=== PATIENT | male | born 1980 | race Caucasian/White ===

== ENCOUNTER 2019-07-20 19:41 | Emergency (ER) | payer SELFPAY ==
[2019-07-20 20:00] VITALS: BP 115/77; PULSE 97; RESP 20; TEMP 37.3; O2SAT 100
[2019-07-20] MEDS: cefTRIAXone 250 MG VIAL IM (20:40)
--- NOTE | 2019-07-20 20:54 | ED.MALEGU ---
HPI - Male Genitourinary General Chief complaint: Urogenital-Male Stated complaint: Possible UTI Time Seen by Provider: 07/20/19 20:54 Source: patient Mode of arrival: ambulatory Limitations: no limitations History of Present Illness HPI Narrative: 39 yo male presents for evaluation of green/yellow penile discharge and dysuria that has been present for 3 days. He is also reporting mild STEINBERG. He states he has had vaginal intercourse with 6 female partners in the past 3 months and over 15 in the past year. Uses condoms sometimes but not regularly. Had gonorrhea in 2016. No medications used recently. Denies any fever, sore throat, lymphadenopathy, rash, confusion, neuro sx, abd pain, testicular pain or swelling, rash or lesions. Related Data Allergies Allergy/AdvReac Type Severity Reaction Status Date / Time No Known Allergies Allergy Verified 07/20/19 20:23 Review of Systems Review of Systems: Narrative: CONSTITUTIONAL: Denies fever, chills, weight loss, or sweats. . ENT: Denies rhinorrhea, congestion, sore throat, or otalgia. CARDIOVASCULAR: Denies chest pain, palpitations, or edema. RESPIRATORY: Denies cough or dyspnea. GASTROINTESTINAL: Denies abdominal pain, nausea, vomiting, or diarrhea. GENITOURINARY: Denies hematuria, urinary frequency, malordous urine. Reports dysuria and penile discharge SKIN: Denies rash or itching. MUSCULOSKELETAL: Denies back pain, joint pain, myalgia, swelling NEUROLOGIC: Denies headache, numbness, or weakness. PSYCHIATRIC: Denies anxiety or depression. All systems reviewed & are unremarkable except as noted in HPI and below PMFSH Comments At the time of my signature, I agree with nursing past medical, surgical, social and family history. There is no relevant family history pertinent to the presenting complaint. Exam Narrative: Exam Narrative: GENERAL: No distress, well appearing, well nourished, alert and calm HEAD: Normocephalic, atraumatic. THROAT: Oropharynx without signs erythema, exudates or lesions. Tonsils not enlarged. NECK: Supple. No lymphadenopathy. RESPIRATORY: Airway patent. Chest clear to auscultation bilaterally. Breath sounds equal bilaterally. No retractions. CARDIOVASCULAR: Regular rate and rhythm. No murmurs, rubs, gallops, or clicks. Capillary refill <2 seconds. GASTROINTESTINAL: Soft, nontender, non-distended. Bowel sounds normoactive. No masses. No organomegaly. : normal male anatomy with normal growth of pubic hair. Thick yellow penile discharge noted at urethral meatus. No testicular pain or swelling noted on exam. No lesions. Bilateral inguinal lymphadenopathy noted that is nontender and mobile. SKIN: Color normal. Warm and dry. No rashes. NEURO: Alert. Motor intact in all extremities. Muscle tone normal. PSYCHIATRIC: Responds appropriately to providers. Course Course Emergency Course: Sent urine specimen off for UA, urine culture, GC, and trich testing Vital Signs Vital signs: Vital Signs Temperature 99.1 F 07/20/19 20:00 Pulse Rate 97 07/20/19 20:00 Respiratory Rate 20 07/20/19 20:00 Blood Pressure 115/77 07/20/19 20:00 Pulse Oximetry 100 07/20/19 20:00 Temperature 99.1 F 07/20/19 20:00 Pulse Rate 97 07/20/19 20:00 Respiratory Rate 20 07/20/19 20:00 Blood Pressure 115/77 07/20/19 20:00 Pulse Oximetry 100 07/20/19 20:00 Reviewed MDM - Male Genitourinary MDM Narrative Medical decision making narrative: Patient is in no acute distress and is non toxic appearing. Patients symptoms consistent with an STI infection, likely gonorrhea. Will treat for gonorrhea, chalymida, and trichimonas. Eductation given on condition and safer sexual practices. Instructed patient to follow up with [facility] for further testing of STI. Patient is appropriate for outpatient management, treatment, and follow up with PCP. Patient is aware of diagnosis, understands and agrees to treatment plan. Patient agrees to follow-up as directed and is aware of reasons to s
== END 2019-07-20 21:15 | disposition home or self-care (01) ==
PROVIDERS: Emergency Provider Nurse Practitioner
DX: A64 Unspecified sexually transmitted disease (principal)
CPT/HCPCS: 81003; 87086; 87491; 87591; 87661; 99213; G0463; J0696

== ENCOUNTER 2025-05-25 11:54 | Emergency (ER) | payer SELFPAY ==
--- OUTSIDE RECORDS SUMMARY | 2025-05-23 18:21 | XMS_ITS | Encounter Summary ---
Author Organization [facility] Healthcare Address [address] [place] [id number] Care Team Providers Care Bull Bucker Name Role Phone No, Physician Primary Care Provider [phone] Miscellaneous, Not In File Unavailable Unava ilable Reason for Visit * Reason Comments Vomiting Encounter Details Date Type Department Care Team (Late st Contact Info) Description 05/23/2025 6:21 PM LOCK MASTER - 05/24/2025 8:14 AM [facility] Emergency [facility] Emergency Department [address] [place] [address] Coreen Ramon MD [address] [place] [address] Quintin Almaraz MD [address] [place] [address] Constipation, unspecified constipation type (Primary Dx) Discharge Disposition: Discharge to home or self care Social History Tobacco Use Types Packs/Day Years Used Date Smoking Tobacco: Every Day Cigarettes Alcohol Use Standard Drinks/Week Comments Never 0 (1 standard drink = 0.6 oz pur e alcohol) Social Connection and Isolation Panel Answer Date Recorded In a typical week, how many times do you talk on the phone with family, friends, or neighbors? Patient declined 04/25/2024 How often do you get togethe r with friends or relatives? Patient declined 04/25/2024 How often do you attend pentecostalism or jain serv ices? Patient declined 04/25/2024 Do you belong to any clubs o r organizations such as pentecostalism groups, unions, fraternal or athletic groups, or school groups? Patient declined 04/25/2024 How often do you attend meet ings of the clubs or organizations you belong to? Patient declined 04/25/2024 Are you , , di vorced, , never , or living with a partner? Never 04/25/2024 Overall Financial Resource Strain (CARDIA) Answe r Date Recorded How hard is it for you to pa y for the very basics like food, housing, medical care, and heating? Hard 04/25/2024 PHQ-2 Answer Date Recorded PHQ-2 Total Score 0 05/01/2025 PRAPARE - Transportation Answer Date Re corded In the past 12 months, has l ack of transportation kept you from medical appointments or from getting medications? Yes 03/30 In the past 12 months, has l ack of transportation kept you from meetings, work, or from getting things needed for daily living? Yes 04/25/2024 Housing Stability Vital Sign Answer Mg e Recorded In the last 12 months, was t here a time when you were not able to pay the mortgage or rent on time? Yes 04/25/2024 Number of Times Moved in the Last Year Not on fi le 04/25/2024 At any time in the past 12 m [facility], were you homeless or living in a nursing home (including now)? Yes 04/25/2024 Social Connection and Isolation Panel Answer Date Recorded In a typical week, how many times do you talk on the phone with family, friends, or neighbors? More than three times a week 05/01/2025 How often do you get togethe r with friends or relatives? More than three times a week 05/01/2025 How often do you attend chur ch or jain services? Never 05/01/2025 Do you belong to any clubs o r organizations such as pentecostalism groups, unions, fraternal or athletic groups, or school groups? No 05/01/2025 How often do you attend meet ings of the clubs or organizations you belong to? Never 05/01/2025 Are you , , di vorced, , never , or living with a partner? Never 05/01/2025 AUDIT-C Answer Date Recorded Q1: How often do you have a drink containing alcohol? Never 04/01/2025 Q2: How many drinks containi ng alcohol do you have on a typical day when you are drinking? Patient does not drink Q3: How often do you have si x or more drinks on one occasion? Never 04/01/2025 Overall Financial Resource Strain (CARDIA) Answe r Date Recorded How hard is it for you to pa y for the very basics like food, housing, medical care, and heating? Very hard 05/01/2025 Hunger Vital Sign Answer Date Recorded Within the past 12 months, y ou worried that your food would run out before you got the money to buy more. Sometimes true Within the past 12 months, t he food you bought just didn't last and you didn't have money to get more. Sometimes true 08/2024 PRAPARE - Transportation Answer Date Re corded In the past 12 months, has l ack of transportation kept you from medical appointments or from getting medications? Yes 08/2024 In the past 12 months, has l ack of transportation kept you from meetings, work, or from getting things needed for daily living? Yes 05/01/2025 Housing Stability Vital Sign Answer Mg e Recorded In the last 12 months, was t here a time when you were not able to pay the mortgage or rent on time? Yes 05/01/2025 In the past 12 months, how m any times have you moved where you were living? 0 05/01/2025 At any time in the past 12 m [facility], were you homeless or living in a nursing home (including now)? Yes 05/01/2025 [facility] Utilities Answer Date Recorded In the past 12 months has e electric, gas, oil, or water company threatened to shut off services in your home? No 05/01/2025 Personal Safety Answer Date Recorded Have you ever been in or are you currently in a harmful physical or emotional relationship or is someone making you feel afraid or unsafe? Denies 05/23/2025 Sex and Gender Information Value Date Recorded Sex Assigned at Not on file Legal Sex Male 3:03 AM LOCK MASTER Gender Identity Not on file Sexual Orientation Not on file documented as of this encounter Last Filed Vital Signs Vital Sign Reading Time Taken Comments Blood Pressure 97/69 05/23/2025 10:15 PM LOCK MASTER Pulse 75 05/23/2025 10:30 PM LOCK MASTER Temperature 36.6 C (97.9 F) 05/23/2025 5:49 PM LOCK MASTER Respiratory Rate 18 05/23/2025 8:05 PM LOCK MASTER Oxygen Saturation 97% 05/23/2025 10:30 PM LOCK MASTER Inhaled Oxygen Concentration - - Weight - - Height - - Body Mass Index - - documented in this encounter Functional Status * Question Answer Date of Assessment Author MAP (mmHg) 79 05/23/2025 10:15 PM LOCK MASTER Done Monse manuel RN * Question Answer Date of Assessment Author Is the patient being treated today because it is known or suspected that they prepared, started, or tried to end their life? No 05/23/2025 5:44 PM LOCK MASTER Heydi Hernández , HOANG * Question Answer Date of Assessment Author 1. In the past month, have y ou wished you were or that you could go to sleep and not wake up? No 05/23/2025 5:44 PM Heydi Cam RN 2. In the past month, have y ou actually had any thoughts of killing yourself? No 05/23/2025 5:44 PM Heydi Cam RN 6. Have you ever done anythi ng, started to do anything, or prepared to do anything to end your life? No 05/23/2025 5:44 PM Heydi Cam RN * Suicide Risk Level Answer Date of Assessment Author No risk level 05/23/2025 5:44 PM Gisele Cam RN * Fall Risk Assessment Tool - MEDFRAT Question Answer Date of Assessment Author Prior Fall Event (Autopopulated from EMR) None found 05/23/2025 5:48 PM Pipap Cam RN History of falling in last 3 months, including since admission 0 05/23/2025 5:48 PM Heydi Cam RN Confusion or disorientation 0 05/23/2025 5: 48 PM Heydi Cam RN Intoxicated or sedated 0 05/23/2025 5:48 PM Heydi Cam RN Impaired gait 0 05/23/2025 5:48 PM Heydi Nagel RN Mobility assist device used 0 05/23/2025 5: 48 PM Heydi Cam RN Altered elimination 0 05/23/2025 5:48 PM CS T Heydi Hernández, HOANG Fall risk score: (1-2 low risk), (3-4 moderate risk), (5 or more high risk) 0 05/23/2025 5:48 PM LOCK MASTER Heydi Hernández RN documented as of this encounter Mental Status * Question Answer Entry Date Author Neuro (WDChloe) WDL 05/23/2025 6:39 PM LOCK MASTER Yuridia Plaza RN documented in this encounter Discharge Instructions * Discharge Instructions* Coreen Ramon MD - 05/24/2025 5:59 [address] Your CT scan showed that you are constipated. Try to eat more fiber, drink more water or take MiraLax daily until regular. Return if worse, increased pain, unable to eat or drink anything, fever or chills. MASTER * Attachments The following attachments cannot be sent through Care Everywhere. 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 1458 capsule 05/09/2025 6 naloxone (NARCAN) 4 mg/actuation spray,non-aerosolIn dications:risk mitigation for opioid overdose Administer 1 spray into affected nostril(s) as needed for opioid reversal Call 911. Administer a single spray in one nostril. Repeat every 3 minutes as needed if no or minimal response. 2 each 05/15/2025 nicotine (NICODERM CQ) 14 mgIndications:Smoki ng Cessation Place 1 patch on the skin daily for 24 hours 30 patch 05/16/2025 5 nicotine polacrilex (NICORETTE) 2 mg gum Chew 1 each (2 mg total) every 2 (two) hours as needed for smoking cessation 100 each 05/15/2025 5 sofosbuvir-velpatas vir (EPCLUSA) 400-100 mg tablet per tabletIndications:C hronic hepatitis C without hepatic coma Take 1 tablet by mouth daily 28 tablet 2 05/09/2025 6 documented as of this encounter Discharge Disposition Disposition Code Departure Means Destination Comment s Discharge to home or self care documented in this encounter ED Notes * Liu Baeza NP - 05/23/2025 5:54 PM CST CHIEF COMPLAINT: Chief Complaint Patient presents with ??? Vomiting HPI 11:16 PM Nolan Zaldivar is a 45 y.o. male presenting to the ED c/o nausea and vomiting. History that is he [facility], from last 3 weeks he has been has been nausea, intermittent vomiting, abdominal pain, generalized weakness, fatigue that is progressively getting worse.He denies any diarrhea, he said that he actually has been constipated. Denies any fever. Denies anychest pain, shortness of breath. Denies any urinary discomfort. Denies other complaint. History provided by patient. PCP: No, Physician PAST MEDICAL HISTORY Past Medical History: Diagnosis Date ??? Hallucinations 05/03/2025 ??? Human immunodeficiency virus (HIV) disease (HCC) HIV Infection - HLA [id number] (-) (Added by SARAHY Conv) PAST SURGICAL HISTORY Past Surgical History: Procedure Laterality Date ??? US GUIDED THORACENTESIS N/A 05/02/2024 FAMILY HISTORY No family history on file. MEDICATIONS GIVEN IN THE ED Medications magnesium citrate oral solution 296 mL (has no administration in time range) polyethylene glycol (MIRALAX) packet 17 g (has no administration in time range) ondansetron (ZOFRAN) injection 4 mg (4 mg intravenous Given 05/23/251845) sodium chloride 0.9% bolus 1,000 mL (0 mL intravenous Stopped 05/23/252004) famotidine (PEPCID) injection 20 mg (20 mg intravenous Given 05/23/251845) ioversoL (OPTIRAY 350) syringe 75 mL (75 mL intravenous Contrast Given 05/23/251948) CURRENT HOME MEDICATIONS Current Facility-Administered Medications: ??? magnesium citrate oral solution 296 mL, 296 mL, oral, Once, Liu Baeza, JULIA ??? polyethylene glycol (MIRALAX) packet 17 g, 17 g, oral, Once, Liu Baeza, JULIA Current Outpatient Medications: ??? albuterol HFA (PROVENTIL HFA,VENTOLIN HFA,PROAIR HFA) 90 mcg/actuation inhaler, Inhale 2 puffs every 6 (six) hours as needed for wheezing, Disp: 1 each, Rfl: 0 ??? dthbhcxycpz-ozzaksxdddfxn-taqroeida (BIKTARVY) 50-200-25 mg tablet, Take 1 tablet by mouth daily, Disp: 30 tablet, Rfl: 11 ??? buprenorphine-naloxone (SUBOXONE) 8-2 mg per film, Place 1 Film under the tongue 3 times a day,Disp: 21 Film, Rfl: 0 ??? dapsone 100 mg tablet, Take 1 tablet (100 mg total) by mouth daily, Disp: 30 tablet, Rfl: 0 ??? itraconazole (SPORANOX) 100 mg capsule, Take 2 capsules (200 mg total) by mouth 3 (three) timesa day for 3 days, THEN 2 capsules (200 mg total) 2 (two) times a day., Disp: 1458 capsule, Rfl: 0 ??? naloxone (NARCAN) 4 mg/actuation spray,non-aerosol, Administer 1 spray into affected nostril(s)as needed for opioid reversal Call 911. Administer a single spray in one nostril. Repeat every 3 minutes as needed if no or minimal response., Disp: 2 each, Rfl: 0 ??? nicotine (NICODERM CQ) 14 mg, Place 1 patch on the skin daily for 24 hours, Disp: 30 patch, Rfl: 0 ??? nicotine polacrilex (NICORETTE) 2 mg gum, Chew 1 each (2 mg total) every 2 (two) hours as needed for smoking cessation, Disp: 100 each, Rfl: 0 ??? sofosbuvir-velpatasvir (EPCLUSA) 400-100 mg tablet per tablet, Take 1 tablet by mouth daily, Disp: 28 tablet, Rfl: 2 ALLERGIES No Known Allergies SOCIAL HISTORY Social History Tobacco Use ??? Smoking status: Every Day Types: Cigarettes ??? Smokeless tobacco: Not on file Substance and Sexual Activity ??? Drug use: Not on file ??? Sexual activity: Not on file Alcohol Use: Not At Risk (04/01/2025) AUDIT-C ??? Frequency of Alcohol Consumption: Never ??? Average Number of Drinks: Patient does not drink ??? Frequency of Binge Drinking: Never PHYSICAL EXAM TRIAGE VITAL SIGNS: ED Triage Vitals Temp Pulse Resp BP SpO2 05/23/25 1749 05/23/25 1747 05/23/25 1747 05/23/25 1747 05/23/25 1747 36.6 ??C (97.9 ??F) 93 20 101/72 96 % Temp src Heart Rate Source Patient Position BP Location FiO2 (%) -- -- -- -- -- Height Height Method Weight Weight Method -- -- -- -- Physical Exam Vitals and nursing note reviewed. Constitutional: General: He is not in acute distress. Appearance: Normal appearance. He is well-developed. He is not ill-appearing, toxic-appearing or diaphoretic. HENT: Head: Normocephalic and atraumatic. Jaw: There is normal jaw occlusion. Right Ear: Hearing and external ear normal. Left Ear: Hearing and external ear normal. Nose: Nose normal. Mouth/Throat: Mouth: Mucous membranes are dry. Eyes: General: Lids are normal. Vision grossly intact. Conjunctiva/sclera: Conjunctivae normal. Neck: Trachea: Trachea and phonation normal. Cardiovascular: Rate and Rhythm: Normal rate and regular rhythm. Pulses: Normal pulses. Radial pulses are 2+ on the right side and 2+ on the left side. Heart sounds: No murmur heard. Pulmonary: Effort: Pulmonary effort is normal. No respiratory distress. Breath sounds: Normal breath sounds and air entry. Abdominal: Palpations: Abdomen is soft. Tenderness: There is generalized abdominal tenderness. Musculoskeletal: General: No swelling. Cervical back: Full passive range of motion without pain, normal range of motion and neck supple. Right lower leg: No edema. Left lower leg: No edema. Skin: General: Skin is warm and dry. Capillary Refill: Capillary refill takes less than 2 seconds. Neurological: General: No focal deficit present. Mental Status: He is alert and oriented to person, place, and time. GCS: GCS eye subscore is 4. GCS verbal subscore is 5. GCS motor subscore is 6. Psychiatric: Mood and Affect: Mood normal. Behavior: Behavior is cooperative. LABS Labs Reviewed URINALYSIS AND REFLEX TO MICROSCOPIC AND CULTURE - Abnormal Result Value Color, ur Yellow Clarity, ur Clear Specific gravity, ur 1.041 (*) pH, urine 7.5 Protein, ur ql Negative Glucose, ur ql Negative Ketones, ur Negative Bilirubin, ur Negative Blood, ur Negative Urobilinogen, ur <2.0 Nitrite, ur Negative Leukocyte esterase, ur Negative UA reflex comment Value: Reflex conditions for microscopic UA and culture not met. COMPREHENSIVE METABOLIC PANEL - Abnormal Sodium 132 (*) Potassium, pl 4.4 Chloride 96 (*) CO2 27 Anion gap 9 BUN 14 Creatinine 0.77 (*) Glucose 102 Calcium 8.8 Bilirubin, total 0.4 Protein, pl 7.3 Albumin 3.7 Alk phos 186 (*) ALT 31 AST 40 CBC WITH AUTO DIFFERENTIAL - Abnormal WBC 5.96 Hgb 8.2 (*) Hct 24.4 (*) Plt 229 MPV 8.1 (*) RBC 2.76 (*) MCV 88.4 MCH 29.7 MCHC 33.6 RDW CV 18.9 (*) RDW SD 59.5 (*) NRBC abs 0.00 DIFFERENTIAL AUTO - Abnormal Neutrophil abs 3.73 Imm gran abs 0.13 (*) Lymphocyte abs 1.05 Monocyte abs 0.80 Eosinophil abs 0.17 Basophil abs 0.08 Neutrophil pct 62.6 Imm gran pct 2.2 Lymphocyte pct 17.6 Monocyte pct 13.4 Eosinophil pct 2.9 Basophil pct 1.3 INFLUENZA A/B, RSV, AND COVID-19 PCR COVID-19 RNA Negative Influenza A RNA Negative Influenza B RNA Negative RSV RNA Negative Narrative: Is the Patient experiencing symptoms consistent with COVID?->Yes DRUGS OF ABUSE SCREEN, URINE WITHOUT CONFIRMATION Amphetamine, ur Not Detected Barbiturates, ur Not Detected Benzodiazepines, ur Not Detected Cannabinoids, ur Not Detected Cocaine, ur Not Detected Fentanyl, Ur Not Detected Methadone, ur Not Detected Opiates, ur Not Detected Oxycodone, ur NOT DETECTED Phencyclidine, ur Not Detected Urine Creatinine 43 Narrative: Drug of Abuse screening is performed by immunoassay for medical purposes only. This is not to be used for Pain Management purposes. LIPASE Lipase 39 EGFR eGFR >90 LIPASE RADIOLOGY XR Chest 1 View Result Date: 05/02/2025 Narrative: EXAMINATION: 1 view chest radiograph COMPARISON: Radiograph 04/26/[address] 04/27/2025 Impression: Lungs are clear. No pneumonia or other pulmonary disease identified. Small nodular opacity projecting in the right midlung likely represents a nipple shadow. Stable cardiomediastinal silhouette. No pleural effusion or pneumothorax. Electronically signed by: Teo Cuellar M.D. US RUQ Result Date: 04/27/2025 Narrative: EXAMINATION: US RUQ HISTORY: elevated liver enzymes. TECHNIQUE: Ultrasound of the right upper quadrant of the abdomen was performed with grayscale and color doppler. COMPARISON: CT dated 04/27/2025 FINDINGS: PANCREAS: Visualized portions of the pancreas are within normal limits. Portionsof the pancreatic body and tail are obscured due to bowel gas. LIVER: The liver is enlarged measuring 19.7 cm. The liver appears normal in echotexture and echogenicity. No focal lesion identified. The main portal vein is patent with antegrade flow. GALLBLADDER: The gallbladder appears unremarkable.No cholelithiasis. No gallbladder wall thickening or pericholecystic fluid. No positive sonographicMurphy's sign reported. BILIARY: There is no intrahepatic or extrahepatic biliary ductal dilatation. Common bile duct measures 0.3 cm cm in diameter. RIGHT KIDNEY: Normal size. Normal echogenicity. No solid mass or cyst. No hydronephrosis. Measures 11.9 cm in length. OTHER: Trace ascites. Small right pleural effusion Impression: Hepatomegaly Trace ascites Trace right pleural effusion Unremarkable gallbladder Electronically signed by: Eddie Rosado M.D. CT Chest Abdomen Pelvis WO Contrast Result Date: 04/27/2025 Narrative: EXAMINATION: CT CHEST ABDOMEN PELVIS WO CONTRAST ORDERING HEALTHCARE PROVIDER: NIKKI SALGADO HISTORY: sepsis TECHNIQUE: CT of the chest, abdomen, and pelvis was performed without IV contrast. Oral contrast was not administered. Automated exposure control was used as a dose optimization technique for this examination. COMPARISON: CT chest 04/20/2025; CT chest abdomen pelvis 04/24/2024 FINDINGS: The sensitivity for detection of visceral lesions is diminished without the use of intravenous contrast. CHEST LUNGS: Mild respiratory motion artifact degrades the evaluation. There is a small right and trace left pleural effusion. There is no pneumothorax. There are innumerable tiny micronodules scattered throughout both lungs, predominantly in the right central lung zone. There isunchanged 3 mm nodule in the right upper lobe on image 42. There is an unchanged 4 mm solid nodule in the right middle lobe on image 64. A curvilinear opacity in the left upper lobe near image 40 appears grossly unchanged. This could represent an area of mucous plugging and postobstructive atelectasis. In the right middle lobe there is an additional curvilinear opacity anteriorly near the diaphragm which could represent atelectasis or pneumonia. HEART: Normal heart size without pericardial effusion. There is low-attenuation of the intravascular blood pool which can be seen in setting of anemia. VASCULATURE: No thoracic aortic aneurysm. MEDIASTINUM/AXILLA: No mediastinal mass or enlarged lymph nodes. There are multiple prominent left axillary lymph nodes which appear unchanged. CHEST WALL:No masses. HARDWARE/LINES/TUBES: None. MUSCULOSKELETAL: No suspicious osseous lesions. ABDOMEN/PELVIS LIVER: Unremarkable. No suspicious lesion. GALLBLADDER: Unremarkable. SPLEEN: Enlarged measuring 13.7 cm in craniocaudad dimension. PANCREAS: Unremarkable. No obvious mass or inflammatory change. No duct dilatation. ADRENALS: Normal. KIDNEYS/URINARY TRACT: No stones. No obvious renal lesions. No hydronephrosis or hydroureter. Urinary bladder is unremarkable. GI: No dilated or thick-walled loopsof bowel appreciated. No sign of appendicitis. Large amount stool throughout the colon. PERITONEUM/RETROPERITONEUM/LYMPH NODES: There is a small amount of free fluid in the pelvis. No pneumoperitoneum. REPRODUCTIVE: Unremarkable. VASCULATURE: No abdominal aortic aneurysm. MUSCULOSKELETAL: No suspicious osseous lesions. OTHER: No other acute findings. Impression: 1. New small bilateral pleural effusions. 2. Nonspecific atypical infectious or inflammatory process with bilateral pulmonary micronodules and curvilinear opacities in the right middle and left upper lobes. Recommend follow-up in 3 months. 3. Unchanged 3 mm and 4 mm solid pulmonary nodules in the right upper and right middle lobes. 4. Small amount of free fluid in the pelvis, abnormalin a male. 5. Splenomegaly. 6. Multiple prominent but nonenlarged left axillary lymph nodes. Electronically signed by: John Costello MD XR CHEST 1 VIEW PORTABLE Addendum Date: 04/26/2025 Addendum: In the findings section, there is a voice recognition error. The correct statement shouldstate: there is no definite evidence of a pneumothorax. Electronically signed by: Elisa Aguirre D.O. Result Date: 04/26/2025 Narrative: STUDY DESCRIPTION: XR CHEST 1 VIEW ORDERING HEALTHCARE PROVIDER: HO LUNA CLINICAL INDICATIONS: persistent fevers, cough. Persistent fevers and cough. COMPARISON: 04/19/2025 TECHNIQUE: Single frontal radiograph of the chest. FINDINGS: The heart size is stable. The pulmonary vasculature and mediastinum are grossly stable. There is definite evidence of a pneumothorax. There are patchy right basilar airspace opacities. There is no definite evidence of a pleural effusion. The osseous structures are acutely grossly stable. Impression: 1. Patchy bibasilar airspace opacities, which is concerning for developing airspace disease. Electronically signed by: Elisa Aguirre D.O. Transthoracic Echo (TTE) Complete W Doppler/CF Result Date: 04/24/2025 Narrative: [address] [address] Echocardiogram Report Patient Name: NOLAN ZALDIVAR : 1980 Study Date: 53:15:23 PM Sex: M Tech: Location: [place] [address] Ref Provider: NAYA SANDERSON Height(Cm): BSA: Weight(Kg): Quality: Good Order Provider: NAYA SANDERSON PROCEDURES: Echocardiographic Report: Transthoracic echocardiogram with complete 2D, M-Mode, and color Doppler examination. INDICATIONS: Hypotension. MEASUREMENTS: 2D/MM Value Range Doppler Value Range EF Teich 2D 63.1 % [ 52.0 - 72.0 ] JOSEPH Vmax 3.02 cm2 EFMod BP 65 % [ 52 - 72 ] AV Mean PG 7 mmHg LVIDd 2D 4.52 cm [ 4.20 - 5.80 ] AV Peak Matthew 1.69 m/s [ 1.00 - 1.70 ] LVIDs 2D 2.98 cm [ 2.50 - 4.00 ] AV VTI 28.53 cm LVPWd 2D 1.06 cm [ 0.60 - 1.00 ] LVOTDiam 2.13 cm IVSd 2D 0.99 cm [ 0.60 - 1.00 ] LVOT Peak Matthew 1.44 m/s [ 0.70 - 1.10 ] LA Dimension MM 4.06 cm [ 3.00 - 4.00 ] LVOT VTI 23.41 cm AoR Diam MM 3.23 cm [ 3.10 - 3.70 ] MV E Peak Matthew 0.96 m/s [ 0.60 - 1.30 ] ACS MM 2.12 cm [ 1.50 - 2.60 ] MV A Peak Matthew 0.64 m/s [ 1.00 - 1.20 ] MV Mean PG3 mmHg MV PHT 40 msec [ 20 - 100 ] MVA 3.40 MV Decel Time 138 msec [ 104 - 258 ] PV Peak Matthew 1.23 m/s [ 0.40 - 0.80 ] MO Peak Matthew 0.97 m/s TR Peak Matthew 1.89 m/s [ 1.00 - 2.80 ] TR Peak PG 14 mmHg RVSP 19.00 mmHg [ 10.00 - 36.00 ] E` 0.10 m/s E/E` 9.97 [ <= 10.00 ] PA Pressure 5.00 mmHg [ 10.00 -36.00 ] 2D/MM Value Range Doppler Value Range - FINDINGS: Atrial Septum: Normal atrial septum. Left Ventricle: Normal left ventricular systolic function with no focal wall motion abnormalities. Normal left ventricular size. Normal left ventricular wall thickness. Normal leftventricular diastolic function. Ejection fraction is measured at 65 %. Left Atrium: There is mild enlargement of left atrium. Right Ventricle: Normal right ventricular size. Normal right ventricular systolic function. Right Atrium: The right atrium is normal in size. Aortic Valve: Normal structure of the aortic valve. Mitral Valve: Normal structure of the mitral valve. Pulmonic Valve: Pulmonic valve not well visualized. Tricuspid Valve: Normal structure of the tricuspid valve. Right VentricularSystolic Pressure could not be estimated due to inadequate visualization of TR jet. Pericardium: Normal pericardium with no significant pericardial effusion. Aorta: Normal aortic root. Sinus of Valsalva is normal. Aortic arch is normal. Descending aorta is normal. IVC: Normal size and normal respiratory collapse consistent with normal right atrial pressure (<5 mmHg). CON CLUSIONS: Normal left ventricular systolic function with no focal wall motion abnormalities. Normalleft ventricular size. Normal left ventricular wall thickness. Normal left ventricular diastolic function. Ejection fraction is measured at 65 %. Normal right ventricular size. Normal right ventricular systolic function. Normal structure of the mitral valve. Normal structure of the aortic valve. Normal structure of the tricuspid valve. Right Ventricular Systolic Pressure could not be estimated due to inadequate visualization of TR jet. 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 From last 2-3 weeks he has been feeling nausea did not all the time, has been intermittent vomiting, constipated, abdominal pain, generalized weakness, fatigue that is progressively getting worse. By: Liu Baeza NP Time: 05/23 1758 Comment: On exam he does not appear to be in distress, vitals unremarkable, lung sounds are clear, does have diffuse tenderness on palpitation. By: Liu Baeza NP Time: 05/23 1832 Comment: Labs are grossly unremarkable. CBC has a chronic anemia, hemoglobin at baseline, CMP showsmild hyponatremia, By: Liu Baeza NP Time: 05/23 2221 Comment: CT abdomen pelvis does not show any acute finding, does show constipation. By: Liu Baeza NP Time: 05/23 264 Comment: I spoke with the Evangelina at warm handoff she suggested that is less keep the patient in theED overnight and she will come and lemon picker the patient from ED and dropped him to rehab place. I spoke with the patient, he is agreeable to this. By: Liu Baeza NP Time: 05/24 2121 Comment: Dr. Almaraz will assume care of the patient at shift change. By: Coreen Ramon MD Procedures FINAL IMPRESSION Constipation, unspecified constipation type DISPOSITION: Home PATIENT INSTRUCTED TO FOLLOW UP No follow-up provider specified. DISCHARGE MEDICATIONS Your medication list ASK your doctor about these medications Instructions Last Dose Given Next Dose Due albuterol HFA 90 mcg/actuation inhaler Commonly known as: PROVENTIL HFA,VENTOLIN HFA,PROAIR HFA 2 puffs, inhalation, Every 6 hours PRN vuraojllvnu-simuhsqofzbpc-rjpvyljof 50-200-25 mg tablet Doctor's comments: Bring to bedside prior to discharge ~05/15 Commonly known as: BIKTARVY 1 tablet, oral, Daily buprenorphine-naloxone 8-2 mg per film Commonly known as: SUBOXONE 1 Film, sublingual, 3 times daily dapsone 100 mg tablet 100 mg, oral, Daily itraconazole 100 mg capsule Doctor's comments: Bring to bedside prior to discharge ~05/15 Commonly known as: SPORANOX Start taking on: May 09, 2025 Take 2 capsules (200 mg total) by mouth 3 (three) times a day for 3 days, THEN 2 capsules (200 mg total) 2 (two) times a day. naloxone 4 mg/actuation spray,non-aerosol Commonly known as: NARCAN 1 spray, nasal, As needed, Call 911. Administer a single spray in one nostril. Repeat every 3 minutes as needed if no or minimal response. nicotine 14 mg Commonly known as: NICODERM CQ 1 patch, transdermal, Daily nicotine polacrilex 2 mg gum Commonly known as: NICORETTE 2 mg, mouth/throat, Every 2 hours PRN sofosbuvir-velpatasvir 400-100 mg tablet per tablet Doctor's comments: Bring to bedside prior to discharge ~05/15 Commonly known as: EPCLUSA 1 tablet, oral, Daily This examination was transcribed using the [employer] voice recognition system without human branch service leader. In an effort to expedite patient care, this report has not been adjusted for typographical, grammatical, and syntax by a trained medical lab tech instructor. Liu Baeza NP 05/23/25 5038 MASTER * Heydi Hernández RN - 05/23/2025 5:45 PM CST Pt to triage for vomiting for 3 weeks. Pt states he has been in rehab for drug abuse. Pt states he has been clean from meth and fentanyl since 04/19. MASTER documented in this encounter Miscellaneous Notes * ED Re-evaluation Note - Quintin Almaraz MD - 05/24/2025 7:10 AM LOCK MASTER ED Re-evaluation Patient is stable for discharge. Labs Reviewed URINALYSIS AND REFLEX TO MICROSCOPIC AND CULTURE - Abnormal Result Value Color, ur Yellow Clarity, ur Clear Specific gravity, ur 1.041 (*) pH, urine 7.5 Protein, ur ql Negative Glucose, ur ql Negative Ketones, ur Negative Bilirubin, ur Negative Blood, ur Negative Urobilinogen, ur <2.0 Nitrite, ur Negative Leukocyte esterase, ur Negative UA reflex comment Value: Reflex conditions for microscopic UA and culture not met. COMPREHENSIVE METABOLIC PANEL - Abnormal Sodium 132 (*) Potassium, pl 4.4 Chloride 96 (*) CO2 27 Anion gap 9 BUN 14 Creatinine 0.77 (*) Glucose 102 Calcium 8.8 Bilirubin, total 0.4 Protein, pl 7.3 Albumin 3.7 Alk phos 186 (*) ALT 31 AST 40 CBC WITH AUTO DIFFERENTIAL - Abnormal WBC 5.96 Hgb 8.2 (*) Hct 24.4 (*) Plt 229 MPV 8.1 (*) RBC 2.76 (*) MCV 88.4 MCH 29.7 MCHC 33.6 RDW CV 18.9 (*) RDW SD 59.5 (*) NRBC abs 0.00 DIFFERENTIAL AUTO - Abnormal Neutrophil abs 3.73 Imm gran abs 0.13 (*) Lymphocyte abs 1.05 Monocyte abs 0.80 Eosinophil abs 0.17 Basophil abs 0.08 Neutrophil pct 62.6 Imm gran pct 2.2 Lymphocyte pct 17.6 Monocyte pct 13.4 Eosinophil pct 2.9 Basophil pct 1.3 INFLUENZA A/B, RSV, AND COVID-19 PCR COVID-19 RNA Negative Influenza A RNA Negative Influenza B RNA Negative RSV RNA Negative Narrative: Is the Patient experiencing symptoms consistent with COVID?->Yes DRUGS OF ABUSE SCREEN, URINE WITHOUT CONFIRMATION Amphetamine, ur Not Detected Barbiturates, ur Not Detected Benzodiazepines, ur Not Detected Cannabinoids, ur Not Detected Cocaine, ur Not Detected Fentanyl, Ur Not Detected Methadone, ur Not Detected Opiates, ur Not Detected Oxycodone, ur NOT DETECTED Phencyclidine, ur Not Detected Urine Creatinine 43 Narrative: Drug of Abuse screening is performed by immunoassay for medical purposes only. This is not to be used for Pain Management purposes. LIPASE Lipase 39 EGFR eGFR >[address] Abdomen Pelvis W Contrast Final Result 1. No acute inflammatory change of the abdomen and pelvis. No bowel obstruction or inflammatory change of bowel. 2. There is fairly prominent stool seen throughout the entire colon with no obstruction. Electronically signed by: Rehan Love Thomas S., MD 05/24/25 0711 MASTER * ED Re-evaluation Note - Coreen Ramon MD - 05/24/2025 2:01 AM CST ED Re-evaluation Assumed care of patient from [facility]. 45 y/o M with abdominal pain. Work up showed constipation here and he received mag citrate here. Last use 3 weeks. No SI/HI Evangelina will pick him up in the am and bring him back to [place]. Hx of fentanyl, meth abuse. [facility] Vitals: 05/23/25 2215 05/23/25 2220 05/23/25 2225 05/23/25 2230 BP: 97/69 Pulse: 76 76 77 75 Resp: Temp: SpO2: 99% 97% 97% 97% PE: NAD, no resp distress Results for orders placed or performed during the hospital encounter of 05/23/25 Comprehensive metabolic panel Collection Time: 05/23/25 5:56 PM Result Value Ref Range Sodium 132 (L) 135 - 145 mmol/L Potassium, pl 4.4 3.3 - 4.9 mmol/L Chloride 96 (L) 97 - 110 mmol/L CO2 27 22 - 32 mmol/L Anion gap 9 2 - 15 mmol/L BUN 14 6 - 25 mg/dL Creatinine 0.77 (L) 0.80 - 1.30 mg/dL Glucose 102 70 - 199 mg/dL Calcium 8.8 8.5 - 10.3 mg/dL Bilirubin, total 0.4 0.1 - 1.2 mg/dL Protein, pl 7.3 6.5 - 8.5 g/dL Albumin 3.7 3.5 - 5.0 g/dL Alk phos 186 (H) 40 - 130 Units/L ALT 31 7 - 55 Units/L AST 40 10 - 50 Units/L CBC with auto differential Collection Time: 05/23/25 5:56 PM Result Value Ref Range WBC 5.96 3.80 - 9.90 K/cumm Hgb 8.2 (L) 13.0 - 17.5 g/dL Hct 24.4 (L) 38.9 - 50.3 % Plt 229 150 - 400 K/cumm MPV 8.1 (L) 9.1 - 12.3 fL RBC 2.76 (L) 4.30 - 5.80 M/cumm MCV 88.4 81.3 - 96.4 fL MCH 29.7 27.1 - 33.3 pg MCHC 33.6 32.3 - 35.7 g/dL RDW CV 18.9 (H) 11.1 - 14.9 % RDW SD 59.5 (H) 35.7 - 48.1 fL NRBC abs 0.00 0.00 - 0.01 K/cumm Differential, auto Collection Time: 05/23/25 5:56 PM Result Value Ref Range Neutrophil abs 3.73 1.50 - 6.50 K/cumm Imm gran abs 0.13 (H) 0.00 - 0.10 K/cumm Lymphocyte abs 1.05 0.80 - 3.30 K/cumm Monocyte abs 0.80 0.20 - 0.80 K/cumm Eosinophil abs 0.17 0.00 - 0.50 K/cumm Basophil abs 0.08 0.00 - 0.10 K/cumm Neutrophil pct 62.6 % Imm gran pct 2.2 % Lymphocyte pct 17.6 % Monocyte pct 13.4 % Eosinophil pct 2.9 % Basophil pct 1.3 % Lipase Collection Time: 05/23/25 5:56 PM Result Value Ref Range Lipase 39 10 - 99 Units/L eGFR Collection Time: 05/23/25 5:56 PM Result Value Ref Range eGFR >90 >=60 mL/min/1.73 m2 Urinalysis reflex to microscopic and culture Urine Collection Time: 05/23/25 8:32 PM Specimen: Urine Result Value Ref Range Color, ur Yellow Yellow Clarity, ur Clear Clear Specific gravity, ur 1.041 (H) 1.003 - 1.030 pH, urine 7.5 Protein, ur ql Negative Negative Glucose, ur ql Negative Negative Ketones, ur Negative Negative Bilirubin, ur Negative Negative Blood, ur Negative Negative Urobilinogen, ur <2.0 <2.0 mg/dL Nitrite, ur Negative Negative Leukocyte esterase, ur Negative Negative UA reflex comment Reflex conditions for microscopic UA and culture not met. Drugs of Abuse Screen, Urine without Confirmation Collection Time: 05/23/25 8:32 PM Result Value Ref Range Amphetamine, ur Not Detected CutOff 500ng/mL Barbiturates, ur Not Detected CutOff 200ng/mL Benzodiazepines, ur Not Detected CutOff 100ng/mL Cannabinoids, ur Not Detected CutOff 50 ng/mL Cocaine, ur Not Detected CutOff 150ng/mL Fentanyl, Ur Not Detected CutOff 5 ng/mL Methadone, ur Not Detected CutOff 300ng/mL Opiates, ur Not Detected CutOff 300ng/mL Oxycodone, ur NOT DETECTED CutOff 100ng/mL Phencyclidine, ur Not Detected CutOff 25 ng/mL Urine Creatinine 43 mg/dL Influenza A/B, RSV, and COVID-19 PCR Nasopharyngeal Collection Time: 05/23/25 9:20 PM Specimen: Nasopharyngeal Result Value Ref Range COVID-19 RNA Negative Negative Influenza A RNA Negative Negative Influenza B RNA Negative Negative RSV RNA Negative Negative CT Abdomen Pelvis W Contrast Final Result 1. No acute inflammatory change of the abdomen and pelvis. No bowel obstruction or inflammatory change of bowel. 2. There is fairly prominent stool seen throughout the entire colon with no obstruction. Electronically signed by: Ganesh Koch M.D. ED Course as of 05/24/25 0433 Time: 05/23 8836 Comment: He is in drug rehab from last over 3 weeks, he was doing fentanyl meth, he has not been doing that has drug from over a month. From last 2-3 weeks he has been feeling nausea did not all the time, has been intermittent vomiting, constipated, abdominal pain, generalized weakness, fatigue that is progressively getting worse. By: Liu Baeza NP Time: 05/23 117 Comment: On exam he does not appear to be in distress, vitals unremarkable, lung sounds are clear, does have diffuse tenderness on palpitation. By: Liu Baeza NP Time: 05/23 451 Comment: Labs are grossly unremarkable. CBC has a chronic anemia, hemoglobin at baseline, CMP showsmild hyponatremia, By: Liu Baeza NP Time: 05/23 570 Comment: CT abdomen pelvis does not show any acute finding, does show constipation. By: Liu Baeza NP Time: 05/23 5799 Comment: I spoke with the Evangelina at warm handoff she suggested that is less keep the patient in theED overnight and she will come and lemon picker the patient from ED and dropped him to rehab place. I spoke with the patient, he is agreeable to this. By: Liu Baeza NP Time: 05/24 432 Comment: Dr. Almaraz will assume care of the patient at shift change. By: Coreen Ramon MD 45 y/o M with nausea and emesis. Coming from [place]. Pt has had intermittent nausea and emesis and fatigue. Pt denies diarrhea. Labs are within normal limits and CT shows constipation, no obstruction. Pt has had miralax and mag citrate here. PROFESSOR OF ECONOMICS Liu has discussed with Evangelina from warm handoff and she will pick him up in the morning. Diagnosis: 1. Constipation, unspecified constipation type Disposition: discharge with warm handoff Coreen Ramon MD 05/24/25436 MASTER documented in this encounter Plan of Treatment Pending Results Name Type Priority Associated Diagnoses Date /Time Lipase Lab STAT 05/23/2025 5:5 6 PM LOCK MASTER Scheduled Orders Name Type Priority Associated Diagnoses Orde r Schedule Lipase Lab STAT Once for 1 Occ urrences starting 05/23/2025 until 05/23/2025 documented as of this encounter Procedures Procedure Name Priority Date/Time Associated Diagnosis Comments INFLUENZA A/B, RSV, AND COVID-19 PCR STAT 05/23/2025 9:20 PM LOCK MASTER URINALYSIS AND REFLEX TO MICROSCOPIC AND CULTURE STAT 05/23/2025 8:32 PM LOCK MASTER DRUGS OF ABUSE SCREEN, URINE WITHOUT CONFIRMATION STAT 05/23/2025 8:[address] ABDOMEN PELVIS W CONTRAST ED 05/23/2025 7:54 PM LOCK MASTER EGFR STAT 05/23/2025 5:56 PM LOCK MASTER DIFFERENTIAL AUTO STAT 05/23/2025 5:5 6 PM LOCK MASTER CBC WITH AUTO DIFFERENTIAL STAT 05/23/2025 5:56 PM LOCK MASTER LIPASE STAT 05/23/2025 5:56 PM LOCK MASTER COMPREHENSIVE METABOLIC PANEL STAT 05/23/2025 5:56 PM LOCK MASTER documented in this encounter Results * Influenza A/B, RSV, and COVID-19 PCR Nasopharyngeal (05/23/2025 9:20 PM LOCK MASTER) COVID-19 RNA Negative Negative Influenza A RNA Negative Negative [facility] ([place] Influenza B RNA Negative Negative [facility] ([place] RSV RNA Negative Negative [facility] Comment: Interpretive data: Testing performed by [facility]. This test is performed using the [employer] Xpert Xpress CoV-2/Flu/RSV plus assay. This is a multiplex, real- time reverse transcriptase PCR assay intended for the qualitative detection of nucleic acid from SARS-CoV-2, influenza A, influenza B, and respiratory syncytial virus. This assay has been cleared by the [place] Food and Drug administration. The performance characteristics have been verified by the [facility]. Results must be considered in the clinical context, and a negative result does not rule out infection. Interpretive Data last revised 2023 Nasopharyngeal 05/23/2025 9: 20 PM LOCK MASTER 05/23/2025 9:22 PM LOCK MASTER Narrative [facility] ([place]) - 05/23/2025 10:23 PM LOCK MASTER Is the Patient experiencing symptoms consistent with COVID?->Yes Liu Baeza NP LAB MICROBIOLOGY - GENERAL ORDER JAMI Final Result [facility] ([place]) 1 [facility] Department [place] [address] * Drugs of Abuse Screen, Urine without Confirmation (05/23/2025 8:32 PM LOCK MASTER) Amphetamine, ur Not Detected CutOff 500ng/mL Comment: Interpretive Data - Amphetamines: Samples containing greater than 500 ng/mL d-methamphetamine or other cross-reacting amphetamine compounds are reported as positive. Amphetamine immunoassays are subject to significant false positive rates due to cross-reactivity of non-amphetamine drugs. Confirmatory testing required for definitive results. Current Interpretive Data was last reviewed 2023. Barbiturates, ur Not Detected CutOff 200ng/mL [facility] ([place]) Comment: Interpretive Data - Barbiturates: Samples containing greater than 200 ng/mL secobarbital or other cross-reacting barbiturate compounds are reported as positive. False positive and false negative results are possible. Confirmatory testing required for definitive results. Current Interpretive Data was last reviewed 2023. Benzodiazepines, ur Not Detected CutOff 100ng/mL [facility] ([place]) Comment: Interpretive Data - Benzodiazepines: Samples containing greater than 100 ng/mL nordiazepam or other cross-reacting compounds are reported as positive. False positive and false negative results are possible. Confirmatory testing required for definitive results. Current Interpretive Data was last reviewed 2023. Cannabinoids, ur Not Detected CutOff 50 ng/mL [facility] ([place]) Comment: Interpretive Data - Cannabinoids: Samples containing greater than 50 ng/mL delta-9 THC -COOH or other cross- reacting compounds are reported as positive. False positive and false negative results are possible. Confirmatory testing required for definitive results. Current Interpretive Data was last reviewed 2023. Cocaine, ur Not Detected CutOff 150ng/mL [facility] ([place]) Comment: Interpretive Data - Cocaine: Samples containing greater than 150 ng/mL benzoylecgonine or other cross- reacting compounds are reported as positive. False positive and false negative results are possible. Confirmatory testing required for definitive results. Current Interpretive Data was last reviewed 2023. Fentanyl, Ur Not Detected CutOff 5 ng/mL [facility] ([place]) Comment: Interpretive Data - Fentanyl: Samples containing greater than 5 ng/mL norfentanyl, fentanyl, or other cross-reacting fentanyl compounds are reported as positive. False positive and false negative results are possible. Confirmatory testing required for definitive results. Current Interpretive Data was last reviewed 2023. Methadone, ur Not Detected CutOff 300ng/mL [facility] ([place]) Comment: Interpretive Data - Methadone: Samples containing greater than 300 ng/mL d,l-methadone or other cross-reacting compounds are reported as positive. False positive and false negative results are possible. Confirmatory testing required for definitive results. Current Interpretive Data was last reviewed 2023. Opiates, ur Not Detected CutOff 300ng/mL [facility] ([place]) Comment: Interpretive Data - Opiates: Samples containing greater than 300 ng/mL morphine or other cross-reacting compounds are reported as positive. False positive and false negative results are possible. Confirmatory testing required for definitive results. Current Interpretive Data was last reviewed 2023. Oxycodone, ur NOT DETECTED CutOff 100ng/mL [facility] ([place]) Comment: Interpretive Data - Oxycodone: Samples containing greater than 100 ng/mL oxycodone or other cross-reacting compounds are reported as positive. False positive and false negative results are possible. Confirmatory testing required for definitive results. Current Interpretive Data was last reviewed 2023. Phencyclidine, ur Not Detected CutOff 25 ng/mL [facility] ([place]) Comment: Interpretive Data - Phencyclidine: Samples containing greater than 25 ng/mL phencyclidine or other cross-reacting compounds are reported as positive. False positive and false negative results are possible. Confirmatory testing required for definitive results. Current Interpretive Data was last reviewed 2023. Urine Creatinine 43 mg/dL [facility] ([place]) Comment: Interpretive Data Urine Creatinine: < 10 mg/dL is extremely dilute = or > 10 but < 20 mg/dL is dilute = or > 20 mg/dL is normal Current Interpretive Data was last revised on 2017. Urine 05/23/2025 8:32 PM LOCK MASTER 05/23/2025 8:37 PM LOCK MASTER Narrative [facility] ([place]) - 05/23/2025 9:10 PM LOCK MASTER Drug of Abuse screening is performed by immunoassay for medical purposes only. This is not to be used for Pain Management purposes. us Liu Baeza NP LAB URINE ORDERABLES Final Resul t [facility] ([place]) 1 [facility] Department [place] [address] * (ABNORMAL) Urinalysis reflex to microscopic and culture Urine (05/23/2025 8:32 PM LOCK MASTER) Color, ur Yellow Yellow Clarity, ur Clear Clear [facility] ([place]) Specific gravity, ur 1.041(H) 1.003 - 1.030 [facility] ([place]) pH, urine 7.5 [facility] ([place]) Comment: Interpretive Data U rine pH is affected by diet, medications, systemic acid-base disturbances, and renal tubular function. pH may affect urinary stone formation. For example, urine pH below 6.0 may help reduce the tendency for calcium phosphate stones and pH greater than 6.0 may reduce the tendency for uric acid stone formation. Source: [facility] [id number] Current Interpretive Data was last revised on 2017 Protein, ur ql Negative Negative [facility] ([place]) Glucose, ur ql Negative Negative [facility] ([place]) Ketones, ur Negative Negative [facility] ([place]) Bilirubin, ur Negative Negative [facility] ([place]) Blood, ur Negative Negative [facility] ([place]) Urobilinogen, ur <2.0 <2.0 mg/dL [facility] ([place]) Nitrite, ur Negative Negative [facility] ([place]) Leukocyte esterase, ur Negative Negative [facility] ([place]) UA reflex comment Reflex conditions for microscopic UA and culture not met. [facility] ([place]) Urine 05/23/2025 8:32 PM LOCK MASTER 05/23/2025 8:37 PM LOCK MASTER Liu Baeza NP LAB MICROBIOLOGY - GENERAL ORDER JAMI Final Result [facility] ([place]) 1 [facility] Department [place] [address] * CT Abdomen Pelvis W Contrast (05/23/2025 7:54 PM LOCK MASTER) Anatomical Region Laterality Modality Body N/A Computed Tomogra phy 05/23/2025 9:09 PM LOCK MASTER Impressions 05/23/2025 9:09 PM LOCK MASTER 1. No acute inflammatory change of the abdomen and pelvis. No bowel obstruction or inflammatory change of bowel. 2. There is fairly prominent stool seen throughout the entire colon with no obstruction. Electronically signed by: Ganseh Koch M.D. Narrative 05/23/2025 9:09 PM LOCK MASTER EXAMINATION: CT ABDOMEN PELVIS W CONTRAST ORDERING HEALTHCARE PROVIDER: LIU BAEZA HISTORY: Abdominal pain, acute, nonlocalized. TECHNIQUE: CT abdomen and pelvis without contrast . Reconstructed coronal and sagittal MPR images reviewed. All images stored on PACS. Automated exposure control was used as a dose optimization technique for this examination. COMPARISON: Prior CT 04/27/2025 and 04/24/2024 FINDINGS: The sensitivity for detection of visceral lesions is diminished without the use of intravenous contrast. LOWER CHEST: Limited view through the lung base demonstrates no infiltrate or effusion. Trace pericardial effusion. Normal heart size. LIVER: Normal in size. No identified cystic or solid masses. GALLBLADDER: No stones. BILIARY: No intrahepatic or extrahepatic ductal dilatation. SPLEEN: Normal length. No focal lesions. PANCREAS: No identified cystic or solid masses. No significant calcifications. No adjacent inflammation or peripancreatic fluid collections. Pancreatic duct is not dilated. ADRENALS: No discrete nodules. KIDNEYS/URINARY TRACT: No identified significant cystic or solid masses. No stones. No hydronephrosis or hydroureter. The urinary bladder is unremarkable. GI: There is prominent stool seen throughout the entire colon with no obstruction. There is no acute inflammatory change of bowel. No inflammatory policy change clerks supervisor the appendix. The stomach and loops of small bowel are unremarkable. PERITONEUM: No free intraperitoneal air or ascites. Small lymph nodes are again seen about the bilateral groin as was previously seen. These may be reactive. No significant change from 04/24/2024. RETROPERITONEUM:No mass or adenopathy REPRODUCTIVE:No significant abnormality VASCULATURE: No abdominal aortic aneurysm. MUSCULOSKELETAL: No acute findings. Grade 1 anterolisthesis L5 on S1 with no pars defect. No change. OTHER: No other acute findings. Procedure Note Ganesh Koch MD - 05/23/2025 EXAMINATION: CT ABDOMEN PELVIS W CONTRAST ORDERING HEALTHCARE PROVIDER: LIU BAEZA HISTORY: Abdominal pain, acute, nonlocalized. TECHNIQUE: CT abdomen and pelvis without contrast . Reconstructed coronal and sagittal MPR images reviewed. All images stored on PACS. Automated exposure control was used as a dose optimization technique for this examination. COMPARISON: Prior CT 04/27/2025 and 04/24/2024 FINDINGS: The sensitivity for detection of visceral lesions is diminished without the use of intravenous contrast. LOWER CHEST: Limited view through the lung base demonstrates no infiltrate or effusion. Trace pericardial effusion. Normal heart size. LIVER: Normal in size. No identified cystic or solid masses. GALLBLADDER: No stones. BILIARY: No intrahepatic or extrahepatic ductal dilatation. SPLEEN: Normal length. No focal lesions. PANCREAS: No identified cystic or solid masses. No significant calcifications. No adjacent inflammation or peripancreatic fluid collections. Pancreatic duct is not dilated. ADRENALS: No discrete nodules. KIDNEYS/URINARY TRACT: No identified significant cystic or solid masses. No stones. No hydronephrosis or hydroureter. The urinary bladder is unremarkable. GI: There is prominent stool seen throughout the entire colon with no obstruction. There is no acute inflammatory change of bowel. No inflammatory policy change clerks supervisor the appendix. The stomach and loops of small bowel are unremarkable. PERITONEUM: No free intraperitoneal air or ascites. Small lymph nodes are again seen about the bilateral groin as was previously seen. These may be reactive. No significant change from 04/24/2024. RETROPERITONEUM:No mass or adenopathy REPRODUCTIVE:No significant abnormality VASCULATURE: No abdominal aortic aneurysm. MUSCULOSKELETAL: No acute findings. Grade 1 anterolisthesis L5 on S1 with no pars defect. No change. OTHER: No other acute findings. IMPRESSION: 1. No acute inflammatory change of the abdomen and pelvis. No bowel obstruction or inflammatory change of bowel. 2. There is fairly prominent stool seen throughout the entire colon with no obstruction. Electronically signed by: Ganesh Koch M.D. Liu Baeza NP IMG CT PROCEDURES Final Result * eGFR (05/23/2025 5:56 PM LOCK MASTER) eGFR >90 >=60 mL/min/1. 73 m2 Comment: Interpretive Data Reference Interval Normal >/= 90 mL/min/1.73m2 Mildly decreased* 60 - 89 mL/min/1.73m2 Mildly to moderately decreased 45 - 59 mL/min/1.73m2 Moderately to severely decreased 30 - 44 mL/min/1.73m2 Severely decreased 15 - 29 mL/min/1.73m2 Kidney Failure < 15 mL/min/1.73m2 *Relative to young adult level Estimated glomerular filtration rate is determined by the 2020 CKD-EPI equation recommended by the National Kid[employer] (A Unifying Approach to GFR Estimation: Recommendations of the NKF-ASK Task Force on Reassessing the Inclusion of Race in Diagnosing Kidney Disease, JASN 2020). The CKD-EPI equation should not be used for patients with unstable renal function and has not been validated in children and those over 70. Current interpretive data was last reviewed 2021. Blood 05/23/2025 5:56 PM LOCK MASTER 05/23/2025 5:59 PM LOCK MASTER [facility] LAB BLOOD ORDERABLES Final Resul t Performing Organization Address City/[facility] Co de Phone Number [facility] ([place]) 1 [facility] [place] [address] * Lipase (05/23/2025 5:56 PM LOCK MASTER) Pathologist [facility] Lipase 39 10 - 99 Units/L Blood 05/23/2025 5:56 PM LOCK MASTER 05/23/2025 5:59 PM LOCK [facility]STER [facility] LAB BLOOD ORDERABLES Final Resul t Performing Organization Address [facility] de Phone Number [facility] ([place]) 1 [facility] [address] [place] [address] * (ABNORMAL) Differential, auto (05/23/2025 5:56 PM LOCK MASTER) Neutrophil abs 3.73 1.50 - 6.50 K/cumm Imm gran abs 0.13(H) 0.00 - 0.10 K/cumm [facility] ([place]) Lymphocyte abs 1.05 0.80 - 3.30 K/cumm [facility] ([place]) Monocyte abs 0.80 0.20 - 0.80 K/cumm [facility] ([place]) Eosinophil abs 0.17 0.00 - 0.50 K/cumm [facility] ([place]) Basophil abs 0.08 0.00 - 0.10 K/cumm [facility] ([place]) Neutrophil pct 62.6 % [facility] ([place]) Comment: Interpretive Data Percent cell count reference ranges are not reported, since discordance with absolute values may lead to misinterpretation of CBC data. Current Interpretive Data was last revised on 2017. Imm gran pct 2.2 % [facility] ([place]) Comment: Interpretive Data Percent cell count reference ranges are not reported, since discordance with absolute values may lead to misinterpretation of CBC data. Current Interpretive Data was last revised on 2017. Lymphocyte pct 17.6 % [facility] ([place]) Comment: Interpretive Data Percent cell count reference ranges are not reported, since discordance with absolute values may lead to misinterpretation of CBC data. Current Interpretive Data was last revised on 2017. Monocyte pct 13.4 % [facility] ([place]) Comment: Interpretive Data Percent cell count reference ranges are not reported, since discordance with absolute values may lead to misinterpretation of CBC data. Current Interpretive Data was last revised on 2017. Eosinophil pct 2.9 % [facility] ([place]) Comment: Interpretive Data Percent cell count reference ranges are not reported, since discordance with absolute values may lead to misinterpretation of CBC data. Current Interpretive Data was last revised on 2017. Basophil pct 1.3 % [facility] ([place]) Comment: Interpretive Data Percent cell count reference ranges are not reported, since discordance with absolute values may lead to misinterpretation of CBC data. Current Interpretive Data was last revised on 2017. Blood 05/23/2025 5:56 PM LOCK MASTER 05/23/2025 5:59 PM LOCK MASTER us Liu Baeza NP LAB BLOOD ORDERABLES Final Resul t [facility] ([place]) 1 [facility] Department [place] [address] * (ABNORMAL) CBC with auto differential (05/23/2025 5:56 PM LOCK MASTER) WBC 5.96 3.80 - 9.90 K/cumm Hgb 8.2(L) 13.0 - 17.5 g/dL [facility] ([place]) Hct 24.4(L) 38.9 - 50.3 % [facility] ([place]) Plt 229 150 - 400 K/cumm [facility] ([place]) MPV 8.1(L) 9.1 - 12.3 fL [facility] ([place]) RBC 2.76(L) 4.30 - 5.80 M/cumm [facility] ([place]) MCV 88.4 81.3 - 96.4 fL [facility] ([place]) MCH 29.7 27.1 - 33.3 pg [facility] ([place]) MCHC 33.6 32.3 - 35.7 g/dL [facility] ([place]) RDW CV 18.9(H) 11.1 - 14.9 % [facility] ([place]) RDW SD 59.5(H) 35.7 - 48.1 fL [facility] ([place]) NRBC abs 0.00 0.00 - 0.01 K/cumm [facility] ([place]) Blood 05/23/2025 5:56 PM LOCK MASTER 05/23/2025 5:59 PM LOCK MASTER us Liu Baeza PROFESSOR OF ECONOMICS LAB BLOOD ORDERABLES Final Resul t [facility] ([place]) 1 [facility] Department of Laboratories [place], [place] [id number] * (ABNORMAL) Comprehensive metabolic panel (05/23/2025 5:56 PM LOCK MASTER) Sodium 132(L) 135 - 145 mmol/L Potassium, pl 4.4 3.3 - 4.9 mmol/L [facility] Chloride 96(L) 97 - 110 mmol/L [facility] ([place]) CO2 27 22 - 32 mmol/L [facility] ([place]) Anion gap 9 2 - 15 mmol/L [facility] ([place]) BUN 14 6 - 25 mg/dL [facility] ([place]) Creatinine 0.77(L) 0.80 - 1.30 mg/dL [facility] ([place]) Glucose 102 70 - 199 mg/dL [facility] ([place]) Comment: Interpretive Data Fasting glucose >/= 126 mg/dl is diagnostic for diabetes. Fasting is defined as no caloric intake for at least 8 hours. Fasting glucose between 100 mg/dl to 125 mg/dl is diagnostic of prediabetes. In a patient with classic symptoms of hyperglycemia or hyperglycemic crisis, a random glucose >/= 200 mg/dl is diagnostic for diabetes. In the absence of unequivocal hyperglycemia, results should be confirmed by repeat testing. The classification and Diagnosis of Diabetes Diabetes Care 2021; 46: S19-S40. Current interpretive data was last revised 2022. Calcium 8.8 8.5 - 10.3 mg/dL [facility] ([place]) Bilirubin, total 0.4 0.1 - 1.2 mg/dL [facility] ([place]) Protein, pl 7.3 6.5 - 8.5 g/dL [facility] ([place]) Albumin 3.7 3.5 - 5.0 g/dL [facility] ([place]) Alk phos 186(H) 40 - 130 Units/L [facility] ([place]) ALT 31 7 - 55 Units/L [facility] ([place]) AST 40 10 - 50 Units/L [facility] ([place]) Blood 05/23/2025 5:56 PM LOCK MASTER 05/23/2025 5:59 PM LOCK MASTER us Liu Baeza NP LAB BLOOD ORDERABLES Final Resul t [facility] ([place]) 1 [facility] Department [place] [address] documented in this encounter Visit Diagnoses Diagnosis Constipation, unspecified constipation type- Primary documented in this encounter Administered Medications Inactive Administered Medications - up to 3 most recent administrations Medication Order MAR Action Action Date Dose Rate Site famotidine (PEPCID) injection 20 mg 20 mg, intravenous, Administer over 2 Minutes, Once, On Thu05/23/25 at 1755, For 1 dose Given 05/23/2025 6:46 PM LOCK MASTER 20 mg ioversoL (OPTIRAY 350) syringe 75 mL 75 mL, intravenous, Once in imaging, contrast, Starting on Thu05/23/25 at 1948, For 1 dose Contrast Given 05/23/2025 7:49 PM LOCK MASTER 75 mL magnesium citrate oral solution 296 mL 296 mL, oral, Once, On Thu05/23/25 at 7884, For 1 dose Given 05/23/2025 11:29 PM LOCK MASTER 296 mL ondansetron (ZOFRAN) injection 4 mg 4 mg, intravenous, Administer over 2 Minutes, Once, On 05/23/25 at 1755, For 1 dose Given 05/23/2025 6:46 PM LOCK MASTER 4 mg polyethylene glycol (MIRALAX) packet 17 g 17 g, oral, Once, On 05/23/25 at 2254, For 1 dose, Indications: constipationIndications :constipation Given 05/23/2025 11:30 PM LOCK MASTER 17 g sodium chloride 0.9% bolus 1,000 mL 1,000 mL, intravenous, at 999 mL/hr, Administer over 1 Hours, Once, On 05/23/25 at 1755, For 1 dose Restarted (From Pump) 05/23/2025 7:17 PM LOCK MASTER 999 mL/hr New Bag 05/23/2025 6:46 PM LOCK MASTER 1,000 mL 999 mL/hr documented in this encounter Active and Recently Administered Medications Times are shown in LOCK MASTER. Scheduled Medication Order 05/22/2025 05/23/2025 05/24/2025 famotidine (PEPCID) injection 20 mg (COMPLETED) 20 mg, intravenous, Administer over 2 Minutes, Once, On 05/23/25 at 1755, For 1 dose 1846 (Given - Provider: Enmanuel Lakhani RN) magnesium citrate oral solution 296 mL (COMPLETED) 296 mL, oral, Once, On e 05/23/25 at 2254, For 1 dose 2329 (Given - Provider: Dinorah by Arlette Strong RN) ondansetron (ZOFRAN) injection 4 mg (COMPLETED) 4 mg, intravenous, Administer over 2 Minutes, Once, On 05/23/25 at 1755, For 1 dose 1846 (Given - Provider: Enmanuel Lakhani RN) polyethylene glycol (MIRALAX) packet 17 g (COMPLETED) 17 g, oral, Once, On 05/23/25 at 2254, For 1 dose, Indications: constipation 2330 (Given - Provider: Dinorah by Arlette Strong RN) sodium chloride 0.9% bolus 1,000 mL (COMPLETED) 1,000 mL, intravenous, at 999 mL/hr, Administer over 1 Hours, Once, On 05/23/25 at 1755, For 1 dose 1846 (New Bag - Provider: Mallory Lakhani, HOANG)1906 (Paused - Provider: Mallory Lakhani RN)1917 (Restarted (From Pump) - Provider: Mallory Lakhani RN)1999 (Stopped - Provider: Mallory Lakhani RN)2004 (Stopped - Provider: Mallory Lakhani RN) PRN Medication Order 05/22/2025 05/23/2025 05/24/2025 ioversoL (OPTIRAY 350) syringe 75 mL (COMPLETED) 75 mL, intravenous, Once in imaging, contrast, Starting on Thu05/23/25 at 1948, For 1 dose 1949 (Contrast Given - Provider: Alisa Saleh, RT) documented in this encounter Additional Health Concerns Infection Onset Date Last Indicated Resolved Time COVID: Suspected 05/23/2025 05/23/2025 05/23/2025 10:24 PM LOCK MASTER documented as of this encounter Care Teams Bull Bucker Relationship Specialty Start Date End Date No, Physician PCP - General 01/24/17 Miscellaneous, Not In File 05/09/24 documented as of this encounter
--- OUTSIDE RECORDS SUMMARY | 2025-05-25 11:57 | XMS_ITS | Encounter Summary ---
Author Organization [facility] Healthcare Address [address] [place] [address] Care Team Providers Care Product Development Assistant Name Role Phone No, Physician Primary Care Provider [phone] Miscellaneous, Not In File Unavailable Unava ilable Encounter Details Date Type Department Care Team (Late st Contact Info) Description 05/24/2025 Documentation [facility] Warm Hand Off Program [address] [place], [place] [phone] Evangelina Booker Social History Tobacco Use Types Packs/Day Years [...] declined 04/25/2024 How often do you attend anabaptism or amish serv ices? Patient declined 04/25/2024 Do you belong to any clubs o r organizations such as anabaptism groups, unions, fraternal or athletic groups, or [...] any time in the past 12 m [facility], were you homeless or living in a prison (including now)? Yes 04/25/2024 Social Connection and Isolation Panel Answer Date Recorded In a typical week, how many times do you talk on the phone with family, friends, or neighbors? More than three times a week 05/01/2025 How often do you get togethe r with friends or relatives? More than three times a week 05/01/2025 How often do you attend chur ch or amish services? Never 05/01/2025 Do you belong to any clubs o r organizations such as anabaptism groups, unions, fraternal or athletic groups, or [...] any time in the past 12 m onths, were you homeless or living in a prison (including now)? Yes 05/01/2025 [facility] Utilities Answer Date Recorded In the past 12 months has th e electric, gas, oil, or water company [...] on file Legal Sex Male 3:03 AM CHARGE HAND Gender Identity Not on file Sexual Orientation Not on file documented as of this encounter Progress Notes * Evangelina Booker - 05/24/2025 12:43 PM CST [facility] ([phone]) was contacted and a cab was scheduled for the patient: Scheduled Environmental Marketer Date: 05/24/2025 Scheduled Environmental Marketer Time: 1220 Scheduled Environmental Marketer Address: [facility] Scheduled Drop Off Time: BY 1300 Scheduled Drop Off Address: [address] Round Trip Required? NO GE HAND documented in this encounter Plan of Treatment Not on file documented as of this encounter Visit Diagnoses Not on filedocumented in this encounter Care Teams Product Development Assistant Relationship Specialty Start Date End Date No, Physician PCP - General 01/24/17 Miscellaneous, Not In File 05/09/24 documented as of this encounter
--- OUTSIDE RECORDS SUMMARY | 2025-05-25 11:57 | XMS_ITS | Patient Health Record ---
Author Organization [facility] Address [address] [place] [address] Care Team Providers Care Notary Public Name Role Phone Jared Castellano Primary Care Provider [phone] Vika Naqvi Unavailable [phone] Neto Aelgreolas Unavailable [phone] Miracle Delgado Unavailable [phone] Allergies No Known Allergies Results Component Value Reference Range Notes Breathalyzer Reviewed date:05/16/2025 01:16:58 PM Interpretation: Performing Lab: Notes/Report: ABDIEL 0.000 QuantiFERON-TB Gold Plus ([id number]) (Not yet reviewed by provider) Interpretation: Performing [facility], [address] [facility], [place], Phone - [phone], Director - PhDUnm [facility] Center[facility] Notes/Report: QuantiFERON Incubation Incubation performed. QuantiFERON-TB Gold Plus Negative Negative No response to M tuberculosis antigens detected. Infection with M tuberculosis is unlikely, but high risk individuals should be considered for additional testing (ATS/IDSA/CDC Clinical Practice Guidelines, 2017). The reference range is an Antigen minus Nil result of <0.35 IU/mL. Chemiluminescence immunoassay methodology QuantiFERON Criteria QuantiFERON-TB Gold Plus is a qualitative indirect test for M tuberculosis infection (including disease) and is intended for use in conjunction with risk assessment, radiography, and other medical and diagnostic evaluations. The QuantiFERON-TB Gold Plus result is determined by subtracting the Nil value from either TB antigen (Ag) value. The Mitogen tube serves as a control for the test. QuantiFERON TB1 Ag Value 0.02 QuantiFERON TB2 Ag Value 0.02 QuantiFERON Nil Value 0.01 QuantiFERON Mitogen Value 0.53 CMP 14 Comprehensive Metabol ic Panel* (Not yet reviewed by provider) Interpretation: Performing Lab:[facility] [place], [address] [facility], Phone - [phone], Director - [facility] Notes/Report: Glucose 104 70-99 mg/dL BUN 25 6-24 mg/dL Creatinine 1.09 0.76-1.27 mg/dL eGFR 85 >59 mL/min/1.73 BUN/Creatinine Ratio 23 9-20 Sodium 135 134-144 mmol/L Potassium 4.7 3.5-5.2 mmol/L Chloride 96 96-106 mmol/L Carbon Dioxide, Total 25 20-29 mmol/L Calcium 9.4 8.7-10.2 mg/dL Protein, Total 7.1 6.0-8.5 g/dL Albumin 3.4 4.1-5.1 g/dL Globulin, Total 3.7 1.5-4.5 g/dL Bilirubin, Total 0.4 0.0-1.2 mg/dL Alkaline Phosphatase 322 47-123 IU/L AST (SGOT) 64 0-40 IU/L ALT (SGPT) 41 0-44 IU/L CBC With Differential/Platel et* (Not yet reviewed by provider) Interpretation: Performing Lab:[facility] [place], [address] [facility], [place], Phone - [phone], Director - [facility] Notes/Report: WBC 8.3 3.4-10.8 x10E3/uL RBC 2.98 4.14-5.80 x10E6/uL Hemoglobin 8.3 13.0-17.7 g/dL Hematocrit 27.0 37.5-51.0 % MCV 91 79-97 fL MCH 27.9 26.6-33.0 pg MCHC 30.7 31.5-35.7 g/dL RDW 16.4 11.6-15.4 % Platelets 226 150-450 x10E3/uL Neutrophils 72 Not Estab. % Lymphs 10 Not Estab. % Monocytes 13 Not Estab. % Eos 2 Not Estab. % Basos 1 Not Estab. % Neutrophils (Absolute) 5.9 1.4-7.0 x10E3/uL Lymphs (Absolute) 0.9 0.7-3.1 x10E3/uL Monocytes(Absolute) 1.1 0.1-0.9 x10E3/uL Eos (Absolute) 0.1 0.0-0.4 x10E3/uL Baso (Absolute) 0.1 0.0-0.2 x10E3/uL Immature Granulocytes 2 Not Estab. % Immature Grans (Abs) 0.2 0.0-0.1 x10E3/uL (An elevated percentage of Immature Granulocytes has not been found to be clinically significant as a sole clinical predictor of disease. Does NOT include bands or blast cells. associated physiological leukocytosis may also show increased immature granulocytes without clinical significance.) 14 Panel Urine Drug Screen Reviewed date:05/16/2025 01:16:58 PM Interpretation: Performing Lab: Notes/Report: THC neg ALIE neg MOP (OPI) neg AMP neg MET neg BAR neg BZO neg MDMA neg MTD neg OXY neg PCP neg BUP pos TCA neg FTY neg Reason For Referral No Information Medications Medication SIG (Take, Route, Frequency, Duration) Notes Start Date End Date Status Albuterol Sulfate HFA 108 (90 Base) MCG/ACT 2 puff as needed Inhalation every 4 hrs Active Dapsone 100 MG 1 tablet Orally Once a day Active hydrOXYzine Pamoate 25 MG 1-2 capsules O rally every 4 hours as needed for anxiety, agitation, or inability to sleep. Do not give within 4 hours of diphenhydramine. 05/16/2025 Active Melatonin 5 MG 1 tablet at bedtime as needed Orally Once a day 05/16/2025 Active Suboxone 8-2 MG 1 film under the ton nomi and allow to dissolve Sublingual 3 times a day 05/18/2025 Active Biktarvy 50-200-25 MG 1 tablet Orally On ce a day Active Nicotine 21 MG/24HR 1 patch to skin Transdermal Once a day; Duration: 30 days 05/18/2025 Active Ondansetron HCl 4 MG 1 tablet Orally every 8 hours; Duration: 14 days As needed 05/23/2025 Active Nicotine Polacrilex 4 MG 1 piece chew fo r 30 minutes as needed Mouth/Throat every 8 hrs; Duration: 30 days 05/18/2025 Active Multi Vitamin - 1 tablet Orally Once a day; Duration: 30 days 05/16/2025 Active Itraconazole 100 MG 2 caps by mouth TID for 3 days then 2 caps by mouth BID Orally Once a day Active Sofosbuvir-Velpatasvir 400-100 MG 1 tablet Orally Once a day Active Social History Tobacco Use: Social History Observation Description Date Details (start date - stop date) Unknown Sex Assigned At : Social History Observation Description Sex Assigned At Male PRAPARE Question Answer Notes Date Completed/Updated: 05/16/2025 What is your current housing situation? I do not have housing (staying with others, in a hotel, in a group home, living outside on the street, on a beach, or in a park) Are you worried about losing your housing? Yes What is the highest level of school that you have finished? High school diploma or GED What is your current work situation? Unemployed and seeking work In the past year, have you o r any family members you live with been unable to get any of the following when it was really needed? Check all that apply Food,Clothing,Utilities,Phone Has lack of transportation k ept you from medical appointments, meetings, work or from getting things needed for daily living? Yes, it has kept me from medical appointments or from getting my medications,Yes, it has kept me from non-medical meetings, appointments, work, or getting things needed for daily living How often do you see or talk to people that you care about and feel close to? (For example: talking to friends on the phone, visiting friends or family, going to protestant or club meetings) More than 5 times a week How stressed are you? Stress is when someone feels tense, nervous, anxious, or can\t sleep at night because their mind is troubled Very much In the past year have you sp ent more than 2 nights in a row in a retirement, fpc, fpc center, or juvenile correctional facility? No Are you a refugee? I choose not to answer this q uestion What country are you from? I choose not to answe r this question Do you feel physically and e motionally safe where you currently live? No In the past year, have you b een afraid of your partner or ex-partner? Yes PRAPARE Score: 15 Enabling Services Provided? Yes Please specify Case Management Assessment First Visit Tobacco Control (Standard) Question Answer Notes Tobacco use: Uses tobacco in other forms Additional Findings: Tobacco user e-cigarette Section Notes: Occupation: Currently unemployed, 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 Nicotine use: Using nicotine patch and gum, increasing dose Living situation: No children or dependents, seeking stable housing Occupation: Currently unemployed, 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 Nicotine use: Using nicotine patch and gum, increasing dose Living situation: No children or dependents, seeking stable housing Occupation: Currently unemployed, 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 Nicotine use: Using nicotine patch and gum, increasing dose Living situation: No children or dependents, seeking stable housing Problems Problem Type SNOMED Code ICD Code Onset Dates Problem Status W/U Status Risk Notes Problem Anxiety disorder (704187443) Anxiety disorder, unspecified (F41.9) Active confirmed Problem Substance abuse (0086337714) Substance abuse (F19.10) Active confirmed Problem Hepatitis C (71938883) Hepatitis C (B19.20) Active confirmed Problem Asymptomatic human immunodeficiency virus infection (73440445) HIV (human immunodeficiency virus infection) (Z21) Active confirmed Problem Nicotine dependence (61850466) Nicotine dependence (F17.200) Active confirmed Problem History of methamphetamine use (34956795011584442) 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) Active confirmed Problem Mental health problem (152966682) Mental health problem (F48.9) Active confirmed Problem Physical examination, complete (72575831) Adult general medical examination (Z00.00) Active confirmed Problem Opioid use disorder (4096522782) Opioid use disorder (F11.99) Active confirmed Problem Dyssomnia (42205186) Trouble in sleeping (G47.9) Active confirmed Vital Signs Heart Rate 97 /min 05/18/2025 Temperature 98.3 degrees Fahrenheit 05/16/2025 Respiratory Rate 18 /min 05/22/2025 Oximetry 97 % 05/18/2025 Blood pressure diastolic 68 mm Hg 05/18/2025 Height 66 in 05/22/2025 Blood pressure systolic 110 mm Hg 05/18/2025 Weight 141.2, 141.0 lbs 05/18/2025 BMI 22.79 kg/m2 05/18/2025 Encounters Encounter Location Date Provider Diagnosis [facility] [address] [place] [address] 05/16/2025 Gregory Alegre Adult general medica l examination Z00.00 ; HIV (human immunodeficiency virus infection) Z21 ; Methamphetamine use F15.10 and Opioid use disorder F11.99 [address] [place] [address] 05/16/2025 Miracle Delgado Substance abuse F19. 10 and Mental health problem F48.9 [address] [place] [address] 05/18/2025 Jared Castellano Opioid use disorder F11.99 and Nicotine dependence F17.200 [facility] [address] [place] [address] 05/22/2025 Vika Donya Anxiety disorder, unspecified F41.9 and Trouble in sleeping G47.9 [address] [place] [address] 05/23/2025 Gregory Alegre Adult general medica l examination Z00.00 ; HIV (human immunodeficiency virus infection) Z21 ; Hepatitis C B19.20 ; Nausea & vomiting R11.2 ; Right upper quadrant abdominal pain R10.11 ; Hepatomegaly R16.0 ; Diabetes mellitus screening Z13.1 ; Colon cancer screening Z12.11 ; Encounter for screening for lipid disorder Z13.220 and Screening for thyroid disorder Z13.29 [address] [place] [address] 05/24/2025 Jared Castellano Assessments Encounter Date Diagnosis (ICD Code) Assessment Notes Treatment Notes Treatment Clinical Notes Section Notes 05/16/2025 Substance abuse (ICD-10 - F19.10) 05/16/2025 Mental health problem (ICD-10 - F48.9) 05/18/2025 Nicotine dependence (ICD-10 - F17.200) Patient currently using 14 mg nicotine patch and 4 mg gum. Expressed desire to increase patch dose to 21 mg. - Increase nicotine patch dose from 14 mg to 21 mg. - Increase nicotine gum to 4 mg. 05/18/2025 Opioid use disorder (ICD-10 - F11.99) History of daily fentanyl use, currently managed with Suboxone. Patient motivated for sobriety and stable housing. No reported relapse since last use prior to visit. - Continue Suboxone films. 05/22/2025 Anxiety disorder, unspecified (ICD-10 - F41.9) 05/22/2025 Trouble in sleeping (ICD-10 - G47.9) 05/16/2025 HIV (human immunodeficiency virus infection) (ICD-10 - Z21) 05/16/2025 Adult general medical examination (ICD-10 - Z00.00) Admit to the [facility] and initiate standing/protocol orders: The following PRN medications may be self-administered by patients under the supervision of approved staff or administered by nursing staff: Ibuprofen 200mg, 2-4 tablets by mouth (with food) every 6 hours as needed for pain (unless on lithium). (NOTE: Ibuprofen and acetaminophen may be given together, but alternating is recommended for continuous pain relief. Guaifenesin 400 mg, 1 tablet by mouth every four hours as needed for cough and chest congestion (take with large glass of water). Loratadine 10 mg, 1 tablet by mouth daily as needed for allergies, watery itchy eyes, or sinus drainage. Throat Lozenges, up to 4 tablets by mouth every three to four hours as needed for sore throat. Antacid tablets, 1-2 tablets by mouth every one to two hours as needed for indigestion or heart burn. If the client prefers liquid, could use: Liquid Antacid : 1 ounce by mouth up to four times daily as needed for indigestion or heartburn Omeprazole 20mg, 1 capsule by mouth once daily for 14 days for frequent heartburn (frequent heartburn is more than 2 episodes per week). Do not exceed 14 days. Do not give to client already taking a proton-pump inhibitor: esomeprazole (Nexium), lansoprazole (Prevacid), pantoprazole (Protonix), rabeprazole (Aciphex), dexlansoprazole (Dexilant) Zofran ODT disintegrating (under the tongue) 4 mg, 1-2 tablets every 8 hours as needed for nausea/vomiting. Milk of Magnesia (MOM): 1 ounce (30 milliliters) by mouth every day as needed for constipation. OR Miralax: Stir and fully dissolve 17 grams (1 packet or 1 capful to measured line) in any 4 to 8 ounces of beverage then drink once daily for constipation. Do not use for more than 7 days. OR Docusate 100 mg, 1 capsule twice daily as needed for constipation Hydrocortisone 1% Cream, apply topically (to the skin) to the affected area up to three times daily as needed for itching or inflammation (avoid eyes and genitals). 2% Antifungal Cream, apply topically (to the skin) as directed as needed to affected areas for athlete's foot or jock itch. Triple Antibiotic Ointment, apply topically (to the skin) up to three times daily as needed for minor cuts and scrapes. Carmex or Chapstick, apply topically (to the skin) as needed for chapped lips and skin. Orajel, apply to affected areas as needed for mouth or tooth pain. Lubricating Eye Drops, instill 1-2 drops to the affected eye(s) as needed for dry/irritated eye(s). Hemorrhoid medications, apply to affected area according to directions as needed for hemorrhoid discomfort and itch. Nix (Permethrin 1%) cream 2 ounces, apply topically (to the skin) as directed as needed for head lice. Sunscreen 30 SPF, Apply to exposed skin prior to exposure to sun. The following PRN medications must be approved by nursing staff before self-administration by patients: Diphenhydramine 25 mg, 2 tablets by mouth every 4 hours as needed for allergic reaction or itchy rash. Caution: Do not use hydroxyzine within 4 hours of diphenhydramine and vice versa. Loperamide 2 mg capsules, may give two capsules by mouth for the initial dose, followed by one capsule up to 3 times a day as needed for diarrhea. Acetaminophen 500 mg, 1 - 2 tablets by mouth every six hours as needed for pain. (NOTE: Ibuprofen and acetaminophen may be given together, but alternating is recommended for continuous pain relief). Oxygen-May administer oxygen 2L/min via nasal cannula if O2 saturation is less than 92%, AND client complains of shortness of breath. Target O2 saturation is 94-98%. Caution: Remember too much oxygen can be detrimental to a client with COPD. Oxygen is a drug and should be delivered by trained staff only. Nurses may remove superficial splinters and sutures from skin lacerations. May apply gauze or bandages to any weeping wounds. Contact nursing if there is pus, a foul odor, increased pain/redness/swelli ng, or if soaking through bandages. 05/23/2025 Adult general medical examination (ICD-10 - Z00.00) - The patient is due for labs, will call with results. - The patient is UTD on vaccines, recommended annual flu vaccines and COVID boosters as appropriate - Discussed physical activity, healthy diet. Encouraged patient to aim for a goal of 150 minutes of moderate-intensity exercise and 2 days of strength training. Educated them on the importance of starting small and building on their successes. - Discussed healthier eating habits including frequent meals which are carb/protein balanced. Discussed avoidance of simple carbohydrates, encouraged portion-controlled complex carbohydrates. - Recommended increasing water intake and avoiding sugary beverages, excess caffeine and alcohol intake - Follow up in 2 weeks or sooner with any questions, concerns. - Patient denies any concerns with her plan of care. People verbalizes understanding and agrees to plan of care. 05/16/2025 Methamphetamine use (ICD-10 - F15.10) 05/23/2025 HIV (human immunodeficiency virus infection) (ICD-10 - Z21) Continue taking medications as prescribed. Follow up with provider given to you through [facility]. 05/23/2025 Hepatitis C (ICD-10 - B19.20) 05/23/2025 Nausea & vomiting (ICD-10 - R11.2) Educated patient on bland diet for the next week and to transition back to normal foods to help with nausea and vomiting. 05/16/2025 Opioid use disorder (ICD-10 - F11.99) 05/23/2025 Right upper quadrant abdominal pain (ICD-10 - R10.11) 05/23/2025 Hepatomegaly (ICD-10 - R16.0) 05/23/2025 Diabetes mellitus screening (ICD-10 - Z13.1) 05/23/2025 Colon cancer screening (ICD-10 - Z12.11) 05/23/2025 Encounter for screening for lipid disorder (ICD-10 - Z13.220) 05/23/2025 Screening for thyroid disorder (ICD-10 - Z13.29) 05/16/2025 Other Continue treatment as recommended by [facility] staff. Encouraged patient to obtain routine medical care with patient's own primary care provider or [facility] if no current primary care provider. 05/16/2025 Other Clinician met w ith client to assess needs for residential services. Clinician gathered information regarding historical presentation of mental health and substance use symptoms including withdrawal, HIV Risk assessment, psychiatric hospitalization history and presenting concern. Clinician conducted PHQ9 and CSSRS assessments as well as social drivers of health screening for the purposes of identifying additional service needs. 05/18/2025 Other Discussed medication side effects, adverse effects, risks, benefits, as well as interactions. Encouraged non-use of opioids. Has naloxone. Recommended participation in recovery groups/counseling services. Agrees to contact office with questions or concerns. Patient may self-administ er their own medications or may self-administ er their own oral medications per [facility] Protocol. 05/22/2025 Other May self-administer medications or be administered own oral medications per [facility] protocols. Provided informed consent with understanding of side effects, adverse effects, risks and benefits as well as alternative treatments as previously discussed and with the above recommended medications & other aspects of the treatment program. Agrees to return sooner if symptoms worsen or suicidal or homicidal ideations occur. Medication Hx: -Effexor -Remeron -Elavil Medication Plan: -Continue Hydroxyzine (standing order) -Continue Melatonin (standing order) Treatment Plan: -Discussed treatment options for anxiety with patient (antidepressants and Buspar), patient does not want to start anything new at this time. Is going to work on developing coping skills first and utilize Melatonin and Hydroxyzine PRN. -Follow up: 1 week [] Hard Rx handed to patient [] Rx phoned into pharmacy [] Rx faxed/e-prescribed into pharmacy [] PDMP Reviewed [] [facility] Reviewed Encouraged by Vika Naqvi [facility] to: [] consider utilizing therapist/counselor /school social worker/psychologist , referral given [x] continue with therapist/counselor /school social worker/psychologist Psychoeducation: -Treatment options discussed in detail with patient/guardian verbalizing understanding of treatment rationales. -Side effects and benefits of all medications prescribed discussed at length between psychiatric prescribing provider and patient/guardian along with the risks associated of [id number] interactions, including but not limited to prescription medications, OTC medications, vitamins, minerals and herbal supplements. -Patient/Guardian and provider dialogue showcased verbalized understanding from patient on rationales of medication risk vs benefits. -Information with neurobiology of presenting neurotransmitter disorder, mood stability, sleep hygiene and 7-8 hours of uninterrupted sleep per night with wakeful and refreshed awakening and day long alertness discussed. -Reduction of stress and anxiety to aid in focus and concentration discussed, again, with patient/guardian physically nodding, voicing understanding, and engaged in treatment plan with Vika Naqvi [facility]. -Perceiving complete understanding of rationale by patient/guardian and willingness to adhere to formulated plan of care by prescriber with patient/guardian buy-in, willingness to participate actively in plan of care and willing to take charge of own care. -Although geared for female patients, all patients/guardians are informed by prescribing provider of risks of medications that could potentially be taken by female/women within their [place] of influence and that women who use medicine during have a higher chance of having a baby with defects. -Patient/Guardian denies being and/or knowing of women who are at present and denies wanting to become in the foreseeable future, 0-6 months from now. -Patient/Guardian again informed of the risk of pharmaceutical medications consumed during and how there are potential negative effects on the developing fetus. -Patient/Guardian verbalizes understanding of rationale and physically nods head in agreement that if a should occur, to consult with provider, SCREEN MAKER and/or Nurse Sales Representative [employer] to determine if prescribed medications should or should not be continued. -Instructions regarding both the medical/pharmacolog ical and non-pharmacologic aspects of the treatments employed were given, and the patient/guardian seemed to understand this. Risks and benefits of treatment, and of non-treatment, were also discussed. The patient/guardian understands the more frequent side effects associated with the medications. -The use of psychotherapy was addressed today and will continue on an as needed basis for the foreseeable future. The choice is, of course, ultimately left to the patient/guardian. -Patient/Guardian was encouraged to make a follow-up appointment for the next visit. -Additional treatment was discussed and has been addressed on an ongoing basis within the context of this patient's illness, resources, progress, and other appropriate factors. Being compliant with a regular exercise routine, consistent medication use, ongoing psychotherapy, eating and sleeping well, as well as the importance of handling stress, was discussed. Plan Of Treatment Future Test Test Name Order Date CBC With Differential/Platelet* 05/16/20 CMP 14 Comprehensive Metabolic Panel* QuantiFERON-TB Gold Plus ([id number]) 2024 Lipid Panel With LDL/HDL Ratio Ultrasound of Liver 05/23/2025 COLOGUARD 05/23/2025 TSH+Free T4 05/23/2025 Hemoglobin A1c 05/23/2025 Next Appt Details Provider Name:Vika Corteztin ye, 05/30/2025 10:00:00 AM, [address] [place], [address], Provider Name:Gregory partida, 06/06/2025 02:00:00 PM, [address] [place], [address], Medical (General) History Medical History History ICD Code paranoia HIV positive anxiety depression Hepatitis c Anxiety disorder, diagnosed 2008 History of pneumonia History of sepsis History of rhinovirus infection History of yeast infection (lungs and th roat) History of spider bite with complication s Surgical History Surgery Date(Month/Year) Biopsy, lungs and throat, for yeast infe ction - date not specified Hospitalization History Reason Date(Month/Year) [facility], date not specified Pneumonia and sepsis, [facility], last year 04/2024 [facility] 2024 [facility]
--- OUTSIDE RECORDS SUMMARY | 2025-05-25 11:57 | XMS_ITS | Encounter Summary ---
Author Organization [facility] Healthcare Address [address] [place] [address] Care Team Providers Care Fence Setter Name Role Phone No, Physician Primary Care Provider [phone] Miscellaneous, Not In File Unavailable Unava ilable Encounter Details Date Type Department Care Team (Late st Contact Info) Description 05/24/2025 Documentation [facility] Warm Hand Off Program [address] [place], [place] [phone] Evangelina Booker Social History Tobacco Use Types [...] declined 04/25/2024 How often do you attend druze or jain serv ices? Patient declined 04/25/2024 Do you belong to any clubs o r organizations such as druze groups, unions, fraternal or athletic groups, or [...] any time in the past 12 m [facility], were you homeless or living in a senior care (including now)? Yes 04/25/2024 Social Connection and [...] any clubs o r organizations such as druze groups, unions, fraternal or athletic groups, or [...] were you homeless or living in a senior care (including now)? Yes 05/01/2025 [facility] Utilities Answer Date Recorded In the past 12 months has th e [employer], gas, oil, or water Ranker threatened to shut off services in your home? No 05/01/2025 Personal Safety Answer Date Recorded Have you ever been in or are you currently in a harmful physical or emotional relationship or is someone making you feel afraid or unsafe? 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 08 - Spoke to [facility] admissions staff Jasvir, outlined events of yesterday afternoon/evening. Provided verbal report related to Pt's negative COVID, Flu, and RSV. Emailed updated labs. Jasvir stated that Pt's bed is being held for 72 hours and since he is medically cleared, he can admit back [facility] later today. Will await Pt to have bowel movement prior to going to [facility], has been given mag citrate. RECORDER documented in this encounter Plan of Treatment Not on file documented as of this encounter Visit Diagnoses Not on filedocumented in this encounter Care Teams Fence Setter Relationship Specialty Start Date End Date No, Physician PCP - General 01/24/17 Miscellaneous, Not In File 05/09/24 documented as of this encounter
--- OUTSIDE RECORDS SUMMARY | 2025-05-25 11:57 | XMS_ITS | Clinical Summary ---
Author Organization [facility] Facility Address [address] [place] [address] Care Team Providers Care Eating Disorder Psychologist Name Role Phone Unavailable Primary Care Provider Unavailabl e Encounters Date Type Department Care Team Description 04/26/2025 Documentation Only [address] [place] [address] Evelyn Sheehan from Last 3 Months Social History Tobacco Use Types Packs/Day Years Used Date Smoking Tobacco: Never Assessed Sex and Gender Information Value Date Recorded Sex Assigned at Not on file Legal Sex Male 9:44 AM EDT Gender Identity Not on file Sexual Orientation Not on file Plan of Treatment Health Maintenance Due Date Last Done Comments Hepatitis B Vaccine (1 of 3 - 19+ 3-dose series) 03/25 Pneumococcal Vaccine: Peds ( 0 to 5 Years) and At-Risk Patients (6 to 49 Years) (1 of 2 - PCV) 1999 Influenza Vaccine (#1) 2025 09/17/2016 Insurance Medicaid [place]
[2025-05-25 11:58] VITALS: BP 118/79; PULSE 80; RESP 18; TEMP 36.3; O2SAT 100
--- OUTSIDE RECORDS SUMMARY | 2025-05-25 11:58 | XMS_ITS | Encounter Summary ---
Author Organization [facility] Address [address] [place] [address] Phone Care Team Providers Care District Resource Officer Name Role Phone No, Physician Primary Care Provider [phone] Miscellaneous, Not In File Unavailable Unava ilable Encounter Details Date Type Department Care Team (Late st Contact Info) Description 05/24/2025 Documentation [facility] Medicine Infectious Diseases [address] [place] [id number] Christina Darby, CHIEF OF PARTY Social History Tobacco Use Types Packs/Day Years [...] declined 04/25/2024 How often do you attend sabianist or buddhism serv ices? Patient declined 04/25/2024 Do you belong to any clubs o r organizations such as sabianist groups, unions, fraternal or athletic groups, or [...] any time in the past 12 m [facility], were you homeless or living in a [place] care facility (including now)? Yes 04/25/2024 Social Connection and Isolation Panel Answer Date Recorded In a typical week, how many times do you talk on the phone with family, friends, or neighbors? More than three times a week 05/01/2025 How often do you get togethe r with friends or relatives? More than three times a week 05/01/2025 How often do you attend chur ch or buddhism services? Never 05/01/2025 Do you belong to any clubs o r organizations such as sabianist groups, unions, fraternal or athletic groups, or [...] any time in the past 12 m [facility], were you homeless or living in a [place] facility (including now)? 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 Spoke with appliance service supervisor at [place] who stated they will help Nolan get transportation to his ID appointment 05/30/25 at 2:20 pm. COLLETTE Raphael RN Infectious Diseases Nurse Navigator [phone] TWISTING MACHINE OPERATOR documented in this encounter Plan of Treatment Not on file documented as of this encounter Visit Diagnoses Not on filedocumented in this encounter Care Teams District Resource Officer Relationship Specialty Start Date End Date No, Physician PCP - General 01/24/17 Miscellaneous, Not In File 05/09/24 documented as of this encounter
--- OUTSIDE RECORDS SUMMARY | 2025-05-25 11:58 | XMS_ITS | Clinical Summary ---
Author Organization [facility] Address [address] [place] [address] Care Team Providers Care Picture Enlarger Name Role Phone No, Physician Primary Care Provider [phone] Miscellaneous, Not In File Unavailable Unava ilable Allergies No known active allergies Medications bictegravir-emtri citabine-tenofovi r (BIKTARVY) 50-200-25 mg tabletIndications :HIV infection Take 1 tablet by mouth daily 30 tablet 11 2025 Active itraconazole (SPORANOX) 100 mg capsuleIndication s:Disseminated histoplasmosis Take 2 capsules (200 mg total) by mouth 3 (three) times a day for 3 days, THEN 2 capsules (200 mg total) 2 (two) times a day. 1458 capsule 2025 Active sofosbuvir-velpat asvir (EPCLUSA) 400-100 mg tablet per tabletIndications :Chronic hepatitis C without hepatic coma Take 1 tablet by mouth daily 28 tablet 2 2025 Active naloxone (NARCAN) 4 mg/actuation spray,non-aerosol Indications:risk mitigation for opioid overdose Administer 1 spray into affected nostril(s) as needed for opioid reversal Call 911. Administer a single spray in one nostril. Repeat every 3 minutes as needed if no or minimal response. 2 each Active nicotine (NICODERM CQ) 14 mgIndications:Smo megan Cessation Place 1 patch on the skin daily for 24 hours 30 patch 2024 Active nicotine polacrilex (NICORETTE) 2 mg gum Chew 1 each (2 mg total) every 2 (two) hours as needed for smoking cessation 100 each 025 2024 Active albuterol HFA (PROVENTIL HFA,VENTOLIN HFA,PROAIR HFA) 90 mcg/actuation inhalerIndication s:Bronchospasm Prevention Inhale 2 puffs every 6 (six) hours as needed for wheezing 1 each 2025 Active dapsone 100 mg tabletIndications :Pneumocystis/Tox oplasmosis Prophylaxis Take 1 tablet (100 mg total) by mouth daily 30 tablet 2024 Active buprenorphine-nal oxone (SUBOXONE) 8-[address] 1 Film under the tongue 3 times a day 21 Film Active sulfamethoxazole- trimethoprim (BACTRIM) 800-160 mg per tabletIndications :Pneumocystis/Tox oplasmosis Prophylaxis Take 1 tablet (160 mg of trimethoprim total) by mouth daily 30 tablet 2024 Discontinued(S top Taking at Discharge) azithromycin (ZITHROMAX) 250 mg tabletIndications :Prophylaxis, Medical,MAC prophylaxis Take 1 tablet (250 mg total) by mouth daily 30 tablet 2024 Discontinued(S top Taking at Discharge) bictegravir-emtri citabine-tenofovi r (BIKTARVY) 50-200-25 mg tabletIndications :HIV infection Take 1 tablet by mouth daily 30 tablet 11 025 2024 Discontinued sofosbuvir-velpat asvir (EPCLUSA) 400-100 mg tablet per tabletIndications :Chronic hepatitis C without hepatic coma Take 1 tablet by mouth daily 28 tablet 2 2024 Discontinued itraconazole (SPORANOX) 100 mg capsuleIndication s:Disseminated histoplasmosis Take 2 capsules (200 mg total) by mouth 2 (two) times a day 120 capsule 11 025 2024 Discontinued bictegravir-emtri citabine-tenofovi r (BIKTARVY) 50-200-25 mg tabletIndications :HIV infection Take 1 tablet by mouth daily 30 tablet 11 025 2024 Discontinued itraconazole (SPORANOX) 100 mg capsuleIndication s:Disseminated histoplasmosis Take 2 capsules (200 mg total) by mouth 3 (three) times a day for 3 days, THEN 2 capsules (200 mg total) 2 (two) times a day. 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 Most recent CD4 count 6 (04/26). Patient was recently hospitalized x2 at OSH for opioid detox, found to have CAP. He was treated with broad-spectrum abx and narrowed to levaquin. Despite this antibiotic treatment, patient has had persistent fevers (as high as 104). Unclear etiology as an extensive workup to date for infectious causes has been negative. Patient transferred to [facility] 04/29 for HLOC and ID involvement. Summary of OSH workup: RPP (+) for rhino/enterovirus. CT chest (04/27) with small b/l pleural effusions, scattered micro nodules, and curvilinear area within left upper lobe and potential reverse halo sign c/f possible fungal infection. Crypto and toxo negative. AFB negative. Bacterial sputum cx contaminated. BCx 04/25 no growth final. Legionella negative. Overall, for fever in the setting of AIDS, particularly given this patient's degree of immune suppression with a CD4 count of 6, and homelessness, we have to consider a broad differential including infectious (opportunistic and fungal species especially) vs non-infectious causes (HLH, malignancy). 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 Plan: - ID consulted and following - Amphotericin x2 weeks (05/01-05/15), last dose complete. KCL 20 meq daily while on ampho + replete PRN. Dc KCL at discharge. - continue itraconazole 200mg TIC x 2d at discharge, 1 day complete. Followed by 200mg BID for 12 mo. Medications delivered to bedside. - Continue Biktarvy started 05/05 - Continue Dapsone started 05/12 - dc with albuterol PRN. Breathing improved with nebulizer while inpatient. - f/u outpatient with ID 05/30 Assessment & Plan (05/15/2025 12:51 PM VOCATIONAL AIDE): Patient w/ longstanding history untreated HIV (dx 15 years ago), not on ART due to well-documented disease denial. Most recent CD4 count 6 (04/26). Patient was recently hospitalized x2 at OSH for opioid detox, found to have CAP. He was treated with broad-spectrum abx and narrowed to levaquin. Despite this antibiotic treatment, patient has had persistent fevers (as high as 104). Unclear etiology as an extensive workup to date for infectious causes has been negative. Patient transferred to [facility] 04/29 for HLOC and ID involvement. Summary of OSH workup: RPP (+) for rhino/enterovirus. CT chest (04/27) with small b/l pleural effusions, scattered micro nodules, and curvilinear area within left upper lobe and potential reverse halo sign c/f possible fungal infection. Crypto and toxo negative. AFB negative. Bacterial sputum cx contaminated. BCx 04/25 no growth final. Legionella negative. Overall, for fever in the setting of AIDS, particularly given this patient's degree of immune suppression with a CD4 count of 6, and homelessness, we have to consider a broad differential including infectious (opportunistic and fungal species especially) vs non-infectious causes (HLH, malignancy). 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 Plan: - ID consulted and following - Amphotericin x2 weeks (05/01-05/15), last dose tonight. KCL 20 meq daily while on ampho + replete PRN. Dc KCL at discharge. - START itraconazole 200mg TIC x3d today, continue day 2-3 of load at discharge. Followed by 200mg BID for 12 mo. Medications delivered to bedside. - Continue Biktarvy started 05/05 - Continue Dapsone started 05/12 - dc with albuterol PRN. Breathing improved with nebulizer yesterday. Assessment & Plan (05/14/2025 10:44 AM VOCATIONAL AIDE): Patient w/ longstanding history untreated HIV (dx 15 years ago), not on ART due to well-documented disease denial. Most recent CD4 count 6 (04/26). Patient was recently hospitalized x2 at OSH for opioid detox, found to have CAP. He was treated with broad-spectrum abx and narrowed to levaquin. Despite this antibiotic treatment, patient has had persistent fevers (as high as 104). Unclear etiology as an extensive workup to date for infectious causes has been negative. Patient transferred to [facility] 04/29 for HLOC and ID involvement. Summary of OSH workup: RPP (+) for rhino/enterovirus. CT chest (04/27) with small b/l pleural effusions, scattered micro nodules, and curvilinear area within left upper lobe and potential reverse halo sign c/f possible fungal infection. Crypto and toxo negative. AFB negative. Bacterial sputum cx contaminated. BCx 04/25 no growth final. Legionella negative. Overall, for fever in the setting of AIDS, particularly given this patient's degree of immune suppression with a CD4 count of 6, and homelessness, we have to consider a broad differential including infectious (opportunistic and fungal species especially) vs non-infectious causes (HLH, malignancy). 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 Plan: - ID consulted and following - Amphotericin x2 weeks (05/01-05/15). KCL 20 meq daily while on ampho + replete PRN. - After amphotericin, itraconazole 200mg TIC x3d, 200mg BID for 12 mo. Pharmacy [facility] $0, planning to deliver medications to bedside when available. - Biktarvy started 05/05 per ID given no Tb. - Continue Dapsone - Trial of albuterol nebulizer for ongoing productive cough. Consider dc with albuterol inhaler PRN. Assessment & Plan (05/13/2025 6:58 AM VOCATIONAL AIDE): Patient w/ longstanding history untreated HIV (dx 15 years ago), not on ART due to well-documented disease denial. Most recent CD4 count 6 (04/26). Patient was recently hospitalized x2 at OSH for opioid detox, found to have CAP. He was treated with broad-spectrum abx and narrowed to levaquin. Despite this antibiotic treatment, patient has had persistent fevers (as high as 104). Unclear etiology as an extensive workup to date for infectious causes has been negative. Patient transferred to [facility] 04/29 for HLOC and ID involvement. Summary of OSH workup: RPP (+) for rhino/enterovirus. CT chest (04/27) with small b/l pleural effusions, scattered micro nodules, and curvilinear area within left upper lobe and potential reverse halo sign c/f possible fungal infection. Crypto and toxo negative. AFB negative. Bacterial sputum cx contaminated. BCx 04/25 no growth final. Legionella negative. Overall, for fever in the setting of AIDS, particularly given this patient's degree of immune suppression with a CD4 count of 6, and homelessness, we have to consider a broad differential including infectious (opportunistic and fungal species especially) vs non-infectious causes (HLH, malignancy). 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 Plan: - ID consulted and following - Amphotericin x2 weeks (05/01-05/15). KCL 20 meq daily while on ampho + replete PRN. - After amphotericin, itraconazole 200mg TIC x3d, 200mg BID for 12 mo. Mobile pharmacy [facility] $0, planning to deliver medications to bedside when available. - Biktarvy started 05/05 per ID given no Tb. - Cont Dapsone Assessment & Plan (05/12/2025 4:54 PM VOCATIONAL AIDE): Patient w/ longstanding history untreated HIV (dx 15 years ago), not on ART due to well-documented disease denial. Most recent CD4 count 6 (04/26). Patient was recently hospitalized x2 at OSH for opioid detox, found to have CAP. He was treated with broad-spectrum abx and narrowed to levaquin. Despite this antibiotic treatment, patient has had persistent fevers (as high as 104). Unclear etiology as an extensive workup to date for infectious causes has been negative. Patient transferred to [facility] 04/29 for HLOC and ID involvement. Summary of OSH workup: RPP (+) for rhino/enterovirus. CT chest (04/27) with small b/l pleural effusions, scattered micro nodules, and curvilinear area within left upper lobe and potential reverse halo sign c/f possible fungal infection. Crypto and toxo negative. AFB negative. Bacterial sputum cx contaminated. BCx 04/25 no growth final. Legionella negative. Overall, for fever in the setting of AIDS, particularly given this patient's degree of immune suppression with a CD4 count of 6, and homelessness, we have to consider a broad differential including infectious (opportunistic and fungal species especially) vs non-infectious causes (HLH, malignancy). 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 Plan: - ID consulted and following - Amphotericin x2 weeks (05/01-05/15). KCL 20 meq daily while on ampho + replete PRN. - After amphotericin, itraconazole 200mg TIC x3d, 200mg BID for 12 mo. Mobile pharmacy [facility] $0, planning to deliver medications to bedside when available. - Biktarvy started 05/05 per ID given no Tb. - Will start dapsone 100 mg daily for PJP PPX Assessment & Plan (05/11/2025 7:28 AM VOCATIONAL AIDE): Patient w/ longstanding history untreated HIV (dx 15 years ago), not on ART due to well-documented disease denial. Most recent CD4 count 6 (04/26). Patient was recently hospitalized x2 at OSH for opioid detox, found to have CAP. He was treated with broad-spectrum abx and narrowed to levaquin. Despite this antibiotic treatment, patient has had persistent fevers (as high as 104). Unclear etiology as an extensive workup to date for infectious causes has been negative. Patient transferred to [facility] 04/29 for HLOC and ID involvement. Summary of OSH workup: RPP (+) for rhino/enterovirus. CT chest (04/27) with small b/l pleural effusions, scattered micro nodules, and curvilinear area within left upper lobe and potential reverse halo sign c/f possible fungal infection. Crypto and toxo negative. AFB negative. Bacterial sputum cx contaminated. BCx 04/25 no growth final. Legionella negative. Overall, for fever in the setting of AIDS, particularly given this patient's degree of immune suppression with a CD4 count of 6, and homelessness, we have to consider a broad differential including infectious (opportunistic and fungal species especially) vs non-infectious causes (HLH, malignancy). 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 Plan: - ID consulted and following - Amphotericin x2 weeks (05/01-05/15). KCL 20 meq daily while on ampho + replete PRN. - After amphotericin, itraconazole 200mg TIC x3d, 200mg BID for 12 mo. Mobile pharmacy [facility] $0, planning to deliver medications to bedside when available. - Biktarvy started 05/05 per ID given no Tb. - Holding bactrim ppx iso thrombocytopenia, defer to ID Assessment & Plan (05/10/2025 7:21 PM VOCATIONAL AIDE): Patient w/ longstanding history untreated HIV (dx 15 years ago), not on ART due to well-documented disease denial. Most recent CD4 count 6 (04/26). Patient was recently hospitalized x2 at OSH for opioid detox, found to have CAP. He was treated with broad-spectrum abx and narrowed to levaquin. Despite this antibiotic treatment, patient has had persistent fevers (as high as 104). Unclear etiology as an extensive workup to date for infectious causes has been negative. Patient transferred to [facility] 04/29 for HLOC and ID involvement. Summary of OSH workup: RPP (+) for rhino/enterovirus. CT chest (04/27) with small b/l pleural effusions, scattered micro nodules, and curvilinear area within left upper lobe and potential reverse halo sign c/f possible fungal infection. Crypto and toxo negative. AFB negative. Bacterial sputum cx contaminated. BCx 04/25 no growth final. Legionella negative. Overall, for fever in the setting of AIDS, particularly given this patient's degree of immune suppression with a CD4 count of 6, and homelessness, we have to consider a broad differential including infectious (opportunistic and fungal species especially) vs non-infectious causes (HLH, malignancy). 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 Plan: - ID consulted and following - Amphotericin x2 weeks (05/01-05/15). KCL 20 meq daily while on ampho + replete PRN. - After amphotericin, itraconazole 200mg TIC x3d, 200mg BID for 12 mo. Mobile pharmacy [facility] $0, planning to deliver medications to bedside when available. - Biktarvy started 05/05 per ID given no Tb. - Holding bactrim ppx iso thrombocytopenia, defer to ID Assessment & Plan (05/09/2025 3:21 PM VOCATIONAL AIDE): Patient w/ longstanding history untreated HIV (dx 15 years ago), not on ART due to well-documented disease denial. Most recent CD4 count 6 (04/26). Patient was recently hospitalized x2 at OSH for opioid detox, found to have CAP. He was treated with broad-spectrum abx and narrowed to levaquin. Despite this antibiotic treatment, patient has had persistent fevers (as high as 104). Unclear etiology as an extensive workup to date for infectious causes has been negative. Patient transferred to [facility] 04/29 for HLOC and ID involvement. Summary of OSH workup: RPP (+) for rhino/enterovirus. CT chest (04/27) with small b/l pleural effusions, scattered micro nodules, and curvilinear area within left upper lobe and potential reverse halo sign c/f possible fungal infection. Crypto and toxo negative. AFB negative. Bacterial sputum cx contaminated. BCx 04/25 no growth final. Legionella negative. Overall, for fever in the setting of AIDS, particularly given this patient's degree of immune suppression with a CD4 count of 6, and homelessness, we have to consider a broad differential including infectious (opportunistic and fungal species especially) vs non-infectious causes (HLH, malignancy). 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 Plan: - ID consulted and following - Amphotericin x2 weeks (05/01-05/15). KCL 20 meq daily while on ampho + replete PRN. - After amphotericin, itraconazole 200mg TIC x3d, 200mg BID for 12 mo - Biktarvy started 05/05 per ID given no Tb. - Holding bactrim ppx iso thrombocytopenia, defer to ID Assessment & Plan (05/08/2025 6:59 PM VOCATIONAL AIDE): Patient w/ longstanding history untreated HIV (dx 15 years ago), not on ART due to well-documented disease denial. Most recent CD4 count 6. Patient was recently hospitalized x2 at OSH for opioid detox, found to have CAP. He was treated with broad-spectrum abx and narrowed to levaquin. Despite this antibiotic treatment, patient has had persistent fevers (as high as 104). Unclear etiology as an extensive workup to date for infectious causes has been negative. Patient transferred to [facility] 04/29 for HLOC and ID involvement. Summary of OSH workup: RPP (+) for rhino/enterovirus. CT chest (04/27) with small b/l pleural effusions, scattered micro nodules, and curvilinear area within left upper lobe and potential reverse halo sign c/f possible fungal infection. Crypto and toxo negative. AFB negative. Bacterial sputum cx contaminated. BCx 04/25 no growth final. Legionella negative. Overall, for fever in the setting of AIDS, particularly given this patient's degree of immune suppression with a CD4 count of 6, and homelessness, we have to consider a broad differential including infectious (opportunistic and fungal species especially) vs non-infectious causes (HLH, malignancy). 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 Plan: - ID consulted and following - Amphotericin x2 weeks (05/01-05/15). Start KCL 20 meq daily while on ampho + replete PRN. - After amphotericin, itraconazole 200mg TIC x3d, 200mg BID for 12 mo - Biktarvy started 05/05 per ID given no Tb. - Holding bactrim ppx iso thrombocytopenia, defer to ID Assessment & Plan (05/07/2025 7:13 AM VOCATIONAL AIDE): Patient w/ longstanding history untreated HIV (dx 15 years ago), not on ART due to well-documented disease denial. Most recent CD4 count 6. Patient was recently hospitalized x2 at OSH for opioid detox, found to have CAP. He was treated with broad-spectrum abx and narrowed to levaquin. Despite this antibiotic treatment, patient has had persistent fevers (as high as 104). Unclear etiology as an extensive workup to date for infectious causes has been negative. Patient transferred to [facility] 04/29 for HLOC and ID involvement. Summary of OSH workup: RPP (+) for rhino/enterovirus. CT chest (04/27) with small b/l pleural effusions, scattered micro nodules, and curvilinear area within left upper lobe and potential reverse halo sign c/f possible fungal infection. Crypto and toxo negative. AFB negative. Bacterial sputum cx contaminated. BCx 04/25 no growth final. Legionella negative. Overall, for fever in the setting of AIDS, particularly given this patient's degree of immune suppression with a CD4 count of 6, and homelessness, we have to consider a broad differential including infectious (opportunistic and fungal species especially) vs non-infectious causes (HLH, malignancy). 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 Plan: - ID consulted and following - Amphotericin x2 weeks - After amphotericin, itraconazole 200mg TIC x3d, 200mg BID for 12 mo - Biktarvy started 05/05 per ID given no Tb - Holding bactrim ppx iso thrombocytopenia, defer to ID Assessment & Plan (05/06/2025 11:16 AM VOCATIONAL AIDE): Patient w/ longstanding history untreated HIV (dx 15 years ago), not on ART due to well-documented disease denial. Most recent CD4 count 6. Patient was recently hospitalized x2 at OSH for opioid detox, found to have CAP. He was treated with broad-spectrum abx and narrowed to levaquin. Despite this antibiotic treatment, patient has had persistent fevers (as high as 104). Unclear etiology as an extensive workup to date for infectious causes has been negative. Patient transferred to [facility] 04/29 for HLOC and ID involvement. Summary of OSH workup: RPP (+) for rhino/enterovirus. CT chest (04/27) with small b/l pleural effusions, scattered micro nodules, and curvilinear area within left upper lobe and potential reverse halo sign c/f possible fungal infection. Crypto and toxo negative. AFB negative. Bacterial sputum cx contaminated. BCx 04/25 no growth final. Legionella negative. Overall, for fever in the setting of AIDS, particularly given this patient's degree of immune suppression with a CD4 count of 6, and homelessness, we have to consider a broad differential including infectious (opportunistic and fungal species especially) vs non-infectious causes (HLH, malignancy). 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 Plan: - ID consulted and following - Amphotericin x2 weeks - After amphotericin, itraconazole 200mg TIC x3d, 200mg BID for 12 mo - Biktarvy started 05/05 per ID given no Tb - Holding bactrim ppx iso thrombocytopenia, defer to ID Assessment & Plan (05/05/2025 4:04 PM VOCATIONAL AIDE): 45 yo man with untreated HIV with CD4 count of 6 and VL 230k (wild type), untreated HCV and OUD p/w persistent fever, pleural effusions, pulm nodules, splenomegaly, L axillary LAD, oral mucosal lesions, thrombocytopenia/anemia and elevated LFTs f/t/h disseminated histoplasmosis. No s/sx of meningitis. Urine histo Ag >20 on 04/28/25. Started on ambisome 3mg/kg on 05/01. AFB sputum 04/07 NGTD, no AFB seen AFB sputum 04/23 NGTD, no AFB seen BCx NGTD CMV negative TTE without evidence of endocarditis CrAg negative Toxoplasma negative Aspergillus galactomannan >= 3.750 HIV RNA >10,000,000 HCV RNA - detectable RPR negative TB PCR sputum - negative AFB sputum 04/29 - NGTD, no AFB seen AFB Bcx 05/01 - NGTD TB spot - negative Bartonella abs - <1:128 Ehrlichia/Anaplasma PCR - negative Tularemia abs - negative Histo urine ag - >20 Histo serum abs - positive w m band, 1:64 Blasto abs - negative Cocci abs - negative G6PD - normal PJP DFA 05/01 - negative BAL AFB 05/01 - NGTD, no AFB seen BAL AFB 05/01 - NGTD, no AFB seen BAL 05/01 - NGTD RPP 05/01 - rhinovirus/enterovirus positive Recommendations: - Continue Ambisome 3mg/kg IV Q24H induction for 2 weeks (05/01-05/15) - Will then need to load on itraconazole with itra 200mg TID x3 days followed by a year of itraconazole 200mg BID - script sent to [facility] for prior authorization - Start ART with Biktarvy 1 tab daily - Please monitor BMP, Mg and Phos at least daily and replace K >4 and mag >2 - Patient will need to remain inpatient until at least 1 day into itraconazole loading to ensure tolerance - Can remove airborne precautions as we have an alternative diagnosis - Will engage [facility] team to help keep him engaged while hospitalized and post-discharge -Amphotericin is associated with nephrotoxicity and should be administered with 500 cc NS pre and post infusion. Other common side effects include renal tubular acidosis, electrolyte abnormalities, particularly hypokalemia, hypomagnesemia, and hypocalcemia (these should be monitored on a daily basis and repleted as necessary while inpatient), fever and chills (can be controlled with mepiridine), anemia, and phlebitis. Less common side effects include hypotension, nausea, vomiting, headache, and a metallic taste. While on amphotericin, CBC and CMP should be monitored weekly and BMP/Mg biweekly at a minimum. Delusions 05/03/2025 Assessment & Plan (05/16/2025 7:00 AM VOCATIONAL AIDE): Patient noted to have delusions and hallucinations. Historically has not been treated for HIV and HepC because he does not believe the diagnosis. Concern for underlying untreated psychiatric diagnosis. Patient believes hallucinations were only in the setting of drug use or withdrawal. Throughout admission, he has demonstrated increasing insight to his medical diagnoses and substance use. - Based on clinical improvement in mental status, will defer psych consult at this time. Assessment & Plan (05/15/2025 12:51 PM VOCATIONAL AIDE): Patient noted to have delusions and hallucinations. Historically has not been treated for HIV and HepC because he does not believe the diagnosis. Concern for underlying untreated psychiatric diagnosis. Patient believes hallucinations were only in the setting of drug use or withdrawal. Throughout admission, he has demonstrated increasing insight to his medical diagnoses and substance use. - Based on clinical improvement in mental status, will defer psych consult at this time. Assessment & Plan (05/14/2025 6:40 AM VOCATIONAL AIDE): Patient noted to have delusions and hallucinations. Historically has not been treated for HIV and HepC because he does not believe the diagnosis. Concern for underlying untreated psychiatric diagnosis. If so, this is clearly negatively impacting his health. - Based on clinical improvement in mental status, will defer psych consult at this time. Patient demonstrates capacity for decisions regarding discharge disposition. Assessment & Plan (05/13/2025 6:58 AM VOCATIONAL AIDE): Patient noted to have delusions and hallucinations. Historically has not been treated for HIV and HepC because he does not believe the diagnosis. Concern for underlying untreated psychiatric diagnosis. If so, this is clearly negatively impacting his health. - Based on clinical improvement in mental status, will defer psych consult at this time. Patient demonstrates capacity for decisions regarding discharge disposition. Assessment & Plan (05/12/2025 4:54 PM VOCATIONAL AIDE): Patient noted to have delusions and hallucinations. Historically has not been treated for HIV and HepC because he does not believe the diagnosis. Concern for underlying untreated psychiatric diagnosis. If so, this is clearly negatively impacting his health. - Based on clinical improvement in mental status, will defer psych consult at this time. Patient demonstrates capacity for decisions regarding discharge disposition. Assessment & Plan (05/11/2025 7:28 AM VOCATIONAL AIDE): Patient noted to have delusions and hallucinations. Historically has not been treated for HIV and HepC because he does not believe the diagnosis. Concern for underlying untreated psychiatric diagnosis. If so, this is clearly negatively impacting his health. - Consider psych consult this admission Assessment & Plan (05/10/2025 7:11 AM VOCATIONAL AIDE): Patient noted to have delusions and hallucinations. Historically has not been treated for HIV and HepC because he does not believe the diagnosis. Concern for underlying untreated psychiatric diagnosis. If so, this is clearly negatively impacting his health. - Consider psych consult this admission Assessment & Plan (05/09/2025 6:37 AM VOCATIONAL AIDE): Patient noted to have delusions and hallucinations. Historically has not been treated for HIV and HepC because he does not believe the diagnosis. Concern for underlying untreated psychiatric diagnosis. If so, this is clearly negatively impacting his health. - Consider psych consult this admission Assessment & Plan (05/08/2025 6:59 PM VOCATIONAL AIDE): Patient noted to have delusions and hallucinations. Historically has not been treated for HIV and HepC because he does not believe the diagnosis. Concern for underlying untreated psychiatric diagnosis. If so, this is clearly negatively impacting his health. - Consider psych consult this admission Assessment & Plan (05/07/2025 7:13 AM VOCATIONAL AIDE): Patient noted to have delusions and hallucinations. Historically has not been treated for HIV and HepC because he does not believe the diagnosis. Concern for underlying untreated psychiatric diagnosis. If so, this is clearly negatively impacting his health. - Psych consult in upcoming days, certainly prior to discharge Assessment & Plan (05/06/2025 6:14 AM VOCATIONAL AIDE): Patient noted to have delusions and hallucinations. Historically has not been treated for HIV and HepC because he does not believe the diagnosis. Concern for underlying untreated psychiatric diagnosis. If so, this is clearly negatively impacting his health. - Psych consult in upcoming days, certainly prior to discharge Assessment & Plan (05/05/2025 6:25 AM VOCATIONAL AIDE): Patient noted to have delusions and hallucinations. Historically has not been treated for HIV and HepC because he does not believe the diagnosis. Concern for underlying untreated psychiatric diagnosis. If so, this is clearly negatively impacting his health. - Psych consult in upcoming days, certainly prior to discharge Assessment & Plan (05/04/2025 2:26 PM VOCATIONAL AIDE): Patient noted to have delusions and hallucinations. Historically has not been treated for HIV and HepC because he does not believe the diagnosis. Concern for underlying untreated psychiatric diagnosis. If so, this is clearly negatively impacting his health. - Psych consult in upcoming days, certainly prior to discharge Assessment & Plan (05/03/2025 11:02 AM VOCATIONAL AIDE): Patient noted to have delusions and hallucinations. Historically has not been treated for HIV and HepC because he does not believe the diagnosis. Concern for underlying untreated psychiatric diagnosis. If so, this is clearly negatively impacting his health. - Psych consult in upcoming days, certainly prior to discharge Odynophagia 04/30/2025 Assessment & Plan (05/16/2025 7:00 AM VOCATIONAL AIDE): Patient reporting painful swallowing. Patient is poor historian so we are unable to fully characterize this pain. No thrush on oral exam, however we will start empiric esophageal candidiasis treatment given profound immunosuppression. HSV negative. In light of histoplasma, suspect possible histoplasma oral lesions. Plan: - s/p amphotericin as above Assessment & Plan (05/15/2025 6:54 AM VOCATIONAL AIDE): Patient reporting painful swallowing. Patient is poor historian so we are unable to fully characterize this pain. No thrush on oral exam, however we will start empiric esophageal candidiasis treatment given profound immunosuppression. HSV negative. In light of histoplasma, suspect possible histoplasma oral lesions. Plan: - Amphotericin per above Assessment & Plan (05/14/2025 6:40 AM VOCATIONAL AIDE): Patient reporting painful swallowing. Patient is poor historian so we are unable to fully characterize this pain. No thrush on oral exam, however we will start empiric esophageal candidiasis treatment given profound immunosuppression. HSV negative. In light of histoplasma, suspect possible histoplasma oral lesions. Plan: - Amphotericin per above Assessment & Plan (05/13/2025 6:58 AM VOCATIONAL AIDE): Patient reporting painful swallowing. Patient is poor historian so we are unable to fully characterize this pain. No thrush on oral exam, however we will start empiric esophageal candidiasis treatment given profound immunosuppression. HSV negative. In light of histoplasma, suspect possible histoplasma oral lesions. Plan: - Amphotericin per above Assessment & Plan (05/12/2025 7:46 AM VOCATIONAL AIDE): Patient reporting painful swallowing. Patient is poor historian so we are unable to fully characterize this pain. No thrush on oral exam, however we will start empiric esophageal candidiasis treatment given profound immunosuppression. HSV negative. In light of histoplasma, suspect possible histoplasma oral lesions. Plan: - Amphotericin per above Assessment & Plan (05/11/2025 7:28 AM VOCATIONAL AIDE): Patient reporting painful swallowing. Patient is poor historian so we are unable to fully characterize this pain. No thrush on oral exam, however we will start empiric esophageal candidiasis treatment given profound immunosuppression. HSV negative. In light of histoplasma, suspect possible histoplasma oral lesions. Plan: - Amphotericin per above Assessment & Plan (05/10/2025 7:11 AM VOCATIONAL AIDE): Patient reporting painful swallowing. Patient is poor historian so we are unable to fully characterize this pain. No thrush on oral exam, however we will start empiric esophageal candidiasis treatment given profound immunosuppression. HSV negative. In light of histoplasma, suspect possible histoplasma oral lesions. Plan: - Amphotericin per above Assessment & Plan (05/09/2025 6:37 AM VOCATIONAL AIDE): Patient reporting painful swallowing. Patient is poor historian so we are unable to fully characterize this pain. No thrush on oral exam, however we will start empiric esophageal candidiasis treatment given profound immunosuppression. HSV negative. In light of histoplasma, suspect possible histoplasma oral lesions. Plan: - Amphotericin per above Assessment & Plan (05/08/2025 9:13 AM VOCATIONAL AIDE): Patient reporting painful swallowing. Patient is poor historian so we are unable to fully characterize this pain. No thrush on oral exam, however we will start empiric esophageal candidiasis treatment given profound immunosuppression. HSV negative. In light of histoplasma, suspect possible histoplasma oral lesions. Plan: - Amphotericin per above Assessment & Plan (05/07/2025 7:13 AM VOCATIONAL AIDE): Patient reporting painful swallowing. Patient is poor historian so we are unable to fully characterize this pain. No thrush on oral exam, however we will start empiric esophageal candidiasis treatment given profound immunosuppression. HSV negative. In light of histoplasma, suspect possible histoplasma oral lesions. Plan: - Amphotericin per above Assessment & Plan (05/06/2025 11:16 AM VOCATIONAL AIDE): Patient reporting painful swallowing. Patient is poor historian so we are unable to fully characterize this pain. No thrush on oral exam, however we will start empiric esophageal candidiasis treatment given profound immunosuppression. HSV negative. In light of histoplasma, suspect possible histoplasma oral lesions. 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 Could also have faby esophagitis - regardless treated with ampho. Assessment & Plan (05/05/2025 6:25 AM VOCATIONAL AIDE): Patient reporting painful swallowing. Patient is poor historian so we are unable to fully characterize this pain. No thrush on oral exam, however we will start empiric esophageal candidiasis treatment given profound immunosuppression. HSV negative. Plan: - Amphotericin per above - If no improvement in symptoms, can consider EGD Assessment & Plan (05/04/2025 2:26 PM VOCATIONAL AIDE): Patient reporting painful swallowing. Patient is poor historian so we are unable to fully characterize this pain. No thrush on oral exam, however we will start empiric esophageal candidiasis treatment given profound immunosuppression. HSV negative. Plan: - Amphotericin per above - If no improvement in symptoms, can consider EGD Assessment & Plan (05/04/2025 1:44 PM VOCATIONAL AIDE): Fluconazole stopped as patient has started on amphotericin. Voice more audible today. Patient reporting improvement in symptoms. Assessment & Plan (05/03/2025 11:09 AM VOCATIONAL AIDE): Fluconazole stopped as patient has started on amphotericin. Voice more audible today. Patient reporting improvement in throat pain. Assessment & Plan (05/03/2025 11:02 AM VOCATIONAL AIDE): Patient reporting painful swallowing. Patient is poor historian so we are unable to fully characterize this pain. No thrush on oral exam, however we will start empiric esophageal candidiasis treatment given profound immunosuppression. HSV negative. Plan: - Amphotericin per above - If no improvement in symptoms, can consider EGD Assessment & Plan (05/02/2025 11:38 AM VOCATIONAL AIDE): Fluconazole stopped as patient has started on amphotericin. Voice more audible today. Patient unclear if have any improvement to throat pain. Assessment & Plan (05/02/2025 10:52 AM VOCATIONAL AIDE): Patient reporting painful swallowing. Patient is poor historian so we are unable to fully characterize this pain. No thrush on oral exam, however we will start empiric esophageal candidiasis treatment given profound immunosuppression. Plan: - Amphotericin per above - If no improvement in symptoms, can consider EGD Assessment & Plan (05/01/2025 2:46 PM VOCATIONAL AIDE): Started on fluconazole yesterday. Reports no changes to symptoms today. Continue fluconazole Assessment & Plan (05/01/2025 10:51 AM VOCATIONAL AIDE): Patient reporting painful swallowing. Patient is poor historian so we are unable to fully characterize this pain. No thrush on oral exam, however we will start empiric esophageal candidiasis treatment given profound immunosuppression. Plan: - Start fluconazole: 800mg IV 2 followed by 400mg daily fpr 14 days - If no improvement in symptoms, can consider EGD Assessment & Plan (04/30/2025 10:40 AM VOCATIONAL AIDE): Patient reporting painful swallowing. Patient is poor historian so we are unable to fully characterize this pain. No thrush on oral exam, however we will start empiric esophageal candidiasis treatment given profound immunosuppression. Plan: - Start fluconazole: 800mg IV 2 followed by 400mg daily - If no improvement in symptoms, can consider EGD HIV disease 04/29/2025 Assessment & Plan (05/16/2025 7:00 AM VOCATIONAL AIDE): Patient w/ longstanding history untreated HIV (dx 15 years ago), not on ART due to well-documented disease denial. Most recent CD4 count 6 (04/26). Patient was recently hospitalized x2 at OSH for opioid detox, found to have CAP. He was treated with broad-spectrum abx and narrowed to levaquin. Despite this antibiotic treatment, patient has had persistent fevers (as high as 104). Unclear etiology as an extensive workup to date for infectious causes has been negative. Patient transferred to [facility] 04/29 for HLOC and ID involvement. Summary of OSH workup: RPP (+) for rhino/enterovirus. CT chest (04/27) with small b/l pleural effusions, scattered micro nodules, and curvilinear area within left upper lobe and potential reverse halo sign c/f possible fungal infection. Crypto and toxo negative. AFB negative. Bacterial sputum cx contaminated. BCx 04/25 no growth final. Legionella negative. Overall, for fever in the setting of AIDS, particularly given this patient's degree of immune suppression with a CD4 count of 6, and homelessness, we have to consider a broad differential including infectious (opportunistic and fungal species especially) vs non-infectious causes (HLH, malignancy). 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 Plan: - ID consulted and following - Amphotericin x2 weeks (05/01-05/15), last dose complete. KCL 20 meq daily while on ampho + replete PRN. Dc KCL at discharge. - continue itraconazole 200mg TIC x 2d at discharge, 1 day complete. Followed by 200mg BID for 12 mo. Medications delivered to bedside. - Continue Biktarvy started 05/05 - Continue Dapsone started 05/12 - dc with albuterol PRN. Breathing improved with nebulizer while inpatient. - f/u outpatient with ID 05/30 Assessment & Plan (05/15/2025 12:51 PM VOCATIONAL AIDE): Patient w/ longstanding history untreated HIV (dx 15 years ago), not on ART due to well-documented disease denial. Most recent CD4 count 6 (04/26). Patient was recently hospitalized x2 at OSH for opioid detox, found to have CAP. He was treated with broad-spectrum abx and narrowed to levaquin. Despite this antibiotic treatment, patient has had persistent fevers (as high as 104). Unclear etiology as an extensive workup to date for infectious causes has been negative. Patient transferred to [facility] 04/29 for HLOC and ID involvement. Summary of OSH workup: RPP (+) for rhino/enterovirus. CT chest (04/27) with small b/l pleural effusions, scattered micro nodules, and curvilinear area within left upper lobe and potential reverse halo sign c/f possible fungal infection. Crypto and toxo negative. AFB negative. Bacterial sputum cx contaminated. BCx 04/25 no growth final. Legionella negative. Overall, for fever in the setting of AIDS, particularly given this patient's degree of immune suppression with a CD4 count of 6, and homelessness, we have to consider a broad differential including infectious (opportunistic and fungal species especially) vs non-infectious causes (HLH, malignancy). 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 Plan: - ID consulted and following - Amphotericin x2 weeks (05/01-05/15), last dose tonight. KCL 20 meq daily while on ampho + replete PRN. Dc KCL at discharge. - START itraconazole 200mg TIC x3d today, continue day 2-3 of load at discharge. Followed by 200mg BID for 12 mo. Medications delivered to bedside. - Continue Biktarvy started 05/05 - Continue Dapsone started 05/12 - dc with albuterol PRN. Breathing improved with nebulizer yesterday. Assessment & Plan (05/14/2025 10:44 AM VOCATIONAL AIDE): Patient w/ longstanding history untreated HIV (dx 15 years ago), not on ART due to well-documented disease denial. Most recent CD4 count 6 (04/26). Patient was recently hospitalized x2 at OSH for opioid detox, found to have CAP. He was treated with broad-spectrum abx and narrowed to levaquin. Despite this antibiotic treatment, patient has had persistent fevers (as high as 104). Unclear etiology as an extensive workup to date for infectious causes has been negative. Patient transferred to [facility] 04/29 for HLOC and ID involvement. Summary of OSH workup: RPP (+) for rhino/enterovirus. CT chest (04/27) with small b/l pleural effusions, scattered micro nodules, and curvilinear area within left upper lobe and potential reverse halo sign c/f possible fungal infection. Crypto and toxo negative. AFB negative. Bacterial sputum cx contaminated. BCx 04/25 no growth final. Legionella negative. Overall, for fever in the setting of AIDS, particularly given this patient's degree of immune suppression with a CD4 count of 6, and homelessness, we have to consider a broad differential including infectious (opportunistic and fungal species especially) vs non-infectious causes (HLH, malignancy). 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 Plan: - ID consulted and following - Amphotericin x2 weeks (05/01-05/15). KCL 20 meq daily while on ampho + replete PRN. - After amphotericin, itraconazole 200mg TIC x3d, 200mg BID for 12 mo. Pharm[facility] $0, planning to deliver medications to bedside when available. - Biktarvy started 05/05 per ID given no Tb. - Continue Dapsone - Trial of albuterol nebulizer for ongoing productive cough. Consider dc with albuterol inhaler PRN. Assessment & Plan (05/13/2025 6:58 AM VOCATIONAL AIDE): Patient w/ longstanding history untreated HIV (dx 15 years ago), not on ART due to well-documented disease denial. Most recent CD4 count 6 (04/26). Patient was recently hospitalized x2 at OSH for opioid detox, found to have CAP. He was treated with broad-spectrum abx and narrowed to levaquin. Despite this antibiotic treatment, patient has had persistent fevers (as high as 104). Unclear etiology as an extensive workup to date for infectious causes has been negative. Patient transferred to [facility] 04/29 for HLOC and ID involvement. Summary of OSH workup: RPP (+) for rhino/enterovirus. CT chest (04/27) with small b/l pleural effusions, scattered micro nodules, and curvilinear area within left upper lobe and potential reverse halo sign c/f possible fungal infection. Crypto and toxo negative. AFB negative. Bacterial sputum cx contaminated. BCx 04/25 no growth final. Legionella negative. Overall, for fever in the setting of AIDS, particularly given this patient's degree of immune suppression with a CD4 count of 6, and homelessness, we have to consider a broad differential including infectious (opportunistic and fungal species especially) vs non-infectious causes (HLH, malignancy). 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 Plan: - ID consulted and following - Amphotericin x2 weeks (05/01-05/15). KCL 20 meq daily while on ampho + replete PRN. - After amphotericin, itraconazole 200mg TIC x3d, 200mg BID for 12 mo. [facility] $0, planning to deliver medications to bedside when available. - Biktarvy started 05/05 per ID given no Tb. - Cont Dapsone Assessment & Plan (05/12/2025 4:54 PM VOCATIONAL AIDE): Patient w/ longstanding history untreated HIV (dx 15 years ago), not on ART due to well-documented disease denial. Most recent CD4 count 6 (04/26). Patient was recently hospitalized x2 at OSH for opioid detox, found to have CAP. He was treated with broad-spectrum abx and narrowed to levaquin. Despite this antibiotic treatment, patient has had persistent fevers (as high as 104). Unclear etiology as an extensive workup to date for infectious causes has been negative. Patient transferred to [facility] 04/29 for HLOC and ID involvement. Summary of OSH workup: RPP (+) for rhino/enterovirus. CT chest (04/27) with small b/l pleural effusions, scattered micro nodules, and curvilinear area within left upper lobe and potential reverse halo sign c/f possible fungal infection. Crypto and toxo negative. AFB negative. Bacterial sputum cx contaminated. BCx 04/25 no growth final. Legionella negative. Overall, for fever in the setting of AIDS, particularly given this patient's degree of immune suppression with a CD4 count of 6, and homelessness, we have to consider a broad differential including infectious (opportunistic and fungal species especially) vs non-infectious causes (HLH, malignancy). 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 Plan: - ID consulted and following - Amphotericin x2 weeks (05/01-05/15). KCL 20 meq daily while on ampho + replete PRN. - After amphotericin, itraconazole 200mg TIC x3d, 200mg BID for 12 mo. [facility] $0, planning to deliver medications to bedside when available. - Biktarvy started 05/05 per ID given no Tb. - Will start dapsone 100 mg daily for PJP PPX Assessment & Plan (05/11/2025 7:28 AM VOCATIONAL AIDE): Patient w/ longstanding history untreated HIV (dx 15 years ago), not on ART due to well-documented disease denial. Most recent CD4 count 6 (04/26). Patient was recently hospitalized x2 at OSH for opioid detox, found to have CAP. He was treated with broad-spectrum abx and narrowed to levaquin. Despite this antibiotic treatment, patient has had persistent fevers (as high as 104). Unclear etiology as an extensive workup to date for infectious causes has been negative. Patient transferred to [facility] 04/29 for HLOC and ID involvement. Summary of OSH workup: RPP (+) for rhino/enterovirus. CT chest (04/27) with small b/l pleural effusions, scattered micro nodules, and curvilinear area within left upper lobe and potential reverse halo sign c/f possible fungal infection. Crypto and toxo negative. AFB negative. Bacterial sputum cx contaminated. BCx 04/25 no growth final. Legionella negative. Overall, for fever in the setting of AIDS, particularly given this patient's degree of immune suppression with a CD4 count of 6, and homelessness, we have to consider a broad differential including infectious (opportunistic and fungal species especially) vs non-infectious causes (HLH, malignancy). 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 Plan: - ID consulted and following - Amphotericin x2 weeks (05/01-05/15). KCL 20 meq daily while on ampho + replete PRN. - After amphotericin, itraconazole 200mg TIC x3d, 200mg BID for 12 mo. Mobile [facility] $0, planning to deliver medications to bedside when available. - Biktarvy started 05/05 per ID given no Tb. - Holding bactrim ppx iso thrombocytopenia, defer to ID Assessment & Plan (05/10/2025 7:21 PM VOCATIONAL AIDE): Patient w/ longstanding history untreated HIV (dx 15 years ago), not on ART due to well-documented disease denial. Most recent CD4 count 6 (04/26). Patient was recently hospitalized x2 at OSH for opioid detox, found to have CAP. He was treated with broad-spectrum abx and narrowed to levaquin. Despite this antibiotic treatment, patient has had persistent fevers (as high as 104). Unclear etiology as an extensive workup to date for infectious causes has been negative. Patient transferred to [facility] 04/29 for HLOC and ID involvement. Summary of OSH workup: RPP (+) for rhino/enterovirus. CT chest (04/27) with small b/l pleural effusions, scattered micro nodules, and curvilinear area within left upper lobe and potential reverse halo sign c/f possible fungal infection. Crypto and toxo negative. AFB negative. Bacterial sputum cx contaminated. BCx 04/25 no growth final. Legionella negative. Overall, for fever in the setting of AIDS, particularly given this patient's degree of immune suppression with a CD4 count of 6, and homelessness, we have to consider a broad differential including infectious (opportunistic and fungal species especially) vs non-infectious causes (HLH, malignancy). 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 Plan: - ID consulted and following - Amphotericin x2 weeks (05/01-05/15). KCL 20 meq daily while on ampho + replete PRN. - After amphotericin, itraconazole 200mg TIC x3d, 200mg BID for 12 mo. [facility] $0, planning to deliver medications to bedside when available. - Biktarvy started 05/05 per ID given no Tb. - Holding bactrim ppx iso thrombocytopenia, defer to ID Assessment & Plan (05/09/2025 3:21 PM VOCATIONAL AIDE): Patient w/ longstanding history untreated HIV (dx 15 years ago), not on ART due to well-documented disease denial. Most recent CD4 count 6 (04/26). Patient was recently hospitalized x2 at OSH for opioid detox, found to have CAP. He was treated with broad-spectrum abx and narrowed to levaquin. Despite this antibiotic treatment, patient has had persistent fevers (as high as 104). Unclear etiology as an extensive workup to date for infectious causes has been negative. Patient transferred to [facility] 04/29 for HLOC and ID involvement. Summary of OSH workup: RPP (+) for rhino/enterovirus. CT chest (04/27) with small b/l pleural effusions, scattered micro nodules, and curvilinear area within left upper lobe and potential reverse halo sign c/f possible fungal infection. Crypto and toxo negative. AFB negative. Bacterial sputum cx contaminated. BCx 04/25 no growth final. Legionella negative. Overall, for fever in the setting of AIDS, particularly given this patient's degree of immune suppression with a CD4 count of 6, and homelessness, we have to consider a broad differential including infectious (opportunistic and fungal species especially) vs non-infectious causes (HLH, malignancy). 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 Plan: - ID consulted and following - Amphotericin x2 weeks (05/01-05/15). KCL 20 meq daily while on ampho + replete PRN. - After amphotericin, itraconazole 200mg TIC x3d, 200mg BID for 12 mo - Biktarvy started 05/05 per ID given no Tb. - Holding bactrim ppx iso thrombocytopenia, defer to ID Assessment & Plan (05/08/2025 6:59 PM VOCATIONAL AIDE): Patient w/ longstanding history untreated HIV (dx 15 years ago), not on ART due to well-documented disease denial. Most recent CD4 count 6. Patient was recently hospitalized x2 at OSH for opioid detox, found to have CAP. He was treated with broad-spectrum abx and narrowed to levaquin. Despite this antibiotic treatment, patient has had persistent fevers (as high as 104). Unclear etiology as an extensive workup to date for infectious causes has been negative. Patient transferred to [facility] 04/29 for HLOC and ID involvement. Summary of OSH workup: RPP (+) for rhino/enterovirus. CT chest (04/27) with small b/l pleural effusions, scattered micro nodules, and curvilinear area within left upper lobe and potential reverse halo sign c/f possible fungal infection. Crypto and toxo negative. AFB negative. Bacterial sputum cx contaminated. BCx 04/25 no growth final. Legionella negative. Overall, for fever in the setting of AIDS, particularly given this patient's degree of immune suppression with a CD4 count of 6, and homelessness, we have to consider a broad differential including infectious (opportunistic and fungal species especially) vs non-infectious causes (HLH, malignancy). 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 Plan: - ID consulted and following - Amphotericin x2 weeks (05/01-05/15). Start KCL 20 meq daily while on ampho + replete PRN. - After amphotericin, itraconazole 200mg TIC x3d, 200mg BID for 12 mo - Biktarvy started 05/05 per ID given no Tb. - Holding bactrim ppx iso thrombocytopenia, defer to ID Assessment & Plan (05/07/2025 7:13 AM VOCATIONAL AIDE): Patient w/ longstanding history untreated HIV (dx 15 years ago), not on ART due to well-documented disease denial. Most recent CD4 count 6. Patient was recently hospitalized x2 at OSH for opioid detox, found to have CAP. He was treated with broad-spectrum abx and narrowed to levaquin. Despite this antibiotic treatment, patient has had persistent fevers (as high as 104). Unclear etiology as an extensive workup to date for infectious causes has been negative. Patient transferred to [facility] 04/29 for HLOC and ID involvement. Summary of OSH workup: RPP (+) for rhino/enterovirus. CT chest (04/27) with small b/l pleural effusions, scattered micro nodules, and curvilinear area within left upper lobe and potential reverse halo sign c/f possible fungal infection. Crypto and toxo negative. AFB negative. Bacterial sputum cx contaminated. BCx 04/25 no growth final. Legionella negative. Overall, for fever in the setting of AIDS, particularly given this patient's degree of immune suppression with a CD4 count of 6, and homelessness, we have to consider a broad differential including infectious (opportunistic and fungal species especially) vs non-infectious causes (HLH, malignancy). 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 Plan: - ID consulted and following - Amphotericin x2 weeks - After amphotericin, itraconazole 200mg TIC x3d, 200mg BID for 12 mo - Biktarvy started 05/05 per ID given no Tb - Holding bactrim ppx iso thrombocytopenia, defer to ID Assessment & Plan (05/06/2025 11:16 AM VOCATIONAL AIDE): Patient w/ longstanding history untreated HIV (dx 15 years ago), not on ART due to well-documented disease denial. Most recent CD4 count 6. Patient was recently hospitalized x2 at OSH for opioid detox, found to have CAP. He was treated with broad-spectrum abx and narrowed to levaquin. Despite this antibiotic treatment, patient has had persistent fevers (as high as 104). Unclear etiology as an extensive workup to date for infectious causes has been negative. Patient transferred to [facility] 04/29 for HLOC and ID involvement. Summary of OSH workup: RPP (+) for rhino/enterovirus. CT chest (04/27) with small b/l pleural effusions, scattered micro nodules, and curvilinear area within left upper lobe and potential reverse halo sign c/f possible fungal infection. Crypto and toxo negative. AFB negative. Bacterial sputum cx contaminated. BCx 04/25 no growth final. Legionella negative. Overall, for fever in the setting of AIDS, particularly given this patient's degree of immune suppression with a CD4 count of 6, and homelessness, we have to consider a broad differential including infectious (opportunistic and fungal species especially) vs non-infectious causes (HLH, malignancy). 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 Plan: - ID consulted and following - Amphotericin x2 weeks - After amphotericin, itraconazole 200mg TIC x3d, 200mg BID for 12 mo - Biktarvy started 05/05 per ID given no Tb - Holding bactrim ppx iso thrombocytopenia, defer to ID Assessment & Plan (05/05/2025 4:04 PM VOCATIONAL AIDE): 45 yo man with untreated HIV with CD4 count of 6 and VL 230k (wild type), untreated HCV and OUD p/w persistent fever, pleural effusions, pulm nodules, splenomegaly, L axillary LAD, oral mucosal lesions, thrombocytopenia/anemia and elevated LFTs f/t/h disseminated histoplasmosis. No s/sx of meningitis. Urine histo Ag >20 on 04/28/25. Started on ambisome 3mg/kg on 05/01. AFB sputum 04/07 NGTD, no AFB seen AFB sputum 04/23 NGTD, no AFB seen BCx NGTD CMV negative TTE without evidence of endocarditis CrAg negative Toxoplasma negative Aspergillus galactomannan >= 3.750 HIV RNA >10,000,000 HCV RNA - detectable RPR negative TB PCR sputum - negative AFB sputum 04/29 - NGTD, no AFB seen AFB Bcx 05/01 - NGTD TB spot - negative Bartonella abs - <1:128 Ehrlichia/Anaplasma PCR - negative Tularemia abs - negative Histo urine ag - >20 Histo serum abs - positive w m band, 1:64 Blasto abs - negative Cocci abs - negative G6PD - normal PJP DFA 05/01 - negative BAL AFB 05/01 - NGTD, no AFB seen BAL AFB 05/01 - NGTD, no AFB seen BAL 05/01 - NGTD RPP 05/01 - rhinovirus/enterovirus positive Recommendations: - Continue Ambisome 3mg/kg IV Q24H induction for 2 weeks (05/01-05/15) - Will then need to load on itraconazole with itra 200mg TID x3 days followed by a year of itraconazole 200mg BID - script sent to ID clinic for prior authorization - Start ART with Biktarvy 1 tab daily - Please monitor BMP, Mg and Phos at least daily and replace K >4 and mag >2 - Patient will need to remain inpatient until at least 1 day into itraconazole loading to ensure tolerance - Can remove airborne precautions as we have an alternative diagnosis - Will engage [facility] team to help keep him engaged while hospitalized and post-discharge -Amphotericin is associated with nephrotoxicity and should be administered with 500 cc NS pre and post infusion. Other common side effects include renal tubular acidosis, electrolyte abnormalities, particularly hypokalemia, hypomagnesemia, and hypocalcemia (these should be monitored on a daily basis and repleted as necessary while inpatient), fever and chills (can be controlled with mepiridine), anemia, and phlebitis. Less common side effects include hypotension, nausea, vomiting, headache, and a metallic taste. While on amphotericin, CBC and CMP should be monitored weekly and BMP/Mg biweekly at a minimum. Assessment & Plan (05/05/2025 6:25 AM VOCATIONAL AIDE): Patient w/ longstanding history untreated HIV (dx 15 years ago), not on ART due to well-documented disease denial. Most recent CD4 count 6. Patient was recently hospitalized x2 at OSH for opioid detox, found to have CAP. He was treated with broad-spectrum abx and narrowed to levaquin. Despite this antibiotic treatment, patient has had persistent fevers (as high as 104). Unclear etiology as an extensive workup to date for infectious causes has been negative. Patient transferred to [facility] 04/29 for HLOC and ID involvement. Summary of OSH workup: RPP (+) for rhino/enterovirus. CT chest (04/27) with small b/l pleural effusions, scattered micro nodules, and curvilinear area within left upper lobe and potential reverse halo sign c/f possible fungal infection. Crypto and toxo negative. AFB negative. Bacterial sputum cx contaminated. BCx 04/25 no growth final. Legionella negative. Overall, for fever in the setting of AIDS, particularly given this patient's degree of immune suppression with a CD4 count of 6, and homelessness, we have to consider a broad differential including infectious (opportunistic and fungal species especially) vs non-infectious causes (HLH, malignancy). Relevant results from infectious workup: Serum aspergillus ab (+) Fungitell (+) BAL - rhino/enterovirus (+), PNA PCR 10^4 MRSA HIV RNA >10,000,000 copies HCV RNA 66,000,000 copies BAL no acid fast bacteria, PJP DFA neg Overall, current concern is for disseminated histo. Plan: - ID consulted and following - Amphotericin per ID for c/f disseminated histo - CD25 pending for c/f HLH -- patient has HScore 233, 99% probability for HLH, however this is confounded by chronic liver disease and known complications of AIDS - Holding bactrim ppx iso thrombocytopenia, defer to ID Assessment & Plan (05/04/2025 2:26 PM VOCATIONAL AIDE): Patient w/ longstanding history untreated HIV (dx 15 years ago), not on ART due to well-documented disease denial. Most recent CD4 count 6. Patient was recently hospitalized x2 at OSH for opioid detox, found to have CAP. He was treated with broad-spectrum abx and narrowed to levaquin. Despite this antibiotic treatment, patient has had persistent fevers (as high as 104). Unclear etiology as an extensive workup to date for infectious causes has been negative. Patient transferred to [facility] 04/29 for HLOC and ID involvement. Summary of OSH workup: RPP (+) for rhino/enterovirus. CT chest (04/27) with small b/l pleural effusions, scattered micro nodules, and curvilinear area within left upper lobe and potential reverse halo sign c/f possible fungal infection. Crypto and toxo negative. AFB negative. Bacterial sputum cx contaminated. BCx 04/25 no growth final. Legionella negative. Overall, for fever in the setting of AIDS, particularly given this patient's degree of immune suppression with a CD4 count of 6, and homelessness, we have to consider a broad differential including infectious (opportunistic and fungal species especially) vs non-infectious causes (HLH, malignancy). Relevant results from infectious workup: Serum aspergillus ab (+) Fungitell (+) BAL - rhino/enterovirus (+), PNA PCR 10^4 MRSA HIV RNA >10,000,000 copies HCV RNA 66,000,000 copies BAL no acid fast bacteria, PJP DFA neg Overall, current concern is for disseminated histo. Plan: - ID consulted and following - Amphotericin per ID for c/f disseminated histo - CD25 pending for c/f HLH -- patient has HScore 233, 99% probability for HLH, however this is confounded by chronic liver disease and known complications of AIDS - Holding bactrim ppx iso thrombocytopenia, defer to ID Assessment & Plan (05/04/2025 1:44 PM VOCATIONAL AIDE): 45 yo man with untreated HIV with CD4 count of 6 and VL 230k (wild type) pw persistent fever and cf PNA with pleural effusions and nodules, splenomegaly, L axillary LAD. The differential in an immunocompromised individual with HIV is very broad. He has had some evaluation for underlying etiology. Does not appear to have sepsis or other more typical bacterial infection. Fever has been non-responsive to multiple abx (FEP, MEM, LEV, AMAURY). CT WO did not find other clear nidus of infection. No current concern for CMV/CMV retinitis with negative abs, no vision changes. No skin findings suggestive of Kaposi. AFB sputum 10/10 NGTD, no AFB seen AFB sputum 04/23 NGTD, no AFB seen BCx NGTD CMV negative TTE without evidence of endocarditis CrAg negative Toxoplasma negative Aspergillus galactomannan >= 3.750 HIV RNA >10,000,000 RPR negative TB PCR sputum - negative AFB sputum 04/29 - NGTD, no AFB seen AFB Bcx 05/01 - NGTD TB spot - in process Bartonella abs - <1:128 Ehrlichia/Anaplasma PCR - negative Tularemia abs - negative Histo urine ag - in process histo serum abs - n process Blasto abs - negative Cocci abs - negative G6PD - normal PJP DFA 11 - negative BAL AFB 11/ - NGTD, no AFB seen BAL AFB 11/ - NGTD, no AFB seen BAL 11/ - NGTD RPP 11 - rhinovirus/enterovirus positive He is currently undergoing TB rule out. Guidelines suggest that if TB present, with CD4 <50, would benefit from starting ART within 2 weeks after initiation of TB treatment. ART is currently being held. Galactomannan positive, blasto and cocci negative, histo pending. Bartonella negative Patient started on ambisome 05/01 07/31 to c/f disseminated histo. BAL/bronch performed with studies in progress. BAL noting yeast on the mycology culture. 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 Histo results have not returned and micro expecting them back at anytime. Discussed with patent the importance of lab monitoring while on the amphotericin. On assessment, rash has improved compared to yesterday. Reports BLE edema, but no new symptoms or concerns outside of the swelling. Discussed ART with patient, including why treatment is needed, the importance of adherence and how HIV is related to immune health. Patient indicated understanding and is wanting to start treatment. Will wait for fungal workup prior to starting treatment. Recommendations: - Continue to hold ART while undergoing TB and histo rule out. If TB ruled out as below, can initiate ART with Biktarvy (but would monitor closely for IRIS in the event of paucibacillary smear neg, culture pos disease) Will discuss importance of adherence Hold TMP-SMX and atovaquone for the time being -Continue Ambisome 190mg IV Q24H -Amphotericin is associated with nephrotoxicity and should be administered with 500 cc NS pre and post infusion. Other common side effects include renal tubular acidosis, electrolyte abnormalities, particularly hypokalemia, hypomagnesemia, and hypocalcemia (these should be monitored on a daily basis and repleted as necessary while inpatient), fever and chills (can be controlled with mepiridine), anemia, and phlebitis. Less common side effects include hypotension, nausea, vomiting, headache, and a metallic taste. While on amphotericin, CBC and CMP should be monitored weekly and BMP/Mg biweekly at a minimum. -Please replace K >4 and mag >2 Assessment & Plan (05/03/2025 11:09 AM VOCATIONAL AIDE): 45 yo man with untreated HIV with CD4 count of 6 and VL 230k (wild type) pw persistent fever and cf PNA with pleural effusions and nodules, splenomegaly, L axillary LAD. The differential in an immunocompromised individual with HIV is very broad. He has had some evaluation for underlying etiology. Does not appear to have sepsis or other more typical bacterial infection. Fever has been non-responsive to multiple abx (FEP, MEM, LEV, AMAURY). CT WO did not find other clear nidus of infection. No current concern for CMV/CMV retinitis with negative abs, no vision changes. No skin findings suggestive of Kaposi. AFB sputum / NGTD, no AFB seen AFB sputum 04/23 NGTD, no AFB seen BCx NGTD CMV negative TTE without evidence of endocarditis CrAg negative Toxoplasma negative Aspergillus galactomannan >= 3.750 HIV RNA >10,000,000 RPR negative TB PCR sputum - negative AFB sputum 04/29 - NGTD, no AFB seen AFB Bcx 11/3 - NGTD TB spot - in process Bartonella abs - in process Ehrlichia/Anaplasma PCR - negative Tularemia abs - negative Histo urine ag - in process histo serum abs - n process Blasto abs - negative Cocci abs - negative G6PD - normal PJP DFA 05/01 - negative BAL AFB 05/01 - NGTD, no AFB seen BAL AFB 05/01 - NGTD, no AFB seen BAL 05/01 - NGTD RPP 05/01 - rhinovirus/enterovirus positive He is currently undergoing TB rule out. Guidelines suggest that if TB present, with CD4 <50, would benefit from starting ART within 2 weeks after initiation of TB treatment. ART is currently being held. Galactomannan positive, blasto and cocci negative, histo pending. Patient started on ambisome 05/01 07/31 to c/f disseminated histo. BAL/bronch performed with studies in progress. BAL bacterial cultures NGTD and Ehrlichia/Anaplasma negative. Can stop doxycycline. HSV negative. Histo and bartonella in process. Reviewed ID involvement in care. What is being worked up and treated. Discussed the need to continue treatment and the importance of blood work. Patient agreeable. On assessment, noted to have BLE foot/randolph/calf rash. Unclear how new this is. Skin assessment performed without concerning lesions identified. Recommendations: - Continue to hold ART while undergoing TB rule out. If TB ruled out as below, can initiate ART with Biktarvy (but would monitor closely for IRIS in the event of paucibacillary smear neg, culture pos disease) Will discuss importance of adherence Hold TMP-SMX and atovaquone for the time being - D/c Doxycycline -Continue Ambisome 190mg IV Q24H -Amphotericin is associated with nephrotoxicity and should be administered with 500 cc NS pre and post infusion. Other common side effects include renal tubular acidosis, electrolyte abnormalities, particularly hypokalemia, hypomagnesemia, and hypocalcemia (these should be monitored on a daily basis and repleted as necessary while inpatient), fever and chills (can be controlled with mepiridine), anemia, and phlebitis. Less common side effects include hypotension, nausea, vomiting, headache, and a metallic taste. While on amphotericin, CBC and CMP should be monitored weekly and BMP/Mg biweekly at a minimum. -Please replace K >4 and mag >2 Assessment & Plan (05/03/2025 11:02 AM VOCATIONAL AIDE): Patient w/ longstanding history untreated HIV (dx 15 years ago), not on ART due to well-documented disease denial. Most recent CD4 count 6. Patient was recently hospitalized x2 at OSH for opioid detox, found to have CAP. He was treated with broad-spectrum abx and narrowed to levaquin. Despite this antibiotic treatment, patient has had persistent fevers (as high as 104). Unclear etiology as an extensive workup to date for infectious causes has been negative. Patient transferred to [facility] 04/29 for HLOC and ID involvement. Summary of OSH workup: RPP (+) for rhino/enterovirus. CT chest (04/27) with small b/l pleural effusions, scattered micro nodules, and curvilinear area within left upper lobe and potential reverse halo sign c/f possible fungal infection. Crypto and toxo negative. AFB negative. Bacterial sputum cx contaminated. BCx 04/25 no growth final. Legionella negative. Overall, for fever in the setting of AIDS, particularly given this patient's degree of immune suppression with a CD4 count of 6, and homelessness, we have to consider a broad differential including infectious (opportunistic and fungal species especially) vs non-infectious causes (HLH, malignancy). Relevant results from infectious workup: Serum aspergillus ab (+) Fungitell (+) BAL - rhino/enterovirus (+), PNA PCR 10^4 MRSA HIV RNA >10,000,000 copies HCV RNA 66,000,000 copies BAL no acid fast bacteria, PJP DFA neg Overall, current concern is for disseminated histo. Plan: - ID consulted and following - Amphotericin per ID for c/f disseminated histo - CD25 pending for c/f HLH -- patient has HScore 233, 99% probability for HLH, however this is confounded by chronic liver disease and known complications of AIDS - Holding bactrim ppx iso thrombocytopenia, defer to ID Assessment & Plan (05/02/2025 12:32 PM VOCATIONAL AIDE): Patient with diffuse micronodules throughout bilateral lungs as well as a PATRICIA nodule with evidence of central cavitation. Overall, in the setting of severe AIDS (CD4 6) and the patient experiencing homelessness and prior incarceration, there is a concern for active tuberculosis. Other atypical infections are also on the differential, as are atypical presentations of typical infectious processes. Patient not currently producing sputum, and infectious workup so far negative. He is now s/p bronchoscopy with BAL. Recommendations: - Follow up pending bronchoscopy studies - Antibiotics per ID Pulmonary will sign off. Please call back with additional questions or concerns. Parrish Harper MD Pulmonary and Critical Care Assessment & Plan (05/02/2025 11:38 AM VOCATIONAL AIDE): 45 yo man with untreated HIV with CD4 count of 6 and VL 230k (wild type) pw persistent fever and cf PNA with pleural effusions and nodules, splenomegaly, L axillary LAD. The differential in an immunocompromised individual with HIV is very broad. He has had some evaluation for underlying etiology. Does not appear to have sepsis or other more typical bacterial infection. Fever has been non-responsive to multiple abx (FEP, MEM, LEV, AMAURY). CT WO did not find other clear nidus of infection. No current concern for CMV/CMV retinitis with negative abs, no vision changes. No skin findings suggestive of Kaposi. AFB sputum / NGTD, no AFB seen AFB sputum 04/23 NGTD, no AFB seen BCx NGTD CMV negative TTE without evidence of endocarditis CrAg negative Toxoplasma negative Aspergillus galactomannan >= 3.750 HIV RNA >10,000,000 RPR negative TB PCR sputum - negative AFB sputum 04/29 - NGTD, no AFB seen AFB Bcx 05/01 - NGTD TB spot - in process Bartonella abs - in process Ehrlichia/Anaplasma PCR - in process Tularemia abs - in process Histo urine ag - in process histo serum abs - n process Blasto abs - negative Cocci abs - negative G6PD - normal PJP DFA - pending BAL 05/01 - culture results pending RPP 05/01 - rhinovirus/enterovirus positive He is currently undergoing TB rule out. Guidelines suggest that if TB present, with CD4 <50, would benefit from starting ART within 2 weeks after initiation of TB treatment. ART is currently being held. Galactomannan positive, blasto and cocci negative, histo pending. Patient started on ambisome yesterday 2/2 to c/f disseminated histo. BAL/bronch performed with studies in progress. On assessment, patient speaking more clearly, made intermittent eye contact and more engaged. Explained that he is being worked up for infection and is being treated for a fungal infection while awaiting results. Asked if throat is feeling better, he shrugged and didn't know. Was able to inspect mouth and found to have lesions not consistent with yeast. Please send HSV swab. He denies STEINBERG, neck stiffness, neck pain, or neurological symptoms. Reports some floaters that he has had for years, but denies any blurry vision or changes to vision. Recommendations: - Continue to hold ART while undergoing TB rule out. If TB ruled out as below, can initiate ART with Biktarvy (but would monitor closely for IRIS in the event of paucibacillary smear neg, culture pos disease) Will discuss importance of adherence Hold TMP-SMX and atovaquone for the time being - Continue doxycycline 100 mg BID while ruling out ehrlichia/anaplasma and pending BAL results - As he has been stable would hold off on other antibiotics unless he decompensates - Send AFB induced sputum x3. Can be done as frequent as Q8H with one braider tender collection required. Please add on TB PCRs to each sputum even if smear negative. If unable to produce x3 sputum, would need BAL - Add on sputum DFA for PJP to sputum samples -Please send HSV mouth lesion swab -Continue Ambisome 190mg IV Q24H -Amphotericin is associated with nephrotoxicity and should be administered with 500 cc NS pre and post infusion. Other common side effects include renal tubular acidosis, electrolyte abnormalities, particularly hypokalemia, hypomagnesemia, and hypocalcemia (these should be monitored on a daily basis and repleted as necessary while inpatient), fever and chills (can be controlled with mepiridine), anemia, and phlebitis. Less common side effects include hypotension, nausea, vomiting, headache, and a metallic taste. While on amphotericin, CBC and CMP should be monitored weekly and BMP/Mg biweekly at a minimum. Assessment & Plan (05/02/2025 10:52 AM VOCATIONAL AIDE): Patient w/ longstanding history untreated HIV (dx 15 years ago), not on ART due to well-documented disease denial. Most recent CD4 count 6. Patient was recently hospitalized x2 at OSH for opioid detox, found to have CAP. He was treated with broad-spectrum abx and narrowed to levaquin. Despite this antibiotic treatment, patient has had persistent fevers (as high as 104). Unclear etiology as an extensive workup to date for infectious causes has been negative. Patient transferred to [facility] 04/29 for HLOC and ID involvement. Summary of OSH workup: RPP (+) for rhino/enterovirus. CT chest (04/27) with small b/l pleural effusions, scattered micro nodules, and curvilinear area within left upper lobe and potential reverse halo sign c/f possible fungal infection. Crypto and toxo negative. AFB negative. Bacterial sputum cx contaminated. BCx 04/25 no growth final. Legionella negative. Overall, for fever in the setting of AIDS, particularly given this patient's degree of immune suppression with a CD4 count of 6, and homelessness, we have to consider a broad differential including infectious (opportunistic and fungal species especially) vs non-infectious causes (HLH, malignancy). Relevant results from infectious workup: Serum aspergillus ab (+) Fungitell (+) BAL - rhino/enterovirus (+), PNA PCR 10^4 MRSA HIV RNA >10,000,000 copies HCV RNA 66,000,000 copies Overall, current concern is for disseminated histo. Plan: - ID consulted and following - Amphotericin per ID for c/f disseminated histo - CD25 pending for c/f HLH -- patient has HScore 233, 99% probability for HLH, however this is confounded by chronic liver disease and known complications of AIDS - Holding bactrim ppx iso thrombocytopenia, defer to ID Assessment & Plan (05/01/2025 2:46 PM VOCATIONAL AIDE): 45 yo man with untreated HIV with CD4 count of 6 and VL 230k (wild type) pw persistent fever and cf PNA with pleural effusions and nodules, splenomegaly, L axillary LAD. The differential in an immunocompromised individual with HIV is very broad. He has had some evaluation for underlying etiology. Does not appear to have sepsis or other more typical bacterial infection. Fever has been non-responsive to multiple abx (FEP, MEM, LEV, AMAURY). CT WO did not find other clear nidus of infection. No current concern for CMV/CMV retinitis with negative abs, no vision changes. No skin findings suggestive of Kaposi. AFB sputum 04/07 NGTD, no AFB seen AFB sputum 04/23 NGTD, no AFB seen BCx NGTD CMV negative TTE without evidence of endocarditis CrAg negative Toxoplasma negative Aspergillus galactomannan >= 3.750 HIV RNA >10,000,000 RPR negative TB PCR sputum - negative AFB sputum 04/29 - NGTD, no AFB seen AFB Bcx - in process TB spot - in process Bartonella abs - in process Ehrlichia/Anaplasma PCR - in process Tularemia abs - in process Histo urine ag - in process histo serum abs - n process Blasto abs - in process Cocci abs - in process G6PD - normal PJP DFA - pending He is currently undergoing TB rule out. Guidelines suggest that if TB present, with CD4 <50, would benefit from starting ART within 2 weeks after initiation of TB treatment. ART is currently being held. Patient very withdrawn but willing to communicate. Reports feeling very overwhelmed with everything. States he has a sore throat and is having withdrawal. Reviewed ID involvement in care, focusing most on lung findings and infectious workup. HCV nurse navigator following and spoke today about treatment. Per team, plan for BAL/bronch today. Will follow up on pending results. Galactomannan positive, fungal workup pending. There can be cross reactivity with this result. Recommend having BAL and other fungal results prior to making treatment recommendations. Recommendations: - Continue to hold ART while undergoing TB rule out. If TB ruled out as below, can initiate ART with Biktarvy (but would monitor closely for IRIS in the event of paucibacillary smear neg, culture pos disease) Will discuss importance of adherence Hold TMP-SMX and atovaquone for the time being - Continue doxycycline 100 mg BID while ruling out ehrlichia/anaplasma - As he has been stable would hold off on other antibiotics unless he decompensates - Send AFB induced sputum x3. Can be done as frequent as Q8H with one braider tender collection required. Please add on TB PCRs to each sputum even if smear negative. If unable to produce x3 sputum, would need BAL - Add on sputum DFA for PJP to sputum samples Assessment & Plan (05/01/2025 10:51 AM VOCATIONAL AIDE): Patient w/ longstanding history untreated HIV (dx 15 years ago), not on ART due to well-documented disease denial. Most recent CD4 count 6. Patient was recently hospitalized x2 at OSH for opioid detox, found to have CAP. He was treated with broad-spectrum abx and narrowed to levaquin. Despite this antibiotic treatment, patient has had persistent fevers (as high as 104). Unclear etiology as an extensive workup to date for infectious causes has been negative. Patient transferred to [facility] 04/29 for HLOC and ID involvement. Summary of OSH workup: RPP (+) for rhino/enterovirus. CT chest (04/27) with small b/l pleural effusions, scattered micro nodules, and curvilinear area within left upper lobe and potential reverse halo sign c/f possible fungal infection. Crypto and toxo negative. AFB negative. Bacterial sputum cx contaminated. BCx 04/25 no growth final. Legionella negative. Overall, for fever in the setting of AIDS, particularly given this patient's degree of immune suppression with a CD4 count of 6, and homelessness, we have to consider a broad differential including infectious (opportunistic and fungal species especially) vs non-infectious causes (HLH, malignancy). Plan: - ID consulted and following - Follow up pending infectious workup ordered per ID recommendations - Pulmonology consulted and planning for bronch/BAL 05/01 sending broad infectious workup on samples - CD25 pending for c/f HLH -- patient has HScore 233, 99% probability for HLH, however this is confounded by chronic liver disease and known complications of AIDS - Holding bactrim ppx iso thrombocytopenia, defer to ID Assessment & Plan (04/30/2025 9:11 AM VOCATIONAL AIDE): Patient w/ longstanding history untreated HIV (dx 15 years ago), not on ART due to well-documented disease denial. Most recent CD4 count 6. Patient was recently hospitalized x2 at OSH for opioid detox, found to have CAP. He was treated with broad-spectrum abx and narrowed to levaquin. Despite this antibiotic treatment, patient has had persistent fevers (as high as 104). Unclear etiology as an extensive workup to date for infectious causes has been negative. Patient transferred to [facility] 04/29 for HLOC and ID involvement. Summary of OSH workup: RPP (+) for rhino/enterovirus. CT chest (04/27) with small b/l pleural effusions, scattered micro nodules, and curvilinear area within left upper lobe and potential reverse halo sign c/f possible fungal infection. Crypto and toxo negative. AFB negative. Bacterial sputum cx contaminated. BCx 04/25 no growth final. Legionella negative. Overall, for fever in the setting of AIDS, particularly given this patient's degree of immune suppression with a CD4 count of 6, and homelessness, we have to consider a broad differential including infectious (opportunistic and fungal species especially) vs non-infectious causes (HLH, malignancy). Plan: - ID consulted and following - Follow up infectious workup ordered per ID recommendations - Pulmonology consulted and planning for bronch/BAL 05/01 sending broad infectious workup on samples - NPO @ [place] - CD25 pending for c/f HLH -- patient has HScore 233, 99% probability for HLH, however this is confounded by chronic liver disease and known complications of AIDS - Holding bactrim ppx iso thrombocytopenia, defer to ID Assessment & Plan (04/29/2025 2:35 PM CDT): Patient with diffuse micronodules throughout bilateral lungs as well as a PATRICIA nodule with evidence of central cavitation. Overall, in the setting of severe AIDS (CD4 6) and the patient experiencing homelessness and prior incarceration, there is a concern for active tuberculosis. Other atypical infections are also on the differential, as are atypical presentations of typical infectious processes. Patient not currently producing sputum, and infectious workup so far negative. Will plan for bronchoscopy with BAL on Thursday at 1330. Recommendations: - Agree with non-invasive fungal work up and quant gold - Consider induced sputum in the mean time - Plan for bronchoscopy with BAL on Thursday. Orders are placed. NPO at 0000 on Thursday. - Agree with broad spectrum antibiotics and ID consultation Assessment & Plan (04/30/2025 6:39 AM VOCATIONAL AIDE): 45 yo man with untreated HIV with CD4 count of 6 and VL 230k (wild type) pw persistent fever and cf PNA with pleural effusions and nodules, splenomegaly, L axillary LAD. The differential in an immunocompromised individual with HIV is very broad. He has had some evaluation for underlying etiology. Does not appear to have sepsis or other more typical bacterial infection. Fever has been non-responsive to multiple abx (FEP, MEM, LEV, AMAURY). CT WO did not find other clear nidus of infection. BCx NGTD. TTE without evidence of endocarditis. CrAg negative. Additional workup could be sent as listed below. In particular, given cytopenias and lung findings could consider MAC, although he has had some azithromycin without improvement. Lung findings are less typical for PJP, although could consider nodular form of the disease. Had sufficient treatment for Legionella already, although does have hyponatremia and rising LFTs. Could consider tick-borne illness given on how status with refractory fever (some literature that TMP-SMX exposure can worsen these Ehrlichia infection). He has not received doxycycline. Bartonella is another consideration. No current concern for CMV/CMV retinitis with negative abs, no vision changes. Additional targets to consider pending initial evaluation are bone marrow biopsy given cytopenias and L axillary LN biopsy, but would hold off at this time while awaiting results. No skin findings suggestive of Kaposi. He was somnolent on exam today, but otherwise has not had concern for meningitis/encephalitis, so no current indication for LP or MRI. He did not endorse dysphagia to me and was very somnolent this afternoon, but did endorse to primary team. He is currently undergoing TB rule out. Guidelines suggest that if TB present, with CD4 <50, would benefit from starting ART within 2 weeks after initiation of TB treatment. ART is currently being held. Of note, he only received 1 dose of atovaquone, so unlikely to have caused LFT elevations. QTc 373. Plan: - Continue to hold ART while undergoing TB rule out. If TB ruled out as below, can initiate ART with Biktarvy (but would monitor closely for IRIS in the event of paucibacillary smear neg, culture pos disease) Will discuss importance of adherence - Stop azithromycin and levofloxacin as has had prolonged course for atypical PNA pathogens without response and if has active MAC do not want on monotherapy - Start doxycycline 100 mg BID while ruling out ehrlichia/anaplasma - As he has been stable would hold off on other antibiotics unless he decompensates - Send AFB induced sputum x3. Can be done as frequent as Q8H with one braider tender collection required. Please add on TB PCRs to each sputum even if smear negative. If unable to produce x3 sputum, would need BAL - Add on sputum DFA for PJP to sputum samples - Please send: AFB BCx TB spot Bartonella abs Ehrlichia/Anaplasma PCR Tularemia abs Histo urine ag, histo serum abs Blasto abs Cocci abs G6PD - Consider GI consult for evaluation of dysphagia/odynophagia. Did not appreciate thrush on exam, but difficult to examine today. Could consider empiric therapy for Faby if sx bothersome prior to evaluation (fluconazole 400 mg daily vs nadir 150 mg daily) - Will have HIV coordinator see while inpatient - Hold TMP-SMX and atovaquone for the time being. Assessment & Plan (04/29/2025 6:56 AM CDT): Pt w/ longstanding h/o HIV (dx 15 years ago), reportedly not on ART d/t disease denial. Recently hospitalized x2 at OSH for opioid detox, found to have CAP. Treated with broad-spectrum abx and narrowed to levaquin. Despite this, pt has had persistent fevers (as high as 104). Unclear etiology. Was transferred to [facility] for HLOC. OSH workup thus far: RPP +rhino/enterovirus. CT chest (04/27) with small b/l pleural effusions, scattered micro nodules, and curvilinear area within left upper lobe and potential reverse halo sign c/f possible fungal infection.Crypto, toxo negative. AFB negative and bacterial sputum cx contaminated. BCx NGTD. Legionella negative. Overall, for fever iso AIDS have to consider infectious vs non-infectious causes (escobar given persistent fever iso abx), such as HLH. - ID consult - consider sending IL-2, NK cell, heme c/s in AM for possible HLH - repeat AFB, sputum culture to r/o TB, tspot pending - histo, blasto, aspergillus, EBV, CMV pending - cont IV levoquin - cont azithromycin 250mg for MAC ppx - holding bactrim ppx iso thrombocytopenia, defer to ID - further evaluation of odynophagia Chronic Hepatitis C 04/29/2025 Assessment & Plan (05/16/2025 7:00 AM VOCATIONAL AIDE): Noted to have elevated LFTs at OSH: AST to 404, ALT 70. RUQ TTP and hepatomegaly on exam. Reactive HepB core Ab (dating back to 2016). RUQUS 10/30 with hepatomegaly, trace ascites, and trace R pleural effusion; unremarkable gallbladder. Transaminitis likely multifactorial iso Hep C, AUD, and noted to have worsened after receiving atovaquone at OSH (though per ID this was not on board for long enough to see this effect). Pt seen by GI at OSH -- did not recommend hep C treatment at this point in time given other co-morbidities, no further recommendations. LFTs have continued to elevate. Suspect most likely related to infection and liver disease. HCV RNA >66,000,000 Plan: - ID following-- initiate anti-HCV DAA with sofosbuvir/velpatasvir as outpatient. Medications delivered to bedside. - f/u outpatient with ID 12/ Assessment & Plan (05/15/2025 12:51 PM VOCATIONAL AIDE): Noted to have elevated LFTs at OSH: AST to 404, ALT 70. RUQ TTP and hepatomegaly on exam. Reactive HepB core Ab (dating back to 2016). RUQUS 10/30 with hepatomegaly, trace ascites, and trace R pleural effusion; unremarkable gallbladder. Transaminitis likely multifactorial iso Hep C, AUD, and noted to have worsened after receiving atovaquone at OSH (though per ID this was not on board for long enough to see this effect). Pt seen by GI at OSH -- did not recommend hep C treatment at this point in time given other co-morbidities, no further recommendations. LFTs have continued to elevate. Suspect most likely related to infection and liver disease. HCV RNA >66,000,000 Plan: - ID following-- initiate anti-HCV DAA with sofosbuvir/velpatasvir as outpatient. Medications delivered to bedside. Assessment & Plan (05/14/2025 10:44 AM VOCATIONAL AIDE): Noted to have elevated LFTs at OSH: AST to 404, ALT 70. RUQ TTP and hepatomegaly on exam. Reactive HepB core Ab (dating back to 2016). RUQUS 10/30 with hepatomegaly, trace ascites, and trace R pleural effusion; unremarkable gallbladder. Transaminitis likely multifactorial iso Hep C, AUD, and noted to have worsened after receiving atovaquone at OSH (though per ID this was not on board for long enough to see this effect). Pt seen by GI at OSH -- did not recommend hep C treatment at this point in time given other co-morbidities, no further recommendations. LFTs have continued to elevate. Suspect most likely related to infection and liver disease. HCV RNA >66,000,000 Plan: - ID following-- initiate anti-HCV DAA with sofosbuvir/velpatasvir as outpatient Assessment & Plan (05/13/2025 6:58 AM VOCATIONAL AIDE): Noted to have elevated LFTs at OSH: AST to 404, ALT 70. RUQ TTP and hepatomegaly on exam. Reactive HepB core Ab (dating back to 2016). RUQUS 10/30 with hepatomegaly, trace ascites, and trace R pleural effusion; unremarkable gallbladder. Transaminitis likely multifactorial iso Hep C, AUD, and noted to have worsened after receiving atovaquone at OSH (though per ID this was not on board for long enough to see this effect). Pt seen by GI at OSH -- did not recommend hep C treatment at this point in time given other co-morbidities, no further recommendations. LFTs have continued to elevate. Suspect most likely related to infection and liver disease. HCV RNA >66,000,000 Plan: - Infectious workup per above - ID following-- initiate anti-HCV DAA with sofosbuvir/velpatasvir as outpatient Assessment & Plan (05/12/2025 7:46 AM VOCATIONAL AIDE): Noted to have elevated LFTs at OSH: AST to 404, ALT 70. RUQ TTP and hepatomegaly on exam. Reactive HepB core Ab (dating back to 2016). RUQUS 10/30 with hepatomegaly, trace ascites, and trace R pleural effusion; unremarkable gallbladder. Transaminitis likely multifactorial iso Hep C, AUD, and noted to have worsened after receiving atovaquone at OSH (though per ID this was not on board for long enough to see this effect). Pt seen by GI at OSH -- did not recommend hep C treatment at this point in time given other co-morbidities, no further recommendations. LFTs have continued to elevate. Suspect most likely related to infection and liver disease. HCV RNA >66,000,000 Plan: - Infectious workup per above - ID following-- initiate anti-HCV DAA with sofosbuvir/velpatasvir as outpatient Assessment & Plan (05/11/2025 7:28 AM VOCATIONAL AIDE): Noted to have elevated LFTs at OSH: AST to 404, ALT 70. RUQ TTP and hepatomegaly on exam. Reactive HepB core Ab (dating back to 2016). RUQUS 10/30 with hepatomegaly, trace ascites, and trace R pleural effusion; unremarkable gallbladder. Transaminitis likely multifactorial iso Hep C, AUD, and noted to have worsened after receiving atovaquone at OSH (though per ID this was not on board for long enough to see this effect). Pt seen by GI at OSH -- did not recommend hep C treatment at this point in time given other co-morbidities, no further recommendations. LFTs have continued to elevate. Suspect most likely related to infection and liver disease. HCV RNA >66,000,000 Plan: - Infectious workup per above - ID following-- initiate anti-HCV DAA with sofosbuvir/velpatasvir as outpatient Assessment & Plan (05/10/2025 7:11 AM VOCATIONAL AIDE): Noted to have elevated LFTs at OSH: AST to 404, ALT 70. RUQ TTP and hepatomegaly on exam. Reactive HepB core Ab (dating back to 2016). RUQUS 10/30 with hepatomegaly, trace ascites, and trace R pleural effusion; unremarkable gallbladder. Transaminitis likely multifactorial iso Hep C, AUD, and noted to have worsened after receiving atovaquone at OSH (though per ID this was not on board for long enough to see this effect). Pt seen by GI at OSH -- did not recommend hep C treatment at this point in time given other co-morbidities, no further recommendations. LFTs have continued to elevate. Suspect most likely related to infection and liver disease. HCV RNA >66,000,000 Plan: - Infectious workup per above - ID following-- initiate anti-HCV DAA with sofosbuvir/velpatasvir as outpatient Assessment & Plan (05/09/2025 3:22 PM VOCATIONAL AIDE): Noted to have elevated LFTs at OSH: AST to 404, ALT 70. RUQ TTP and hepatomegaly on exam. Reactive HepB core Ab (dating back to 2016). RUQUS 10/30 with hepatomegaly, trace ascites, and trace R pleural effusion; unremarkable gallbladder. Transaminitis likely multifactorial iso Hep C, AUD, and noted to have worsened after receiving atovaquone at OSH (though per ID this was not on board for long enough to see this effect). Pt seen by GI at OSH -- did not recommend hep C treatment at this point in time given other co-morbidities, no further recommendations. LFTs have continued to elevate. Suspect most likely related to infection and liver disease. HCV RNA >66,000,000 Plan: - Infectious workup per above - ID following-- initiate anti-HCV DAA with sofosbuvir/velpatasvir as outpatient Assessment & Plan (05/08/2025 9:13 AM VOCATIONAL AIDE): Noted to have elevated LFTs at OSH: AST to 404, ALT 70. RUQ TTP and hepatomegaly on exam. Reactive HepB core Ab (dating back to 2016). RUQUS 10/30 with hepatomegaly, trace ascites, and trace R pleural effusion; unremarkable gallbladder. Transaminitis likely multifactorial iso Hep C, AUD, and noted to have worsened after receiving atovaquone at OSH (though per ID this was not on board for long enough to see this effect). Pt seen by GI at OSH -- did not recommend hep C treatment at this point in time given other co-morbidities, no further recommendations. LFTs have continued to elevate. Suspect most likely related to infection and liver disease. HCV RNA >66,000,000 Plan: - Infectious workup per above - ID following Assessment & Plan (05/07/2025 7:13 AM VOCATIONAL AIDE): Noted to have elevated LFTs at OSH: AST to 404, ALT 70. RUQ TTP and hepatomegaly on exam. Reactive HepB core Ab (dating back to 2017). RUQUS 10/30 with hepatomegaly, trace ascites, and trace R pleural effusion; unremarkable gallbladder. Transaminitis likely multifactorial iso Hep C, AUD, and noted to have worsened after receiving atovaquone at OSH (though per ID this was not on board for long enough to see this effect). Pt seen by GI at OSH -- did not recommend hep C treatment at this point in time given other co-morbidities, no further recommendations. LFTs have continued to elevate. Suspect most likely related to infection and liver disease. HCV RNA >66,000,000 Plan: - Infectious workup per above - ID following Assessment & Plan (05/06/2025 6:14 AM VOCATIONAL AIDE): Noted to have elevated LFTs at OSH: AST to 404, ALT 70. RUQ TTP and hepatomegaly on exam. Reactive HepB core Ab (dating back to 2016). RUQUS 10 with hepatomegaly, trace ascites, and trace R pleural effusion; unremarkable gallbladder. Transaminitis likely multifactorial iso Hep C, AUD, and noted to have worsened after receiving atovaquone at OSH (though per ID this was not on board for long enough to see this effect). Pt seen by GI at OSH -- did not recommend hep C treatment at this point in time given other co-morbidities, no further recommendations. LFTs have continued to elevate. Suspect most likely related to infection and liver disease. HCV RNA >66,000,000 Plan: - Infectious workup per above - ID following Assessment & Plan (05/05/2025 4:04 PM VOCATIONAL AIDE): He desires treatment. HBV sAg neg. Elevated LFTs 2/2 disseminated histo. He had liver US wo evidence of cirrhosis or malignancy and no s/sx decompensated cirrhosis. Fibrosis-4 (FIB-4) Calculator: 36.85 at 05/05/2025 3:58 PM Calculated from: SGOT/AST: 226 Units/L at 05/05/2025 10:55 AM SGPT/ALT: 91 Units/L at 05/05/2025 10:55 AM Platelets: 29 K/cumm at 05/05/2025 10:55 AM Age: 45 years Recommendations: - HCV Nurse Navigator following - Sent script for generic SOF/MATTHEW 1 tab daily x12 weeks to [facility] (see if will cover for ease of dosing with numerous new meds) Assessment & Plan (05/05/2025 6:25 AM VOCATIONAL AIDE): Noted to have elevated LFTs at OSH: AST to 404, ALT 70. RUQ TTP and hepatomegaly on exam. Reactive HepB core Ab (dating back to 2016). RUQUS 10/30 with hepatomegaly, trace ascites, and trace R pleural effusion; unremarkable gallbladder. Transaminitis likely multifactorial iso Hep C, AUD, and noted to have worsened after receiving atovaquone at OSH (though per ID this was not on board for long enough to see this effect). Pt seen by GI at OSH -- did not recommend hep C treatment at this point in time given other co-morbidities, no further recommendations. LFTs have continued to elevate. Suspect most likely related to infection and liver disease. HCV RNA >66,000,000 Plan: - Infectious workup per above - ID following Assessment & Plan (05/04/2025 2:26 PM VOCATIONAL AIDE): Noted to have elevated LFTs at OSH: AST to 404, ALT 70. RUQ TTP and hepatomegaly on exam. Reactive HepB core Ab (dating back to 2016). RUQUS 10/30 with hepatomegaly, trace ascites, and trace R pleural effusion; unremarkable gallbladder. Transaminitis likely multifactorial iso Hep C, AUD, and noted to have worsened after receiving atovaquone at OSH (though per ID this was not on board for long enough to see this effect). Pt seen by GI at OSH -- did not recommend hep C treatment at this point in time given other co-morbidities, no further recommendations. LFTs have continued to elevate. Suspect most likely related to infection and liver disease. HCV RNA >66,000,000 Plan: - Infectious workup per above - ID following Assessment & Plan (05/04/2025 1:44 PM VOCATIONAL AIDE): He desires treatment. HBV sAg neg. Elevated LFTs worsening this admission due to possible OI contribution or DDI as being evaluated above. He had liver US wo evidence of cirrhosis or malignancy. Fibrosis-4 (FIB-4) Calculator: 56.77 at 05/04/2025 1:24 PM Calculated from: SGOT/AST: 886 Units/L at 05/01/2025 10:59 AM SGPT/ALT: 121 Units/L at 05/01/2025 10:59 AM Platelets: 64 K/cumm at 05/04/2025 11:40 AM Age: 45 years Recommendations: - HCV Nurse Navigator following - Pending LFT trend, clinical evaluation of OIs, and need for TB therapy with mindfulness of DDIs, will determine appropriate HCV therapy. Assessment & Plan (05/03/2025 11:09 AM VOCATIONAL AIDE): He desires treatment. HBV sAg neg. Elevated LFTs worsening this admission due to possible OI contribution or DDI as being evaluated above. He had liver US wo evidence of cirrhosis or malignancy. Fibrosis-4 (FIB-4) Calculator: 54.23 at 05/03/2025 10:46 AM Calculated from: SGOT/AST: 886 Units/L at 05/01/2025 10:59 AM SGPT/ALT: 121 Units/L at 05/01/2025 10:59 AM Platelets: 67 K/cumm at 04/30/2025 8:30 PM Age: 45 years Recommendations: - HCV Nurse Navigator following - Pending LFT trend, clinical evaluation of OIs, and need for TB therapy with mindfulness of DDIs, will determine appropriate HCV therapy. Assessment & Plan (05/03/2025 6:35 AM VOCATIONAL AIDE): Noted to have elevated LFTs at OSH: AST to 404, ALT 70. RUQ TTP and hepatomegaly on exam. Reactive HepB core Ab (dating back to 2017). RUQUS 10 with hepatomegaly, trace ascites, and trace R pleural effusion; unremarkable gallbladder. Transaminitis likely multifactorial iso Hep C, AUD, and noted to have worsened after receiving atovaquone at OSH (though per ID this was not on board for long enough to see this effect). Pt seen by GI at OSH -- did not recommend hep C treatment at this point in time given other co-morbidities, no further recommendations. LFTs have continued to elevate. Suspect most likely related to infection and liver disease. HCV RNA >66,000,000 Plan: - Infectious workup per above - ID following Assessment & Plan (05/02/2025 11:38 AM VOCATIONAL AIDE): He desires treatment. HBV sAg neg. Elevated LFTs worsening this admission due to possible OI contribution or DDI as being evaluated above. He had liver US wo evidence of cirrhosis or malignancy. Fibrosis-4 (FIB-4) Calculator: 54.22 at 05/02/2025 10:57 AM Calculated from: SGOT/AST: 886 Units/L at 05/01/2025 10:59 AM SGPT/ALT: 121 Units/L at 05/01/2025 10:59 AM Platelets: 67 K/cumm at 04/30/2025 8:30 PM Age: 45 years Recommendations: - HCV Nurse Navigator following - Pending LFT trend, clinical evaluation of OIs, and need for TB therapy with mindfulness of DDIs, will determine appropriate HCV therapy. Assessment & Plan (05/02/2025 10:52 AM VOCATIONAL AIDE): Noted to have elevated LFTs at OSH: AST to 404, ALT 70. RUQ TTP and hepatomegaly on exam. Reactive HepB core Ab (dating back to 2017). RUQUS 10 with hepatomegaly, trace ascites, and trace R pleural effusion; unremarkable gallbladder. Transaminitis likely multifactorial iso Hep C, AUD, and noted to have worsened after receiving atovaquone at OSH (though per ID this was not on board for long enough to see this effect). Pt seen by GI at OSH -- did not recommend hep C treatment at this point in time given other co-morbidities, no further recommendations. LFTs have continued to elevate. Suspect most likely related to infection and liver disease. HCV RNA >66,000,000 Plan: - Infectious workup per above - ID following Assessment & Plan (05/01/2025 2:46 PM VOCATIONAL AIDE): He desires treatment. HBV sAg neg. Elevated LFTs worsening this admission due to possible OI contribution or DDI as being evaluated above. He had liver US wo evidence of cirrhosis or malignancy. Fibrosis-4 (FIB-4) Calculator: 54.22 at 05/01/2025 2:14 PM Calculated from: SGOT/AST: 886 Units/L at 05/01/2025 10:59 AM SGPT/ALT: 121 Units/L at 05/01/2025 10:59 AM Platelets: 67 K/cumm at 04/30/2025 8:30 PM Age: 45 years Recommendations: - HCV Nurse Navigator following - Pending LFT trend, clinical evaluation of OIs, and need for TB therapy with mindfulness of DDIs, will determine appropriate HCV therapy. Assessment & Plan (05/01/2025 7:17 AM VOCATIONAL AIDE): Noted to have elevated LFTs at OSH: AST to 404, ALT 70. RUQ TTP and hepatomegaly on exam. Reactive HepB core Ab (dating back to 2016). RUQUS 10/30 with hepatomegaly, trace ascites, and trace R pleural effusion; unremarkable gallbladder. Transaminitis likely multifactorial iso Hep C, AUD, and noted to have worsened after receiving atovaquone at OSH (though per ID this was not on board for long enough to see this effect). Pt seen by GI at OSH -- did not recommend hep C treatment at this point in time given other co-morbidities, no further recommendations. LFTs have continued to elevate. Suspect most likely related to infection and liver disease. Plan: - HepC RNA pending - Infectious workup per above Assessment & Plan (04/30/2025 9:11 AM VOCATIONAL AIDE): Noted to have elevated LFTs at OSH: AST to 404, ALT 70. RUQ TTP and hepatomegaly on exam. Reactive HepB core Ab (dating back to 2016). RUQUS 10/30 with hepatomegaly, trace ascites, and trace R pleural effusion; unremarkable gallbladder. Transaminitis likely multifactorial iso Hep C, AUD, and noted to have worsened after receiving atovaquone at OSH (though per ID this was not on board for long enough to see this effect). Pt seen by GI at OSH -- did not recommend hep C treatment at this point in time given other co-morbidities, no further recommendations. LFTs have continued to elevate. Suspect most likely related to infection and liver disease. Plan: - HepC RNA pending - Infectious workup per above Assessment & Plan (04/29/2025 8:41 PM CDT): He desires treatment. HIV neg, HBV sAg neg. Elevated LFTs worsening this admission due to possible OI contribution or DDI as being evaluated above. He had liver US wo evidence of cirrhosis or malignancy. Fibrosis-4 (FIB-4) Calculator: 79.83 at 04/29/2025 8:16 PM Calculated from: SGOT/AST: 484 Units/L at 04/29/2025 4:56 AM SGPT/ALT: 73 Units/L at 04/29/2025 4:56 AM Platelets: 32 K/cumm at 04/29/2025 4:56 AM Age: 45 years Plan: - Will put on [facility] list and message HCV treatment team. - Pending LFT trend, clinical evaluation of OIs, and need for TB therapy with mindfulness of DDIs, will determine appropriate HCV therapy. Assessment & Plan (04/29/2025 6:56 AM CDT): Noted to have elevated LFTs at OSH: AST to 404, ALT 70. RUQ TTP and hepatomegaly on exam. Reactive HepB core Ab (dating back to 2017). RUQUS 04/27 with hepatomegaly, trace ascites, and trace R pleural effusion; unremarkable gallbladder. Transaminitis likely multifactorial iso Hep C, AUD, and noted to have worsened after receiving atovaquone at OSH. Pt seen by GI at OSH -- did not recommend hep C treatment at this point in time given other comorbidities - Hep C RNA pending - CMV, EBV pending - lipid panel/triglycerides pending - avoid atovaquone Opioid use disorder 04/29/2025 Assessment & Plan (05/16/2025 7:00 AM VOCATIONAL AIDE): Patient reports using opioids/fentanyl and methamphetamine. States >1 year since IVDU. OSH UDS positive for amphetampine, fentanyl, benzodiazepine. Denied h/o alcohol though OSH records report h/o AUD. Plan: - continue suboxone from TID - SW/chemical dependency c/s - Discharge to [facility]hab at [facility] in [place], [place] today Assessment & Plan (05/15/2025 12:51 PM VOCATIONAL AIDE): Patient reports using opioids/fentanyl and methamphetamine. States >1 year since IVDU. OSH UDS positive for amphetampine, fentanyl, benzodiazepine. Denied h/o alcohol though OSH records report h/o AUD. Currently c/o generalized body aches. Plan: - continue suboxone from TID - SW/chemical dependency c/s - Discharge planning - [place], [place]. Patient will discharge 11/18 AM. Assessment & Plan (05/14/2025 10:44 AM VOCATIONAL AIDE): Patient reports using opioids/fentanyl and methamphetamine. States >1 year since IVDU. OSH UDS positive for amphetampine, fentanyl, benzodiazepine. Denied h/o alcohol though OSH records report h/o AUD. Currently c/o generalized body aches. Plan: - continue suboxone from TID - SW/chemical dependency c/s - Discharge planning - [place], [place]. Patient tentatively accepted as of 05/12. Medically ready for placement following completion of amphotericin. Assessment & Plan (05/13/2025 6:58 AM VOCATIONAL AIDE): Patient reports using opioids/fentanyl and methamphetamine. States >1 year since IVDU. OSH UDS positive for amphetampine, fentanyl, benzodiazepine. Denied h/o alcohol though OSH records report h/o AUD. Currently c/o generalized body aches. Plan: - Increased suboxne from BID to TID 05/01 - SW/chemical dependency c/s - Discharge planning - [place], [place]. Patient tentatively accepted as of 05/12. Assessment & Plan (05/12/2025 4:54 PM VOCATIONAL AIDE): Patient reports using opioids/fentanyl and methamphetamine. States >1 year since IVDU. OSH UDS positive for amphetampine, fentanyl, benzodiazepine. Denied h/o alcohol though OSH records report h/o AUD. Currently c/o generalized body aches. Plan: - Increased suboxne from BID to TID 05/01 - SW/chemical dependency c/s - Discharge planning - [facility], [place]. Patient tentatively accepted as of 05/12. Assessment & Plan (05/11/2025 7:28 AM VOCATIONAL AIDE): Patient reports using opioids/fentanyl and methamphetamine. States >1 year since IVDU. OSH UDS positive for amphetampine, fentanyl, benzodiazepine. Denied h/o alcohol though OSH records report h/o AUD. Currently c/o generalized body aches. Plan: - Increased suboxne from BID to TID 05/01 - SW/chemical dependency c/s - likely dc to drug rehab, see below Assessment & Plan (05/10/2025 7:21 PM VOCATIONAL AIDE): Patient reports using opioids/fentanyl and methamphetamine. States >1 year since IVDU. OSH UDS positive for amphetampine, fentanyl, benzodiazepine. Denied h/o alcohol though OSH records report h/o AUD. Currently c/o generalized body aches. Plan: - Increased suboxne from BID to TID 05/01 - SW/chemical dependency c/s - likely dc to drug rehab, see below Assessment & Plan (05/09/2025 6:37 AM VOCATIONAL AIDE): Patient reports using opioids/fentanyl and methamphetamine. States >1 year since IVDU. OSH UDS positive for amphetampine, fentanyl, benzodiazepine. Denied h/o alcohol though OSH records report h/o AUD. Currently c/o generalized body aches. Plan: - Increased suboxne from BID to TID 05/01 - SW/chemical dependency c/s Assessment & Plan (05/08/2025 9:13 AM VOCATIONAL AIDE): Patient reports using opioids/fentanyl and methamphetamine. States >1 year since IVDU. OSH UDS positive for amphetampine, fentanyl, benzodiazepine. Denied h/o alcohol though OSH records report h/o AUD. Currently c/o generalized body aches. Plan: - Increased suboxne from BID to TID 05/01 - SW/chemical dependency c/s Assessment & Plan (05/07/2025 7:13 AM VOCATIONAL AIDE): Patient reports using opioids/fentanyl and methamphetamine. States >1 year since IVDU. OSH UDS positive for amphetampine, fentanyl, benzodiazepine. Denied h/o alcohol though OSH records report h/o AUD. Currently c/o generalized body aches. Plan: - Increased suboxne from BID to TID 05/01 - SW/chemical dependency c/s Assessment & Plan (05/06/2025 11:16 AM VOCATIONAL AIDE): Patient reports using opioids/fentanyl and methamphetamine. States >1 year since IVDU. OSH UDS positive for amphetampine, fentanyl, benzodiazepine. Denied h/o alcohol though OSH records report h/o AUD. Currently c/o generalized body aches. Plan: - Increased suboxne from BID to TID 05/01 - SW/chemical dependency c/s Assessment & Plan (05/05/2025 4:04 PM VOCATIONAL AIDE): Appreciate attention to withdrawal care to maximize chances he will stay for care. Denies withdrawal symptoms today and is tolerating the Suboxone well. Current dose managing his symptoms. - continue suboxone 8mg TID - [facility] team engaged as above - encouraged decision to go to substance use rehab program (warm hand off?) in [facility] Assessment & Plan (05/05/2025 6:25 AM VOCATIONAL AIDE): Patient reports using opioids/fentanyl and methamphetamine. States >1 year since IVDU. OSH UDS positive for amphetampine, fentanyl, benzodiazepine. Denied h/o alcohol though OSH records report h/o AUD. Currently c/o generalized body aches. Plan: - COWS protocol, PRNs available - Increased suboxne from BID to TID 05/01 - SW/chemical dependency c/s Assessment & Plan (05/04/2025 2:26 PM VOCATIONAL AIDE): Patient reports using opioids/fentanyl and methamphetamine. States >1 year since IVDU. OSH UDS positive for amphetampine, fentanyl, benzodiazepine. Denied h/o alcohol though OSH records report h/o AUD. Currently c/o generalized body aches. Plan: - COWS protocol, PRNs available - Increased suboxne from BID to TID 05/01 - SW/chemical dependency c/s Assessment & Plan (05/04/2025 1:44 PM VOCATIONAL AIDE): Appreciate attention to withdrawal care to maximize chances he will stay for care. Denies withdrawal symptoms today and is tolerating the Suboxone well. Current dose managing his symptoms. Assessment & Plan (05/03/2025 11:09 AM VOCATIONAL AIDE): Appreciate attention to withdrawal care to maximize chances he will stay for care. Denies withdrawal symptoms today and is tolerating the Suboxone well. Assessment & Plan (05/03/2025 6:35 AM VOCATIONAL AIDE): Patient reports using opioids/fentanyl and methamphetamine. States >1 year since IVDU. OSH UDS positive for amphetampine, fentanyl, benzodiazepine. Denied h/o alcohol though OSH records report h/o AUD. Currently c/o generalized body aches. Plan: - COWS protocol, PRNs available - Increased suboxne from BID to TID 05/01 - SW/chemical dependency c/s Assessment & Plan (05/02/2025 11:38 AM VOCATIONAL AIDE): Appreciate attention to withdrawal care to maximize chances he will stay for care. Denies withdrawal symptoms today and is tolerating the Suboxone well. Assessment & Plan (05/02/2025 6:27 AM VOCATIONAL AIDE): Patient reports using opioids/fentanyl and methamphetamine. States >1 year since IVDU. OSH UDS positive for amphetampine, fentanyl, benzodiazepine. Denied h/o alcohol though OSH records report h/o AUD. Currently c/o generalized body aches. Plan: - COWS protocol, PRNs available - Increased suboxne from BID to TID 05/01 - SW/chemical dependency c/s Assessment & Plan (05/01/2025 2:46 PM VOCATIONAL AIDE): Appreciate attention to withdrawal care to maximize chances he will stay for care. Please increase Suboxone to 8mg TID. Consider Toxicology consult Assessment & Plan (05/01/2025 10:51 AM VOCATIONAL AIDE): Patient reports using opioids/fentanyl and methamphetamine. States >1 year since IVDU. OSH UDS positive for amphetampine, fentanyl, benzodiazepine. Denied h/o alcohol though OSH records report h/o AUD. Currently c/o generalized body aches. Plan: - COWS protocol, PRNs available - Increased suboxne from BID to TID 05/01 - SW/chemical dependency c/s Assessment & Plan (04/30/2025 9:11 AM VOCATIONAL AIDE): Patient reports using opioids/fentanyl and methamphetamine. States >1 year since IVDU. OSH UDS positive for amphetampine, fentanyl, benzodiazepine. Denied h/o alcohol though OSH records report h/o AUD. Currently c/o generalized body aches. Plan: - COWS protocol, PRNs available - Continued suboxone per patient request - SW/chemical dependency c/s Assessment & Plan (04/29/2025 8:24 PM CDT): Appreciate attention to withdrawal care to maximize chances he will stay for care. Assessment & Plan (04/29/2025 6:56 AM CDT): Pt reports using opioids/fentanyl and methamphetamine. States >1 year since IVDU. OSH UDS positive for amphetampine, fentanyl, benzodiazepine. Denied h/o alcohol though OSH records report h/o AUD. Currently c/o generalized body aches. - COWS protocol, PRNs available - Started suboxone per pt request - SW/chemical dependency c/s Unhoused person 04/29/2025 Assessment & Plan (05/16/2025 7:00 AM VOCATIONAL AIDE): Per records, pt has poor understanding of prognosis and importance of treatment. Has previously not been compliant with treatment and leaves AMA from hospital. Was evaluated by psych at OSH, who determined pt does not have medical decision making capacity. As of 05/10, patient was demonstrating capacity to make decisions regarding disposition. He wishes to go to [facility]hab. - Social work c/s - Discharge planning - [facility] in [place], [place] - Accepted for 05/16. Plan to DC this AM. Assessment & Plan (05/15/2025 12:51 PM VOCATIONAL AIDE): Per records, pt has poor understanding of prognosis and importance of treatment. Has previously not been compliant with treatment and leaves AMA from hospital. Was evaluated by psych at OSH, who determined pt does not have medical decision making capacity. - Social work c/s - DC Elopement precautions -05/15/25 - On our assessment today, patient has medical capacity to make decisions regarding disposition at discharge. He continues to express interest in pursuing drug rehab program. He is agreeable to continued inpatient treatment with amphotericin. - Discharge planning - [facility] in [place], [place] - Accepted for 05/16. Plan to DC tomorrow AM. Medically ready after completion of amphotericin tonight. Assessment & Plan (05/14/2025 6:40 AM VOCATIONAL AIDE): Per records, pt has poor understanding of prognosis and importance of treatment. Has previously not been compliant with treatment and leaves AMA from hospital. Was evaluated by psych at OSH, who determined pt does not have medical decision making capacity. - Social work c/s - DC Elopement precautions -05/14/25 - On our assessment today, patient does have medical capacity to make decisions regarding disposition at discharge. He continues to express interest in pursuing drug rehab program. He is agreeable to continued inpatient treatment with amphotericin. Continue to re-evaluate capacity daily - Discharge planning - [facility] in [place], [place] - Tentatively accepted for expected DC 05/15. Patient is expected to be medically cleared for d/c on 05/15 after the completion of amphotericin B course, and is appropriate for residential [facility] treatment. Assessment & Plan (05/13/2025 6:58 AM VOCATIONAL AIDE): Per records, pt has poor understanding of prognosis and importance of treatment. Has previously not been compliant with treatment and leaves AMA from hospital. Was evaluated by psych at OSH, who determined pt does not have medical decision making capacity. - Social work c/s - DC Elopement precautions - 05/10 - On our assessment today, patient does have medical capacity to make decisions regarding disposition at discharge. He continues to express interest in pursuing drug rehab program. He is agreeable to continued inpatient treatment with amphotericin. Continue to re-evaluate capacity daily - Discharge planning - [facility] in [place], [place] - Tentatively accepted for expected DC 05/15. Patient is expected to be medically cleared for d/c on 05/15 after the completion of amphotericin B course, and is appropriate for residential [facility] treatment. Assessment & Plan (05/12/2025 4:54 PM VOCATIONAL AIDE): Per records, pt has poor understanding of prognosis and importance of treatment. Has previously not been compliant with treatment and leaves AMA from hospital. Was evaluated by psych at [facility], who determined pt does not have medical decision making capacity. - Social work c/s - DC Elopement precautions - 05/10 - On our assessment today, patient does have medical capacity to make decisions regarding disposition at discharge. He continues to express interest in pursuing drug rehab program. He is agreeable to continued inpatient treatment with amphotericin. Continue to re-evaluate capacity daily - Discharge planning - [facility] in [place], [place] - Tentatively accepted for expected DC 05/15. Patient is expected to be medically cleared for d/c on 05/15 after the completion of amphotericin B course, and is appropriate for residential [facility] treatment. Assessment & Plan (05/11/2025 7:28 AM VOCATIONAL AIDE): Per records, pt has poor understanding of prognosis and importance of treatment. Has previously not been compliant with treatment and leaves AMA from hospital. Was evaluated by psych at [facility], who determined pt does not have medical decision making capacity. - Social work c/s - DC Elopement precautions - 05/10 - On our assessment today, patient does have medical capacity to make decisions regarding disposition at discharge. He continues to express interest in pursuing drug rehab program. He is agreeable to continued inpatient treatment with amphotericin. Continue to re-evaluate capacity daily - Discharge planning - [facility] in [place], [place] - SW completed intake assessment with patient on 05/10. Assessment & Plan (05/10/2025 7:21 PM VOCATIONAL AIDE): Per records, pt has poor understanding of prognosis and importance of treatment. Has previously not been compliant with treatment and leaves AMA from hospital. Was evaluated by psych at [facility], who determined pt does not have medical decision making capacity. - Social work c/s - DC Elopement precautions - 05/10 - On our assessment today, patient does have medical capacity to make decisions regarding disposition at discharge. He continues to express interest in pursuing drug rehab program. He is agreeable to continued inpatient treatment with amphotericin. Continue to re-evaluate capacity daily - Discharge planning - [facility] in [place], [place] - SW completed intake assessment with patient on 05/10. Assessment & Plan (05/09/2025 3:21 PM VOCATIONAL AIDE): Per records, pt has poor understanding of prognosis and importance of treatment. Has previously not been compliant with treatment and leaves AMA from hospital. Was evaluated by psych at [facility], who determined pt does not have medical decision making capacity. - Social work c/s - Elopement precautions - On our assessment, patient does NOT have medical capacity to leave AMA, though he is agreeable to continued inpatient treatment again today. He is beginning to show understanding for some medical decisions and increased insight into substance use and prior hallucinations. Will need to re-evaluate capacity daily. - Discharge planning - considering drug rehab, no placement at this time. Assessment & Plan (05/08/2025 9:13 AM VOCATIONAL AIDE): Per records, pt has poor understanding of prognosis and importance of treatment. Has previously not been compliant with treatment and leaves AMA from hospital. Was evaluated by psych at [facility], who determined pt does not have medical decision making capacity. - Social work c/s - Elopement precautions - On our assessment, patient does NOT have medical capacity. Assessment & Plan (05/07/2025 7:13 AM VOCATIONAL AIDE): Per records, pt has poor understanding of prognosis and importance of treatment. Has previously not been compliant with treatment and leaves AMA from hospital. Was evaluated by psych at [facility], who determined pt does not have medical decision making capacity. - Social work c/s - Elopement precautions - On our assessment, patient does NOT have medical capacity. Assessment & Plan (05/06/2025 6:14 AM VOCATIONAL AIDE): Per records, pt has poor understanding of prognosis and importance of treatment. Has previously not been compliant with treatment and leaves AMA from hospital. Was evaluated by psych at [facility], who determined pt does not have medical decision making capacity. - Social work c/s - Elopement precautions - On our assessment, patient does NOT have medical capacity. Assessment & Plan (05/05/2025 6:25 AM VOCATIONAL AIDE): Per records, pt has poor understanding of prognosis and importance of treatment. Has previously not been compliant with treatment and leaves AMA from hospital. Was evaluated by psych at [facility], who determined pt does not have medical decision making capacity. - Social work c/s - Elopement precautions - On our assessment, patient does NOT have medical capacity. Assessment & Plan (05/04/2025 2:26 PM VOCATIONAL AIDE): Per records, pt has poor understanding of prognosis and importance of treatment. Has previously not been compliant with treatment and leaves AMA from hospital. Was evaluated by psych at [facility], who determined pt does not have medical decision making capacity. - Social work c/s - Elopement precautions - On our assessment, patient does NOT have medical capacity. Assessment & Plan (05/03/2025 6:35 AM VOCATIONAL AIDE): Per records, pt has poor understanding of prognosis and importance of treatment. Has previously not been compliant with treatment and leaves AMA from hospital. Was evaluated by psych at [facility], who determined pt does not have medical decision making capacity. - Social work c/s - Elopement precautions - On our assessment, patient does NOT have medical capacity. Assessment & Plan (05/02/2025 6:27 AM VOCATIONAL AIDE): Per records, pt has poor understanding of prognosis and importance of treatment. Has previously not been compliant with treatment and leaves AMA from hospital. Was evaluated by psych at [facility], who determined pt does not have medical decision making capacity. - Social work c/s - Elopement precautions - On our assessment, patient does NOT have medical capacity. Assessment & Plan (05/01/2025 7:17 AM VOCATIONAL AIDE): Per records, pt has poor understanding of prognosis and importance of treatment. Has previously not been compliant with treatment and leaves AMA from hospital. Was evaluated by psych at [facility], who determined pt does not have medical decision making capacity. - Social work c/s - Elopement precautions - On our assessment, patient does NOT have medical capacity. Assessment & Plan (04/30/2025 9:11 AM VOCATIONAL AIDE): Per records, pt has poor understanding of prognosis and importance of treatment. Has previously not been compliant with treatment and leaves AMA from hospital. Was evaluated by psych at [facility], who determined pt does not have medical decision making capacity. - Social work c/s - Elopement precautions - On our assessment, patient does NOT have medical capacity. Assessment & Plan (04/29/2025 6:56 AM CDT): Per records, pt has poor understanding of prognosis and importance of treatment. Has previously not been compliant with treatment and leaves AMA from hospital. Was evaluated by psych at [facility], who determined pt does NOT have medical decision making capacity. - Social work c/s - elopement precautions - possible [facility] psych c/s regarding capacity Poor compliance 04/29/2025 Assessment & Plan (05/16/2025 7:00 AM VOCATIONAL AIDE): Per records, pt has poor understanding of prognosis and importance of treatment. Has previously not been compliant with treatment and leaves AMA from hospital. Was evaluated by psych at [facility], who determined pt does not have medical decision making capacity. As of 05/10, patient was demonstrating capacity to make decisions regarding disposition. He wishes to go to [facility] rehab. - Social work c/s - Discharge planning - [facility] in [place], [place] - Accepted for 05/16. Plan to DC this AM. Assessment & Plan (05/15/2025 12:51 PM VOCATIONAL AIDE): Per records, pt has poor understanding of prognosis and importance of treatment. Has previously not been compliant with treatment and leaves AMA from hospital. Was evaluated by psych at [facility], who determined pt does not have medical decision making capacity. - Social work c/s - DC Elopement precautions -05/15/25 - On our assessment today, patient has medical capacity to make decisions regarding disposition at discharge. He continues to express interest in pursuing drug rehab program. He is agreeable to continued inpatient treatment with amphotericin. - Discharge planning - [facility] in [place], [place] - Accepted for 05/16. Plan to DC tomorrow AM. Medically ready after completion of amphotericin tonight. Assessment & Plan (05/14/2025 6:40 AM VOCATIONAL AIDE): Per records, pt has poor understanding of prognosis and importance of treatment. Has previously not been compliant with treatment and leaves AMA from hospital. Was evaluated by psych at [facility], who determined pt does not have medical decision making capacity. - Social work c/s - DC Elopement precautions -05/14/25 - On our assessment today, patient does have medical capacity to make decisions regarding disposition at discharge. He continues to express interest in pursuing drug rehab program. He is agreeable to continued inpatient treatment with amphotericin. Continue to re-evaluate capacity daily - Discharge planning - [facility] in [place], [place] - Tentatively accepted for expected DC 05/15. Patient is expected to be medically cleared for d/c on 05/15 after the completion of amphotericin B course, and is appropriate for residential [facility] treatment. Assessment & Plan (05/13/2025 6:58 AM VOCATIONAL AIDE): Per records, pt has poor understanding of prognosis and importance of treatment. Has previously not been compliant with treatment and leaves AMA from hospital. Was evaluated by psych at [facility], who determined pt does not have medical decision making capacity. - Social work c/s - DC Elopement precautions - 05/10 - On our assessment today, patient does have medical capacity to make decisions regarding disposition at discharge. He continues to express interest in pursuing drug rehab program. He is agreeable to continued inpatient treatment with amphotericin. Continue to re-evaluate capacity daily - Discharge planning - [facility] in [place], [place] - Tentatively accepted for expected DC 05/15. Patient is expected to be medically cleared for d/c on 05/15 after the completion of amphotericin B course, and is appropriate for residential [facility] treatment. Assessment & Plan (05/12/2025 4:54 PM VOCATIONAL AIDE): Per records, pt has poor understanding of prognosis and importance of treatment. Has previously not been compliant with treatment and leaves AMA from hospital. Was evaluated by psych at [facility], who determined pt does not have medical decision making capacity. - Social work c/s - DC Elopement precautions - 05/10 - On our assessment today, patient does have medical capacity to make decisions regarding disposition at discharge. He continues to express interest in pursuing drug rehab program. He is agreeable to continued inpatient treatment with amphotericin. Continue to re-evaluate capacity daily - Discharge planning - [facility] in [place], [place] - Tentatively accepted for expected DC 05/15. Patient is expected to be medically cleared for d/c on 05/15 after the completion of amphotericin B course, and is appropriate for residential [facility] treatment. Assessment & Plan (05/11/2025 7:28 AM VOCATIONAL AIDE): Per records, pt has poor understanding of prognosis and importance of treatment. Has previously not been compliant with treatment and leaves AMA from hospital. Was evaluated by psych at [facility], who determined pt does not have medical decision making capacity. - Social work c/s - DC Elopement precautions - 05/10 - On our assessment today, patient does have medical capacity to make decisions regarding disposition at discharge. He continues to express interest in pursuing drug rehab program. He is agreeable to continued inpatient treatment with amphotericin. Continue to re-evaluate capacity daily - Discharge planning - [facility] in [facility] completed intake assessment with patient on 05/10. Assessment & Plan (05/10/2025 7:21 PM VOCATIONAL AIDE): Per records, pt has poor understanding of prognosis and importance of treatment. Has previously not been compliant with treatment and leaves AMA from hospital. Was evaluated by psych at [facility], who determined pt does not have medical decision making capacity. - Social work c/s - DC Elopement precautions - 05/10 - On our assessment today, patient does have medical capacity to make decisions regarding disposition at discharge. He continues to express interest in pursuing drug rehab program. He is agreeable to continued inpatient treatment with amphotericin. Continue to re-evaluate capacity daily - Discharge planning - [facility] in [facility] completed intake assessment with patient on 05/10. Assessment & Plan (05/09/2025 3:21 PM VOCATIONAL AIDE): Per records, pt has poor understanding of prognosis and importance of treatment. Has previously not been compliant with treatment and leaves AMA from hospital. Was evaluated by psych at [facility], who determined pt does not have medical decision making capacity. - Social work c/s - Elopement precautions - On our assessment, patient does NOT have medical capacity to leave AMA, though he is agreeable to continued inpatient treatment again today. He is beginning to show understanding for some medical decisions and increased insight into substance use and prior hallucinations. Will need to re-evaluate capacity daily. - Discharge planning - considering drug rehab, no placement at this time. Assessment & Plan (05/08/2025 9:13 AM VOCATIONAL AIDE): Per records, pt has poor understanding of prognosis and importance of treatment. Has previously not been compliant with treatment and leaves AMA from hospital. Was evaluated by psych at [facility], who determined pt does not have medical decision making capacity. - Social work c/s - Elopement precautions - On our assessment, patient does NOT have medical capacity. Assessment & Plan (05/07/2025 7:13 AM VOCATIONAL AIDE): Per records, pt has poor understanding of prognosis and importance of treatment. Has previously not been compliant with treatment and leaves AMA from hospital. Was evaluated by psych at [facility], who determined pt does not have medical decision making capacity. - Social work c/s - Elopement precautions - On our assessment, patient does NOT have medical capacity. Assessment & Plan (05/06/2025 6:14 AM VOCATIONAL AIDE): Per records, pt has poor understanding of prognosis and importance of treatment. Has previously not been compliant with treatment and leaves AMA from hospital. Was evaluated by psych at [facility], who determined pt does not have medical decision making capacity. - Social work c/s - Elopement precautions - On our assessment, patient does NOT have medical capacity. Assessment & Plan (05/05/2025 6:25 AM VOCATIONAL AIDE): Per records, pt has poor understanding of prognosis and importance of treatment. Has previously not been compliant with treatment and leaves AMA from hospital. Was evaluated by psych at [facility], who determined pt does not have medical decision making capacity. - Social work c/s - Elopement precautions - On our assessment, patient does NOT have medical capacity. Assessment & Plan (05/04/2025 2:26 PM VOCATIONAL AIDE): Per records, pt has poor understanding of prognosis and importance of treatment. Has previously not been compliant with treatment and leaves AMA from hospital. Was evaluated by psych at [facility], who determined pt does not have medical decision making capacity. - Social work c/s - Elopement precautions - On our assessment, patient does NOT have medical capacity. Assessment & Plan (05/03/2025 6:35 AM VOCATIONAL AIDE): Per records, pt has poor understanding of prognosis and importance of treatment. Has previously not been compliant with treatment and leaves AMA from hospital. Was evaluated by psych at [facility], who determined pt does not have medical decision making capacity. - Social work c/s - Elopement precautions - On our assessment, patient does NOT have medical capacity. Assessment & Plan (05/02/2025 6:27 AM VOCATIONAL AIDE): Per records, pt has poor understanding of prognosis and importance of treatment. Has previously not been compliant with treatment and leaves AMA from hospital. Was evaluated by psych at [facility], who determined pt does not have medical decision making capacity. - Social work c/s - Elopement precautions - On our assessment, patient does NOT have medical capacity. Assessment & Plan (05/01/2025 7:17 AM VOCATIONAL AIDE): Per records, pt has poor understanding of prognosis and importance of treatment. Has previously not been compliant with treatment and leaves AMA from hospital. Was evaluated by psych at [facility], who determined pt does not have medical decision making capacity. - Social work c/s - Elopement precautions - On our assessment, patient does NOT have medical capacity. Assessment & Plan (04/30/2025 9:11 AM VOCATIONAL AIDE): Per records, pt has poor understanding of prognosis and importance of treatment. Has previously not been compliant with treatment and leaves AMA from hospital. Was evaluated by psych at [facility], who determined pt does not have medical decision making capacity. - Social work c/s - Elopement precautions - On our assessment, patient does NOT have medical capacity. Assessment & Plan (04/29/2025 6:56 AM CDT): Per records, pt has poor understanding of prognosis and importance of treatment. Has previously not been compliant with treatment and leaves AMA from hospital. Was evaluated by psych at [facility], who determined pt does NOT have medical decision making capacity. - Social work c/s - elopement precautions - possible [facility] psych c/s regarding capacity High risk social situation 04/29/2025 Assessment & Plan (05/16/2025 7:00 AM VOCATIONAL AIDE): Per records, pt has poor understanding of prognosis and importance of treatment. Has previously not been compliant with treatment and leaves AMA from hospital. Was evaluated by psych at [facility], who determined pt does not have medical decision making capacity. As of 05/10, patient was demonstrating capacity to make decisions regarding disposition. He wishes to go to [facility] re[facility]. - Social work c/s - Discharge planning - [facility] in [place], [place] - Accepted for 05/16. Plan to DC this AM. Assessment & Plan (05/15/2025 12:51 PM VOCATIONAL AIDE): Per records, pt has poor understanding of prognosis and importance of treatment. Has previously not been compliant with treatment and leaves AMA from hospital. Was evaluated by psych at [facility], who determined pt does not have medical decision making capacity. - Social work c/s - DC Elopement precautions -05/15/25 - On our assessment today, patient has medical capacity to make decisions regarding disposition at discharge. He continues to express interest in pursuing drug rehab program. He is agreeable to continued inpatient treatment with amphotericin. - Discharge planning - [facility] in [place], [place] - Accepted for 05/16. Plan to DC tomorrow AM. Medically ready after completion of amphotericin tonight. Assessment & Plan (05/14/2025 6:40 AM VOCATIONAL AIDE): Per records, pt has poor understanding of prognosis and importance of treatment. Has previously not been compliant with treatment and leaves AMA from hospital. Was evaluated by psych at [facility], who determined pt does not have medical decision making capacity. - Social work c/s - DC Elopement precautions -05/14/25 - On our assessment today, patient does have medical capacity to make decisions regarding disposition at discharge. He continues to express interest in pursuing drug rehab program. He is agreeable to continued inpatient treatment with amphotericin. Continue to re-evaluate capacity daily - Discharge planning - [facility] in [place], [place] - Tentatively accepted for expected DC 05/15. Patient is expected to be medically cleared for d/c on 05/15 after the completion of amphotericin B course, and is appropriate for residential [facility] treatment. Assessment & Plan (05/13/2025 6:58 AM VOCATIONAL AIDE): Per records, pt has poor understanding of prognosis and importance of treatment. Has previously not been compliant with treatment and leaves AMA from hospital. Was evaluated by psych at [facility], who determined pt does not have medical decision making capacity. - Social work c/s - DC Elopement precautions - 05/10 - On our assessment today, patient does have medical capacity to make decisions regarding disposition at discharge. He continues to express interest in pursuing drug rehab program. He is agreeable to continued inpatient treatment with amphotericin. Continue to re-evaluate capacity daily - Discharge planning - [facility] in [place], [place] - Tentatively accepted for expected DC 05/15. Patient is expected to be medically cleared for d/c on 05/15 after the completion of amphotericin B course, and is appropriate for residential [facility] treatment. Assessment & Plan (05/12/2025 4:54 PM VOCATIONAL AIDE): Per records, pt has poor understanding of prognosis and importance of treatment. Has previously not been compliant with treatment and leaves AMA from hospital. Was evaluated by psych at [facility], who determined pt does not have medical decision making capacity. - Social work c/s - DC Elopement precautions - 05/10 - On our assessment today, patient does have medical capacity to make decisions regarding disposition at discharge. He continues to express interest in pursuing drug rehab program. He is agreeable to continued inpatient treatment with amphotericin. Continue to re-evaluate capacity daily - Discharge planning - [facility] in [place], [place] - Tentatively accepted for expected DC 05/15. Patient is expected to be medically cleared for d/c on 05/15 after the completion of amphotericin B course, and is appropriate for residential [facility] treatment. Assessment & Plan (05/11/2025 7:28 AM VOCATIONAL AIDE): Per records, pt has poor understanding of prognosis and importance of treatment. Has previously not been compliant with treatment and leaves AMA from hospital. Was evaluated by psych at [facility], who determined pt does not have medical decision making capacity. - Social work c/s - DC Elopement precautions - 05/10 - On our assessment today, patient does have medical capacity to make decisions regarding disposition at discharge. He continues to express interest in pursuing drug rehab program. He is agreeable to continued inpatient treatment with amphotericin. Continue to re-evaluate capacity daily - Discharge planning - [facility] completed intake assessment with patient on 05/10. Assessment & Plan (05/10/2025 7:21 PM VOCATIONAL AIDE): Per records, pt has poor understanding of prognosis and importance of treatment. Has previously not been compliant with treatment and leaves AMA from hospital. Was evaluated by psych at [facility], who determined pt does not have medical decision making capacity. - Social work c/s - DC Elopement precautions - 05/10 - On our assessment today, patient does have medical capacity to make decisions regarding disposition at discharge. He continues to express interest in pursuing drug rehab program. He is agreeable to continued inpatient treatment with amphotericin. Continue to re-evaluate capacity daily - Discharge planning - [facility] in [facility] completed intake assessment with patient on 05/10. Assessment & Plan (05/09/2025 3:21 PM VOCATIONAL AIDE): Per records, pt has poor understanding of prognosis and importance of treatment. Has previously not been compliant with treatment and leaves AMA from hospital. Was evaluated by psych at OSH, who determined pt does not have medical decision making capacity. - Social work c/s - Elopement precautions - On our assessment, patient does NOT have medical capacity to leave AMA, though he is agreeable to continued inpatient treatment again today. He is beginning to show understanding for some medical decisions and increased insight into substance use and prior hallucinations. Will need to re-evaluate capacity daily. - Discharge planning - considering drug rehab, no placement at this time. Assessment & Plan (05/08/2025 9:13 AM VOCATIONAL AIDE): Per records, pt has poor understanding of prognosis and importance of treatment. Has previously not been compliant with treatment and leaves AMA from hospital. Was evaluated by psych at OSH, who determined pt does not have medical decision making capacity. - Social work c/s - Elopement precautions - On our assessment, patient does NOT have medical capacity. Assessment & Plan (05/07/2025 7:13 AM VOCATIONAL AIDE): Per records, pt has poor understanding of prognosis and importance of treatment. Has previously not been compliant with treatment and leaves AMA from hospital. Was evaluated by psych at OSH, who determined pt does not have medical decision making capacity. - Social work c/s - Elopement precautions - On our assessment, patient does NOT have medical capacity. Assessment & Plan (05/06/2025 6:14 AM VOCATIONAL AIDE): Per records, pt has poor understanding of prognosis and importance of treatment. Has previously not been compliant with treatment and leaves AMA from hospital. Was evaluated by psych at OSH, who determined pt does not have medical decision making capacity. - Social work c/s - Elopement precautions - On our assessment, patient does NOT have medical capacity. Assessment & Plan (05/05/2025 6:25 AM VOCATIONAL AIDE): Per records, pt has poor understanding of prognosis and importance of treatment. Has previously not been compliant with treatment and leaves AMA from hospital. Was evaluated by psych at OSH, who determined pt does not have medical decision making capacity. - Social work c/s - Elopement precautions - On our assessment, patient does NOT have medical capacity. Assessment & Plan (05/04/2025 2:26 PM VOCATIONAL AIDE): Per records, pt has poor understanding of prognosis and importance of treatment. Has previously not been compliant with treatment and leaves AMA from hospital. Was evaluated by psych at O[facility], who determined pt does not have medical decision making capacity. - Social work c/s - Elopement precautions - On our assessment, patient does NOT have medical capacity. Assessment & Plan (05/03/2025 6:35 AM VOCATIONAL AIDE): Per records, pt has poor understanding of prognosis and importance of treatment. Has previously not been compliant with treatment and leaves AMA from hospital. Was evaluated by psych at OSH, who determined pt does not have medical decision making capacity. - Social work c/s - Elopement precautions - On our assessment, patient does NOT have medical capacity. Assessment & Plan (05/02/2025 6:27 AM VOCATIONAL AIDE): Per records, pt has poor understanding of prognosis and importance of treatment. Has previously not been compliant with treatment and leaves AMA from hospital. Was evaluated by psych at OSH, who determined pt does not have medical decision making capacity. - Social work c/s - Elopement precautions - On our assessment, patient does NOT have medical capacity. Assessment & Plan (05/01/2025 7:17 AM VOCATIONAL AIDE): Per records, pt has poor understanding of prognosis and importance of treatment. Has previously not been compliant with treatment and leaves AMA from hospital. Was evaluated by psych at OSH, who determined pt does not have medical decision making capacity. - Social work c/s - Elopement precautions - On our assessment, patient does NOT have medical capacity. Assessment & Plan (04/30/2025 9:11 AM VOCATIONAL AIDE): Per records, pt has poor understanding of prognosis and importance of treatment. Has previously not been compliant with treatment and leaves AMA from hospital. Was evaluated by psych at OSH, who determined pt does not have medical decision making capacity. - Social work c/s - Elopement precautions - On our assessment, patient does NOT have medical capacity. Assessment & Plan (04/29/2025 6:56 AM CDT): Per records, pt has poor understanding of prognosis and importance of treatment. Has previously not been compliant with treatment and leaves AMA from hospital. Was evaluated by psych at OSH, who determined pt does NOT have medical decision making capacity. - Social work c/s - elopement precautions - possible [facility] psych c/s regarding capacity Anemia 04/29/2025 Assessment & Plan (05/16/2025 7:00 AM VOCATIONAL AIDE): Thrombocytopenia, resolved Previously pancytopenic at OSH. WBC since recovered. Hgb 9.9 (baseline 10-11) and plt 30 (initially 160 OA at OSH). Suspected myelosuppression from substance use, HIV infection, or histoplasmosis infection. Plan: - SCDs for DVT ppx while thrombocytopenic. Ok for chemo ppx, but will defer while patient ambulating. - thrombocytopenia now resolved. F/u outpatient with PCP Assessment & Plan (05/15/2025 12:51 PM VOCATIONAL AIDE): Previously pancytopenic at OSH. WBC since recovered. Hgb 9.9 (baseline 10-11) and plt 30 (initially 160 OA at OSH). Suspected myelosuppression from substance use, HIV infection, or histoplasmosis infection. Plan: - SCDs for DVT ppx while thrombocytopenic. Ok for chemo ppx, but will defer while patient ambulating. - thrombocytopenia now resolved. F/u outpatient with PCP Assessment & Plan (05/14/2025 6:40 AM VOCATIONAL AIDE): Previously pancytopenic at OSH. WBC since recovered. Hgb 9.9 (baseline 10-11) and plt 30 (initially 160 OA at OSH). Suspected myelosuppression from substance use, HIV infection, or histoplasmosis infection. Plan: - SCDs for DVT ppx while thrombocytopenic. Ok for chemo ppx, but will defer while patient ambulating. - Transfuse for plt <30 with bleeding, <10 no bleeding - Blood consent in chart, mother consented Assessment & Plan (05/13/2025 6:58 AM VOCATIONAL AIDE): Previously pancytopenic at OSH. WBC since recovered. Hgb 9.9 (baseline 10-11) and plt 30 (initially 160 OA at OSH). Suspected myelosuppression from substance use, HIV infection, or histoplasmosis infection. Plan: - SCDs for DVT ppx while thrombocytopenic. Ok for chemo ppx, but will defer while patient ambulating. - Transfuse for plt <30 with bleeding, <10 no bleeding - Blood consent in chart, mother consented Assessment & Plan (05/12/2025 4:54 PM VOCATIONAL AIDE): Previously pancytopenic at OSH. WBC since recovered. Hgb 9.9 (baseline 10-11) and plt 30 (initially 160 OA at OSH). Suspected myelosuppression from substance use, HIV infection, or histoplasmosis infection. Plan: - SCDs for DVT ppx while thrombocytopenic. Ok for chemo ppx, but will defer while patient ambulating. - Transfuse for plt <30 with bleeding, <10 no bleeding - Blood consent in chart, mother consented Assessment & Plan (05/11/2025 7:28 AM VOCATIONAL AIDE): Previously pancytopenic at OSH. WBC since recovered. Hgb 9.9 (baseline 10-11) and plt 30 (initially 160 OA at OSH). Suspected myelosuppression from substance use, HIV infection, or histoplasmosis infection. Plan: - SCDs for DVT ppx while thrombocytopenic - Transfuse for plt <30 with bleeding, <10 no bleeding - Blood consent in chart, mother consented Assessment & Plan (05/10/2025 7:11 AM VOCATIONAL AIDE): Previously pancytopenic at OSH. WBC since recovered. Hgb 9.9 (baseline 10-11) and plt 30 (initially 160 OA at OSH). Suspected myelosuppression from substance use, HIV infection, or histoplasmosis infection. Plan: - SCDs for DVT ppx while thrombocytopenic - Transfuse for plt <30 with bleeding, <10 no bleeding - Blood consent in chart, mother consented Assessment & Plan (05/09/2025 6:37 AM VOCATIONAL AIDE): Previously pancytopenic at OSH. WBC since recovered. Hgb 9.9 (baseline 10-11) and plt 30 (initially 160 OA at OSH). Suspected myelosuppression from substance use, HIV infection, or histoplasmosis infection. Plan: - SCDs for DVT ppx while thrombocytopenic - Transfuse for plt <30 with bleeding, <10 no bleeding - Blood consent in chart, mother consented Assessment & Plan (05/08/2025 6:59 PM VOCATIONAL AIDE): Previously pancytopenic at OSH. WBC since recovered. Hgb 9.9 (baseline 10-11) and plt 30 (initially 160 OA at OSH). Suspected myelosuppression from substance use, HIV infection, or histoplasmosis infection. Plan: - SCDs for DVT ppx while thrombocytopenic - Transfuse for plt <30 with bleeding, <10 no bleeding - Blood consent in chart, mother consented Assessment & Plan (05/07/2025 7:13 AM VOCATIONAL AIDE): Previously pancytopenic at OSH. WBC since recovered. Hgb 9.9 (baseline 10-11) and plt 30 (initially 160 OA at OSH). Suspected myelosuppression from substance use, HIV infection. Plan: - SCDs for DVT ppx while thrombocytopenic - Transfuse for plt <30 with bleeding, <10 no bleeding - Blood consent in chart, mother consented Assessment & Plan (05/06/2025 6:14 AM VOCATIONAL AIDE): Previously pancytopenic at OSH. WBC since recovered. Hgb 9.9 (baseline 10-11) and plt 30 (initially 160 OA at OSH). Suspected myelosuppression from substance use, HIV infection. Plan: - SCDs for DVT ppx while thrombocytopenic - Transfuse for plt <30 with bleeding, <10 no bleeding - Blood consent in chart, mother consented Assessment & Plan (05/05/2025 6:25 AM VOCATIONAL AIDE): Previously pancytopenic at OSH. WBC since recovered. Hgb 9.9 (baseline 10-11) and plt 30 (initially 160 OA at OSH). Suspected myelosuppression from substance use, HIV infection. Plan: - SCDs for DVT ppx while thrombocytopenic - Transfuse for plt <30 with bleeding, <10 no bleeding - Blood consent in chart, mother consented Assessment & Plan (05/04/2025 2:26 PM VOCATIONAL AIDE): Previously pancytopenic at OSH. WBC since recovered. Hgb 9.9 (baseline 10-11) and plt 30 (initially 160 OA at OSH). Suspected myelosuppression from substance use, HIV infection. Plan: - SCDs for DVT ppx while thrombocytopenic - Transfuse for plt <30 with bleeding, <10 no bleeding - Blood consent in chart, mother consented Assessment & Plan (05/03/2025 6:35 AM VOCATIONAL AIDE): Previously pancytopenic at OSH. WBC since recovered. Hgb 9.9 (baseline 10-11) and plt 30 (initially 160 OA at OSH). Suspected myelosuppression from substance use, HIV infection. Plan: - SCDs for DVT ppx while thrombocytopenic - Transfuse for plt <30 with bleeding, <10 no bleeding - Blood consent in chart, mother consented Assessment & Plan (05/02/2025 6:27 AM VOCATIONAL AIDE): Previously pancytopenic at OSH. WBC since recovered. Hgb 9.9 (baseline 10-11) and plt 30 (initially 160 OA at OSH). Suspected myelosuppression from substance use, HIV infection. Plan: - SCDs for DVT ppx while thrombocytopenic - Transfuse for plt <30 with bleeding, <10 no bleeding - Blood consent in chart, mother consented Assessment & Plan (05/01/2025 7:17 AM VOCATIONAL AIDE): Previously pancytopenic at OSH. WBC since recovered. Hgb 9.9 (baseline 10-11) and plt 30 (initially 160 OA at OSH). Suspected myelosuppression from substance use, HIV infection. Plan: - SCDs for DVT ppx while thrombocytopenic - Transfuse for plt <30 with bleeding, <10 no bleeding - Blood consent in chart, mother consented Assessment & Plan (04/30/2025 9:11 AM VOCATIONAL AIDE): Previously pancytopenic at OSH. WBC since recovered. Hgb 9.9 (baseline 10-11) and plt 30 (initially 160 OA at OSH). Suspected myelosuppression from substance use, HIV infection. Plan: - SCDs for DVT ppx while thrombocytopenic - Transfuse for plt <30 with bleeding, <10 no bleeding - Blood consent in chart, mother consented Assessment & Plan (04/29/2025 6:56 AM CDT): Previously pancytopenic at OSH. WBC since recovered. Hgb 9.9 (baseline 10-11) and plt 30 (initially 160 OA at OSH). Suspected myelosuppression from substance use, HIV infection. - SCDs for DVT ppx while thrombocytopenic - TBW ID regarding restarting bactrim for PJP ppx - transfuse for plt 30 and bleeding, <10 no bleeding - needs to be consented Transaminitis 04/29/2025 Assessment & Plan (05/16/2025 7:00 AM VOCATIONAL AIDE): Noted to have elevated LFTs at OSH: AST to 404, ALT 70. RUQ TTP and hepatomegaly on exam. Reactive HepB core Ab (dating back to 2016). RUQUS 10/30 with hepatomegaly, trace ascites, and trace R pleural effusion; unremarkable gallbladder. Transaminitis likely multifactorial iso Hep C, AUD, and noted to have worsened after receiving atovaquone at OSH (though per ID this was not on board for long enough to see this effect). Pt seen by GI at OSH -- did not recommend hep C treatment at this point in time given other co-morbidities, no further recommendations. LFTs have continued to elevate. Suspect most likely related to infection and liver disease. HCV RNA >66,000,000 Plan: - ID following-- initiate anti-HCV DAA with sofosbuvir/velpatasvir as outpatient. Medications delivered to bedside. - f/u outpatient with ID 12/ Assessment & Plan (05/15/2025 12:51 PM VOCATIONAL AIDE): Noted to have elevated LFTs at OSH: AST to 404, ALT 70. RUQ TTP and hepatomegaly on exam. Reactive HepB core Ab (dating back to 2016). RUQUS 10/30 with hepatomegaly, trace ascites, and trace R pleural effusion; unremarkable gallbladder. Transaminitis likely multifactorial iso Hep C, AUD, and noted to have worsened after receiving atovaquone at OSH (though per ID this was not on board for long enough to see this effect). Pt seen by GI at OSH -- did not recommend hep C treatment at this point in time given other co-morbidities, no further recommendations. LFTs have continued to elevate. Suspect most likely related to infection and liver disease. HCV RNA >66,000,000 Plan: - ID following-- initiate anti-HCV DAA with sofosbuvir/velpatasvir as outpatient. Medications delivered to bedside. Assessment & Plan (05/14/2025 10:44 AM VOCATIONAL AIDE): Noted to have elevated LFTs at OSH: AST to 404, ALT 70. RUQ TTP and hepatomegaly on exam. Reactive HepB core Ab (dating back to 2016). RUQUS 10/30 with hepatomegaly, trace ascites, and trace R pleural effusion; unremarkable gallbladder. Transaminitis likely multifactorial iso Hep C, AUD, and noted to have worsened after receiving atovaquone at OSH (though per ID this was not on board for long enough to see this effect). Pt seen by GI at OSH -- did not recommend hep C treatment at this point in time given other co-morbidities, no further recommendations. LFTs have continued to elevate. Suspect most likely related to infection and liver disease. HCV RNA >66,000,000 Plan: - ID following-- initiate anti-HCV DAA with sofosbuvir/velpatasvir as outpatient Assessment & Plan (05/13/2025 6:58 AM VOCATIONAL AIDE): Noted to have elevated LFTs at OSH: AST to 404, ALT 70. RUQ TTP and hepatomegaly on exam. Reactive HepB core Ab (dating back to 2016). RUQUS 10/30 with hepatomegaly, trace ascites, and trace R pleural effusion; unremarkable gallbladder. Transaminitis likely multifactorial iso Hep C, AUD, and noted to have worsened after receiving atovaquone at OSH (though per ID this was not on board for long enough to see this effect). Pt seen by GI at OSH -- did not recommend hep C treatment at this point in time given other co-morbidities, no further recommendations. LFTs have continued to elevate. Suspect most likely related to infection and liver disease. HCV RNA >66,000,000 Plan: - Infectious workup per above - ID following-- initiate anti-HCV DAA with sofosbuvir/velpatasvir as outpatient Assessment & Plan (05/12/2025 7:46 AM VOCATIONAL AIDE): Noted to have elevated LFTs at OSH: AST to 404, ALT 70. RUQ TTP and hepatomegaly on exam. Reactive HepB core Ab (dating back to 2016). RUQUS 10/30 with hepatomegaly, trace ascites, and trace R pleural effusion; unremarkable gallbladder. Transaminitis likely multifactorial iso Hep C, AUD, and noted to have worsened after receiving atovaquone at OSH (though per ID this was not on board for long enough to see this effect). Pt seen by GI at OSH -- did not recommend hep C treatment at this point in time given other co-morbidities, no further recommendations. LFTs have continued to elevate. Suspect most likely related to infection and liver disease. HCV RNA >66,000,000 Plan: - Infectious workup per above - ID following-- initiate anti-HCV DAA with sofosbuvir/velpatasvir as outpatient Assessment & Plan (05/11/2025 7:28 AM VOCATIONAL AIDE): Noted to have elevated LFTs at OSH: AST to 404, ALT 70. RUQ TTP and hepatomegaly on exam. Reactive HepB core Ab (dating back to 2016). RUQUS 10/30 with hepatomegaly, trace ascites, and trace R pleural effusion; unremarkable gallbladder. Transaminitis likely multifactorial iso Hep C, AUD, and noted to have worsened after receiving atovaquone at OSH (though per ID this was not on board for long enough to see this effect). Pt seen by GI at OSH -- did not recommend hep C treatment at this point in time given other co-morbidities, no further recommendations. LFTs have continued to elevate. Suspect most likely related to infection and liver disease. HCV RNA >66,000,000 Plan: - Infectious workup per above - ID following-- initiate anti-HCV DAA with sofosbuvir/velpatasvir as outpatient Assessment & Plan (05/10/2025 7:11 AM VOCATIONAL AIDE): Noted to have elevated LFTs at OSH: AST to 404, ALT 70. RUQ TTP and hepatomegaly on exam. Reactive HepB core Ab (dating back to 2016). RUQUS 10/30 with hepatomegaly, trace ascites, and trace R pleural effusion; unremarkable gallbladder. Transaminitis likely multifactorial iso Hep C, AUD, and noted to have worsened after receiving atovaquone at OSH (though per ID this was not on board for long enough to see this effect). Pt seen by GI at OSH -- did not recommend hep C treatment at this point in time given other co-morbidities, no further recommendations. LFTs have continued to elevate. Suspect most likely related to infection and liver disease. HCV RNA >66,000,000 Plan: - Infectious workup per above - ID following-- initiate anti-HCV DAA with sofosbuvir/velpatasvir as outpatient Assessment & Plan (05/09/2025 3:22 PM VOCATIONAL AIDE): Noted to have elevated LFTs at OSH: AST to 404, ALT 70. RUQ TTP and hepatomegaly on exam. Reactive HepB core Ab (dating back to 2016). RUQUS 10/30 with hepatomegaly, trace ascites, and trace R pleural effusion; unremarkable gallbladder. Transaminitis likely multifactorial iso Hep C, AUD, and noted to have worsened after receiving atovaquone at OSH (though per ID this was not on board for long enough to see this effect). Pt seen by GI at OSH -- did not recommend hep C treatment at this point in time given other co-morbidities, no further recommendations. LFTs have continued to elevate. Suspect most likely related to infection and liver disease. HCV RNA >66,000,000 Plan: - Infectious workup per above - ID following-- initiate anti-HCV DAA with sofosbuvir/velpatasvir as outpatient Assessment & Plan (05/08/2025 9:13 AM VOCATIONAL AIDE): Noted to have elevated LFTs at OSH: AST to 404, ALT 70. RUQ TTP and hepatomegaly on exam. Reactive HepB core Ab (dating back to 2016). RUQUS 10/30 with hepatomegaly, trace ascites, and trace R pleural effusion; unremarkable gallbladder. Transaminitis likely multifactorial iso Hep C, AUD, and noted to have worsened after receiving atovaquone at OSH (though per ID this was not on board for long enough to see this effect). Pt seen by GI at OSH -- did not recommend hep C treatment at this point in time given other co-morbidities, no further recommendations. LFTs have continued to elevate. Suspect most likely related to infection and liver disease. HCV RNA >66,000,000 Plan: - Infectious workup per above - ID following Assessment & Plan (05/07/2025 7:13 AM VOCATIONAL AIDE): Noted to have elevated LFTs at OSH: AST to 404, ALT 70. RUQ TTP and hepatomegaly on exam. Reactive HepB core Ab (dating back to 2016). RUQUS 10 with hepatomegaly, trace ascites, and trace R pleural effusion; unremarkable gallbladder. Transaminitis likely multifactorial iso Hep C, AUD, and noted to have worsened after receiving atovaquone at OSH (though per ID this was not on board for long enough to see this effect). Pt seen by GI at OSH -- did not recommend hep C treatment at this point in time given other co-morbidities, no further recommendations. LFTs have continued to elevate. Suspect most likely related to infection and liver disease. HCV RNA >66,000,000 Plan: - Infectious workup per above - ID following Assessment & Plan (05/06/2025 6:14 AM VOCATIONAL AIDE): Noted to have elevated LFTs at OSH: AST to 404, ALT 70. RUQ TTP and hepatomegaly on exam. Reactive HepB core Ab (dating back to 2016). RUQUS 10/30 with hepatomegaly, trace ascites, and trace R pleural effusion; unremarkable gallbladder. Transaminitis likely multifactorial iso Hep C, AUD, and noted to have worsened after receiving atovaquone at OSH (though per ID this was not on board for long enough to see this effect). Pt seen by GI at OSH -- did not recommend hep C treatment at this point in time given other co-morbidities, no further recommendations. LFTs have continued to elevate. Suspect most likely related to infection and liver disease. HCV RNA >66,000,000 Plan: - Infectious workup per above - ID following Assessment & Plan (05/05/2025 6:25 AM VOCATIONAL AIDE): Noted to have elevated LFTs at OSH: AST to 404, ALT 70. RUQ TTP and hepatomegaly on exam. Reactive HepB core Ab (dating back to 2016). RUQUS 10/30 with hepatomegaly, trace ascites, and trace R pleural effusion; unremarkable gallbladder. Transaminitis likely multifactorial iso Hep C, AUD, and noted to have worsened after receiving atovaquone at OSH (though per ID this was not on board for long enough to see this effect). Pt seen by GI at OSH -- did not recommend hep C treatment at this point in time given other co-morbidities, no further recommendations. LFTs have continued to elevate. Suspect most likely related to infection and liver disease. HCV RNA >66,000,000 Plan: - Infectious workup per above - ID following Assessment & Plan (05/04/2025 2:26 PM VOCATIONAL AIDE): Noted to have elevated LFTs at OSH: AST to 404, ALT 70. RUQ TTP and hepatomegaly on exam. Reactive HepB core Ab (dating back to 2016). RUQUS 10/30 with hepatomegaly, trace ascites, and trace R pleural effusion; unremarkable gallbladder. Transaminitis likely multifactorial iso Hep C, AUD, and noted to have worsened after receiving atovaquone at OSH (though per ID this was not on board for long enough to see this effect). Pt seen by GI at OSH -- did not recommend hep C treatment at this point in time given other co-morbidities, no further recommendations. LFTs have continued to elevate. Suspect most likely related to infection and liver disease. HCV RNA >66,000,000 Plan: - Infectious workup per above - ID following Assessment & Plan (05/03/2025 6:35 AM VOCATIONAL AIDE): Noted to have elevated LFTs at OSH: AST to 404, ALT 70. RUQ TTP and hepatomegaly on exam. Reactive HepB core Ab (dating back to 2016). RUQUS 10/30 with hepatomegaly, trace ascites, and trace R pleural effusion; unremarkable gallbladder. Transaminitis likely multifactorial iso Hep C, AUD, and noted to have worsened after receiving atovaquone at OSH (though per ID this was not on board for long enough to see this effect). Pt seen by GI at OSH -- did not recommend hep C treatment at this point in time given other co-morbidities, no further recommendations. LFTs have continued to elevate. Suspect most likely related to infection and liver disease. HCV RNA >66,000,000 Plan: - Infectious workup per above - ID following Assessment & Plan (05/02/2025 10:52 AM VOCATIONAL AIDE): Noted to have elevated LFTs at OSH: AST to 404, ALT 70. RUQ TTP and hepatomegaly on exam. Reactive HepB core Ab (dating back to 2016). RUQUS 10 with hepatomegaly, trace ascites, and trace R pleural effusion; unremarkable gallbladder. Transaminitis likely multifactorial iso Hep C, AUD, and noted to have worsened after receiving atovaquone at OSH (though per ID this was not on board for long enough to see this effect). Pt seen by GI at OSH -- did not recommend hep C treatment at this point in time given other co-morbidities, no further recommendations. LFTs have continued to elevate. Suspect most likely related to infection and liver disease. HCV RNA >66,000,000 Plan: - Infectious workup per above - ID following Assessment & Plan (05/01/2025 7:17 AM VOCATIONAL AIDE): Noted to have elevated LFTs at OSH: AST to 404, ALT 70. RUQ TTP and hepatomegaly on exam. Reactive HepB core Ab (dating back to 2016). RUQUS 10/30 with hepatomegaly, trace ascites, and trace R pleural effusion; unremarkable gallbladder. Transaminitis likely multifactorial iso Hep C, AUD, and noted to have worsened after receiving atovaquone at OSH (though per ID this was not on board for long enough to see this effect). Pt seen by GI at OSH -- did not recommend hep C treatment at this point in time given other co-morbidities, no further recommendations. LFTs have continued to elevate. Suspect most likely related to infection and liver disease. Plan: - HepC RNA pending - Infectious workup per above Assessment & Plan (04/30/2025 9:11 AM VOCATIONAL AIDE): Noted to have elevated LFTs at OSH: AST to 404, ALT 70. RUQ TTP and hepatomegaly on exam. Reactive HepB core Ab (dating back to 2016). RUQUS 04/27 with hepatomegaly, trace ascites, and trace R pleural effusion; unremarkable gallbladder. Transaminitis likely multifactorial iso Hep C, AUD, and noted to have worsened after receiving atovaquone at OSH (though per ID this was not on board for long enough to see this effect). Pt seen by GI at OSH -- did not recommend hep C treatment at this point in time given other co-morbidities, no further recommendations. LFTs have continued to elevate. Suspect most likely related to infection and liver disease. Plan: - HepC RNA pending - Infectious workup per above Assessment & Plan (04/29/2025 6:56 AM CDT): Noted to have elevated LFTs at OSH: AST to 404, ALT 70. RUQ TTP and hepatomegaly on exam. Reactive HepB core Ab (dating back to 2016). RUQUS 04/27 with hepatomegaly, trace ascites, and trace R pleural effusion; unremarkable gallbladder. Transaminitis likely multifactorial iso Hep C, AUD, and noted to have worsened after receiving atovaquone at OSH. 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 MRSA bacteremia 04/26/2024 UTI (urinary tract infection) 04/26/2024 Moderate malnutrition 04/26/2024 Severe sepsis due to methici llin resistant Staphylococcus aureus (MRSA) with acute organ dysfunction 04/26/2024 AIDS (acquired immunodeficiency syndrome), CD4 < =200 04/26/2024 Substance abuse, daily use 04/25/2024 HIV (human immunodeficiency virus infection) Renal mass of unknown nature 04/25/2024 Acute hyponatremia 04/25/2024 Positive result for methicil marciano resistant Staphylococcus aureus (MRSA) screening 04/25/2024 Fever 04/25/2024 Nail abnormalities 04/25/2024 Pneumonia of left lower lobe due to infectious o rganism 04/24/2024 Resolved Problems Problem Noted Date Diagnosed Date Resolved Date Hallucinations 05/03/2025 05/15/2025 Assessment & Plan (05/15/2025 12:51 PM VOCATIONAL AIDE): Patient noted to have delusions and hallucinations. Historically has not been treated for HIV and HepC because he does not believe the diagnosis. Concern for underlying untreated psychiatric diagnosis. Patient believes hallucinations were only in the setting of drug use or withdrawal. Throughout admission, he has demonstrated increasing insight to his medical diagnoses and substance use. - Based on clinical improvement in mental status, will defer psych consult at this time. Assessment & Plan (05/14/2025 6:40 AM VOCATIONAL AIDE): Patient noted to have delusions and hallucinations. Historically has not been treated for HIV and HepC because he does not believe the diagnosis. Concern for underlying untreated psychiatric diagnosis. If so, this is clearly negatively impacting his health. - Based on clinical improvement in mental status, will defer psych consult at this time. Patient demonstrates capacity for decisions regarding discharge disposition. Assessment & Plan (05/13/2025 6:58 AM VOCATIONAL AIDE): Patient noted to have delusions and hallucinations. Historically has not been treated for HIV and HepC because he does not believe the diagnosis. Concern for underlying untreated psychiatric diagnosis. If so, this is clearly negatively impacting his health. - Based on clinical improvement in mental status, will defer psych consult at this time. Patient demonstrates capacity for decisions regarding discharge disposition. Assessment & Plan (05/12/2025 4:54 PM VOCATIONAL AIDE): Patient noted to have delusions and hallucinations. Historically has not been treated for HIV and HepC because he does not believe the diagnosis. Concern for underlying untreated psychiatric diagnosis. If so, this is clearly negatively impacting his health. - Based on clinical improvement in mental status, will defer psych consult at this time. Patient demonstrates capacity for decisions regarding discharge disposition. Assessment & Plan (05/11/2025 7:28 AM VOCATIONAL AIDE): Patient noted to have delusions and hallucinations. Historically has not been treated for HIV and HepC because he does not believe the diagnosis. Concern for underlying untreated psychiatric diagnosis. If so, this is clearly negatively impacting his health. - Consider psych consult this admission Assessment & Plan (05/10/2025 7:11 AM VOCATIONAL AIDE): Patient noted to have delusions and hallucinations. Historically has not been treated for HIV and HepC because he does not believe the diagnosis. Concern for underlying untreated psychiatric diagnosis. If so, this is clearly negatively impacting his health. - Consider psych consult this admission Assessment & Plan (05/09/2025 6:37 AM VOCATIONAL AIDE): Patient noted to have delusions and hallucinations. Historically has not been treated for HIV and HepC because he does not believe the diagnosis. Concern for underlying untreated psychiatric diagnosis. If so, this is clearly negatively impacting his health. - Consider psych consult this admission Assessment & Plan (05/08/2025 6:59 PM VOCATIONAL AIDE): Patient noted to have delusions and hallucinations. Historically has not been treated for HIV and HepC because he does not believe the diagnosis. Concern for underlying untreated psychiatric diagnosis. If so, this is clearly negatively impacting his health. - Consider psych consult this admission Assessment & Plan (05/07/2025 7:13 AM VOCATIONAL AIDE): Patient noted to have delusions and hallucinations. Historically has not been treated for HIV and HepC because he does not believe the diagnosis. Concern for underlying untreated psychiatric diagnosis. If so, this is clearly negatively impacting his health. - Psych consult in upcoming days, certainly prior to discharge Assessment & Plan (05/06/2025 6:14 AM VOCATIONAL AIDE): Patient noted to have delusions and hallucinations. Historically has not been treated for HIV and HepC because he does not believe the diagnosis. Concern for underlying untreated psychiatric diagnosis. If so, this is clearly negatively impacting his health. - Psych consult in upcoming days, certainly prior to discharge Assessment & Plan (05/05/2025 6:25 AM VOCATIONAL AIDE): Patient noted to have delusions and hallucinations. Historically has not been treated for HIV and HepC because he does not believe the diagnosis. Concern for underlying untreated psychiatric diagnosis. If so, this is clearly negatively impacting his health. - Psych consult in upcoming days, certainly prior to discharge Assessment & Plan (05/04/2025 2:26 PM VOCATIONAL AIDE): Patient noted to have delusions and hallucinations. Historically has not been treated for HIV and HepC because he does not believe the diagnosis. Concern for underlying untreated psychiatric diagnosis. If so, this is clearly negatively impacting his health. - Psych consult in upcoming days, certainly prior to discharge Assessment & Plan (05/03/2025 11:02 AM VOCATIONAL AIDE): Patient noted to have delusions and hallucinations. Historically has not been treated for HIV and HepC because he does not believe the diagnosis. Concern for underlying untreated psychiatric diagnosis. If so, this is clearly negatively impacting his health. - Psych consult in upcoming days, certainly prior to discharge Hyponatremia 04/29/2025 05/09/2025 Assessment & Plan (05/09/2025 6:37 AM VOCATIONAL AIDE): At OSH, Na down to 125. 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 Improved to 133 s/p fluid restriction and lasix. - cont fluid restrict 2L Assessment & Plan (05/08/2025 9:13 AM VOCATIONAL AIDE): At OSH, Na down to 125. 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 Improved to 133 s/p fluid restriction and lasix. - cont fluid restrict 2L Assessment & Plan (05/07/2025 7:13 AM VOCATIONAL AIDE): At OSH, Na down to 125. 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 Improved to 133 s/p fluid restriction and lasix. - cont fluid restrict 2L Assessment & Plan (05/06/2025 6:14 AM VOCATIONAL AIDE): At OSH, Na down to 125. 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 Improved to 133 s/p fluid restriction and lasix. - cont fluid restrict 2L Assessment & Plan (05/05/2025 6:25 AM VOCATIONAL AIDE): At OSH, Na down to 125. 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 Improved to 133 s/p fluid restriction and lasix. - cont fluid restrict 2L Assessment & Plan (05/04/2025 2:26 PM VOCATIONAL AIDE): At OSH, Na down to 125. 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 Improved to 133 s/p fluid restriction and lasix. - cont fluid restrict 2L Assessment & Plan (05/03/2025 6:35 AM VOCATIONAL AIDE): At OSH, Na down to 125. 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 Improved to 133 s/p fluid restriction and lasix. - cont fluid restrict 2L Assessment & Plan (05/02/2025 6:27 AM VOCATIONAL AIDE): At OSH, Na down to 125. 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 Improved to 133 s/p fluid restriction and lasix. - cont fluid restrict 2L Assessment & Plan (05/01/2025 7:17 AM VOCATIONAL AIDE): At OSH, Na down to 125. 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 Improved to 133 s/p fluid restriction and lasix. - cont fluid restrict 2L Assessment & Plan (04/30/2025 9:11 AM VOCATIONAL AIDE): At OSH, Na down to 125. 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 Improved to 133 s/p fluid restriction and lasix. - cont fluid restrict 2L Assessment & Plan (04/29/2025 6:56 AM CDT): At OSH, Na down to 125. 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 Improved to 133 s/p fluid restriction and lasix. - cont fluid restrict 2L Thrombocytopenia 04/29/2025 05/15/2025 Assessment & Plan (05/15/2025 12:51 PM VOCATIONAL AIDE): Previously pancytopenic at OSH. WBC since recovered. Hgb 9.9 (baseline 10-11) and plt 30 (initially 160 OA at OSH). Suspected myelosuppression from substance use, HIV infection, or histoplasmosis infection. Plan: - SCDs for DVT ppx while thrombocytopenic. Ok for chemo ppx, but will defer while patient ambulating. - thrombocytopenia now resolved. F/u outpatient with PCP Assessment & Plan (05/14/2025 6:40 AM VOCATIONAL AIDE): Previously pancytopenic at OSH. WBC since recovered. Hgb 9.9 (baseline 10-11) and plt 30 (initially 160 OA at OSH). Suspected myelosuppression from substance use, HIV infection, or histoplasmosis infection. Plan: - SCDs for DVT ppx while thrombocytopenic. Ok for chemo ppx, but will defer while patient ambulating. - Transfuse for plt <30 with bleeding, <10 no bleeding - Blood consent in chart, mother consented Assessment & Plan (05/13/2025 6:58 AM VOCATIONAL AIDE): Previously pancytopenic at OSH. WBC since recovered. Hgb 9.9 (baseline 10-11) and plt 30 (initially 160 OA at OSH). Suspected myelosuppression from substance use, HIV infection, or histoplasmosis infection. Plan: - SCDs for DVT ppx while thrombocytopenic. Ok for chemo ppx, but will defer while patient ambulating. - Transfuse for plt <30 with bleeding, <10 no bleeding - Blood consent in chart, mother consented Assessment & Plan (05/12/2025 4:54 PM VOCATIONAL AIDE): Previously pancytopenic at OSH. WBC since recovered. Hgb 9.9 (baseline 10-11) and plt 30 (initially 160 OA at OSH). Suspected myelosuppression from substance use, HIV infection, or histoplasmosis infection. Plan: - SCDs for DVT ppx while thrombocytopenic. Ok for chemo ppx, but will defer while patient ambulating. - Transfuse for plt <30 with bleeding, <10 no bleeding - Blood consent in chart, mother consented Assessment & Plan (05/11/2025 7:28 AM VOCATIONAL AIDE): Previously pancytopenic at OSH. WBC since recovered. Hgb 9.9 (baseline 10-11) and plt 30 (initially 160 OA at OSH). Suspected myelosuppression from substance use, HIV infection, or histoplasmosis infection. Plan: - SCDs for DVT ppx while thrombocytopenic - Transfuse for plt <30 with bleeding, <10 no bleeding - Blood consent in chart, mother consented Assessment & Plan (05/10/2025 7:11 AM VOCATIONAL AIDE): Previously pancytopenic at OSH. WBC since recovered. Hgb 9.9 (baseline 10-11) and plt 30 (initially 160 OA at OSH). Suspected myelosuppression from substance use, HIV infection, or histoplasmosis infection. Plan: - SCDs for DVT ppx while thrombocytopenic - Transfuse for plt <30 with bleeding, <10 no bleeding - Blood consent in chart, mother consented Assessment & Plan (05/09/2025 6:37 AM VOCATIONAL AIDE): Previously pancytopenic at OSH. WBC since recovered. Hgb 9.9 (baseline 10-11) and plt 30 (initially 160 OA at OSH). Suspected myelosuppression from substance use, HIV infection, or histoplasmosis infection. Plan: - SCDs for DVT ppx while thrombocytopenic - Transfuse for plt <30 with bleeding, <10 no bleeding - Blood consent in chart, mother consented Assessment & Plan (05/08/2025 6:59 PM VOCATIONAL AIDE): Previously pancytopenic at OSH. WBC since recovered. Hgb 9.9 (baseline 10-11) and plt 30 (initially 160 OA at OSH). Suspected myelosuppression from substance use, HIV infection, or histoplasmosis infection. Plan: - SCDs for DVT ppx while thrombocytopenic - Transfuse for plt <30 with bleeding, <10 no bleeding - Blood consent in chart, mother consented Assessment & Plan (05/07/2025 7:13 AM VOCATIONAL AIDE): Previously pancytopenic at OSH. WBC since recovered. Hgb 9.9 (baseline 10-11) and plt 30 (initially 160 OA at OSH). Suspected myelosuppression from substance use, HIV infection. Plan: - SCDs for DVT ppx while thrombocytopenic - Transfuse for plt <30 with bleeding, <10 no bleeding - Blood consent in chart, mother consented Assessment & Plan (05/06/2025 6:14 AM VOCATIONAL AIDE): Previously pancytopenic at OSH. WBC since recovered. Hgb 9.9 (baseline 10-11) and plt 30 (initially 160 OA at OSH). Suspected myelosuppression from substance use, HIV infection. Plan: - SCDs for DVT ppx while thrombocytopenic - Transfuse for plt <30 with bleeding, <10 no bleeding - Blood consent in chart, mother consented Assessment & Plan (05/05/2025 6:25 AM VOCATIONAL AIDE): Previously pancytopenic at OSH. WBC since recovered. Hgb 9.9 (baseline 10-11) and plt 30 (initially 160 OA at OSH). Suspected myelosuppression from substance use, HIV infection. Plan: - SCDs for DVT ppx while thrombocytopenic - Transfuse for plt <30 with bleeding, <10 no bleeding - Blood consent in chart, mother consented Assessment & Plan (05/04/2025 2:26 PM VOCATIONAL AIDE): Previously pancytopenic at OSH. WBC since recovered. Hgb 9.9 (baseline 10-11) and plt 30 (initially 160 OA at OSH). Suspected myelosuppression from substance use, HIV infection. Plan: - SCDs for DVT ppx while thrombocytopenic - Transfuse for plt <30 with bleeding, <10 no bleeding - Blood consent in chart, mother consented Assessment & Plan (05/03/2025 6:35 AM VOCATIONAL AIDE): Previously pancytopenic at OSH. WBC since recovered. Hgb 9.9 (baseline 10-11) and plt 30 (initially 160 OA at OSH). Suspected myelosuppression from substance use, HIV infection. Plan: - SCDs for DVT ppx while thrombocytopenic - Transfuse for plt <30 with bleeding, <10 no bleeding - Blood consent in chart, mother consented Assessment & Plan (05/02/2025 6:27 AM VOCATIONAL AIDE): Previously pancytopenic at OSH. WBC since recovered. Hgb 9.9 (baseline 10-11) and plt 30 (initially 160 OA at OSH). Suspected myelosuppression from substance use, HIV infection. Plan: - SCDs for DVT ppx while thrombocytopenic - Transfuse for plt <30 with bleeding, <10 no bleeding - Blood consent in chart, mother consented Assessment & Plan (05/01/2025 7:17 AM VOCATIONAL AIDE): Previously pancytopenic at OSH. WBC since recovered. Hgb 9.9 (baseline 10-11) and plt 30 (initially 160 OA at OSH). Suspected myelosuppression from substance use, HIV infection. Plan: - SCDs for DVT ppx while thrombocytopenic - Transfuse for plt <30 with bleeding, <10 no bleeding - Blood consent in chart, mother consented Assessment & Plan (04/30/2025 9:11 AM VOCATIONAL AIDE): Previously pancytopenic at OSH. WBC since recovered. Hgb 9.9 (baseline 10-11) and plt 30 (initially 160 OA at OSH). Suspected myelosuppression from substance use, HIV infection. Plan: - SCDs for DVT ppx while thrombocytopenic - Transfuse for plt <30 with bleeding, <10 no bleeding - Blood consent in chart, mother consented Assessment & Plan (04/29/2025 6:56 AM CDT): Previously pancytopenic at OSH. WBC since recovered. Hgb 9.9 (baseline 10-11) and plt 30 (initially 160 OA at OSH). Suspected myelosuppression from substance use, HIV infection. - SCDs for DVT ppx while thrombocytopenic - TBW ID regarding restarting bactrim for PJP ppx - transfuse for plt 30 and bleeding, <10 no bleeding - needs to be consented c/f volume overload 04/29/2025 05/15/20 25 Assessment & Plan (05/15/2025 6:54 AM VOCATIONAL AIDE): Had signs of fluid overload at OSH with BLE edema, elevated BNP, and bl pleural effusions/ascites on imaging. TTE 04/24 without signs of heart failure or cardiac dysfunction. Possibly 2/2 sepsis/infection vs. 2/2 liver disease. Clinically euvolemic at this time. Received IV lasix 20 x2 at OSH. - cont PO lasix 20 daily for maintenance while on high volume IV amphotericin regimen. DC at discharge. Assessment & Plan (05/14/2025 6:40 AM VOCATIONAL AIDE): Had signs of fluid overload at OSH with BLE edema, elevated BNP, and bl pleural effusions/ascites on imaging. TTE 04/24 without signs of heart failure or cardiac dysfunction. Possibly 2/2 sepsis/infection vs. 2/2 liver disease. Clinically euvolemic at this time. Received IV lasix 20 x2 at OSH. - cont PO lasix 20 daily for maintenance while on high volume IV amphotericin regimen Assessment & Plan (05/13/2025 6:58 AM VOCATIONAL AIDE): Had signs of fluid overload at OSH with BLE edema, elevated BNP, and bl pleural effusions/ascites on imaging. TTE 04/24 without signs of heart failure or cardiac dysfunction. Possibly 2/2 sepsis/infection vs. 2/2 liver disease. Clinically euvolemic at this time. Received IV lasix 20 x2 at OSH. - cont PO lasix 20 daily for maintenance while on high volume IV amphotericin regimen Assessment & Plan (05/12/2025 4:54 PM VOCATIONAL AIDE): Had signs of fluid overload at OSH with BLE edema, elevated BNP, and bl pleural effusions/ascites on imaging. TTE 04/24 without signs of heart failure or cardiac dysfunction. Possibly 2/2 sepsis/infection vs. 2/2 liver disease. Clinically euvolemic at this time. Received IV lasix 20 x2 at OSH. - cont PO lasix 20 daily for maintenance while on high volume IV amphotericin regimen Assessment & Plan (05/11/2025 7:28 AM VOCATIONAL AIDE): Had signs of fluid overload at OSH with BLE edema, elevated BNP, and bl pleural effusions/ascites on imaging. TTE 04/24 without signs of heart failure or cardiac dysfunction. Possibly 2/2 sepsis/infection vs. 2/2 liver disease. Clinically euvolemic at this time. Received IV lasix 20 x2 at OSH. - cont PO lasix 20 daily for maintenance - 2L fluid restriction Assessment & Plan (05/10/2025 7:11 AM VOCATIONAL AIDE): Had signs of fluid overload at OSH with BLE edema, elevated BNP, and bl pleural effusions/ascites on imaging. TTE 04/24 without signs of heart failure or cardiac dysfunction. Possibly 2/2 sepsis/infection vs. 2/2 liver disease. Clinically euvolemic at this time. Received IV lasix 20 x2 today at OSH. - cont PO lasix 20 daily for maintenance - 2L fluid restriction Assessment & Plan (05/09/2025 6:37 AM VOCATIONAL AIDE): Had signs of fluid overload at OSH with BLE edema, elevated BNP, and bl pleural effusions/ascites on imaging. TTE 04/24 without signs of heart failure or cardiac dysfunction. Possibly 2/2 sepsis/infection vs. 2/2 liver disease. Clinically euvolemic at this time. Received IV lasix 20 x2 today at OSH. - cont PO lasix 20 daily for maintenance - 2L fluid restriction Assessment & Plan (05/08/2025 9:13 AM VOCATIONAL AIDE): Had signs of fluid overload at OSH with BLE edema, elevated BNP, and bl pleural effusions/ascites on imaging. TTE 04/24 without signs of heart failure or cardiac dysfunction. Possibly 2/2 sepsis/infection vs. 2/2 liver disease. Clinically euvolemic at this time. Received IV lasix 20 x2 today at OSH. - cont PO lasix 20 daily for maintenance - 2L fluid restriction Assessment & Plan (05/07/2025 7:13 AM VOCATIONAL AIDE): Had signs of fluid overload at OSH with BLE edema, elevated BNP, and bl pleural effusions/ascites on imaging. TTE 04/24 without signs of heart failure or cardiac dysfunction. Possibly 2/2 sepsis/infection vs. 2/2 liver disease. Clinically euvolemic at this time. Received IV lasix 20 x2 today at OSH. - cont PO lasix 20 daily for maintenance - 2L fluid restriction Assessment & Plan (05/06/2025 6:14 AM VOCATIONAL AIDE): Had signs of fluid overload at OSH with BLE edema, elevated BNP, and bl pleural effusions/ascites on imaging. TTE 04/24 without signs of heart failure or cardiac dysfunction. Possibly 2/2 sepsis/infection vs. 2/2 liver disease. Clinically euvolemic at this time. Received IV lasix 20 x2 today at OSH. - cont PO lasix 20 daily for maintenance - 2L fluid restriction Assessment & Plan (05/05/2025 6:25 AM VOCATIONAL AIDE): Had signs of fluid overload at OSH with BLE edema, elevated BNP, and bl pleural effusions/ascites on imaging. TTE 04/24 without signs of heart failure or cardiac dysfunction. Possibly 2/2 sepsis/infection vs. 2/2 liver disease. Clinically euvolemic at this time. Received IV lasix 20 x2 today at OSH. - cont PO lasix 20 daily for maintenance - 2L fluid restriction Assessment & Plan (05/04/2025 2:26 PM VOCATIONAL AIDE): Had signs of fluid overload at OSH with BLE edema, elevated BNP, and bl pleural effusions/ascites on imaging. TTE 04/24 without signs of heart failure or cardiac dysfunction. Possibly 2/2 sepsis/infection vs. 2/2 liver disease. Clinically euvolemic at this time. Received IV lasix 20 x2 today at OSH. - cont PO lasix 20 daily for maintenance - 2L fluid restriction Assessment & Plan (05/03/2025 6:35 AM VOCATIONAL AIDE): Had signs of fluid overload at OSH with BLE edema, elevated BNP, and bl pleural effusions/ascites on imaging. TTE 04/24 without signs of heart failure or cardiac dysfunction. Possibly 2/2 sepsis/infection vs. 2/2 liver disease. Clinically euvolemic at this time. Received IV lasix 20 x2 today at OSH. - cont PO lasix 20 daily for maintenance - 2L fluid restriction Assessment & Plan (05/02/2025 6:27 AM VOCATIONAL AIDE): Had signs of fluid overload at OSH with BLE edema, elevated BNP, and bl pleural effusions/ascites on imaging. TTE 04/24 without signs of heart failure or cardiac dysfunction. Possibly 2/2 sepsis/infection vs. 2/2 liver disease. Clinically euvolemic at this time. Received IV lasix 20 x2 today at OSH. - cont PO lasix 20 daily for maintenance - 2L fluid restriction Assessment & Plan (05/01/2025 7:17 AM VOCATIONAL AIDE): Had signs of fluid overload at OSH with BLE edema, elevated BNP, and bl pleural effusions/ascites on imaging. TTE 04/24 without signs of heart failure or cardiac dysfunction. Possibly 2/2 sepsis/infection vs. 2/2 liver disease. Clinically euvolemic at this time. Received IV lasix 20 x2 today at OSH. - cont PO lasix 20 daily for maintenance - 2L fluid restriction Assessment & Plan (04/30/2025 6:23 AM VOCATIONAL AIDE): Had signs of fluid overload at OSH with BLE edema, elevated BNP, and bl pleural effusions/ascites on imaging. TTE 04/24 without signs of heart failure or cardiac dysfunction. Possibly 2/2 sepsis/infection vs. 2/2 liver disease. Clinically euvolemic at this time. Received IV lasix 20 x2 today at OSH. - cont PO lasix 20 daily for maintenance - 2L fluid restriction Assessment & Plan (04/29/2025 6:56 AM CDT): Had signs of fluid overload at OSH with BLE edema, elevated BNP, and bl pleural effusions/ascites on imaging. TTE 04/24 without signs of heart failure or cardiac dysfunction. Possibly 2/2 sepsis/infection vs. 2/2 liver disease. Clinically euvolemic at this time. Received IV lasix 20 x2 today at OSH. - cont PO lasix 20 daily for maintenance - 2L fluid restriction Pleural effusion on left 04/30/202404/2024 Acute pain of left knee 04/27/202404/29 Acute kidney injury 04/25/2024 04/25/20 Sepsis 04/25/2024 04/26/2024 Encounters Date Type Department Care Team Description 05/24/2025 Documentation [facility] Infectious Diseases [address] [place] [phone] Christina Darby CNS 05/24/2025 Documentation [facility] [address] [place], [place] [phone] Booker, Evangelina ETaylor 05/24/2025 Documentation [facility] [address] [place], [place] [phone] Booker, Evangelina ETaylor 05/23/2025 6:21 PM VOCATIONAL AIDE - 05/24/2025 8:14 AM VOCATIONAL AIDE Emergency [facility] Emergency Department [address] [place] [address] Coreen Ramon MD Hanson, Thomas S., MD Constipation, unspecified constipation type (Primary Dx) Discharge Disposition: Discharge to home or self care 05/23/2025 Documentation [facility] [address] [place], [place] [phone] Booker Evangelina ETaylor 05/23/2025 Telephone [facility] Infectious Diseases [address] [place] [phone] Pia Lund, JAI 05/22/2025 Telephone [facility] Infectious Diseases [address] [place] [phone] Katie Arnett RN 05/22/2025 Documentation [facility] Infectious [facility] [address] [place] [address] [phone] Christina Darby CNS 05/16/2025 Documentation [facility] Infectious Diseases [address] [place] [phone] Pia Lund, JAI 05/15/2025 Documentation [facility] Infectious [facility] [address] [place] [address] [phone] Christina Darby, [employer] 05/15/2025 Documentation [facility] [address] [place] [phone] Evangelina Booker 05/12/2025 Documentation [facility] [address] [place] [phone] Evangelina Booker 05/10/2025 [facility] [address] [place], [place] [phone] Addie Brock 05/05/2025 Orders Only [facility] Medicine Infectious Diseases [address] [place] [address] [phone] Itzel Yoo MD Disseminated histoplasmosis (Primary Dx); Chronic hepatitis C without hepatic coma; Symptomatic HIV infection (HCC) 05/04/2025 Telephone [facility] Medicine Infectious Diseases [address] [place] [address] [phone] Belen Guy RN 05/01/2025 [facility] [address] [place] [address] Addie Brock 05/01/2025 Documentation [facility] Medicine Scheduling [address] [place] [phone] Indy Smith [facility] IP to OP 04/29/2025 12:26 AM CDT - 05/16/2025 9:05 AM VOCATIONAL AIDE Hospital Encounter [address] [phone] Funmilayo Sanchez MD Farrag, MD Flavio Zimmerman, Miguel Rivero MD Acquired immunodeficiency syndrome (AIDS) with bacterial pneumonia (HCC) (Primary Dx); Pneumonia of left lower lobe due to infectious organism Discharge Disposition: Discharge to home or self care 04/28/2025 11:11 PM CDT - 04/28/2025 11:59 PM CDT Hospital Encounter [facility]ULANCE BILLING Emergency, Room R Discharge Disposition: Discharge to home or self care 04/28/2025 Documentation Internal Medicine Funmilayo Sanchez MD 04/28/2025 Documentation [facility] [address] [place], [place] [phone] Booker, Evangelina E. 04/27/2025 Documentation [facility] [address] [place] [phone] Booker, Evangelina E. 04/25/2025 Documentation [facility] [address] [place] [phone] Booker, Evangelina E. 04/24/2025 Documentation [facility] [address] [place] [phone] Lopez, Foreign 04/23/2025 Documentation [facility] [address] [place] [phone] Booker, Evangelina E. 04/23/2025 Documentation [facility] [address] [place] [phone] Booker, Evangelina E. 04/22/2025 Documentation [facility] [address] [place] [phone] Lopez, Foreign 04/21/2025 Documentation [facility] [address] [place] [phone] Lopez, Foreign 04/20/2025 AMH Readmission [facility] [address] [place] [phone] Booker, Evangelina E. 04/19/2025 9:05 PM CDT - 04/28/2025 11:09 PM CDT Hospital Encounter [facility] [address] [place] [phone] Neli Salazar MD Shaba, Winnie, MD Kheirkhahan, Nazanin, MD Shortness of breath [R06.02] (Primary Dx); Polysubstance abuse; AIDS (acquired immune deficiency syndrome) (HCC); Acute hepatitis C virus infection without hepatic coma Discharge Disposition: Discharge to a local [facility] driver care hospital 04/10/2025 Documentation [facility] Hospitalists [address] [place] [phone] Gray Lamar MD 04/09/2025 Documentation [facility] [address] [place] [phone] John, Foreign 04/08/2025 Documentation [facility] [address] [place] [phone] Lopez, Foreign 04/07/2025 Documentation [facility] [address] [place] [phone] Evangelina Booker 04/05/2025 Documentation [facility] [address] [place] [phone] Lopez, Foreign 04/04/2025 Documentation [facility] [address] [place] [phone] Guicho Spring RRT 04/03/2025 Documentation [facility] [address] [place] [phone] Evangelina Booker 04/02/2025 Documentation [facility] [address] [place] [phone] Lopez, Foreign 04/01/2025 10:05 AM CDT - 04/09/2025 7:02 PM CDT Hospital Encounter [facility] [address] [place] [phone] Yulia Salgado MD Akuse, Gray Cordero MD Withdrawal from opioids (Primary Dx) Discharge Disposition: Left Against Medical Advice 04/01/2025 9:30 AM CDT Lab [address] [phone] 04/01/2025 [facility] Enrollment [facility] [address] [place] [phone] Evangelina Booker 03/31/2025 10:19 PM CDT - 03/31/2025 11:13 PM CDT Emergency [facility] Emergency Department [address] [place] [phone] Substance use (Primary Dx) Discharge Disposition: Discharge to home or self care 03/31/2025 [facility] Initial Eligibility [facility] [address] [place], [place] [phone] Foreign Lopez from Last 3 Months Immunizations Immunization Administration Dates Next Due Influenza, Quadrivalent, Spl it, Preservative Free, Intramuscular 09/17/2016 Surgical History Surgery Date Site/Laterality Comments US GUIDED THORACENTESIS 05/02/2024 N/A Medical History Medical History Date Comments Human immunodeficiency virus (HIV) disease (HCC) HIV Infection - HLA B5701 (- ) (Added by TW Conv) Hallucinations 05/03/2025 Social History Tobacco Use Types Packs/Day Years Used Date Smoking Tobacco: Every Day Cigarettes Tobacco Cessation:Ready to Q uit: Not Asked; Counseling Given: Not Answered Alcohol Use Standard Drinks/Week Comments Never 0 [...] declined 04/25/2024 How often do you attend gnosticist or pentecostal serv ices? Patient declined 04/25/2024 Do you belong to any clubs o r organizations such as gnosticist groups, unions, fraternal or athletic groups, or [...] any time in the past 12 m [facility], were you homeless or living in a residential (including now)? Yes 04/25/2024 Social Connection and Isolation Panel Answer Date Recorded In a typical week, how many times do you talk on the phone with family, friends, or neighbors? More than three times a week 05/01/2025 How often do you get togethe r with friends or relatives? More than three times a week 05/01/2025 How often do you attend chur ch or pentecostal services? Never 05/01/2025 Do you belong to any clubs o r organizations such as gnosticist groups, unions, fraternal or athletic groups, or [...] any time in the past 12 m [facility], were you homeless or living in a residential (including now)? Yes 05/01/2025 [facility] Utilities Answer Date Recorded In the past [...] on file Legal Sex Male 3:03 AM VOCATIONAL AIDE Gender Identity Not on file Sexual Orientation Not on file Last Filed Vital Signs Vital Sign Reading Time Taken Comments Blood Pressure 97/69 05/23/2025 10:15 PM VOCATIONAL AIDE Pulse 75 05/23/2025 10:30 PM VOCATIONAL AIDE Temperature 36.6 C (97.9 F) 05/23/2025 5:49 PM VOCATIONAL AIDE Respiratory Rate 18 05/23/2025 8:05 PM VOCATIONAL AIDE Oxygen Saturation 97% 05/23/2025 10:30 PM VOCATIONAL AIDE Inhaled Oxygen Concentration - - Weight 62.7 kg (138 lb 4.8 oz) 05/07/2025 5:32 A M VOCATIONAL AIDE Height 167.6 cm (5' 5.98) 04/29/2025 5:05 AM CD T Body Mass Index 22.33 04/29/2025 5:05 AM CDT Plan of Treatment Health Maintenance Due Date Last Done Comments Colon Cancer Screening-Colonoscopy 1980 HLA B 5701 Typing 1980 HIV+ Chlamydia and Gonorrhea Screening (Rectal) 1991 HIV + Chlamydia and Gonorrhe a Screening (Urine) 1993 HIV+ Chlamydia and Gonorrhea Screening (Throat) 1993 Varicella Vaccines (1 of 2 - 13+ 2-dose series) 1993 Hemoglobin A1C 1998 Regular Well Visit/Exam 18-64 1998 Hepatitis A Vaccines (1 of 2 - Risk 2-dose series) 1999 Hepatitis B Vaccines (1 of 3 - 19+ 3-dose series) 1999 Zoster Vaccine (1 of 2) 1999 HPV Vaccines (1 - Risk 3-dos e SCDM series) 2007 Pneumococcal vaccine <65 (2 of 2 - PPSV23, PCV20, or PCV21) 01/27/2018 12/02/2017 Covid-19 Vaccine (2 - Modern a risk series) 09/27/2020 08/30/2020 DTaP/Tdap/Td Vaccine (2 - Td or Tdap) 06/29/2024 06/29/2014 Influenza Vaccine (#1) 2025 09/17/2016, 2009 Depression Screening 04/28/2026 04/28/2025 Hepatitis A Screening 04/28/2026 04/28/2025 , 04/02/2025, 04/26/2024, Additional history exists Hepatitis B Screening 04/28/2026 04/28/2025 Lipid Panel 04/29/2026 04/29/2025 RPR Screening 04/29/2026 04/29/2025, 09/13/2016 T Spot (quantiferon gold) 05/01/20262024, 04/28/2025, 04/29/2024, Additional history exists Hepatitis C Screening 05/05/2026 05/05/2025 , 04/29/2025, 04/28/2025, Additional history exists Proteinuria screening Urinalysis (UA) 05/23/2026 05/23/2025, 04/28/2025, 04/28/2025, Additional history exists G6PD Completed 04/30/2025 Procedures Procedure Name Priority Date/Time Associated Diagnosis Comments INFLUENZA A/B, RSV, AND COVID-19 PCR STAT 05/23/2025 9:20 PM VOCATIONAL AIDE DRUGS OF ABUSE SCREEN, URINE WITHOUT CONFIRMATION STAT 05/23/2025 8:32 PM VOCATIONAL AIDE URINALYSIS AND REFLEX TO MICROSCOPIC AND CULTURE STAT 05/23/2025 8:[address] ABDOMEN PELVIS W CONTRAST ED 05/23/2025 7:54 PM VOCATIONAL AIDE EGFR STAT 05/23/2025 5:56 PM VOCATIONAL AIDE LIPASE STAT 05/23/2025 5:56 PM VOCATIONAL AIDE DIFFERENTIAL AUTO STAT 05/23/2025 5:56 PM VOCATIONAL AIDE CBC WITH AUTO DIFFERENTIAL STAT 05/23/2025 5:56 PM VOCATIONAL AIDE COMPREHENSIVE METABOLIC PANEL STAT 05/23/2025 5:56 PM VOCATIONAL AIDE INFECTION PREVENTION FABY AURIS PCR, SURVEILLANCE Routine 05/16/2025 4:03 AM VOCATIONAL AIDE EGFR Timed 05/15/2025 5:29 PM VOCATIONAL AIDE BASIC METABOLIC PANEL Timed 05/15/2025 5:29 PM VOCATIONAL AIDE EGFR Routine 05/15/2025 9:44 AM VOCATIONAL AIDE MAGNESIUM Routine 05/15/2025 9:44 AM VOCATIONAL AIDE DIFFERENTIAL AUTO Routine 05/15/2025 9:44 AM VOCATIONAL AIDE PHOSPHORUS Routine 05/15/2025 9:44 AM VOCATIONAL AIDE COMPREHENSIVE METABOLIC PANEL Routine 05/15/2025 9:44 AM VOCATIONAL AIDE CBC WITH AUTO DIFFERENTIAL Routine 05/15/2025 9:44 AM VOCATIONAL AIDE MANUAL DIFFERENTIAL Routine 05/13/2025 10:55 AM VOCATIONAL AIDE EGFR Routine 05/13/2025 10:55 AM VOCATIONAL AIDE PHOSPHORUS Routine 05/13/2025 10:55 AM VOCATIONAL AIDE COMPREHENSIVE METABOLIC PANEL Routine 05/13/2025 10:55 AM VOCATIONAL AIDE CBC WITH AUTO DIFFERENTIAL Routine 05/13/2025 10:55 AM VOCATIONAL AIDE EGFR Routine 05/12/2025 12:19 PM VOCATIONAL AIDE DIFFERENTIAL AUTO Routine 05/12/2025 12:19 PM VOCATIONAL AIDE MAGNESIUM Timed 05/12/2025 12:19 PM VOCATIONAL AIDE PHOSPHORUS Routine 05/12/2025 12:19 PM VOCATIONAL AIDE COMPREHENSIVE METABOLIC PANEL Routine 05/12/2025 12:19 PM VOCATIONAL AIDE CBC WITH AUTO DIFFERENTIAL Routine 05/12/2025 12:19 PM VOCATIONAL AIDE EGFR Routine 05/11/2025 10:09 AM VOCATIONAL AIDE DIFFERENTIAL AUTO Routine 05/11/2025 10:09 AM VOCATIONAL AIDE MAGNESIUM Timed 05/11/2025 10:09 AM VOCATIONAL AIDE PHOSPHORUS Routine 05/11/2025 10:09 AM VOCATIONAL AIDE COMPREHENSIVE METABOLIC PANEL Routine 05/11/2025 10:09 AM VOCATIONAL AIDE CBC WITH AUTO DIFFERENTIAL Routine 05/11/2025 10:09 AM VOCATIONAL AIDE EGFR Routine 05/10/2025 9:32 AM VOCATIONAL AIDE DIFFERENTIAL AUTO Routine 05/10/2025 9:32 AM VOCATIONAL AIDE MAGNESIUM Timed 05/10/2025 9:32 AM VOCATIONAL AIDE PHOSPHORUS Routine 05/10/2025 9:32 AM VOCATIONAL AIDE COMPREHENSIVE METABOLIC PANEL Routine 05/10/2025 9:32 AM VOCATIONAL AIDE CBC WITH AUTO DIFFERENTIAL Routine 05/10/2025 9:32 AM VOCATIONAL AIDE MANUAL DIFFERENTIAL Routine 05/08/2025 8:36 AM VOCATIONAL AIDE IMMATURE PLATELET FRACTION Routine 05/08/2025 8:36 AM VOCATIONAL AIDE EGFR Routine 05/08/2025 8:36 AM VOCATIONAL AIDE MAGNESIUM Routine 05/08/2025 8:36 AM VOCATIONAL AIDE PHOSPHORUS Routine 05/08/2025 8:36 AM VOCATIONAL AIDE COMPREHENSIVE METABOLIC PANEL Routine 05/08/2025 8:36 AM VOCATIONAL AIDE CBC WITH AUTO DIFFERENTIAL Routine 05/08/2025 8:36 AM VOCATIONAL AIDE IMMATURE PLATELET FRACTION Routine 05/07/2025 9:12 AM VOCATIONAL AIDE EGFR Routine 05/07/2025 9:12 AM VOCATIONAL AIDE DIFFERENTIAL AUTO Routine 05/07/2025 9:12 AM VOCATIONAL AIDE MAGNESIUM Timed 05/07/2025 9:12 AM VOCATIONAL AIDE PHOSPHORUS Routine 05/07/2025 9:12 AM VOCATIONAL AIDE COMPREHENSIVE METABOLIC PANEL Routine 05/07/2025 9:12 AM VOCATIONAL AIDE CBC WITH AUTO DIFFERENTIAL Routine 05/07/2025 9:12 AM VOCATIONAL AIDE MANUAL DIFFERENTIAL Routine 05/06/2025 11:40 AM VOCATIONAL AIDE IMMATURE PLATELET FRACTION Routine 05/06/2025 11:40 AM VOCATIONAL AIDE EGFR Routine 05/06/2025 11:40 AM VOCATIONAL AIDE MAGNESIUM Routine 05/06/2025 11:40 AM VOCATIONAL AIDE PHOSPHORUS Routine 05/06/2025 11:40 AM VOCATIONAL AIDE COMPREHENSIVE METABOLIC PANEL Routine 05/06/2025 11:40 AM VOCATIONAL AIDE CBC WITH AUTO DIFFERENTIAL Routine 05/06/2025 11:40 AM VOCATIONAL AIDE MANUAL DIFFERENTIAL Routine 05/05/2025 10:55 AM VOCATIONAL AIDE IMMATURE PLATELET FRACTION Routine 05/05/2025 10:55 AM VOCATIONAL AIDE SENIOR STAFF REVIEW Routine 05/05/2025 10:55 AM VOCATIONAL AIDE EGFR Routine 05/05/2025 10:55 AM VOCATIONAL AIDE MAGNESIUM Routine 05/05/2025 10:55 AM VOCATIONAL AIDE PHOSPHORUS Routine 05/05/2025 10:55 AM VOCATIONAL AIDE COMPREHENSIVE METABOLIC PANEL Routine 05/05/2025 10:55 AM VOCATIONAL AIDE CBC WITH AUTO DIFFERENTIAL Routine 05/05/2025 10:55 AM VOCATIONAL AIDE HEMOGLOBIN AND HEMATOCRIT STAT 05/05/2025 2:51 AM VOCATIONAL AIDE TRANSFUSE RED BLOOD CELLS Timed 05/04/2025 6:28 PM VOCATIONAL AIDE TYPE AND SCREEN Timed 05/04/2025 3:37 PM VOCATIONAL AIDE PREPARE RBC Timed 05/04/2025 2:36 PM VOCATIONAL AIDE HEMOGLOBIN AND HEMATOCRIT Timed 05/04/2025 1:43 PM VOCATIONAL AIDE EGFR Routine 05/04/2025 11:40 AM VOCATIONAL AIDE MAGNESIUM Routine 05/04/2025 11:40 AM VOCATIONAL AIDE MANUAL DIFFERENTIAL Routine 05/04/2025 11:40 AM VOCATIONAL AIDE PHOSPHORUS Routine 05/04/2025 11:40 AM VOCATIONAL AIDE COMPREHENSIVE METABOLIC PANEL Routine 05/04/2025 11:40 AM VOCATIONAL AIDE CBC WITH AUTO DIFFERENTIAL Routine 05/04/2025 11:40 AM VOCATIONAL AIDE EGFR STAT 05/03/2025 2:01 PM VOCATIONAL AIDE COMPREHENSIVE METABOLIC PANEL STAT 05/03/2025 2:01 PM VOCATIONAL AIDE MANUAL DIFFERENTIAL Routine 05/03/2025 11:30 AM VOCATIONAL AIDE EGFR Routine 05/03/2025 11:30 AM VOCATIONAL AIDE MAGNESIUM Routine 05/03/2025 11:30 AM VOCATIONAL AIDE PHOSPHORUS Routine 05/03/2025 11:30 AM VOCATIONAL AIDE COMPREHENSIVE METABOLIC PANEL Routine 05/03/2025 11:30 AM VOCATIONAL AIDE CBC WITH AUTO DIFFERENTIAL Routine 05/03/2025 11:30 AM VOCATIONAL AIDE POTASSIUM, WHOLE BLOOD STAT 12:44 PM VOCATIONAL AIDE HERPES SIMPLEX VIRUS (HSV) PCR Routine 05/02/2025 12:30 PM VOCATIONAL AIDE EGFR STAT 05/02/2025 9:58 AM VOCATIONAL AIDE BASIC METABOLIC PANEL STAT 05/02/2025 9:58 AM VOCATIONAL AIDE PHOSPHORUS STAT 05/02/2025 9:58 AM VOCATIONAL AIDE MAGNESIUM STAT 05/02/2025 9:58 AM VOCATIONAL AIDE XR CHEST 1 VIEW ED Urgent/IP Urgent 05/01/2025 8:53 PM VOCATIONAL AIDE PNEUMONIA PCR Routine 05/01/2025 2:42 PM VOCATIONAL AIDE MYCOLOGY (FUNGAL) CULTURE Routine 05/01/2025 2:42 PM VOCATIONAL AIDE MYCOBACTERIOLOGY AFB CULTURE AND ACID-FAST STAIN Routine 05/01/2025 2:42 PM VOCATIONAL AIDE RESPIRATORY PATHOGEN PANEL Routine 05/01/2025 2:42 PM VOCATIONAL AIDE PNEUMONIA PCR WITH AEROBIC CULTURE AND GRAM STAIN Routine 05/01/2025 2:42 PM VOCATIONAL AIDE PNEUMOCYSTIS DFA Routine 05/01/2025 2:42 PM VOCATIONAL AIDE MYCOBACTERIOLOGY AFB CULTURE AND ACID-FAST STAIN Routine 05/01/2025 2:42 PM VOCATIONAL AIDE LEGIONELLA CULTURE Routine 05/01/2025 2:42 PM VOCATIONAL AIDE HERPES SIMPLEX VIRUS (HSV) PCR Routine 05/01/2025 2:42 PM VOCATIONAL AIDE CYTOMEGALOVIRUS (CMV) PCR QUALITATIVE Routine 05/01/2025 2:42 PM VOCATIONAL AIDE AEROBIC CULTURE AND GRAM STAIN Routine 05/01/2025 2:42 PM VOCATIONAL AIDE ADENOVIRUS PCR QUALITATIVE Routine 05/01/2025 2:42 PM VOCATIONAL AIDE BRONCHOALVEOLAR LAVAGE Routine 2:14 PM VOCATIONAL AIDE Acquired immunodeficiency syndrome (AIDS) with bacterial pneumonia (HCC) Pneumonia of left lower lobe due to infectious organism EGFR Timed 05/01/2025 10:59 AM VOCATIONAL AIDE COMPREHENSIVE METABOLIC PANEL Timed 05/01/2025 10:59 AM VOCATIONAL AIDE HISTOPLASMA ANTIBODY Routine 05/01/2025 6:26 AM VOCATIONAL AIDE FRANCISELLA TULARENSIS ANTIBODY Routine 05/01/2025 6:26 AM VOCATIONAL AIDE EHRLICHIA AND ANAPLASMA PCR Routine 05/01/2025 6:26 AM VOCATIONAL AIDE BARTONELLA ANTIBODY PANEL Routine 05/01/2025 6:26 AM VOCATIONAL AIDE T-SPOT.TB Routine 05/01/2025 6:26 AM VOCATIONAL AIDE MYCOBACTERIOLOGY AFB BLOOD CULTURE Routine 05/01/2025 6:26 AM VOCATIONAL AIDE EGFR Routine 04/30/2025 8:30 PM VOCATIONAL AIDE DIFFERENTIAL AUTO Routine 04/30/2025 8:30 PM VOCATIONAL AIDE COMPREHENSIVE METABOLIC PANEL Routine 04/30/2025 8:30 PM VOCATIONAL AIDE CBC WITH AUTO DIFFERENTIAL Routine 04/30/2025 8:30 PM VOCATIONAL AIDE G6PD QUALITATIVE WITH REFLEX TO QUANTITATIVE Routine 04/30/2025 8:30 PM VOCATIONAL AIDE MANUAL DIFFERENTIAL Routine 04/29/2025 8:47 PM CDT IMMATURE PLATELET FRACTION Routine 04/29/2025 8:47 PM CDT EGFR Routine 04/29/2025 8:47 PM CDT COMPREHENSIVE METABOLIC PANEL Routine 04/29/2025 8:47 PM CDT CBC WITH AUTO DIFFERENTIAL Routine 04/29/2025 8:47 PM CDT HIV-1 RNA, QUANTITATIVE, PCR Timed 04/29/2025 1:28 PM CDT BLOOD MISC TO [place] Timed 04/29/2025 12:56 PM CDT PROTIME-INR Routine 04/29/2025 12:56 PM CDT B CHECK SAMPLE STAT 04/29/2025 12:56 PM CDT MYCOBACTERIUM TUBERCULOSIS PCR Routine 04/29/2025 5:53 AM CDT PNEUMONIA PCR WITH AEROBIC CULTURE AND GRAM STAIN Routine 04/29/2025 5:53 AM CDT MYCOBACTERIOLOGY AFB CULTURE AND ACID-FAST STAIN Routine 04/29/2025 5:53 AM CDT GAMMA GT Routine 04/29/2025 4:56 AM CDT MANUAL DIFFERENTIAL Timed 04/29/2025 4:56 AM CDT IMMATURE PLATELET FRACTION Timed 04/29/2025 4:56 AM CDT LIPID PANEL Routine 04/29/2025 4:56 AM CDT COMPREHENSIVE METABOLIC PANEL Routine 04/29/2025 4:56 AM CDT EGFR Routine 04/29/2025 4:56 AM CDT TYPE AND SCREEN Timed 04/29/2025 4:56 AM CDT CBC WITH AUTO DIFFERENTIAL Timed 04/29/2025 4:56 AM CDT MAGNESIUM Routine 04/29/2025 4:56 AM CDT COCCIDIOIDES ANTIBODY SCREEN W/REFLEX Routine 04/29/2025 4:56 AM CDT BLASTOMYCES ANTIBODY, EIA, S Routine 04/29/2025 4:56 AM CDT RPR Routine 04/29/2025 4:56 AM CDT URINALYSIS, MICROSCOPIC ONLY Routine 04/28/2025 6:25 PM CDT HISTOPLASMA ANTIGEN Routine 04/28/2025 6:25 PM CDT URINALYSIS AND REFLEX TO MICROSCOPIC AND CULTURE Routine 04/28/2025 6:25 PM CDT TB TEST, QUANTIFERON GOLD Routine 04/28/2025 4:15 PM CDT ASPERGILLUS GALACTOMANNAN ANTIGEN Routine 04/28/2025 4:12 PM CDT HEPATITIS C RNA, QUANTITATIVE, PCR Routine 04/28/2025 4:12 PM CDT BLOOD MISC TO [place] Routine 04/28/2025 3:49 PM CDT HEPATITIS PANEL, ACUTE Routine 11:32 AM CDT BETH-MENCHACA VIRUS VCA ANTIBODY PANEL Routine 04/28/2025 11:32 AM CDT CMV, IGG AND IGM ANTIBODIES Routine 04/28/2025 11:32 AM CDT EGFR Routine 04/28/2025 5:53 AM CDT IMMATURE PLATELET FRACTION Routine 04/28/2025 5:53 AM CDT COMPREHENSIVE METABOLIC PANEL Routine 04/28/2025 5:53 AM CDT CBC WITHOUT DIFFERENTIAL Routine 04/28/2025 5:53 AM CDT LACTATE DEHYDROGENASE Routine 04/28/2025 5:51 AM CDT SODIUM LEVEL Timed 04/28/2025 12:21 AM CDT SODIUM LEVEL Timed 04/27/2025 5:54 PM CDT US RUQ IP Routine 04/27/2025 11:[address] CHEST ABDOMEN PELVIS WO CONTRAST IP Routine 04/27/2025 9:58 AM CDT EGFR Routine 04/27/2025 7:07 AM CDT IMMATURE PLATELET FRACTION Routine 04/27/2025 7:07 AM CDT COMPREHENSIVE METABOLIC PANEL Routine 04/27/2025 7:07 AM CDT CBC WITHOUT DIFFERENTIAL Routine 04/27/2025 7:07 AM CDT PRO B-TYPE NATRIURETIC PEPTIDE Add-On 04/27/2025 7:05 AM CDT XR CHEST 1 VIEW IP Routine 04/26/2025 10:23 AM CDT EGFR Routine 04/26/2025 3:50 AM CDT COMPREHENSIVE METABOLIC PANEL Routine 04/26/2025 3:50 AM CDT BLOOD MISC TO HUGO Routine 04/26/2025 3:50 AM CDT IMMATURE PLATELET FRACTION Routine 04/26/2025 3:50 AM CDT CBC WITHOUT DIFFERENTIAL Routine 04/26/2025 3:50 AM CDT HIT ANTIBODIES W/REFLEX TO SEROTONIN RELEASE ASSAY (ERIC) Routine 04/25/2025 4:50 PM CDT APTT Routine 04/25/2025 4:50 PM CDT PROTIME-INR Routine 04/25/2025 4:50 PM CDT FIBRINOGEN Routine 04/25/2025 4:50 PM CDT BLOOD CULTURE Routine 04/25/2025 12:48 PM CDT BLOOD CULTURE Routine 04/25/2025 12:41 PM CDT IMMATURE PLATELET FRACTION Routine 04/25/2025 7:43 AM CDT CBC WITHOUT DIFFERENTIAL Routine 04/25/2025 7:43 AM CDT TRANSTHORACIC ECHO (TTE) COMPLETE W DOPPLER/CF WO CONTRAST Routine 04/24/2025 3:51 PM CDT RESPIRATORY PATHOGEN PANEL Routine 04/24/2025 9:55 AM CDT CLINICAL PATHOLOGY REPORT Routine 04/24/2025 8:21 AM CDT EGFR Routine 04/24/2025 4:25 AM CDT IMMATURE PLATELET FRACTION Routine 04/24/2025 4:25 AM CDT CBC WITHOUT DIFFERENTIAL Routine 04/24/2025 4:25 AM CDT FERRITIN Routine 04/24/2025 4:25 AM CDT IRON PROFILE W/ IBC Routine 04/24/2025 4:25 AM CDT VITAMIN B1 Routine 04/24/2025 4:25 AM CDT VITAMIN B12 Routine 04/24/2025 4:25 AM CDT RETICULOCYTES Routine 04/24/2025 4:25 AM CDT COMPREHENSIVE METABOLIC PANEL Routine 04/24/2025 4:25 AM CDT CREATINE KINASE (CK), TOTAL Routine 04/23/2025 5:43 PM CDT CRP (ACUTE PHASE) Routine 04/23/2025 5:43 PM CDT ERYTHROCYTE SEDIMENTATION RATE Routine 04/23/2025 5:43 PM CDT STREP PNEUMONIAE ANTIBODY SEROTYPES Routine 04/23/2025 5:43 PM CDT PROCALCITONIN Routine 04/23/2025 5:43 PM CDT LACTATE Routine 04/23/2025 5:43 PM CDT CRYPTOCOCCAL ANTIGEN, SERUM Routine 04/23/2025 5:43 PM CDT TOXOPLASMA GONDII PCR Routine 04/23/2025 5:43 PM CDT BLOOD CULTURE Routine 04/23/2025 4:09 PM CDT MYCOBACTERIOLOGY AFB CULTURE AND ACID-FAST STAIN Routine 04/23/2025 4:03 PM CDT AEROBIC CULTURE AND GRAM STAIN Routine 04/23/2025 4:03 PM CDT BLOOD CULTURE Routine 04/23/2025 4:02 PM CDT MANUAL DIFFERENTIAL Routine 04/23/2025 9:00 AM CDT IMMATURE PLATELET FRACTION Routine 04/23/2025 9:00 AM CDT EGFR Routine 04/23/2025 9:00 AM CDT COMPREHENSIVE METABOLIC PANEL Routine 04/23/2025 9:00 AM CDT CBC WITH AUTO DIFFERENTIAL Routine 04/23/2025 9:00 AM CDT SLIDE REVIEW - PATHOLOGIST Routine 04/23/2025 8:58 AM CDT EGFR Routine 04/22/2025 8:47 AM CDT DIFFERENTIAL AUTO Routine 04/22/2025 8:47 AM CDT TSH Routine 04/22/2025 8:47 AM CDT CORTISOL Timed 04/22/2025 8:47 AM CDT COMPREHENSIVE METABOLIC PANEL Routine 04/22/2025 8:47 AM CDT CBC WITH AUTO DIFFERENTIAL Routine 04/22/2025 8:47 AM CDT EGFR Routine 04/21/2025 7:43 AM CDT DIFFERENTIAL AUTO Routine 04/21/2025 7:43 AM CDT COMPREHENSIVE METABOLIC PANEL Routine 04/21/2025 7:43 AM CDT CBC WITH AUTO DIFFERENTIAL Routine 04/21/2025 7:43 AM CDT PRO B-TYPE NATRIURETIC PEPTIDE Routine 04/21/2025 7:40 AM CDT DIFFERENTIAL AUTO STAT 04/20/2025 11:46 PM CDT CBC WITH AUTO DIFFERENTIAL STAT 04/20/2025 11:46 PM CDT SEPSIS LACTATE WITH REFLEX Routine 04/20/2025 11:46 PM CDT EGFR STAT 04/20/2025 11:04 PM CDT BLOOD GAS, VENOUS STAT 04/20/2025 11:04 PM CDT COMPREHENSIVE METABOLIC PANEL STAT 04/20/2025 11:[address] CHEST PE W CONTRAST IP Routine 10:43 AM CDT EGFR Routine 04/20/2025 3:48 AM CDT DIFFERENTIAL AUTO Routine 04/20/2025 3:48 AM CDT MAGNESIUM Routine 04/20/2025 3:48 AM CDT COMPREHENSIVE METABOLIC PANEL Routine 04/20/2025 3:48 AM CDT CBC WITH AUTO DIFFERENTIAL Routine 04/20/2025 3:48 AM CDT TROPONIN T HIGH-SENSITIVITY 6-HOUR Timed 04/20/2025 3:48 AM CDT HEPATITIS B SURFACE ANTIBODY (IMMUNE STATUS) Routine 04/20/2025 3:48 AM CDT BLOOD CULTURE Routine 04/19/2025 11:24 PM CDT TROPONIN T HIGH-SENSITIVITY 2-HOUR Timed 04/19/2025 11:22 PM CDT BLOOD CULTURE Routine 04/19/2025 11:22 PM CDT XR CHEST 1 VIEW ED Urgent/IP Urgent 04/19/2025 10:00 PM CDT D-DIMER, QUANTITATIVE Routine 04/19/2025 9:38 PM CDT TROPONIN T HIGH-SENSITIVITY SERIES (BASELINE, 2HR, 4HR, 6HR) Add-On 04/19/2025 9:38 PM CDT SEPSIS LACTATE WITH REFLEX Routine 04/19/2025 9:38 PM CDT ECG 12-LEAD Routine 04/19/2025 9:33 PM CDT URINALYSIS, MICROSCOPIC ONLY STAT 04/19/2025 9:00 PM CDT DRUGS OF ABUSE SCREEN, URINE WITHOUT CONFIRMATION STAT 04/19/2025 9:00 PM CDT URINALYSIS AND REFLEX TO MICROSCOPIC AND CULTURE STAT 04/19/2025 9:00 PM CDT OSMOLALITY, URINE Routine 04/19/2025 8:14 PM CDT SODIUM, URINE, RANDOM Routine 04/19/2025 8:14 PM CDT EGFR STAT 04/19/2025 8:13 PM CDT DIFFERENTIAL AUTO STAT 04/19/2025 8:13 PM CDT COMPREHENSIVE METABOLIC PANEL STAT 04/19/2025 8:13 PM CDT CBC WITH AUTO DIFFERENTIAL STAT 04/19/2025 8:13 PM CDT ETHANOL STAT 04/19/2025 8:13 PM CDT EGFR Routine 04/09/2025 4:46 AM CDT DIFFERENTIAL AUTO Routine 04/09/2025 4:46 AM CDT BASIC METABOLIC PANEL Routine 04/09/2025 4:46 AM CDT CBC WITH AUTO DIFFERENTIAL Routine 04/09/2025 4:46 AM CDT EGFR Routine 04/08/2025 8:15 AM CDT DIFFERENTIAL AUTO Routine 04/08/2025 8:15 AM CDT BASIC METABOLIC PANEL Routine 04/08/2025 8:15 AM CDT CBC WITH AUTO DIFFERENTIAL Routine 04/08/2025 8:15 AM CDT PNEUMONIA PCR Routine 04/07/2025 1:16 PM CDT MYCOLOGY (FUNGAL) CULTURE Routine 04/07/2025 1:16 PM CDT MYCOBACTERIOLOGY AFB CULTURE AND ACID-FAST STAIN Routine 04/07/2025 1:16 PM CDT PNEUMONIA PCR WITH AEROBIC CULTURE AND GRAM STAIN Routine 04/07/2025 1:16 PM CDT MAGNESIUM Add-On 04/07/2025 12:05 PM CDT EGFR Routine 04/07/2025 4:22 AM CDT DIFFERENTIAL AUTO Routine 04/07/2025 4:22 AM CDT BASIC METABOLIC PANEL Routine 04/07/2025 4:22 AM CDT CBC WITH AUTO DIFFERENTIAL Routine 04/07/2025 4:22 AM CDT EGFR Routine 04/06/2025 5:20 AM CDT DIFFERENTIAL AUTO Routine 04/06/2025 5:20 AM CDT COMPREHENSIVE METABOLIC PANEL Routine 04/06/2025 5:20 AM CDT CBC WITH AUTO DIFFERENTIAL Routine 04/06/2025 5:20 AM CDT MRSA ONLY (STAPHYLOCOCCUS AUREUS) PCR Routine 04/05/2025 9:50 PM CDT BLOOD MISC TO [place] Routine 04/05/2025 5:00 PM CDT LACTATE DEHYDROGENASE Routine 04/05/2025 5:00 PM CDT DIFFERENTIAL AUTO Routine 04/05/2025 2:18 AM CDT BLOOD GAS, VENOUS STAT 04/05/2025 2:18 AM CDT CREATINE KINASE (CK), TOTAL STAT 04/05/2025 2:18 AM CDT SEPSIS LACTATE WITH REFLEX Timed 04/05/2025 2:18 AM CDT CBC WITH AUTO DIFFERENTIAL Routine 04/05/2025 2:18 AM CDT URINE MISC TO [place] Routine 04/05/2025 12:17 AM CDT FENTANYL CONFIRMATION, MS URINE Routine 04/05/2025 12:17 AM CDT AMPHETAMINE, URINE, CONFIRMATION Routine 04/05/2025 12:17 AM CDT BENZODIAZEPINE CONFIRMATION BY MS Routine 04/05/2025 12:17 AM CDT URINALYSIS, MICROSCOPIC ONLY STAT 04/05/2025 12:17 AM CDT DRUGS OF ABUSE SCREEN, URINE WITH REFLEX CONFIRMATION Routine 04/05/2025 12:17 AM CDT LEGIONELLA ANTIGEN, URINE Routine 04/05/2025 12:17 AM CDT STREP PNEUMONIAE AG, URINE Routine 04/05/2025 12:17 AM CDT URINALYSIS AND REFLEX TO MICROSCOPIC AND CULTURE STAT 04/05/2025 12:17 AM CDT EGFR Routine 04/05/2025 12:12 AM CDT PROCALCITONIN Routine 04/05/2025 12:12 AM CDT SEPSIS LACTATE WITH REFLEX Timed 04/05/2025 12:12 AM CDT COMPREHENSIVE METABOLIC PANEL Routine 04/05/2025 12:12 AM CDT APTT Routine 04/04/2025 9:55 PM CDT PROTIME-INR Timed 04/04/2025 9:55 PM CDT EGFR STAT 04/04/2025 8:48 PM CDT DIFFERENTIAL AUTO STAT 04/04/2025 8:48 PM CDT SEPSIS LACTATE WITH REFLEX STAT 04/04/2025 8:48 PM CDT CBC WITHOUT DIFFERENTIAL Routine 04/04/2025 8:48 PM CDT COMPREHENSIVE METABOLIC PANEL STAT 04/04/2025 8:48 PM CDT CBC WITH AUTO DIFFERENTIAL STAT 04/04/2025 8:48 PM CDT BLOOD CULTURE STAT 04/04/2025 8:48 PM CDT BLOOD CULTURE STAT 04/04/2025 8:48 PM CDT BLOOD MISC TO [place] Routine 04/04/2025 8:47 PM CDT XR CHEST 1 VIEW ED Urgent/IP Urgent 04/04/2025 8:36 PM CDT US RUQ IP Routine 04/04/2025 8:54 AM CDT EGFR Routine 04/04/2025 7:41 AM CDT DIFFERENTIAL AUTO Routine 04/04/2025 7:41 AM CDT COMPREHENSIVE METABOLIC PANEL Routine 04/04/2025 7:41 AM CDT CBC WITH AUTO DIFFERENTIAL Routine 04/04/2025 7:[address] HEAD WO CONTRAST IP Routine 04/03/2025 4:59 PM CDT HEPATITIS C RNA, QUANTITATIVE, PCR Routine 04/03/2025 8:38 AM CDT EGFR Routine 04/03/2025 6:29 AM CDT DIFFERENTIAL AUTO Routine 04/03/2025 6:29 AM CDT COMPREHENSIVE METABOLIC PANEL Routine 04/03/2025 6:29 AM CDT CBC WITH AUTO DIFFERENTIAL Routine 04/03/2025 6:29 AM CDT REFLEX HEPATITIS C RNA Routine 4:40 AM CDT EGFR Routine 04/02/2025 4:40 AM CDT DIFFERENTIAL AUTO Routine 04/02/2025 4:40 AM CDT MAGNESIUM Routine 04/02/2025 4:40 AM CDT COMPREHENSIVE METABOLIC PANEL Routine 04/02/2025 4:40 AM CDT CBC WITH AUTO DIFFERENTIAL Routine 04/02/2025 4:40 AM CDT HEPATITIS PANEL, ACUTE Routine 4:40 AM CDT EGFR STAT 04/01/2025 8:52 AM CDT DRUGS OF ABUSE SCREEN, URINE WITHOUT CONFIRMATION STAT 04/01/2025 8:52 AM CDT COMPREHENSIVE METABOLIC PANEL STAT 04/01/2025 8:52 AM CDT CBC WITHOUT DIFFERENTIAL STAT 04/01/2025 8:52 AM CDT FENTANYL CONFIRMATION, MS URINE STAT 03/31/2025 9:06 PM CDT AMPHETAMINE, URINE, CONFIRMATION STAT 03/31/2025 9:06 PM CDT DRUGS OF ABUSE SCREEN, URINE WITH REFLEX CONFIRMATION STAT 03/31/2025 9:06 PM CDT from Last 3 Months Results * Influenza A/B, RSV, and COVID-19 PCR Nasopharyngeal (05/23/2025 9:20 PM VOCATIONAL AIDE) COVID-19 RNA Negative Negative Influenza A RNA Negative Negative [facility] ([place]) Influenza B RNA Negative Negative [facility] ([place]) RSV RNA Negative Negative [facility] ([place]) Comment: Interpretive data: Testing performed by [facility]. This test is performed using the [employer] Xpert Xpress CoV-2/Flu/RSV plus assay. This is a multiplex, real- time reverse transcriptase PCR assay intended for the qualitative detection of nucleic acid from SARS-CoV-2, influenza A, influenza B, and respiratory syncytial virus. This assay has been cleared by the [place] Food and Drug administration. The performance characteristics have been verified by the [facility]. Results must be considered in the clinical context, and a negative result does not rule out infection. Interpretive Data last revised 2023 Nasopharyngeal 05/23/2025 9: 20 PM VOCATIONAL AIDE 05/23/2025 9:22 PM VOCATIONAL AIDE Narrative [facility] ([place]) - 05/23/2025 10:23 PM VOCATIONAL AIDE Is the Patient experiencing symptoms consistent with COVID?->Yes us Liu Chacon NP LAB MICROBIOLOGY - GENERAL ORDER JAMI Final Result [facility] ([place]) [facility] [place] [address] * (ABNORMAL) Urinalysis reflex to microscopic and culture Urine (05/23/2025 8:32 PM VOCATIONAL AIDE) Color, ur Yellow Yellow Clarity, ur Clear Clear [facility] ([place]) Specific gravity, ur 1.041(H) 1.003 - 1.030 [...] tendency for uric acid stone formation. Source: [facility] [employer] Current Interpretive Data was last revised on [...] [facility] ([place]) Urine 05/23/2025 8:32 PM VOCATIONAL AIDE 05/23/2025 8:37 PM VOCATIONAL AIDE Liu Chacon NP LAB MICROBIOLOGY - GENERAL ORDER JAMI Final Result [facility] ([place]) 1 [facility] [place] [address] * Drugs of Abuse Screen, Urine without Confirmation (05/23/2025 8:32 PM VOCATIONAL AIDE) Amphetamine, ur Not Detected CutOff 500ng/mL Comment: Interpretive Data - Amphetamines: Samples containing greater than 500 ng/mL d-methamphetamine or other cross-reacting amphetamine compounds are reported as positive. Amphetamine immunoassays are subject to significant false positive rates due to cross-reactivity of non-amphetamine drugs. Confirmatory testing required for definitive results. Current Interpretive Data was last reviewed 2023. Barbiturates, ur Not Detected CutOff 200ng/mL [facility] ([place]) Comment: Interpretive Data - Barbiturates: Samples containing greater than 200 ng/mL secobarbital or other cross-reacting barbiturate compounds are reported as positive. False positive and false negative results are possible. Confirmatory testing required for definitive results. Current Interpretive Data was last reviewed 2023. Benzodiazepines, ur Not Detected CutOff 100ng/mL [facility] ([place]) Comment: Interpretive Data - Benzodiazepines: [...] 2023. Oxycodone, ur NOT DETECTED CutOff 100ng/mL [facility] ([place]) Comment: Interpretive Data - Oxycodone: Samples containing greater than 100 ng/mL oxycodone or other cross-reacting compounds are reported as positive. False positive and false negative results are possible. Confirmatory testing required for definitive results. Current Interpretive Data was last reviewed 2023. Phencyclidine, ur Not Detected CutOff 25 ng/mL [facility] ([place]) Comment: Interpretive Data - Phencyclidine: Samples containing greater than 25 ng/mL phencyclidine or other cross-reacting compounds are reported as positive. False positive and false negative results are possible. Confirmatory testing required for definitive results. Current Interpretive Data was last reviewed 2023. Urine Creatinine 43 mg/dL [facility] ([place]) Comment: Interpretive Data Urine Creatinine: < 10 mg/dL is extremely dilute = or > 10 but < 20 mg/dL is dilute = or > 20 mg/dL is normal Current Interpretive Data was last revised on 2017. Urine 05/23/2025 8:32 PM VOCATIONAL AIDE 05/23/2025 8:37 PM VOCATIONAL AIDE Narrative [facility]) - 05/23/2025 9:10 PM VOCATIONAL AIDE Drug of Abuse screening is performed by immunoassay for medical purposes only. This is not to be used for Pain Management purposes. us Liu Chacon NP LAB URINE ORDERABLES Final Resul t [facility] ([place]) 1 [facility] [place] [address] * CT Abdomen Pelvis W Contrast (05/23/2025 7:54 PM VOCATIONAL AIDE) Anatomical Region Laterality Modality Body N/A Computed Tomogra phy 05/23/2025 9:09 PM VOCATIONAL AIDE Impressions 05/23/2025 9:09 PM VOCATIONAL AIDE 1. No acute inflammatory change of the abdomen and pelvis. No bowel obstruction or inflammatory change of bowel. 2. There is fairly prominent stool seen throughout the entire colon with no obstruction. Electronically signed by: Ganesh Koch M.D. Narrative 05/23/2025 9:09 PM VOCATIONAL AIDE EXAMINATION: CT ABDOMEN PELVIS W CONTRAST ORDERING HEALTHCARE PROVIDER: LIU CHACON HISTORY: Abdominal pain, acute, nonlocalized. TECHNIQUE: CT [...] acute inflammatory change of bowel. No inflammatory change management lead the appendix. The stomach and loops of [...] PELVIS W CONTRAST ORDERING HEALTHCARE PROVIDER: LIU CHACON HISTORY: Abdominal pain, acute, nonlocalized. TECHNIQUE: CT [...] acute inflammatory change of bowel. No inflammatory change management lead the appendix. The stomach and loops of [...] Electronically signed by: Ganesh Koch M.D. Liu Chacon NP IMG CT PROCEDURES Final Result * eGFR (05/23/2025 5:56 PM VOCATIONAL AIDE) eGFR >90 >=60 mL/min/1. 73 m2 Comment: [...] of Race in Diagnosing Kidney Disease, JASN 202). The CKD-EPI equation should not be used for patients with unstable renal function and has not been validated in children and those over 70. Current interpretive data was last reviewed 2021. Blood 05/23/2025 5:56 PM VOCATIONAL AIDE 05/23/2025 5:59 PM VOCATIONAL AIDE Liu Chacon NP LAB BLOOD ORDERABLES Final Resul t [facility] [place] 1 [facility] Department of Laboratories [place], [place] [id number] * (ABNORMAL) Differential, auto (05/23/2025 5:56 PM VOCATIONAL AIDE) Neutrophil abs 3.73 1.50 - 6.50 K/cumm [...] revised on 2017. Basophil pct 1.3 % [facility] ([place]) Comment: Interpretive Data Percent cell count reference ranges are not reported, since discordance with absolute values may lead to misinterpretation of CBC data. Current Interpretive Data was last revised on 2017. Blood 05/23/2025 5:56 PM VOCATIONAL AIDE 05/23/2025 5:59 PM VOCATIONAL AIDE Liu Chacon PSYCHOLOGY PHYSICIAN LAB BLOOD ORDERABLES Final Resul t [facility] ([place]) 1 [facility] [employer] [place] [address] * (ABNORMAL) CBC with auto differential (05/23/2025 5:56 PM VOCATIONAL AIDE) Pathologist [facility] WBC 5.96 3.80 - 9.90 K/cumm Hgb 8.2(L) 13.0 - 17.5 g/dL [facility] ([place]) Hct 24.4(L) 38.9 - 50.3 % [facility] ([place]) Plt 229 150 - 400 [...] [facility] ([place]) Blood 05/23/2025 5:56 PM VOCATIONAL AIDE 05/23/2025 5:59 PM VOCATIONAL AIDE Liu Chacon PSYCHOLOGY PHYSICIAN LAB BLOOD ORDERABLES Final Resul t [facility] ([place]) 1 [facility] [place] [address] * Lipase (05/23/2025 5:56 PM VOCATIONAL AIDE) Lipase 39 10 - 99 Units/L Blood 05/23/2025 5:56 PM VOCATIONAL AIDE 05/23/2025 5:59 PM VOCATIONAL AIDE us Liu Chacon NP LAB BLOOD ORDERABLES Final Resul t [facility] ([place]) 1 [facility] Department [place] [address] * (ABNORMAL) Comprehensive metabolic panel (05/23/2025 5:56 PM VOCATIONAL AIDE) Sodium 132(L) 135 - 145 mmol/L Potassium, pl 4.4 3.3 - 4.9 mmol/L [facility] ([place]) Chloride 96(L) 97 - 110 [...] [facility] ([place]) Blood 05/23/2025 5:56 PM VOCATIONAL AIDE 05/23/2025 5:59 PM VOCATIONAL AIDE us Liu Chacon PSYCHOLOGY PHYSICIAN LAB BLOOD ORDERABLES Final Resul t [facility] ([place]) 1 [facility] Department [place] [address] * Infection Prevention Faby auris PCR, surveillance Axilla/Groin (05/16/2025 4:03 AM VOCATIONAL AIDE) Pathologist [facility] Faby auris DNA Not Detected Not Detected [facility] Comment: Interpretive Data Testing performed by [facility] using the [employer] Faby auris assay. This assay detects DNA from Faby auris using Real-Time PCR. This assay is laboratory developed and is not cleared by the [facility] Food and Drug Administration. The performance characteristics have been verified by the [facility]. Axilla/Groin 05/16/2025 4:03 AM VOCATIONAL AIDE 05/16/2025 5:17 AM VOCATIONAL AIDE Narrative [facility] - 05/16/2025 1:47 PM VOCATIONAL AIDE Order placed by [facility] due to ring surveillance. us Instant Order Generic Provider LAB MICROBIOLOGY - GENERAL ORDERABLES Final Result Performing Organization Address City/[facility]/ZIP Co de Phone Number [facility] [place] [address] [facility] * eGFR (05/15/2025 5:29 PM VOCATIONAL AIDE) Pathologist [facility] eGFR >90 >=60 mL/min/1. 73 m2 Comment: [...] interpretive data was last reviewed 2021. Blood 05/15/2025 5:29 PM VOCATIONAL AIDE 05/15/2025 5:46 PM VOCATIONAL AIDE us Miguel Muniz MD LAB BLOOD ORDERABLES Final Result [facility] [place] [address] * Basic metabolic panel (05/15/2025 5:29 PM VOCATIONAL AIDE) Sodium 137 135 - 145 mmol/L Potassium, pl 4.5 3.3 - 4.9 mmol/L [facility] Chloride 99 97 - 110 mmol/L [facility] CO2 28 22 - 32 mmol/L [facility] Anion gap 10 2 - 15 mmol/L [facility] BUN 21 6 - 25 mg/dL [facility] Creatinine 1.03 0.80 - 1.30 mg/dL [facility] Glucose 112 70 - 199 mg/dL [facility] Comment: Interpretive Data Fasting glucose >/= 126 [...] interpretive data was last revised 2022. Calcium 8.7 8.5 - 10.3 mg/dL [facility] Blood 05/15/2025 5:29 PM VOCATIONAL AIDE 05/15/2025 5:46 PM VOCATIONAL AIDE us Miguel Muniz MD LAB BLOOD ORDERABLES Final Result Performing Organization Address [facility] Co de Phone Number [facility] [place] [address] * eGFR (05/15/2025 9:44 AM VOCATIONAL AIDE) eGFR 67 >=60 mL/min/1. 73 m2 Comment: Interpretive Data [...] interpretive data was last reviewed 2021. Blood 05/15/2025 9:44 AM VOCATIONAL AIDE 05/15/2025 10:29 AM VOCATIONAL AIDE us Aliza Roy MD LAB BLOOD ORDERABLES Katie l Result Performing Organization Address [facility] Co de Phone Number [facility] [place] [address] * (ABNORMAL) Differential, auto (05/15/2025 9:44 AM VOCATIONAL AIDE) Neutrophil abs 6.74(H) 1.50 - 6.50 K/cumm Imm gran abs 0.13(H) 0.00 - 0.10 K/cumm [facility] Lymphocyte abs 0.87 0.80 - 3.30 K/cumm [facility] Monocyte abs 1.32(H) 0.20 - 0.80 K/cumm [facility] Eosinophil abs 0.13 0.00 - 0.50 K/cumm [facility] Basophil abs 0.08 0.00 - 0.10 K/cumm [facility] Neutrophil pct 72.7 % [facility] Comment: Interpretive Data Percent cell count reference ranges are not reported, since discordance with absolute values may lead to misinterpretation of CBC data. Current Interpretive Data was last revised on 2017. Imm gran pct 1.4 % [facility] Comment: Interpretive Data Percent cell count reference ranges are not reported, since discordance with absolute values may lead to misinterpretation of CBC data. Current Interpretive Data was last revised on 2017. Lymphocyte pct 9.4 % [facility] Comment: Interpretive Data Percent cell count reference ranges are not reported, since discordance with absolute values may lead to misinterpretation of CBC data. Current Interpretive Data was last revised on 2017. Monocyte pct 14.2 % [facility] Comment: Interpretive Data Percent cell count reference ranges are not reported, since discordance with absolute values may lead to misinterpretation of CBC data. Current Interpretive Data was last revised on 2017. Eosinophil pct 1.4 % [facility] Comment: Interpretive Data Percent cell count reference ranges are not reported, since discordance with absolute values may lead to misinterpretation of CBC data. Current Interpretive Data was last revised on 2017. Basophil pct 0.9 % [facility] Comment: Interpretive Data Percent cell count reference ranges are not reported, since discordance with absolute values may lead to misinterpretation of CBC data. Current Interpretive Data was last revised on 2017. Blood 05/15/2025 9:44 AM VOCATIONAL AIDE 05/15/2025 10:30 AM VOCATIONAL AIDE us Aliza Roy MD LAB BLOOD ORDERABLES Katie l Result Performing Organization Address City/State/[facility] de Phone Number [facility] [place] [address] * (ABNORMAL) CBC with auto differential (05/15/2025 9:44 AM VOCATIONAL AIDE) [facility] WBC 9.27 3.80 - 9.90 K/cumm Hgb 7.7(L) 13.0 - 17.5 g/dL [facility] Hct 24.2(L) 38.9 - 50.3 % [facility] Plt 184 150 - 400 K/cumm [facility] MPV 9.3 9.1 - 12.3 fL [facility] RBC 2.73(L) 4.30 - 5.80 M/cumm [facility] MCV 88.6 81.3 - 96.4 fL [facility] MCH 28.2 27.1 - 33.3 pg [facility] MCHC 31.8(L) 32.3 - 35.7 g/dL [facility] RDW CV 17.6(H) 11.1 - 14.9 % [facility] RDW SD 54.2(H) 35.7 - 48.1 fL [facility] NRBC abs 0.02(H) 0.00 - 0.01 K/cumm [facility] Blood 05/15/2025 9:44 AM VOCATIONAL AIDE 05/15/2025 10:30 AM VOCATIONAL AIDE us Aliza Roy MD LAB BLOOD ORDERABLES Katie l Result Performing Organization Address [facility] Co de Phone Number [facility] [place] [address] * Phosphorus (05/15/2025 9:44 AM VOCATIONAL AIDE) [facility] Phosphorus, pl 4.3 2.3 - 4.5 mg/dL Blood 05/15/2025 9:44 AM VOCATIONAL AIDE 05/15/2025 9:53 AM VOCATIONAL AIDE us Aliza Roy MD LAB BLOOD ORDERABLES Katie l Result [facility] [place] [address] * Magnesium (05/15/2025 9:44 AM VOCATIONAL AIDE) [facility] Magnesium 1.8 1.4 - 2.5 mg/dL Blood 05/15/2025 9:44 AM VOCATIONAL AIDE 05/15/2025 9:53 AM VOCATIONAL AIDE us Miguel Muniz MD LAB BLOOD ORDERABLES Final Result Performing Organization Address [facility] Co de Phone Number [facility] [place] [address] * (ABNORMAL) Comprehensive metabolic panel (05/15/2025 9:44 AM VOCATIONAL AIDE) [facility] Sodium 139 135 - 145 mmol/L Potassium, pl 4.2 3.3 - 4.9 mmol/L [facility] Chloride 101 97 - 110 mmol/L [facility] CO2 28 22 - 32 mmol/L [facility] Anion gap 10 2 - 15 mmol/L [facility] BUN 23 6 - 25 mg/dL [facility] Creatinine 1.34(H) 0.80 - 1.30 mg/dL [facility] Glucose 117 70 - 199 mg/dL [facility] Comment: Interpretive Data Fasting glucose >/= 126 [...] classification and Diagnosis of Diabetes Diabetes Care 202; 46: S19-S40. Current interpretive data was last revised 2022. Calcium 9.1 8.5 - 10.3 mg/dL [facility] Bilirubin, total 0.4 0.1 - 1.2 mg/dL [facility] Protein, pl 7.0 6.5 - 8.5 g/dL [facility] Albumin 3.1(L) 3.5 - 5.0 g/dL [facility] Alk phos 288(H) 40 - 130 Units/L [facility] ALT 43 7 - 55 Units/L [facility] AST 68(H) 10 - 50 Units/L [facility] Blood 05/15/2025 9:44 AM VOCATIONAL AIDE 05/15/2025 9:53 AM VOCATIONAL AIDE us Aliza Roy MD LAB BLOOD ORDERABLES Katie l Result Performing Organization Address City/[facility]/ZIP Co de Phone Number [facility] Department of [place] [address] * eGFR (05/13/2025 10:55 AM VOCATIONAL AIDE) eGFR >90 >=60 mL/min/1. 73 m2 Comment: [...] interpretive data was last reviewed 2021. Blood 05/13/2025 10:5 5 AM VOCATIONAL AIDE 05/13/2025 1:52 PM VOCATIONAL AIDE us Aliza Roy MD LAB BLOOD ORDERABLES Katie l Result [facility] [place] [address] * (ABNORMAL) CBC with auto differential (05/13/2025 10:55 AM VOCATIONAL AIDE) Pathologist [facility] WBC 7.32 3.80 - 9.90 K/cumm Hgb 8.6(L) 13.0 - 17.5 g/dL [facility] Hct 26.1(L) 38.9 - 50.3 % [facility] Plt 209 150 - 400 K/cumm [facility] MPV 9.9 9.1 - 12.3 fL [facility] RBC 3.04(L) 4.30 - 5.80 M/cumm [facility] MCV 85.9 81.3 - 96.4 fL [facility] MCH 28.3 27.1 - 33.3 pg [facility] MCHC 33.0 32.3 - 35.7 g/dL [facility] RDW CV 17.0(H) 11.1 - 14.9 % [facility] RDW SD 50.6(H) 35.7 - 48.1 fL [facility] NRBC abs 0.02(H) 0.00 - 0.01 K/cumm [facility] Morphologic Screen Results confirmed by manual morphology review. [facility] Blood 05/13/2025 10:5 5 AM VOCATIONAL AIDE 05/13/2025 1:52 PM VOCATIONAL AIDE Aliza Roy MD LAB BLOOD ORDERABLES Edit ed Result - Final [facility] [place] [address] * (ABNORMAL) Manual Differential (05/13/2025 10:55 AM VOCATIONAL AIDE) Pathologist [facility] Differential Manual Cells Counted 115 [facility] Neutrophil abs 5.92 1.50 - 6.50 K/cumm [facility] Lymphocyte abs 0.64(L) 0.80 - 3.30 K/cumm [facility] Monocyte abs 0.64 0.20 - 0.80 K/cumm [facility] Basophil abs 0.12(H) 0.00 - 0.10 K/cumm [facility] Neutrophil pct 80.9 % [facility] Comment: Interpretive Data Percent cell count reference ranges are not reported, since discordance with absolute values may lead to misinterpretation of CBC data. Current Interpretive Data was last revised on 2017. Lymphocyte pct 7.8 % [facility] Comment: Interpretive Data Percent cell count reference ranges are not reported, since discordance with absolute values may lead to misinterpretation of CBC data. Current Interpretive Data was last revised on 2017. Monocyte pct 8.7 % [facility] Comment: Interpretive Data Percent cell count reference ranges are not reported, since discordance with absolute values may lead to misinterpretation of CBC data. Current Interpretive Data was last revised on 2017. Basophil pct 1.7 % [facility] Comment: Interpretive Data Percent cell count reference ranges are not reported, since discordance with absolute values may lead to misinterpretation of CBC data. Current Interpretive Data was last revised on 2017. Variant lymph pct 0.9(H) 0.0 - 0.0 % [facility] Blood 05/13/2025 10:5 5 AM VOCATIONAL AIDE 05/13/2025 1:57 PM VOCATIONAL AIDE Aliza Roy MD LAB BLOOD ORDERABLES Katie l Result Performing Organization Address City/[facility]/ZIP Co de Phone Number [facility] [place] [address] * Phosphorus (05/13/2025 10:55 AM VOCATIONAL AIDE) Phosphorus, pl 3.6 2.3 - 4.5 mg/dL Blood 05/13/2025 10:5 5 AM VOCATIONAL AIDE 05/13/2025 1:52 PM VOCATIONAL AIDE Aliza Roy MD LAB BLOOD ORDERABLES Katie l Result Performing Organization Address City/[facility]/ZIP Co de Phone Number [facility] [place] [address] * (ABNORMAL) Comprehensive metabolic panel (05/13/2025 10:55 AM VOCATIONAL AIDE) Sodium 137 135 - 145 mmol/L Potassium, pl 4.6 3.3 - 4.9 mmol/L [facility] Chloride 100 97 - 110 mmol/L [facility] CO2 28 22 - 32 mmol/L [facility] Anion gap 9 2 - 15 mmol/L [facility] BUN 16 6 - 25 mg/dL [facility] Creatinine 0.92 0.80 - 1.30 mg/dL [facility] Glucose 117 70 - 199 mg/dL [facility] Comment: Interpretive Data Fasting glucose >/= 126 [...] interpretive data was last revised 2022. Calcium 9.0 8.5 - 10.3 mg/dL [facility] Bilirubin, total 0.4 0.1 - 1.2 mg/dL [facility] Protein, pl 7.5 6.5 - 8.5 g/dL [facility] Albumin 3.2(L) 3.5 - 5.0 g/dL [facility] Alk phos 360(H) 40 - 130 Units/L [facility] ALT 57(H) 7 - 55 Units/L [facility] AST 80(H) 10 - 50 Units/L [facility] Blood 05/13/2025 10:5 5 AM VOCATIONAL AIDE 05/13/2025 1:52 PM VOCATIONAL AIDE us Aliza Roy MD LAB BLOOD ORDERABLES Katie felix Result [facility] [place] [address] * eGFR (05/12/2025 12:19 PM VOCATIONAL AIDE) [facility] eGFR >90 >=60 mL/min/1. 73 m2 Comment: [...] interpretive data was last reviewed 2021. Blood 05/12/2025 12:1 9 PM VOCATIONAL AIDE 05/12/2025 1:06 PM VOCATIONAL AIDE us Aliza Roy MD LAB BLOOD ORDERABLES Katie felix Result [facility] [place] [address] * (ABNORMAL) Differential, auto (05/12/2025 12:19 PM VOCATIONAL AIDE) [facility] Neutrophil abs 4.53 1.50 - 6.50 K/cumm Imm gran abs 0.16(H) 0.00 - 0.10 K/cumm [facility] Lymphocyte abs 0.74(L) 0.80 - 3.30 K/cumm [facility] Monocyte abs 0.79 0.20 - 0.80 K/cumm [facility] Eosinophil abs 0.06 0.00 - 0.50 K/cumm [facility] Basophil abs 0.04 0.00 - 0.10 K/cumm [facility] Neutrophil pct 71.8 % [facility] Comment: Interpretive Data Percent cell count reference ranges are not reported, since discordance with absolute values may lead to misinterpretation of CBC data. Current Interpretive Data was last revised on 2017. Imm gran pct 2.5 % [facility] Comment: Interpretive Data Percent cell count reference ranges are not reported, since discordance with absolute values may lead to misinterpretation of CBC data. Current Interpretive Data was last revised on 2017. Lymphocyte pct 11.7 % [facility] Comment: Interpretive Data Percent cell count reference ranges are not reported, since discordance with absolute values may lead to misinterpretation of CBC data. Current Interpretive Data was last revised on 2017. Monocyte pct 12.5 % [facility] Comment: Interpretive Data Percent cell count reference ranges are not reported, since discordance with absolute values may lead to misinterpretation of CBC data. Current Interpretive Data was last revised on 2017. Eosinophil pct 0.9 % [facility] Comment: Interpretive Data Percent cell count reference ranges are not reported, since discordance with absolute values may lead to misinterpretation of CBC data. Current Interpretive Data was last revised on 2017. Basophil pct 0.6 % [facility] Comment: Interpretive Data Percent cell count reference ranges are not reported, since discordance with absolute values may lead to misinterpretation of CBC data. Current Interpretive Data was last revised on 2017. Blood 05/12/2025 12:1 9 PM VOCATIONAL AIDE 05/12/2025 1:06 PM VOCATIONAL AIDE us Aliza Roy MD LAB BLOOD ORDERABLES Katie l Result [facility] [place] [address] * (ABNORMAL) CBC with auto differential (05/12/2025 12:19 PM VOCATIONAL AIDE) WBC 6.32 3.80 - 9.90 K/cumm Hgb 9.5(L) 13.0 - 17.5 g/dL [facility] Hct 28.9(L) 38.9 - 50.3 % [facility] Plt 162 150 - 400 K/cumm [facility] MPV 10.1 9.1 - 12.3 fL [facility] RBC 3.38(L) 4.30 - 5.80 M/cumm [facility] MCV 85.5 81.3 - 96.4 fL [facility] MCH 28.1 27.1 - 33.3 pg [facility] MCHC 32.9 32.3 - 35.7 g/dL [facility] RDW CV 16.6(H) 11.1 - 14.9 % [facility] RDW SD 48.3(H) 35.7 - 48.1 fL [facility] NRBC abs 0.04(H) 0.00 - 0.01 K/cumm [facility] Blood 05/12/2025 12:1 9 PM VOCATIONAL AIDE 05/12/2025 1:06 PM VOCATIONAL AIDE us Aliza Roy MD LAB BLOOD ORDERABLES Katie l Result Performing Organization Address City/[facility] Co de Phone Number [facility] [place] [place] [address] * Phosphorus (05/12/2025 12:19 PM VOCATIONAL AIDE) Phosphorus, pl 4.0 2.3 - 4.5 mg/dL Blood 05/12/2025 12:1 9 PM VOCATIONAL AIDE 05/12/2025 1:06 PM VOCATIONAL AIDE Aliza Roy MD LAB BLOOD ORDERABLES Katie l Result [facility] [place] [address] * Magnesium (05/12/2025 12:19 PM VOCATIONAL AIDE) Magnesium 2.1 1.4 - 2.5 mg/dL Blood 05/12/2025 12:1 9 PM VOCATIONAL AIDE 05/12/2025 1:06 PM VOCATIONAL AIDE Narrative [facility] - 05/12/2025 1:25 PM VOCATIONAL AIDE While receiving amphotericin B liposomal (AMBISOME) infusion. Aliza Roy MD LAB BLOOD ORDERABLES Katie felix Result [facility] [place] [address] * (ABNORMAL) Comprehensive metabolic panel (05/12/2025 12:19 PM VOCATIONAL AIDE) Pathologist [facility] Sodium 136 135 - 145 mmol/L Potassium, pl 4.2 3.3 - 4.9 mmol/L [facility] Chloride 100 97 - 110 mmol/L [facility] CO2 30 22 - 32 mmol/L [facility] Anion gap 6 2 - 15 mmol/L [facility] BUN 12 6 - 25 mg/dL [facility] Creatinine 0.94 0.80 - 1.30 mg/dL [facility] Glucose 113 70 - 199 mg/dL [facility] Comment: Interpretive Data Fasting glucose >/= 126 [...] classification and Diagnosis of Diabetes Diabetes Care 202; 46: S19-S40. Current interpretive data was last revised 2022. Calcium 9.0 8.5 - 10.3 mg/dL [facility] Bilirubin, total 0.6 0.1 - 1.2 mg/dL [facility] Protein, pl 8.1 6.5 - 8.5 g/dL [facility] Albumin 3.2(L) 3.5 - 5.0 g/dL [facility] Alk phos 394(H) 40 - 130 Units/L [facility] ALT 55 7 - 55 Units/L [facility] AST 91(H) 10 - 50 Units/L [facility] Blood 05/12/2025 12:1 9 PM VOCATIONAL AIDE 05/12/2025 1:06 PM VOCATIONAL AIDE Aliza Roy MD LAB BLOOD ORDERABLES Katie l Result Performing Organization Address City/[facility]/ZIP Co de Phone Number [facility] [place] [address] * eGFR (05/11/2025 10:09 AM VOCATIONAL AIDE) Pathologist [facility] eGFR >90 >=60 mL/min/1. 73 m2 Comment: [...] interpretive data was last reviewed 2021. Blood 05/11/2025 10:0 9 AM VOCATIONAL AIDE 05/11/2025 10:32 AM VOCATIONAL AIDE Aliza Roy MD LAB BLOOD ORDERABLES Katie l Result Performing Organization Address City/[facility]/ZIP Co de Phone Number [facility] [place] [address] * (ABNORMAL) Differential, auto (05/11/2025 10:09 AM VOCATIONAL AIDE) Neutrophil abs 4.74 1.50 - 6.50 K/cumm Imm gran abs 0.11(H) 0.00 - 0.10 K/cumm [facility] Lymphocyte abs 0.68(L) 0.80 - 3.30 K/cumm [facility] Monocyte abs 0.85(H) 0.20 - 0.80 K/cumm [facility] Eosinophil abs 0.03 0.00 - 0.50 K/cumm [facility] Basophil abs 0.03 0.00 - 0.10 K/cumm [facility] Neutrophil pct 73.5 % [facility] Comment: Interpretive Data Percent cell count reference ranges are not reported, since discordance with absolute values may lead to misinterpretation of CBC data. Current Interpretive Data was last revised on 2017. Imm gran pct 1.7 % [facility] Comment: Interpretive Data Percent cell count reference ranges are not reported, since discordance with absolute values may lead to misinterpretation of CBC data. Current Interpretive Data was last revised on 2017. Lymphocyte pct 10.6 % [facility] Comment: Interpretive Data Percent cell count reference ranges are not reported, since discordance with absolute values may lead to misinterpretation of CBC data. Current Interpretive Data was last revised on 2017. Monocyte pct 13.2 % [facility] Comment: Interpretive Data Percent cell count reference ranges are not reported, since discordance with absolute values may lead to misinterpretation of CBC data. Current Interpretive Data was last revised on 2017. Eosinophil pct 0.5 % [facility] Comment: Interpretive Data Percent cell count reference ranges are not reported, since discordance with absolute values may lead to misinterpretation of CBC data. Current Interpretive Data was last revised on 2017. Basophil pct 0.5 % [facility] Comment: Interpretive Data Percent cell count reference ranges are not reported, since discordance with absolute values may lead to misinterpretation of CBC data. Current Interpretive Data was last revised on 2017. Blood 05/11/2025 10:0 9 AM VOCATIONAL AIDE 05/11/2025 10:31 AM VOCATIONAL AIDE us Aliza Roy MD LAB BLOOD ORDERABLES Katie l Result Performing Organization Address [facility] Co de Phone Number [facility] [place] [place] [address] * (ABNORMAL) CBC with auto differential (05/11/2025 10:09 AM VOCATIONAL AIDE) Pathologist [facility] WBC 6.44 3.80 - 9.90 K/cumm Hgb 8.5(L) 13.0 - 17.5 g/dL [facility] Hct 25.0(L) 38.9 - 50.3 % [facility] Plt 94(L) 150 - 400 K/cumm [facility] MPV 10.1 9.1 - 12.3 fL [facility] RBC 2.99(L) 4.30 - 5.80 M/cumm [facility] MCV 83.6 81.3 - 96.4 fL [facility] MCH 28.4 27.1 - 33.3 pg [facility] MCHC 34.0 32.3 - 35.7 g/dL [facility] RDW CV 15.7(H) 11.1 - 14.9 % [facility] RDW SD 45.0 35.7 - 48.1 fL [facility] NRBC abs 0.00 0.00 - 0.01 K/cumm [facility] Blood 05/11/2025 10:0 9 AM VOCATIONAL AIDE 05/11/2025 10:31 AM VOCATIONAL AIDE Aliza Roy MD LAB BLOOD ORDERABLES Katie l Result Performing Organization Address [facility]/ZIP Co de Phone Number [facility] [place] [place] [address] * (ABNORMAL) Phosphorus (05/11/2025 10:09 AM VOCATIONAL AIDE) Pathologist [facility] Phosphorus, pl 4.7(H) 2.3 - 4.5 mg/dL Blood 05/11/2025 10:0 9 AM VOCATIONAL AIDE 05/11/2025 10:32 AM VOCATIONAL AIDE Aliza Roy MD LAB BLOOD ORDERABLES Katie l Result Performing Organization Address [facility] Co de Phone Number [facility] [place] [address] * Magnesium (05/11/2025 10:09 AM VOCATIONAL AIDE) Pathologist [facility] Magnesium 2.0 1.4 - 2.5 mg/dL Blood 05/11/2025 10:0 9 AM VOCATIONAL AIDE 05/11/2025 10:32 AM VOCATIONAL AIDE Narrative [facility] - 05/11/2025 10:54 AM VOCATIONAL AIDE While receiving amphotericin B liposomal (AMBISOME) infusion. Aliza Roy MD LAB BLOOD ORDERABLES Katie l Result Performing Organization Address [facility] de Phone Number [facility] [place] [address] * (ABNORMAL) Comprehensive metabolic panel (05/11/2025 10:09 AM VOCATIONAL AIDE) Pathologist [facility] Sodium 139 135 - 145 mmol/L Potassium, pl 4.3 3.3 - 4.9 mmol/L [facility] Chloride 102 97 - 110 mmol/L [facility] CO2 32 22 - 32 mmol/L [facility] Anion gap 5 2 - 15 mmol/L [facility] BUN 12 6 - 25 mg/dL [facility] Creatinine 0.94 0.80 - 1.30 mg/dL [facility] Glucose 106 70 - 199 mg/dL [facility] Comment: Interpretive Data Fasting glucose >/= 126 [...] classification and Diagnosis of Diabetes Diabetes Care 202; 46: S19-S40. Current interpretive data was last revised 2022. Calcium 9.1 8.5 - 10.3 mg/dL [facility] Bilirubin, total 0.5 0.1 - 1.2 mg/dL [facility] Protein, pl 7.3 6.5 - 8.5 g/dL [facility] Albumin 3.0(L) 3.5 - 5.0 g/dL [facility] Alk phos 388(H) 40 - 130 Units/L [facility] ALT 50 7 - 55 Units/L [facility] AST 85(H) 10 - 50 Units/L [facility] Blood 05/11/2025 10:0 9 AM VOCATIONAL AIDE 05/11/2025 10:32 AM VOCATIONAL AIDE us Aliza oRy MD LAB BLOOD ORDERABLES Katie l Result [facility] [place] [address] * eGFR (05/10/2025 9:32 AM VOCATIONAL AIDE) eGFR >90 >=60 mL/min/1. 73 m2 Comment: [...] of Race in Diagnosing Kidney Disease, JASN 202). The CKD-EPI equation should not be used for patients with unstable renal function and has not been validated in children and those over 70. Current interpretive data was last reviewed 2021. Blood 05/10/2025 9:32 AM VOCATIONAL AIDE 05/10/2025 9:39 AM VOCATIONAL AIDE us Aliza Roy MD LAB BLOOD ORDERABLES Katie elvira Result [facility] [place] [address] * (ABNORMAL) Differential, auto (05/10/2025 9:32 AM VOCATIONAL AIDE) Neutrophil abs 3.98 1.50 - 6.50 K/cumm Imm gran abs 0.08 0.00 - 0.10 K/cumm [facility] Lymphocyte abs 0.67(L) 0.80 - 3.30 K/cumm [facility] Monocyte abs 0.76 0.20 - 0.80 K/cumm [facility] Eosinophil abs 0.04 0.00 - 0.50 K/cumm [facility] Basophil abs 0.02 0.00 - 0.10 K/cumm [facility] Neutrophil pct 71.7 % [facility] Comment: Interpretive Data Percent cell count reference ranges are not reported, since discordance with absolute values may lead to misinterpretation of CBC data. Current Interpretive Data was last revised on 2017. Imm gran pct 1.4 % [facility] Comment: Interpretive Data Percent cell count reference ranges are not reported, since discordance with absolute values may lead to misinterpretation of CBC data. Current Interpretive Data was last revised on 2017. Lymphocyte pct 12.1 % [facility] Comment: Interpretive Data Percent cell count reference ranges are not reported, since discordance with absolute values may lead to misinterpretation of CBC data. Current Interpretive Data was last revised on 2017. Monocyte pct 13.7 % [facility] Comment: Interpretive Data Percent cell count reference ranges are not reported, since discordance with absolute values may lead to misinterpretation of CBC data. Current Interpretive Data was last revised on 2017. Eosinophil pct 0.7 % [facility] Comment: Interpretive Data Percent cell count reference ranges are not reported, since discordance with absolute values may lead to misinterpretation of CBC data. Current Interpretive Data was last revised on 2017. Basophil pct 0.4 % [facility] Comment: Interpretive Data Percent cell count reference ranges are not reported, since discordance with absolute values may lead to misinterpretation of CBC data. Current Interpretive Data was last revised on 2017. Blood 05/10/2025 9:32 AM VOCATIONAL AIDE 05/10/2025 9:40 AM VOCATIONAL AIDE Aliza Roy MD LAB BLOOD ORDERABLES Katie l Result Performing Organization Address City/[facility]/ZIP Co de Phone Number [facility] [place] [address] * (ABNORMAL) CBC with auto differential (05/10/2025 9:32 AM VOCATIONAL AIDE) WBC 5.55 3.80 - 9.90 K/cumm Hgb 7.8(L) 13.0 - 17.5 g/dL [facility] Hct 22.9(L) 38.9 - 50.3 % [facility] Plt 66(L) 150 - 400 K/cumm [facility] MPV 10.7 9.1 - 12.3 fL [facility] RBC 2.77(L) 4.30 - 5.80 M/cumm [facility] MCV 82.7 81.3 - 96.4 fL [facility] MCH 28.2 27.1 - 33.3 pg [facility] MCHC 34.1 32.3 - 35.7 g/dL [facility] RDW CV 15.5(H) 11.1 - 14.9 % [facility] RDW SD 44.4 35.7 - 48.1 fL [facility] NRBC abs 0.02(H) 0.00 - 0.01 K/cumm [facility] Blood 05/10/2025 9:32 AM VOCATIONAL AIDE 05/10/2025 9:40 AM VOCATIONAL AIDE Aliza Roy MD LAB BLOOD ORDERABLES Katie l Result Performing Organization Address [facility]/ZIP Co de Phone Number [facility] [place] [address] * Phosphorus (05/10/2025 9:32 AM VOCATIONAL AIDE) [facility] Phosphorus, pl 4.1 2.3 - 4.5 mg/dL Blood 05/10/2025 9:32 AM VOCATIONAL AIDE 05/10/2025 9:39 AM VOCATIONAL AIDE Aliza Roy MD LAB BLOOD ORDERABLES Katie l Result Performing Organization Address City/[facility]/[place] [address] * Magnesium (05/10/2025 9:32 AM VOCATIONAL AIDE) [facility] Magnesium 1.8 1.4 - 2.5 mg/dL Blood 05/10/2025 9:32 AM VOCATIONAL AIDE 05/10/2025 9:39 AM VOCATIONAL AIDE Narrative [facility] - 05/10/2025 10:01 AM VOCATIONAL AIDE While receiving amphotericin B liposomal (AMBISOME) infusion. Aliza Roy MD LAB BLOOD ORDERABLES Katie l Result Performing Organization Address [facility] Co de Phone Number [facility] [place] [address] * (ABNORMAL) Comprehensive metabolic panel (05/10/2025 9:32 AM VOCATIONAL AIDE) [facility] Sodium 137 135 - 145 mmol/L Potassium, pl 4.1 3.3 - 4.9 mmol/L [facility] Chloride 103 97 - 110 mmol/L [facility] CO2 31 22 - 32 mmol/L [facility] Anion gap 3 2 - 15 mmol/L [facility] BUN 11 6 - 25 mg/dL [facility] Creatinine 0.90 0.80 - 1.30 mg/dL [facility] Glucose 117 70 - 199 mg/dL [facility] Comment: Interpretive Data Fasting glucose >/= 126 [...] interpretive data was last revised 2022. Calcium 8.9 8.5 - 10.3 mg/dL [facility] Bilirubin, total 0.6 0.1 - 1.2 mg/dL [facility] Protein, pl 6.4(L) 6.5 - 8.5 g/dL [facility] Albumin 2.7(L) 3.5 - 5.0 g/dL [facility] Alk phos 394(H) 40 - 130 Units/L [facility] ALT 50 7 - 55 Units/L [facility] AST 84(H) 10 - 50 Units/L [facility] Blood 05/10/2025 9:32 AM VOCATIONAL AIDE 05/10/2025 9:39 AM VOCATIONAL AIDE Aliza Roy MD LAB BLOOD ORDERABLES Katie l Result Performing Organization Address [facility] Co de Phone Number [facility] [place] [place] [address] * Immature platelet fraction (05/08/2025 8:36 AM VOCATIONAL AIDE) IPF 6.5 1.6 - 10.1 % Blood 05/08/2025 8:36 AM VOCATIONAL AIDE 05/08/2025 9:00 AM VOCATIONAL AIDE Aliza Roy MD LAB BLOOD ORDERABLES Katie l Result Performing Organization Address [facility] Co de Phone Number [facility] [place] [address] * eGFR (05/08/2025 8:36 AM VOCATIONAL AIDE) [facility] eGFR >90 >=60 mL/min/1. 73 m2 Comment: [...] interpretive data was last reviewed 2021. Blood 05/08/2025 8:36 AM VOCATIONAL AIDE 05/08/2025 8:55 AM VOCATIONAL AIDE us Aliza Roy MD LAB BLOOD ORDERABLES Katie felix Result [facility] [place] [address] * (ABNORMAL) CBC with auto differential (05/08/2025 8:36 AM VOCATIONAL AIDE) [facility] WBC 4.89 3.80 - 9.90 K/cumm Hgb 7.6(L) 13.0 - 17.5 g/dL [facility] Hct 22.4(L) 38.9 - 50.3 % [facility] Plt 45(C) 150 - 400 K/cumm [facility] Comment:Platelet count confi rmed by additional testing. Critical platelet count threshold determined by patient location: Outpatient:<50 K/cumm , Inpatient adults:<20 K/cumm , Inpatient pediatric:<25 K/cumm, BMT service:<10 K/cumm MPV 10.9 9.1 - 12.3 fL [facility] RBC 2.66(L) 4.30 - 5.80 M/cumm [facility] MCV 84.2 81.3 - 96.4 fL [facility] MCH 28.6 27.1 - 33.3 pg [facility] MCHC 33.9 32.3 - 35.7 g/dL [facility] RDW CV 15.2(H) 11.1 - 14.9 % [facility] RDW SD 46.0 35.7 - 48.1 fL [facility] NRBC abs 0.06(H) 0.00 - 0.01 K/cumm [facility] Morphologic Screen Results confirmed by manual morphology review. [facility] Blood 05/08/2025 8:36 AM VOCATIONAL AIDE 05/08/2025 8:55 AM VOCATIONAL AIDE Aliza Roy MD LAB BLOOD ORDERABLES Edit ed Result - Final [facility] [place] [address] * (ABNORMAL) Manual Differential (05/08/2025 8:36 AM VOCATIONAL AIDE) Differential Manual Cells Counted 110 [facility] Neutrophil abs 3.47 1.50 - 6.50 K/cumm [facility] Imm gran abs 0.58(H) 0.00 - 0.10 K/cumm [facility] Lymphocyte abs 0.40(L) 0.80 - 3.30 K/cumm [facility] Monocyte abs 0.27 0.20 - 0.80 K/cumm [facility] Eosinophil abs 0.04 0.00 - 0.50 K/cumm [facility] Basophil abs 0.13(H) 0.00 - 0.10 K/cumm [facility] Neutrophil pct 70.9 % [facility] Comment: Interpretive Data Percent cell count reference ranges are not reported, since discordance with absolute values may lead to misinterpretation of CBC data. Current Interpretive Data was last revised on 2017. Lymphocyte pct 8.2 % [facility] Comment: Interpretive Data Percent cell count reference ranges are not reported, since discordance with absolute values may lead to misinterpretation of CBC data. Current Interpretive Data was last revised on 2017. Monocyte pct 5.5 % [facility] Comment: Interpretive Data Percent cell count reference ranges are not reported, since discordance with absolute values may lead to misinterpretation of CBC data. Current Interpretive Data was last revised on 2017. Eosinophil pct 0.9 % [facility] Comment: Interpretive Data Percent cell count reference ranges are not reported, since discordance with absolute values may lead to misinterpretation of CBC data. Current Interpretive Data was last revised on 2017. Basophil pct 2.7 % [facility] Comment: Interpretive Data Percent cell count reference ranges are not reported, since discordance with absolute values may lead to misinterpretation of CBC data. Current Interpretive Data was last revised on 2017. Metamyelocyte pct 4.5(H) 0.0 - 0.0 % [facility] Myelocyte pct 7.3(H) 0.0 - 0.0 % [facility] Blood 05/08/2025 8:36 AM VOCATIONAL AIDE 05/08/2025 9:00 AM VOCATIONAL AIDE Aliza Roy MD LAB BLOOD ORDERABLES Katie l Result Performing Organization Address City/[facility] Co de Phone Number [facility] [place] [place] [address] * Phosphorus (05/08/2025 8:36 AM VOCATIONAL AIDE) Phosphorus, pl 4.4 2.3 - 4.5 mg/dL Blood 05/08/2025 8:36 AM VOCATIONAL AIDE 05/08/2025 8:46 AM VOCATIONAL AIDE Aliza Roy MD LAB BLOOD ORDERABLES Katie l Result Performing Organization Address City/[facility]/ZIP Co de Phone Number [facility] [place] [address] * Magnesium (05/08/2025 8:36 AM VOCATIONAL AIDE) Magnesium 1.9 1.4 - 2.5 mg/dL Blood 05/08/2025 8:36 AM VOCATIONAL AIDE 05/08/2025 8:46 AM VOCATIONAL AIDE us Miguel Muniz MD LAB BLOOD ORDERABLES Final Result [facility] [place] [address] * (ABNORMAL) Comprehensive metabolic panel (05/08/2025 8:36 AM VOCATIONAL AIDE) Pathologist [facility] Sodium 141 135 - 145 mmol/L Potassium, pl 4.1 3.3 - 4.9 mmol/L [facility] Chloride 104 97 - 110 mmol/L [facility] CO2 30 22 - 32 mmol/L [facility] Anion gap 7 2 - 15 mmol/L [facility] BUN 9 6 - 25 mg/dL [facility] Creatinine 0.81 0.80 - 1.30 mg/dL [facility] Glucose 127 70 - 199 mg/dL [facility] Comment: Interpretive Data Fasting glucose >/= 126 [...] classification and Diagnosis of Diabetes Diabetes Care 202; 46: S19-S40. Current interpretive data was last revised 2022. Calcium 8.2(L) 8.5 - 10.3 mg/dL [facility] Bilirubin, total 0.6 0.1 - 1.2 mg/dL [facility] Protein, pl 5.9(L) 6.5 - 8.5 g/dL [facility] Albumin 2.4(L) 3.5 - 5.0 g/dL [facility] Alk phos 461(H) 40 - 130 Units/L [facility] ALT 56(H) 7 - 55 Units/L [facility] AST 95(H) 10 - 50 Units/L [facility] Blood 05/08/2025 8:36 AM VOCATIONAL AIDE 05/08/2025 8:46 AM VOCATIONAL AIDE Aliza Roy MD LAB BLOOD ORDERABLES Katie l Result [facility] [place] [address] * Immature platelet fraction (05/07/2025 9:12 AM VOCATIONAL AIDE) Pathologist [facility] IPF 9.8 1.6 - 10.1 % Blood 05/07/2025 9:12 AM VOCATIONAL AIDE 05/07/2025 9:37 AM VOCATIONAL AIDE Aliza Roy MD LAB BLOOD ORDERABLES Katie l Result Performing Organization Address [facility] Co de Phone Number [facility] [place] [address] * eGFR (05/07/2025 9:12 AM VOCATIONAL AIDE) [facility] eGFR >90 >=60 mL/min/1. 73 m2 Comment: [...] interpretive data was last reviewed 2021. Blood 05/07/2025 9:12 AM VOCATIONAL AIDE 05/07/2025 9:21 AM VOCATIONAL AIDE Aliza Roy MD LAB BLOOD ORDERABLES Katie felix Result [facility] [place] [address] * (ABNORMAL) Differential, auto (05/07/2025 9:12 AM VOCATIONAL AIDE) Pathologist [facility] Neutrophil abs 3.31 1.50 - 6.50 K/cumm Imm gran abs 0.52(H) 0.00 - 0.10 K/cumm [facility] Lymphocyte abs 0.78(L) 0.80 - 3.30 K/cumm [facility] Monocyte abs 1.11(H) 0.20 - 0.80 K/cumm [facility] Eosinophil abs 0.20 0.00 - 0.50 K/cumm [facility] Basophil abs 0.05 0.00 - 0.10 K/cumm [facility] Neutrophil pct 55.4 % [facility] Comment: Interpretive Data Percent cell count reference ranges are not reported, since discordance with absolute values may lead to misinterpretation of CBC data. Current Interpretive Data was last revised on 2017. Imm gran pct 8.7 % [facility] Comment: Interpretive Data Percent cell count reference ranges are not reported, since discordance with absolute values may lead to misinterpretation of CBC data. Current Interpretive Data was last revised on 2017. Lymphocyte pct 13.1 % [facility] Comment: Interpretive Data Percent cell count reference ranges are not reported, since discordance with absolute values may lead to misinterpretation of CBC data. Current Interpretive Data was last revised on 2017. Monocyte pct 18.6 % [facility] Comment: Interpretive Data Percent cell count reference ranges are not reported, since discordance with absolute values may lead to misinterpretation of CBC data. Current Interpretive Data was last revised on 2017. Eosinophil pct 3.4 % [facility] Comment: Interpretive Data Percent cell count reference ranges are not reported, since discordance with absolute values may lead to misinterpretation of CBC data. Current Interpretive Data was last revised on 2017. Basophil pct 0.8 % [facility] Comment: Interpretive Data Percent cell count reference ranges are not reported, since discordance with absolute values may lead to misinterpretation of CBC data. Current Interpretive Data was last revised on 2017. Blood 05/07/2025 9:12 AM VOCATIONAL AIDE 05/07/2025 9:29 AM VOCATIONAL AIDE us Aliza Roy MD LAB BLOOD ORDERABLES Katie felix Result [facility] [place] [address] * (ABNORMAL) CBC with auto differential (05/07/2025 9:12 AM VOCATIONAL AIDE) Pathologist [facility] WBC 5.73 3.80 - 9.90 K/cumm Hgb 7.4(L) 13.0 - 17.5 g/dL [facility] Hct 21.7(L) 38.9 - 50.3 % [facility] Plt 35(C) 150 - 400 K/cumm [facility] Comment:Platelet count confi rmed by additional testing. Critical platelet count threshold determined by patient location: Outpatient:<50 K/cumm , Inpatient adults:<20 K/cumm , Inpatient pediatric:<25 K/cumm, BMT service:<10 K/cumm MPV 12.1 9.1 - 12.3 fL [facility] RBC 2.59(L) 4.30 - 5.80 M/cumm [facility] MCV 83.8 81.3 - 96.4 fL [facility] MCH 28.6 27.1 - 33.3 pg [facility] MCHC 34.1 32.3 - 35.7 g/dL [facility] RDW CV 15.0(H) 11.1 - 14.9 % [facility] RDW SD 44.6 35.7 - 48.1 fL [facility] NRBC abs 0.12(H) 0.00 - 0.01 K/cumm [facility] Blood 05/07/2025 9:12 AM VOCATIONAL AIDE 05/07/2025 9:29 AM VOCATIONAL AIDE Aliza Roy MD LAB BLOOD ORDERABLES Katie l Result Performing Organization Address City/[facility] Co de Phone Number [facility] [place] [address] * (ABNORMAL) Phosphorus (05/07/2025 9:12 AM VOCATIONAL AIDE) Phosphorus, pl 4.9(H) 2.3 - 4.5 mg/dL Blood 05/07/2025 9:12 AM VOCATIONAL AIDE 05/07/2025 9:21 AM VOCATIONAL AIDE Aliza Roy MD LAB BLOOD ORDERABLES Katie l Result Performing Organization Address [facility] Co de Phone Number [facility] [place] [address] * Magnesium (05/07/2025 9:12 AM VOCATIONAL AIDE) Pathologist [facility] Magnesium 1.8 1.4 - 2.5 mg/dL Blood 05/07/2025 9:12 AM VOCATIONAL AIDE 05/07/2025 9:21 AM VOCATIONAL AIDE Narrative [facility] - 05/07/2025 9:57 AM VOCATIONAL AIDE While receiving amphotericin B liposomal (AMBISOME) infusion. Aliza Roy MD LAB BLOOD ORDERABLES Katie l Result Performing Organization Address [facility] [place] [address] * (ABNORMAL) Comprehensive metabolic panel (05/07/2025 9:12 AM VOCATIONAL AIDE) Sodium 140 135 - 145 mmol/L Potassium, pl 3.7 3.3 - 4.9 mmol/L [facility] Chloride 104 97 - 110 mmol/L [facility] CO2 28 22 - 32 mmol/L [facility] Anion gap 8 2 - 15 mmol/L [facility] BUN 9 6 - 25 mg/dL [facility] Creatinine 0.71(L) 0.80 - 1.30 mg/dL [facility] Glucose 147 70 - 199 mg/dL [facility] Comment: Interpretive Data Fasting glucose >/= 126 [...] interpretive data was last revised 2022. Calcium 8.2(L) 8.5 - 10.3 mg/dL [facility] Bilirubin, total 0.6 0.1 - 1.2 mg/dL [facility] Protein, pl 5.5(L) 6.5 - 8.5 g/dL [facility] Albumin 2.1(L) 3.5 - 5.0 g/dL [facility] Alk phos 497(H) 40 - 130 Units/L [facility] ALT 61(H) 7 - 55 Units/L [facility] AST 113(H) 10 - 50 Units/L [facility] Blood 05/07/2025 9:12 AM VOCATIONAL AIDE 05/07/2025 9:21 AM VOCATIONAL AIDE us Aliza Roy MD LAB BLOOD ORDERABLES Katie felix Result [facility] [place] [address] * (ABNORMAL) Immature platelet fraction (05/06/2025 11:40 AM VOCATIONAL AIDE) IPF 13.0(H) 1.6 - 10.1 % Blood 05/06/2025 11:4 0 AM VOCATIONAL AIDE 05/06/2025 11:57 AM VOCATIONAL AIDE Aliza Roy MD LAB BLOOD ORDERABLES Katie l Result Performing Organization Address [facility] Co de Phone Number [facility] [place] [place] [address] * eGFR (05/06/2025 11:40 AM VOCATIONAL AIDE) [facility] eGFR >90 >=60 mL/min/1. 73 m2 Comment: [...] interpretive data was last reviewed 2021. Blood 05/06/2025 11:4 0 AM VOCATIONAL AIDE 05/06/2025 11:53 AM VOCATIONAL AIDE Aliza Roy MD LAB BLOOD ORDERABLES Katie l Result Performing Organization Address [facility] Co de Phone Number [facility] [place] [address] * (ABNORMAL) CBC with auto differential (05/06/2025 11:40 AM VOCATIONAL AIDE) Pathologist [facility] WBC 9.03 3.80 - 9.90 K/cumm Hgb 8.5(L) 13.0 - 17.5 g/dL [facility] Hct 24.6(L) 38.9 - 50.3 % [facility] Plt 42(C) 150 - 400 K/cumm [facility] Comment:Verified. Platelet c ount confirmed by additional testing. Critical platelet count threshold determined by patient location: Outpatient:<50 K/cumm , Inpatient adults:<20 K/cumm , Inpatient pediatric:<25 K/cumm, BMT service:<10 K/cumm MPV 11.0 9.1 - 12.3 fL [facility] RBC 3.00(L) 4.30 - 5.80 M/cumm [facility] MCV 82.0 81.3 - 96.4 fL [facility] MCH 28.3 27.1 - 33.3 pg [facility] MCHC 34.6 32.3 - 35.7 g/dL [facility] RDW CV 14.8 11.1 - 14.9 % [facility] RDW SD 43.5 35.7 - 48.1 fL [facility] NRBC abs 0.42(H) 0.00 - 0.01 K/cumm [facility] Morphologic Screen Results confirmed by manual morphology review. [facility] Blood 05/06/2025 11:4 0 AM VOCATIONAL AIDE 05/06/2025 11:53 AM VOCATIONAL AIDE us Aliza Roy MD LAB BLOOD ORDERABLES Katie felix Result [facility] Department [place] [address] * (ABNORMAL) Manual Differential (05/06/2025 11:40 AM VOCATIONAL AIDE) Differential Manual Cells Counted 232 [facility] Neutrophil abs 5.72 1.50 - 6.50 K/cumm [facility] Imm gran abs 0.74(H) 0.00 - 0.10 K/cumm [facility] Lymphocyte abs 0.51(L) 0.80 - 3.30 K/cumm [facility] Monocyte abs 1.63(H) 0.20 - 0.80 K/cumm [facility] Eosinophil abs 0.20 0.00 - 0.50 K/cumm [facility] Basophil abs 0.12(H) 0.00 - 0.10 K/cumm [facility] Neutrophil pct 63.3 % [facility] Comment: Interpretive Data Percent cell count reference ranges are not reported, since discordance with absolute values may lead to misinterpretation of CBC data. Current Interpretive Data was last revised on 2017. Lymphocyte pct 5.6 % [facility] Comment: Interpretive Data Percent cell count reference ranges are not reported, since discordance with absolute values may lead to misinterpretation of CBC data. Current Interpretive Data was last revised on 2017. Monocyte pct 18.1 % [facility] Comment: Interpretive Data Percent cell count reference ranges are not reported, since discordance with absolute values may lead to misinterpretation of CBC data. Current Interpretive Data was last revised on 2017. Eosinophil pct 2.2 % [facility] Comment: Interpretive Data Percent cell count reference ranges are not reported, since discordance with absolute values may lead to misinterpretation of CBC data. Current Interpretive Data was last revised on 2017. Basophil pct 1.3 % [facility] Comment: Interpretive Data Percent cell count reference ranges are not reported, since discordance with absolute values may lead to misinterpretation of CBC data. Current Interpretive Data was last revised on 2017. Metamyelocyte pct 1.3(H) 0.0 - 0.0 % [facility] Myelocyte pct 5.2(H) 0.0 - 0.0 % [facility] Promyelocyte pct 1.7(H) 0.0 - 0.0 % [facility] Blast pct 1.3(C) 0.0 - 0.0 [facility] Comment:Critical value howard d within last 30 days. Blood 05/06/2025 11:4 0 AM VOCATIONAL AIDE 05/06/2025 11:57 AM VOCATIONAL AIDE us Aliza Roy MD LAB BLOOD ORDERABLES Katie felix Result [facility] [place] [address] * Phosphorus (05/06/2025 11:40 AM VOCATIONAL AIDE) [facility] Phosphorus, pl 4.3 2.3 - 4.5 mg/dL Blood 05/06/2025 11:4 0 AM VOCATIONAL AIDE 05/06/2025 11:50 AM VOCATIONAL AIDE Aliza Roy MD LAB BLOOD ORDERABLES Katie l Result Performing Organization Address [facility] Co de Phone Number [facility] [place] [address] * Magnesium (05/06/2025 11:40 AM VOCATIONAL AIDE) [facility] Magnesium 1.9 1.4 - 2.5 mg/dL Blood 05/06/2025 11:4 0 AM VOCATIONAL AIDE 05/06/2025 11:50 AM VOCATIONAL AIDE Aliza Roy MD LAB BLOOD ORDERABLES Katie l Result Performing Organization Address [facility] de Phone Number [facility] [place] [address] * (ABNORMAL) Comprehensive metabolic panel (05/06/2025 11:40 AM VOCATIONAL AIDE) [facility] Sodium 137 135 - 145 mmol/L Potassium, pl 4.4 3.3 - 4.9 mmol/L [facility] Comment:Hemolyzed; Potassium value may be falsely elevated by as much as 0.3-0.5 mmol/L. Suggest redraw and reanalysis. Chloride 97 97 - 110 mmol/L [facility] CO2 29 22 - 32 mmol/L [facility] Anion gap 11 2 - 15 mmol/L [facility] BUN 10 6 - 25 mg/dL [facility] Creatinine 0.71(L) 0.80 - 1.30 mg/dL [facility] Glucose 121 70 - 199 mg/dL [facility] Comment: Interpretive Data Fasting glucose >/= 126 [...] interpretive data was last revised 2022. Calcium 8.6 8.5 - 10.3 mg/dL [facility] Bilirubin, total 0.8 0.1 - 1.2 mg/dL [facility] Protein, pl 6.6 6.5 - 8.5 g/dL [facility] Albumin 2.4(L) 3.5 - 5.0 g/dL [facility] Alk phos 662(H) 40 - 130 Units/L [facility] ALT 92(H) 7 - 55 Units/L [facility] AST 176(H) 10 - 50 Units/L [facility] Comment:Hemolyzed; result ma y be falsely elevated Blood 05/06/2025 11:4 0 AM VOCATIONAL AIDE 05/06/2025 11:50 AM VOCATIONAL AIDE Aliza Roy MD LAB BLOOD ORDERABLES Katie l Result Performing Organization Address [facility] de Phone Number [facility] [place] [address] * (ABNORMAL) Immature platelet fraction (05/05/2025 10:55 AM VOCATIONAL AIDE) Pathologist [facility] IPF 15.9(H) 1.6 - 10.1 % Blood 05/05/2025 10:5 5 AM VOCATIONAL AIDE 05/05/2025 2:26 PM VOCATIONAL AIDE Aliza Roy MD LAB BLOOD ORDERABLES Katie l Result Performing Organization Address City/[facility]/ZIP Co de Phone Number [facility] [place] [address] * eGFR (05/05/2025 10:55 AM VOCATIONAL AIDE) eGFR >90 >=60 mL/min/1. 73 m2 Comment: [...] interpretive data was last reviewed 2021. Blood 05/05/2025 10:5 5 AM VOCATIONAL AIDE 05/05/2025 12:53 PM VOCATIONAL AIDE us Aliza Roy MD LAB BLOOD ORDERABLES Katie l Result Performing Organization Address [facility] Co de Phone Number [facility] [place] [address] * Senior staff review (05/05/2025 10:55 AM VOCATIONAL AIDE) Senior Staff Review Specimen Blood Senior Staff Review Review Done [facility] Comment:refer to manual diff pathology comment 05/06/2025 10:08:58 VOCATIONAL AIDE by adm Blood 05/05/2025 10:5 5 AM VOCATIONAL AIDE 05/05/2025 2:26 PM VOCATIONAL AIDE Narrative [facility] - 05/06/2025 10:09 AM VOCATIONAL AIDE hemepath review us Aliza Roy MD LAB BLOOD ORDERABLES Katie l Result [facility] [place] [address] * (ABNORMAL) CBC with auto differential (05/05/2025 10:55 AM VOCATIONAL AIDE) WBC 8.00 3.80 - 9.90 K/cumm Hgb 7.9(L) 13.0 - 17.5 g/dL [facility] Hct 23.8(L) 38.9 - 50.3 % [facility] Plt 29(C) 150 - 400 K/cumm [facility] Comment: Telephone report made to: Danielle Yuan RN on 05/05/25 1324H by EM No clot detected in sample. Platelet count confirmed by additional testing. Critical platelet count threshold determined by patient location: Outpatient:<50 K/cumm , Inpatient adults:<20 K/cumm , Inpatient pediatric:<25 K/cumm, BMT service:<10 K/cumm This result has been called to Danielle Yuan RN by [email or web address] on 05/05/2025 14:02:35. Results Called. MPV 13.5(H) 9.1 - 12.3 fL [facility] RBC 2.82(L) 4.30 - 5.80 M/cumm [facility] MCV 84.4 81.3 - 96.4 fL [facility] MCH 28.0 27.1 - 33.3 pg [facility] MCHC 33.2 32.3 - 35.7 g/dL [facility] RDW CV 14.6 11.1 - 14.9 % [facility] RDW SD 44.9 35.7 - 48.1 fL [facility] NRBC abs 0.61(H) 0.00 - 0.01 K/cumm [facility] Blood 05/05/2025 10:5 5 AM VOCATIONAL AIDE 05/05/2025 12:50 PM VOCATIONAL AIDE Aliza Roy MD LAB BLOOD ORDERABLES Katie l Result [facility] [place] [address] * (ABNORMAL) Manual Differential (05/05/2025 10:55 AM VOCATIONAL AIDE) Differential Manual Cells Counted 113 [facility] Neutrophil abs 4.11 1.50 - 6.50 K/cumm [facility] Imm gran abs 0.64(H) 0.00 - 0.10 K/cumm [facility] Lymphocyte abs 1.70 0.80 - 3.30 K/cumm [facility] Monocyte abs 0.85(H) 0.20 - 0.80 K/cumm [facility] Eosinophil abs 0.35 0.00 - 0.50 K/cumm [facility] Basophil abs 0.07 0.00 - 0.10 K/cumm [facility] Neutrophil pct 51.4 % [facility] Comment: Interpretive Data Percent cell count reference ranges are not reported, since discordance with absolute values may lead to misinterpretation of CBC data. Current Interpretive Data was last revised on 2017. Lymphocyte pct 15.9 % [facility] Comment: Interpretive Data Percent cell count reference ranges are not reported, since discordance with absolute values may lead to misinterpretation of CBC data. Current Interpretive Data was last revised on 2017. Monocyte pct 10.6 % [facility] Comment: Interpretive Data Percent cell count reference ranges are not reported, since discordance with absolute values may lead to misinterpretation of CBC data. Current Interpretive Data was last revised on 2017. Eosinophil pct 4.4 % [facility] Comment: Interpretive Data Percent cell count reference ranges are not reported, since discordance with absolute values may lead to misinterpretation of CBC data. Current Interpretive Data was last revised on 2017. Basophil pct 0.9 % [facility] Comment: Interpretive Data Percent cell count reference ranges are not reported, since discordance with absolute values may lead to misinterpretation of CBC data. Current Interpretive Data was last revised on 2017. Myelocyte pct 8.0(H) 0.0 - 0.0 % [facility] Blast pct 3.5(C) 0.0 - 0.0 [facility] Comment:This result has been called to Danielle Yuan RN by [email or web address] on 05/05/2025 13:24:00, and has been read back. Variant lymph pct 5.3(H) 0.0 - 0.0 % [facility] Pathologist comment Reviewed by Hematopatholog ist/Hematologi , Bonnie Araujo M.D. Left-shifted myeloid elements present, including few blasts. Lymphocytes also include occasional medium-sized cells with irregular nuclei, condensed chromatin, and moderately abundant cytoplasm. The findings may be due to the patient's reported infection. [facility] Blood 05/05/2025 10:5 5 AM VOCATIONAL AIDE 05/05/2025 2:26 PM VOCATIONAL AIDE Result [facility] Aliza Roy MD LAB BLOOD ORDERABLES Edit ed Result - Final Performing Organization Address City/[facility]/ZIP Co de Phone Number [facility] Department of Laboratories [place] [address] * Phosphorus (05/05/2025 10:55 AM VOCATIONAL AIDE) Phosphorus, pl 3.1 2.3 - 4.5 mg/dL Blood 05/05/2025 10:5 5 AM VOCATIONAL AIDE 05/05/2025 12:48 PM VOCATIONAL AIDE Result [facility] Aliza Roy MD LAB BLOOD ORDERABLES Katie l Result [facility] [place] [address] * Magnesium (05/05/2025 10:55 AM VOCATIONAL AIDE) Magnesium 1.9 1.4 - 2.5 mg/dL Blood 05/05/2025 10:5 5 AM VOCATIONAL AIDE 05/05/2025 12:48 PM VOCATIONAL AIDE Aliza Roy MD LAB BLOOD ORDERABLES Katie elvira Result [facility] [place] [address] * (ABNORMAL) Comprehensive metabolic panel (05/05/2025 10:55 AM VOCATIONAL AIDE) Sodium 139 135 - 145 mmol/L Potassium, pl 3.4 3.3 - 4.9 mmol/L [facility] Chloride 104 97 - 110 mmol/L [facility] CO2 30 22 - 32 mmol/L [facility] Anion gap 5 2 - 15 mmol/L [facility] BUN 10 6 - 25 mg/dL [facility] Creatinine 0.74(L) 0.80 - 1.30 mg/dL [facility] Glucose 166 70 - 199 mg/dL [facility] Comment: Interpretive Data Fasting glucose >/= 126 [...] classification and Diagnosis of Diabetes Diabetes Care 202; 46: S19-S40. Current interpretive data was last revised 2022. Calcium 8.0(L) 8.5 - 10.3 mg/dL [facility] Bilirubin, total 0.7 0.1 - 1.2 mg/dL [facility] Protein, pl 5.7(L) 6.5 - 8.5 g/dL [facility] Albumin 2.2(L) 3.5 - 5.0 g/dL [facility] Alk phos 686(H) 40 - 130 Units/L [facility] ALT 91(H) 7 - 55 Units/L [facility] AST 226(H) 10 - 50 Units/L [facility] Blood 05/05/2025 10:5 5 AM VOCATIONAL AIDE 05/05/2025 12:48 PM VOCATIONAL AIDE us Aliza Roy MD LAB BLOOD ORDERABLES Katie l Result Performing Organization Address [facility] [place] [address] * (ABNORMAL) Hemoglobin and hematocrit (05/05/2025 2:51 AM VOCATIONAL AIDE) Hgb 7.5(L) 13.0 - 17.5 g/dL Hct 21.2(L) 38.9 - 50.3 % [facility] Blood 05/05/2025 2:51 AM VOCATIONAL AIDE 05/05/2025 3:13 AM VOCATIONAL AIDE Aliza Roy MD LAB BLOOD ORDERABLES Katie l Result Performing Organization Address [facility] [place] [address] * Transfuse RBC (05/04/2025 11:52 PM VOCATIONAL AIDE) Blood Aliza Roy MD BLOOD TRANSFUSION ORDERAB LES Final Result Performing Organization Address [facility] [place] [address] * Type and screen (05/04/2025 3:37 PM VOCATIONAL AIDE) ABO Rh O Positive Damián, indirect Negative [facility] Blood 05/04/2025 3:37 PM VOCATIONAL AIDE 05/04/2025 3:53 PM VOCATIONAL AIDE Narrative [facility] - 05/04/2025 5:19 PM VOCATIONAL AIDE Has the patient had Daratumumab or Isatuximab in the past 6 months?->Unknown Aliza Roy MD LAB BLOOD BANK TEST ORDER JAMI Final Result Performing Organization Address [facility] Co de Phone Number [place] [address] * Prepare RBC: 1 Units (05/04/2025 2:36 PM VOCATIONAL AIDE) [facility] Product code [id number] Unit Number [id number] [facility] Product Blood Type OPOS [facility] Dispense Status PRESUMED TRANSFUSED [facility] Blood 05/04/2025 2:36 PM VOCATIONAL AIDE 05/04/2025 2:36 PM VOCATIONAL AIDE Narrative [facility] - 05/05/2025 6:00 AM VOCATIONAL AIDE Are special requirements needed? (All products are leukoreduced and CMV- safe)- >No Date required:-[id number] LRRBC # of [id number] Reasons:-Hgb <7 g/dL} us Aliza Roy MD BLOOD BANK PRODUCT ORDERA BLES Final Result Performing Organization Address [facility]/ZIP Co de Phone Number [facility] [place] [address] * (ABNORMAL) Hemoglobin and hematocrit (05/04/2025 1:43 PM VOCATIONAL AIDE) [facility] Hgb 6.7(L) 13.0 - 17.5 g/dL Hct 19.0(L) 38.9 - 50.3 % [facility] Blood 05/04/2025 1:43 PM VOCATIONAL AIDE 05/04/2025 2:02 PM VOCATIONAL AIDE us Aliza Roy MD LAB BLOOD ORDERAB[place] [address] * eGFR (05/04/2025 11:40 AM VOCATIONAL AIDE) [facility] eGFR >90 >=60 mL/min/1. 73 m2 Comment: [...] interpretive data was last reviewed 2021. Blood 05/04/2025 11:4 0 AM VOCATIONAL AIDE 05/04/2025 11:58 AM VOCATIONAL AIDE us Aliza Roy MD LAB BLOOD ORDERABLES Katie felix Result [facility] [place] [address] * (ABNORMAL) CBC with auto differential (05/04/2025 11:40 AM VOCATIONAL AIDE) WBC 7.90 3.80 - 9.90 K/cumm Hgb 6.9(L) 13.0 - 17.5 g/dL [facility] Hct 20.1(L) 38.9 - 50.3 % [facility] Plt 64(L) 150 - 400 K/cumm [facility] MPV 13.6(H) 9.1 - 12.3 fL [facility] RBC 2.49(L) 4.30 - 5.80 M/cumm [facility] MCV 80.7(L) 81.3 - 96.4 fL [facility] MCH 27.7 27.1 - 33.3 pg [facility] MCHC 34.3 32.3 - 35.7 g/dL [facility] RDW CV 14.8 11.1 - 14.9 % [facility] RDW SD 43.5 35.7 - 48.1 fL [facility] NRBC abs 0.84(H) 0.00 - 0.01 K/cumm [facility] Morphologic Screen Results confirmed by manual morphology review. [facility] Blood 05/04/2025 11:4 0 AM VOCATIONAL AIDE 05/04/2025 11:58 AM VOCATIONAL AIDE Aliza Roy MD LAB BLOOD ORDERABLES Edit ed Result - Final [facility] [place] [address] * (ABNORMAL) Manual Differential (05/04/2025 11:40 AM VOCATIONAL AIDE) Differential Manual Cells Counted 100 [facility] Neutrophil abs 6.16 1.50 - 6.50 K/cumm [facility] Imm gran abs 0.32(H) 0.00 - 0.10 K/cumm [facility] Lymphocyte abs 0.16(L) 0.80 - 3.30 K/cumm [facility] Monocyte abs 0.95(H) 0.20 - 0.80 K/cumm [facility] Eosinophil abs 0.32 0.00 - 0.50 K/cumm [facility] Neutrophil pct 78.0 % [facility] Comment: Interpretive Data Percent cell count reference ranges are not reported, since discordance with absolute values may lead to misinterpretation of CBC data. Current Interpretive Data was last revised on 2017. Lymphocyte pct 2.0 % [facility] Comment: Interpretive Data Percent cell count reference ranges are not reported, since discordance with absolute values may lead to misinterpretation of CBC data. Current Interpretive Data was last revised on 2017. Monocyte pct 12.0 % [facility] Comment: Interpretive Data Percent cell count reference ranges are not reported, since discordance with absolute values may lead to misinterpretation of CBC data. Current Interpretive Data was last revised on 2017. Eosinophil pct 4.0 % [facility] Comment: Interpretive Data Percent cell count reference ranges are not reported, since discordance with absolute values may lead to misinterpretation of CBC data. Current Interpretive Data was last revised on 2017. Metamyelocyte pct 2.0(H) 0.0 - 0.0 % [facility] Myelocyte pct 2.0(H) 0.0 - 0.0 % [facility] Blood 05/04/2025 11:4 0 AM VOCATIONAL AIDE 05/04/2025 12:04 PM VOCATIONAL AIDE Aliza Roy MD LAB BLOOD ORDERABLES Katie l Result Performing Organization Address City/State/[facility] Co de Phone Number [facility] [place] [place] [address] * Phosphorus (05/04/2025 11:40 AM VOCATIONAL AIDE) Pathologist [facility] Phosphorus, pl 4.3 2.3 - 4.5 mg/dL Blood 05/04/2025 11:4 0 AM VOCATIONAL AIDE 05/04/2025 11:54 AM VOCATIONAL AIDE Aliza Roy MD LAB BLOOD ORDERABLES Katie l Result Performing Organization Address [facility] Co de Phone Number [facility] [place] [place] [address] * Magnesium (05/04/2025 11:40 AM VOCATIONAL AIDE) Pathologist [facility] Magnesium 1.8 1.4 - 2.5 mg/dL Blood 05/04/2025 11:4 0 AM VOCATIONAL AIDE 05/04/2025 11:54 AM VOCATIONAL AIDE Aliza Roy MD LAB BLOOD ORDERABLES Katie l Result Performing Organization Address City/[facility] Co de Phone Number [facility] [place] [place] [address] * (ABNORMAL) Comprehensive metabolic panel (05/04/2025 11:40 AM VOCATIONAL AIDE) Pathologist [facility] Sodium 134(L) 135 - 145 mmol/L Potassium, pl 3.6 3.3 - 4.9 mmol/L [facility] Comment:Hemolyzed; Potassium value may be falsely elevated by as much as 0.6-1.0 mmol/L. Suggest redraw and reanalysis. Chloride 98 97 - 110 mmol/L [facility] CO2 30 22 - 32 mmol/L [facility] Anion gap 6 2 - 15 mmol/L [facility] BUN 14 6 - 25 mg/dL [facility] Creatinine 0.79(L) 0.80 - 1.30 mg/dL [facility] Glucose 114 70 - 199 mg/dL [facility] Comment: Interpretive Data Fasting glucose >/= 126 [...] interpretive data was last revised 2022. Calcium 8.2(L) 8.5 - 10.3 mg/dL [facility] Bilirubin, total 0.7 0.1 - 1.2 mg/dL [facility] Protein, pl 5.9(L) 6.5 - 8.5 g/dL [facility] Albumin 2.3(L) 3.5 - 5.0 g/dL [facility] Alk phos 841(H) 40 - 130 Units/L [facility] ALT 104(H) 7 - 55 Units/L [facility] AST 354(H) 10 - 50 Units/L [facility] Comment:Hemolyzed; result ma y be falsely elevated Blood 05/04/2025 11:4 0 AM VOCATIONAL AIDE 05/04/2025 11:54 AM VOCATIONAL AIDE us Aliza Roy MD LAB BLOOD ORDERABLES Katie felix Result [facility] [place] [address] * eGFR (05/03/2025 2:01 PM VOCATIONAL AIDE) eGFR >90 >=60 mL/min/1. 73 m2 Comment: [...] interpretive data was last reviewed 2021. Blood 05/03/2025 2:01 PM VOCATIONAL AIDE 05/03/2025 2:30 PM VOCATIONAL AIDE Aliza Roy MD LAB BLOOD ORDERABLES Katie felix Result [facility] [place] [address] * (ABNORMAL) Comprehensive metabolic panel (05/03/2025 2:01 PM VOCATIONAL AIDE) Sodium 136 135 - 145 mmol/L Potassium, pl See Comment 3.3 - 4.9 mmol/L [facility] Comment:Credited; Hemolyzed Specimen Chloride 101 97 - 110 mmol/L [facility] CO2 27 22 - 32 mmol/L [facility] Anion gap 8 2 - 15 mmol/L [facility] BUN 18 6 - 25 mg/dL [facility] Creatinine 0.83 0.80 - 1.30 mg/dL [facility] Glucose 132 70 - 199 mg/dL [facility] Comment: Interpretive Data Fasting glucose >/= 126 [...] classification and Diagnosis of Diabetes Diabetes Care 202; 46: S19-S40. Current interpretive data was last revised 2022. Calcium 9.3 8.5 - 10.3 mg/dL [facility] Bilirubin, total 0.7 0.1 - 1.2 mg/dL [facility] Protein, pl 6.3(L) 6.5 - 8.5 g/dL [facility] Albumin 2.2(L) 3.5 - 5.0 g/dL [facility] Alk phos 888(H) 40 - 130 Units/L [facility] Comment:Hemolyzed; result ma y be falsely decreased ALT See Comment 7 - 55 Units/L [facility] Comment:Credited; Hemolyzed Specimen AST See Comment 10 - 50 Units/L [facility] Comment:Credited; Hemolyzed Specimen Blood 05/03/2025 2:01 PM VOCATIONAL AIDE 05/03/2025 2:30 PM VOCATIONAL AIDE us Aliza Roy MD LAB BLOOD ORDERABLES Katie felix Result [facility] [place] [address] * eGFR (05/03/2025 11:30 AM VOCATIONAL AIDE) eGFR >90 >=60 mL/min/1. 73 m2 Comment: [...] of Race in Diagnosing Kidney Disease, JASN 202). The CKD-EPI equation should not be used for patients with unstable renal function and has not been validated in children and those over 70. Current interpretive data was last reviewed 2021. Blood 05/03/2025 11:3 0 AM VOCATIONAL AIDE 05/03/2025 11:48 AM VOCATIONAL AIDE us Aliza Roy MD LAB BLOOD ORDERABLES Katie felix Result [facility] [place] [address] * (ABNORMAL) CBC with auto differential (05/03/2025 11:30 AM VOCATIONAL AIDE) [facility] WBC 5.65 3.80 - 9.90 K/cumm Hgb 7.7(L) 13.0 - 17.5 g/dL [facility] Hct 20.8(L) 38.9 - 50.3 % [facility] Plt 115(L) 150 - 400 K/cumm [facility] Comment:No clot detected in sample. MPV 13.4(H) 9.1 - 12.3 fL [facility] RBC 2.60(L) 4.30 - 5.80 M/cumm [facility] MCV 80.0(L) 81.3 - 96.4 fL [facility] MCH 29.6 27.1 - 33.3 pg [facility] MCHC 37.0(H) 32.3 - 35.7 g/dL [facility] RDW CV 14.7 11.1 - 14.9 % [facility] RDW SD 42.6 35.7 - 48.1 fL [facility] NRBC abs 0.81(H) 0.00 - 0.01 K/cumm [facility] Morphologic Screen Results confirmed by manual morphology review. [facility] Blood 05/03/2025 11:3 0 AM VOCATIONAL AIDE 05/03/2025 11:48 AM VOCATIONAL AIDE Aliza Roy MD LAB BLOOD ORDERABLES Katie elvira Result [facility] [place] [address] * (ABNORMAL) Manual Differential (05/03/2025 11:30 AM VOCATIONAL AIDE) Differential Manual Cells Counted 113 [facility] Neutrophil abs 2.95 1.50 - 6.50 K/cumm [facility] Imm gran abs 0.50(H) 0.00 - 0.10 K/cumm [facility] Lymphocyte abs 1.35 0.80 - 3.30 K/cumm [facility] Monocyte abs 0.45 0.20 - 0.80 K/cumm [facility] Eosinophil abs 0.35 0.00 - 0.50 K/cumm [facility] Basophil abs 0.05 0.00 - 0.10 K/cumm [facility] Neutrophil pct 52.2 % [facility] Comment: Interpretive Data Percent cell count reference ranges are not reported, since discordance with absolute values may lead to misinterpretation of CBC data. Current Interpretive Data was last revised on 2017. Lymphocyte pct 17.7 % [facility] Comment: Interpretive Data Percent cell count reference ranges are not reported, since discordance with absolute values may lead to misinterpretation of CBC data. Current Interpretive Data was last revised on 2017. Monocyte pct 8.0 % [facility] Comment: Interpretive Data Percent cell count reference ranges are not reported, since discordance with absolute values may lead to misinterpretation of CBC data. Current Interpretive Data was last revised on 2017. Eosinophil pct 6.2 % [facility] Comment: Interpretive Data Percent cell count reference ranges are not reported, since discordance with absolute values may lead to misinterpretation of CBC data. Current Interpretive Data was last revised on 2017. Basophil pct 0.9 % [facility] Comment: Interpretive Data Percent cell count reference ranges are not reported, since discordance with absolute values may lead to misinterpretation of CBC data. Current Interpretive Data was last revised on 2017. Metamyelocyte pct 4.4(H) 0.0 - 0.0 % [facility] Myelocyte pct 4.4(H) 0.0 - 0.0 % [facility] Variant lymph pct 6.2(H) 0.0 - 0.0 % [facility] Blood 05/03/2025 11:3 0 AM VOCATIONAL AIDE 05/03/2025 11:52 AM VOCATIONAL AIDE Aliza Roy MD LAB BLOOD ORDERABLES Katie l Result Performing Organization Address [facility] de Phone Number [facility] [place] [address] * (ABNORMAL) Phosphorus (05/03/2025 11:30 AM VOCATIONAL AIDE) Phosphorus, pl 5.6(H) 2.3 - 4.5 mg/dL Comment:Hemolyzed; result ma y be falsely elevated Blood 05/03/2025 11:3 0 AM VOCATIONAL AIDE 05/03/2025 11:39 AM VOCATIONAL AIDE Result [facility] Aliza Roy MD LAB BLOOD ORDERABLES Katie l Result Performing Organization Address [facility] Co de Phone Number [facility] [place] [address] * Magnesium (05/03/2025 11:30 AM VOCATIONAL AIDE) Magnesium 1.9 1.4 - 2.5 mg/dL Blood 05/03/2025 11:3 0 AM VOCATIONAL AIDE 05/03/2025 11:39 AM VOCATIONAL AIDE Aliza Roy MD LAB BLOOD ORDERABLES Katie l Result [facility] [place] [address] * (ABNORMAL) Comprehensive metabolic panel (05/03/2025 11:30 AM VOCATIONAL AIDE) Sodium 135 135 - 145 mmol/L Potassium, pl See Comment 3.3 - 4.9 mmol/L [facility] Comment:Credited; Hemolyzed Specimen Chloride 98 97 - 110 mmol/L [facility] CO2 28 22 - 32 mmol/L [facility] Anion gap 9 2 - 15 mmol/L [facility] BUN 20 6 - 25 mg/dL [facility] Creatinine 0.84 0.80 - 1.30 mg/dL [facility] Glucose 127 70 - 199 mg/dL [facility] Comment: Interpretive Data Fasting glucose >/= 126 [...] interpretive data was last revised 2022. Calcium 9.4 8.5 - 10.3 mg/dL [facility] Bilirubin, total 0.6 0.1 - 1.2 mg/dL [facility] Protein, pl 6.5 6.5 - 8.5 g/dL [facility] Albumin 2.3(L) 3.5 - 5.0 g/dL [facility] Alk phos 901(H) 40 - 130 Units/L [facility] Comment:Hemolyzed; result ma y be falsely decreased ALT See Comment 7 - 55 Units/L [facility] Comment:Credited; Hemolyzed Specimen AST See Comment 10 - 50 Units/L [facility] Comment:Credited; Hemolyzed Specimen Blood 05/03/2025 11:3 0 AM VOCATIONAL AIDE 05/03/2025 11:39 AM VOCATIONAL AIDE Result [facility] Aliza Roy MD LAB BLOOD ORDERABLES Katie l Result Performing Organization Address City/[facility]/ZIP Co de Phone Number [facility] [place] [address] * Potassium, whole blood (05/02/2025 12:44 PM VOCATIONAL AIDE) [facility] Potassium, bld 4.1 3.3 - 4.9 mmol/L Blood 05/02/2025 12:4 4 PM VOCATIONAL AIDE 05/02/2025 12:57 PM VOCATIONAL AIDE Result [facility] Aliza Roy MD LAB BLOOD ORDERABLES Katie l Result Performing Organization Address [facility] de Phone Number [facility] [place] [address] * Herpes Simplex Virus (HSV) PCR Oral (05/02/2025 12:30 PM VOCATIONAL AIDE) [facility] HSV DNA Not Detected Not Detected [facility] Comment: Interpretive Data This assay is performed using primers specific for the DNA polymerase gene of both HSV-1 and HSV-2. The assay contains unique primer/probe sets capable of distinguishing between HSV-1 and HSV-2. This assay has been cleared by the U.S. Food and Drug Administration for performance on cerebrospinal fluid and genital swabs. The assay has been evaluated for use on alternative sample types, though it is not FDA cleared for these applications. The performance of all sample types has been validated by the performing laboratory and deemed acceptable for patient testing. Current Interpretive Data was last reviewed on 10/26/2018 Oral 05/02/2025 12:3 0 PM VOCATIONAL AIDE 05/02/2025 1:03 PM VOCATIONAL AIDE Narrative [facility] - 05/02/2025 10:12 PM VOCATIONAL AIDE Throat swab Result [facility] Aliza Roy MD LAB MICROBIOLOGY - GENERA L ORDERABLES Final Result Performing Organization Address City/[facility] Phone Number [facility] [place] [address] [facility] * eGFR (05/02/2025 9:58 AM VOCATIONAL AIDE) eGFR >90 >=60 mL/min/1. 73 m2 Comment: [...] interpretive data was last reviewed 2021. Blood 05/02/2025 9:58 AM VOCATIONAL AIDE 05/02/2025 10:09 AM VOCATIONAL AIDE us Aliza Roy MD LAB BLOOD ORDERABLES Katie l Result Performing Organization Address City/[facility]/ZIP Co de Phone Number [facility] [place] [address] * Phosphorus (05/02/2025 9:58 AM VOCATIONAL AIDE) Pathologist [facility] Phosphorus, pl 4.5 2.3 - 4.5 mg/dL Blood 05/02/2025 9:58 AM VOCATIONAL AIDE 05/02/2025 10:09 AM VOCATIONAL AIDE Aliza Roy MD LAB BLOOD ORDERABLES Katie l Result [facility] [place] [address] * Magnesium (05/02/2025 9:58 AM VOCATIONAL AIDE) Pathologist [facility] Magnesium 2.2 1.4 - 2.5 mg/dL Blood 05/02/2025 9:58 AM VOCATIONAL AIDE 05/02/2025 10:09 AM VOCATIONAL AIDE Aliza Roy MD LAB BLOOD ORDERABLES Katie felix Result [facility] [place] [address] * (ABNORMAL) Basic metabolic panel (05/02/2025 9:58 AM VOCATIONAL AIDE) Pathologist [facility] Sodium 133(L) 135 - 145 mmol/L Potassium, pl 3.8 3.3 - 4.9 mmol/L [facility] Comment:Hemolyzed; Potassium value may be falsely elevated by as much as 0.6-1.0 mmol/L. Suggest redraw and reanalysis. Chloride 96(L) 97 - 110 mmol/L [facility] CO2 25 22 - 32 mmol/L [facility] Anion gap 12 2 - 15 mmol/L [facility] BUN 22 6 - 25 mg/dL [facility] Creatinine 0.96 0.80 - 1.30 mg/dL [facility] Glucose 113 70 - 199 mg/dL [facility] Comment: Interpretive Data Fasting glucose >/= 126 [...] interpretive data was last revised 2022. Calcium 9.1 8.5 - 10.3 mg/dL [facility] Blood 05/02/2025 9:58 AM VOCATIONAL AIDE 05/02/2025 10:09 AM VOCATIONAL AIDE Aliza Roy MD LAB BLOOD ORDERABLES Katie felix Result [facility] [place] [address] * XR Chest 1 View (05/01/2025 8:53 PM VOCATIONAL AIDE) Anatomical Region Laterality Modality Body, Chest N/A Digital Radiogra phy 05/02/2025 9:52 AM VOCATIONAL AIDE Impressions 05/02/2025 9:52 AM VOCATIONAL AIDE Lungs are clear. No pneumonia or other pulmonary disease identified. Small nodular opacity projecting in the right midlung likely represents a nipple shadow. Stable cardiomediastinal silhouette. No pleural effusion or pneumothorax. Electronically signed by: Teo Cuellar M.D. Narrative 05/02/2025 9:52 AM VOCATIONAL AIDE EXAMINATION: 1 view chest radiograph COMPARISON: Radiograph 04/26/[address] 04/27/2025 Procedure Note Teo Cuellar MD - 05/02/2025 EXAMINATION: 1 view chest radiograph COMPARISON: Radiograph 04/26/[address] 04/27/2025 IMPRESSION: Lungs are clear. No pneumonia or other pulmonary disease identified. Small nodular opacity projecting in the right midlung likely represents a nipple shadow. Stable cardiomediastinal silhouette. No pleural effusion or pneumothorax. Electronically signed by: Teo Cuellar M.D. Aliza Roy MD IMG XR PROCEDURES Final R esult * (ABNORMAL) Pneumonia PCR Bronchoalveolar lavage Lung (05/01/2025 2:42 PM VOCATIONAL AIDE) C. pneumoniae DNA Not Detected Not Detected Legionella pneumophila DNA Not Detected Not Detected [facility] M. pneumoniae DNA Not Detected Not Detected [facility] Adenovirus DNA Not Detected Not Detected [facility] Coronavirus (229E, OC43, HKU1, NL63) RNA Not Detected Not Detected [facility] Metapneumovirus RNA Not Detected Not Detected [facility] Rhinovirus/Enterov irus RNA Detected(A) Not Detected [facility] Influenza A RNA Not Detected Not Detected [facility] Influenza B RNA Not Detected Not Detected [facility] Parainfluenza virus (1-4) RNA Not Detected Not Detected [facility] RSV RNA Not Detected Not Detected [facility] Bronchoalveolar lavage (Lung) 05/01/2025 2:42 PM VOCATIONAL AIDE 05/01/2025 9:16 PM VOCATIONAL AIDE Narrative [facility] - 05/01/2025 10:38 PM VOCATIONAL AIDE The BioFire Pneumonia Panel is a multiplexed nucleic acid test capable of simultaneous detection and identification of multiple respiratory viruses and bacteria. This panel detects Adenovirus, coronaviruses (Coronavirus HKU1, Coronavirus NL63, Coronavirus 229E, and Coronavirus OC43), Influenza A, Influenza B, Human metapneumovirus, Parainfluenza (1-4), RSV, Rhinovirus/Enterovirus, Chlamydia pneumoniae, Mycoplasma pneumoniae, and Legionella pneumophila. Additional aerobic bacterial targets are reported with the accompanying culture results with the same accession number. Rhinovirus and Enterovirus are genetically similar and cannot be reliably differentiated with this method. Negative adenovirus results should be confirmed by an alternative methodology (i.e. standalone PCR) if the suspicion for adenovirus infection is high. The results of this test must be considered in the clinical context of the patient and should not be used as the sole basis for diagnosis, treatment, or other management decisions. Negative results in the setting of a respiratory illness may be due to infection with pathogens that are not detected by this test. Positive results do not rule out infection/co-infection with other organisms. The BioFire Pneumonia Panel is FDA cleared for lower respiratory tract specimens. The performance characteristics of this assay have been determined by [facility]. Current interpretive data was last revised on 2024. Aliza Roy MD LAB MICROBIOLOGY - GENERA L ORDERABLES Final Result [facility] [place] [address] * (ABNORMAL) Pneumonia PCR with aerobic culture and Gram stain Bronchoalveolar lavage Lung (05/01/2025 2:42 PM VOCATIONAL AIDE) Direct Specimen Exam Molecular Analysis: 10^4 copies/mL Staphylococcus aureus Methicillin resistant Staphylococcus aureus (MRSA) detected by molecular analysis. Correlation of molecular analysis with final culture results is recommended. Direct Specimen Exam Stain: Cytospin Gram stain shows: Few polymorphonuclear leukocytes seen. Few squamous epithelial cells seen. Other cellular material present. No organisms seen. [facility] Report Final Report: Greater than or equal to 1,000 colonies/ml of Yeast Faby pneumonia is very rare and requires a histopathological diagnosis. The recovery of these organisms in routine culture, in most cases, only represents overgrowth of the organism secondary to antimicrobial therapy. Please contact the microbiology laboratory at [phone] if identification or susceptibility testing is clinically indicated. Plus growth of clinically insignificant bacterial stella. (.) [facility] Organism PLUS GROWTH OF CLINICALLY INSIGNIFICANT STELLA. [facility] Organism YEAST [facility] Bronchoalveolar lavage (Lung) 05/01/2025 2:42 PM VOCATIONAL AIDE 05/01/2025 8:32 PM VOCATIONAL AIDE Narrative [facility] - 05/05/2025 10:54 AM VOCATIONAL AIDE When rapid molecular testing results are reported, testing completed using the Snapette Pneumonia Panel. This molecular assay detects: Acinetobacter calcoaceticus-baumannii complex, Enterobacter cloacae complex, Escherichia coli, Haemophilus influenzae, Enterobacter (Klebsiella) aerogenes, Klebsiella oxytoca, Klebsiella pneumoniae group, Moraxella catarrhalis, Proteus spp., Pseudomonas aeruginosa, Serratia marcescens, Staphylococcus aureus, Streptococcus agalactiae, Streptococcus pneumoniae, and Streptococcus pyogenes. These bacteria are detected and reported semi-quantitatively with bins representing approximately 10^4, 10^5, 10^6, or greater than or equal to 10^7 genomic copies of bacterial nucleic acid per mL (copies/mL) of specimen. These quantities are reported to aid in estimating the relative abundance of organism(s) detected within the specimen and to correlate these results with culture results. For Staphylococcus aureus, mecA/C and MREJ genes are evaluated to predict methicillin resistance or susceptibility. For Gram-negative bacteria, the beta-lactamases CTX-M, IMP, KPC, NDM, VIM and OXA-48-like are evaluated and reported if detected. For Gram-negative organisms, the absence of detection of resistance markers does not exclude resistance. Correlation with final culture results and susceptibility testing is recommended. The FilmArray Pneumonia Panel is cleared by the [place] Food and Drug Administration and its performance characteristics have been confirmed by the [facility]. The performance of the FilmArray Pneumonia Panel has not been established for monitoring treatment of infection and bacterial nucleic acids may persist independent of organism viability. Aliza Roy MD LAB MICROBIOLOGY - GENERA L ORDERABLES Final Result Performing Organization Address [facility] [place] [address] * Cytomegalovirus (CMV) PCR qualitative Bronchoalveolar lavage (05/01/2025 2:42 PM VOCATIONAL AIDE) Pathologist [facility] CMV DNA Not Detected Not Detected [facility] Comment: Interpretive Data: This assay tests for the presence of CMV. This test is laboratory developed and its performance characteristics were determined by the performing laboratory in a manner consistent with CLIA requirements. This test has not been cleared or approved by the U.S. Food and Drug Administration. Current Interpretive Data was last revised on 2019. Bronchoalveolar lavage 05/01 2:42 PM VOCATIONAL AIDE 05/01/2025 9:04 PM VOCATIONAL AIDE Aliza Roy MD LAB MICROBIOLOGY - GENERA L ORDERABLES Final Result Performing Organization Address [facility] [place] [address] [facility] * Adenovirus PCR qualitative Bronchoalveolar lavage (05/01/2025 2:42 PM VOCATIONAL AIDE) Pathologist [facility] Adenovirus DNA Not Detected Not Detected [facility] Comment: Interpretive Data: This assay tests for the presence of Adenovirus. This test is laboratory developed and its performance characteristics were determined by the performing laboratory in a manner consistent with CLIA requirements. This test has not been cleared or approved by the U.S. Food and Drug Administration. Current Interpretive Data was last revised on 2019. Bronchoalveolar lavage 05/01 2:42 PM VOCATIONAL AIDE 05/01/2025 9:04 PM VOCATIONAL AIDE Aliza Roy MD LAB MICROBIOLOGY - GENERA L ORDERABLES Final Result Performing Organization Address [facility] [place] [address] [facility] * Herpes Simplex Virus (HSV) PCR Bronchoalveolar lavage (05/01/2025 2:42 PM VOCATIONAL AIDE) HSV DNA Not Detected Not Detected [facility] Comment: Interpretive Data This assay is performed using primers specific for the DNA polymerase gene of both HSV-1 and HSV-2. The assay contains unique primer/probe sets capable of distinguishing between HSV-1 and HSV-2. This assay has been cleared by the U.S. Food and Drug Administration for performance on cerebrospinal fluid and genital swabs. The assay has been evaluated for use on alternative sample types, though it is not FDA cleared for these applications. The performance of all sample types has been validated by the performing laboratory and deemed acceptable for patient testing. Current Interpretive Data was last reviewed on 10/26/2018 Bronchoalveolar lavage 05/01 2:42 PM VOCATIONAL AIDE 05/01/2025 9:04 PM VOCATIONAL AIDE Aliza Roy MD LAB MICROBIOLOGY - GENERA L ORDERABLES Final Result Performing Organization Address [facility] [place] [address] [facility] * (ABNORMAL) Aerobic culture and gram stain Bronchial washing Bronchial (05/01/2025 2:42 PM VOCATIONAL AIDE) Direct Specimen Exam Stain: Cytospin Gram stain shows: Rare polymorphonuclear leukocytes seen. Few squamous epithelial cells seen. Other cellular material present. Rare Mixed bacterial stella seen on Gram stain. Report Final Report: 10,000 to 100,000 colonies/mL of Yeast Faby pneumonia is very rare and requires a histopathological diagnosis. The recovery of these organisms in routine culture, in most cases, only represents overgrowth of the organism secondary to antimicrobial therapy. Please contact the microbiology laboratory at [phone] if identification or susceptibility testing is clinically indicated. Plus growth of clinically insignificant bacterial stella. (.) [facility] Organism YEAST [facility] Organism PLUS GROWTH OF CLINICALLY INSIGNIFICANT STELLA. [facility] Bronchial washing (Bronchial) 05/01/2025 2:42 PM VOCATIONAL AIDE 05/01/2025 5:40 PM VOCATIONAL AIDE Narrative [facility] - 05/04/2025 2:09 PM VOCATIONAL AIDE Testing performed by [facility] Microbiology Laboratory ([phone]) Specimens submitted from normally sterile body sites will have all bacterial morphotypes identified. Specimens that contain grossly mixed stella and/or are from body sites that are not normally sterile will be examined for Staphylococcus aureus, Pseudomonas aeruginosa, beta-hemolytic strep, vancomycin-resistant Enterococcus and fungus. If any of these are isolated, the organism will be reported. Current interpretive data was last revised on 2016. Aliza Roy MD LAB MICROBIOLOGY - GENERA L ORDERABLES Final Result [facility] [place] [address] * (ABNORMAL) Respiratory pathogen panel Bronchoalveolar lavage Tracheal (05/01/2025 2:42 PM VOCATIONAL AIDE) Influenza A RNA Not Detected Not Detected Influenza B RNA Not Detected Not Detected [facility] RSV RNA Not Detected Not Detected [facility] COVID-19 RNA Not Detected Not Detected [facility] Coronavirus 229E RNA Not Detected Not Detected [facility] Coronavirus HKU1 RNA Not Detected Not Detected [facility] Coronavirus NL63 RNA Not Detected Not Detected [facility] Coronavirus OC43 RNA Not Detected Not Detected [facility] Adenovirus DNA Not Detected Not Detected [facility] Metapneumovirus RNA Not Detected Not Detected [facility] Rhinovirus/Enterov irus RNA Detected(A) Not Detected [facility] Parainfluenza 1 RNA Not Detected Not Detected [facility] Parainfluenza 2 RNA Not Detected Not Detected [facility] Parainfluenza 3 RNA Not Detected Not Detected [facility] Parainfluenza 4 RNA Not Detected Not Detected [facility] B. pertussis DNA Not Detected Not Detected [facility] B. parapertussis DNA Not Detected Not Detected [facility] C. pneumoniae DNA Not Detected Not Detected [facility] M. pneumoniae DNA Not Detected Not Detected [facility] Bronchoalveolar lavage (Tracheal) 05/01/2025 2:42 PM VOCATIONAL AIDE 05/01/2025 9:04 PM VOCATIONAL AIDE Narrative [facility] - 05/01/2025 9:57 PM VOCATIONAL AIDE Is the Patient experiencing symptoms consistent with COVID?->No Surveillance testing for transplant patient?->No Interpretive Data The Austral 3D FilmArray Respiratory Panel (RP2.1) assay is a multiplexed real-time PCR based nucleic acid test capable of simultaneous qualitative detection and identification of multiple respiratory viral and bacterial nucleic acids, including SARS Coronavirus 2 (the causative agent of COVID-19). The following bacteria, viruses and virus subtypes can be identified using the FilmArray RP2.1 assay: Bordetella pertussis, Bordetella parapertussis, Chlamydia pneumoniae, Mycoplasma pneumoniae, Adenovirus, SARS Coronavirus 2, seasonal coronaviruses (Coronavirus HKU1, Coronavirus NL63, Coronavirus 229E, and Coronavirus OC43), Influenza A, Influenza A subtype H1, Influenza A subtype H3, Influenza A subtype 2009 H1, Influenza B, Metapneumovirus, Parainfluenza 1, Parainfluenza 2, Parainfluenza 3, Parainfluenza 4, RSV, Rhinovirus/Enterovirus. Due to the genetic similarity between human Rhinovirus and Enterovirus, the FilmArray RP2.1 assay cannot reliably differentiate them. Coronavirus OC43 may cross-react with some isolates of Coronavirus HKU1. A dual positive result may be due to cross-reactivity or may indicate a co- infection. The detection and identification of specific viral and bacterial nucleic acids from individuals exhibiting signs and symptoms of a respiratory infection aids in the diagnosis of respiratory infection if used in conjunction with other clinical and epidemiological information. The results of this test should not be used as the sole basis for diagnosis, treatment, or other management decisions. Negative results in the setting of a respiratory illness may be due to infection with pathogens that are not detected by this test. Positive results do not rule out infection/co-infection with other organisms. The agent(s) detected by the FilmArray RP2.1 may not be the definite cause of disease. Additional testing (lab, imaging, etc.) may be necessary when evaluating a patient with possible respiratory tract infection. The FilmArray RP2.1 assay has FDA clearance for testing of PSYCHOLOGY PHYSICIAN swabs. The performance of additional specimen types has been assessed by the performing laboratory. The performance characteristics of this assay have been determined by [facility] Molecular Infectious Disease Laboratory. Current interpretive data was last revised on 22. Aliza Roy MD LAB MICROBIOLOGY - GENERA L ORDERABLES Final Result Performing Organization Address [facility] Co de Phone Number [facility] [place] [address] * Pneumocystis DFA Bronchoalveolar lavage Lung (05/01/2025 2:42 PM VOCATIONAL AIDE) Report Direct Stain Examination - Final: Negative for: Pneumocystis jirovecii Bronchoalveolar lavage (Lung) 05/01/2025 2:42 PM VOCATIONAL AIDE 05/01/2025 8:32 PM VOCATIONAL AIDE [facility] - 05/02/2025 2:54 PM VOCATIONAL AIDE The Pneumocystis organisms found in humans were originally referred to as P. carinii f. sp. Hominis, the subspecies name used to distinguish the Pneumocystis organisms found in humans from the Pneumocystis organisms found in other mammals. Recently the Pneumocystis organisms found in humans was recognized as a distinct species and renamed Pneumocystis jirovecii. Current interpretive data was last revised on 07. Aliza Roy MD LAB MICROBIOLOGY - GENERA L ORDERABLES Final Result Performing Organization Address [facility] Co de Phone Number [facility] [place] [address] * Legionella culture Bronchoalveolar lavage Lung (05/01/2025 2:42 PM VOCATIONAL AIDE) Report Final Report: Negative Bronchoalveolar lavage (Lung) 05/01/2025 2:42 PM VOCATIONAL AIDE 05/01/2025 8:32 PM VOCATIONAL AIDE Aliza Roy MD LAB MICROBIOLOGY - GENERA L ORDERABLES Final Result [facility] [place] [address] * BRONCHOALVEOLAR LAVAGE (05/01/2025 2:14 PM VOCATIONAL AIDE) Narrative Parrish Harper MD - 05/01/2025 2:14 PM VOCATIONAL AIDE Parrish Harper MD 05/01/2025 2:17 PM Bronchoalveloar Lavage Date/Time: 05/01/2025 2:14 PM Performed by: Odalys Ibrahim MD Authorized by: Parrish Harper MD [place] Protocol: RN Notified of Procedure: yes Informed consent: Risks, benefits, alternatives discussed and patient/sales representative education courses/guardian agrees and accepts Patient's stated name/ matches armband: Yes and patient unable to verbalize - armband matched to name and within medical record Consent form signed, dated, timed; matches correct patient, intended procedure and site: Yes Imaging: Pertinent imaging reviewed, correctly oriented and match to patient identifiers Lab/Diag test results: Pertinent lab/diag tests reviewed and match to patient identifiers Supplies, devices and special equipment are available: yes Site/side marked: yes Immediately prior to the procedure a time out was called: a verbal verification by the procedure participants confirmed correct patient identity, correct site/side marked and visible (if applicable); agreement on procedure to be done; and correct patient positioning Anesthesia (see MAR for exact dosage) Anesthesia method: Topical application Hand hygiene performed: Yes PPE (including eye protection) in place as appropriate to the procedure: Yes Procedure details: Bronchoscope inserted via the mouth, advanced to the RML, BAL performed, 100 cc instilled, 40 returned. Following BAL, airway inspection performed, no significant secretions or airway abnormalities. BAL sent for cultures. Patient tolerance: Patient tolerated the procedure well with no immediate complications Post Procedure Debrief: All guidewires, needles, sponges or other items are accounted for: yes Any special post procedure monitoring, testing or other considerations: yes (enter/request order) All specimens identified, labeled and matched to patient identification: yes Responsible democrat for transporting specimen(s) to lab determined: yes us Parrish Harper MD IN CLINIC/BEDSIDE ORDERABLES Final Result * eGFR (05/01/2025 10:59 AM VOCATIONAL AIDE) eGFR 89 >=60 mL/min/1. 73 m2 Comment: Interpretive Data [...] interpretive data was last reviewed 2021. Blood 05/01/2025 10:5 9 AM VOCATIONAL AIDE 05/01/2025 11:17 AM VOCATIONAL AIDE us Aliza Roy MD LAB BLOOD ORDERABLES Katie l Result [facility] Department of Laboratories [place], [place] [id number] * (ABNORMAL) Comprehensive metabolic panel (05/01/2025 10:59 AM VOCATIONAL AIDE) Sodium 131(L) 135 - 145 mmol/L Potassium, pl 4.1 3.3 - 4.9 mmol/L [facility] Comment:Hemolyzed; Potassium value may be falsely elevated by as much as 0.3-0.5 mmol/L. Suggest redraw and reanalysis. Chloride 95(L) 97 - 110 mmol/L [facility] CO2 24 22 - 32 mmol/L [facility] Anion gap 12 2 - 15 mmol/L [facility] BUN 19 6 - 25 mg/dL [facility] Creatinine 1.05 0.80 - 1.30 mg/dL [facility] Glucose 79 70 - 199 mg/dL [facility] Comment: Interpretive Data Fasting glucose >/= 126 [...] classification and Diagnosis of Diabetes Diabetes Care 202; 46: S19-S40. Current interpretive data was last revised 2022. Calcium 8.7 8.5 - 10.3 mg/dL [facility] Bilirubin, total 0.7 0.1 - 1.2 mg/dL [facility] Protein, pl 6.9 6.5 - 8.5 g/dL [facility] Albumin 2.6(L) 3.5 - 5.0 g/dL [facility] Alk phos 773(H) 40 - 130 Units/L [facility] ALT 121(H) 7 - 55 Units/L [facility] AST 886(H) 10 - 50 Units/L [facility] Comment:Hemolyzed; result ma y be falsely elevated Blood 05/01/2025 10:5 9 AM VOCATIONAL AIDE 05/01/2025 11:17 AM VOCATIONAL AIDE us Aliza Roy MD LAB BLOOD ORDERABLES Katie felix Result [facility] Department [place] [address] * (ABNORMAL) Histoplasma Antibody Blood (05/01/2025 6:26 AM VOCATIONAL AIDE) Histoplasma Ab, yeast CF 1:64(A) Negative [facility] Histoplasma Ab, Immunodiffusion M Band(A) Negative [facility] Comment: The presence of the M band may indicate current or past infection. Results should be interpreted in the context of clinical presentation and other laboratory findings (e.g., fungal culture). Test Performed by: [facility] - [facility] [address] [place] [address] Superintendent Maintenance: Nola Pritchard Ph.D.; CLIA# [id number] Blood 05/01/2025 6:26 AM VOCATIONAL AIDE 05/01/2025 7:57 AM VOCATIONAL AIDE us Aliza Roy MD LAB MICROBIOLOGY - GENERA L ORDERABLES Final Result [facility] [place] [address] [facility] * T-SPOT.TB Blood (05/01/2025 6:26 AM VOCATIONAL AIDE) [facility] T-SPOT.TB Negative SeeBelow Comment: Normal Value: Negative A negative test result does not exclude the possibility of exposure to or infection with Mycobacterium tuberculosis (M. tuberculosis). Patients with recent exposure to TB infected individuals exhibiting a negative T-SPOT.TB result should be considered for retesting within 6 weeks or if other relevant clinical symptoms indicate. Results from T-SPOT.TB testing must be used in conjunction with each individual's epidemiological history, current medical status, and results of other diagnostic evaluations. The T-SPOT.TB test is qualitative and results are reported as positive, borderline or negative, given that the test controls perform as expected. In line with the Centers for Disease Control and Prevention's 2010 recommendation to report quantitative measurements alongside the qualitative result, the laboratory provides spot counts for informational purposes only. The T-SPOT.TB test should not be interpreted as a quantitative test. T-SPOT.TB Panel A Spot Count 0 [facility] T-SPOT.TB Panel B Spot Count 0 [facility] T-SPOT.TB Negative Control Passed [facility] T-SPOT.TB Positive Control Passed [facility] Comment: Test Performed at: [facility] [address] [place] [id number] GIA MONTGOMERY,PHD Blood 05/01/2025 6:26 AM VOCATIONAL AIDE 05/01/2025 7:34 AM VOCATIONAL AIDE Aliza Roy MD LAB MICROBIOLOGY - GENERA L ORDERABLES Final Result Performing Organization Address [facility] Co de Phone Number [facility] [place] [address] * Ehrlichia and Anaplasma PCR Blood (05/01/2025 6:26 AM VOCATIONAL AIDE) Pathologist [facility] Ehrlichia species DNA Not Detected Not Detected [facility] Anaplasma Phagocytophilum DNA Not Detected Not Detected [facility] Comment: This assay tests for the presence of Anaplasma phagocytophilum, Ehrlichia chaffeensis, Ehrlichia ewingii and Ehrlichia canis. This test is laboratory developed and its performance characteristics were determined by the performing laboratory in a manner consistent with CLIA requirements. This test has not been cleared or approved by the U.S. Food and Drug Administration. Blood 05/01/2025 6:26 AM VOCATIONAL AIDE 05/01/2025 7:31 AM VOCATIONAL AIDE Aliza Roy MD LAB MICROBIOLOGY - GENERA L ORDERABLES Final Result Performing Organization Address [facility] Co de Phone Number [facility] [place] [address] [facility] * Francisella tularensis antibody Blood (05/01/2025 6:26 AM VOCATIONAL AIDE) Pathologist [facility] Francisella Tularensis IgG Negative Negative [facility] Francisella Tularensis IgM Negative Negative [facility] Francisella Tularensis Interp See Footnote [facility] Comment: No antibodies to Francisella tularensis detected. Antibody response may be negative in samples collected too soon following infection/exposure. Repeat testing on a new sample in 1-2 weeks if clinically indicated. Test Performed by: [facility] [place] [address] Superintendent Maintenance: Nola Pritchard Ph.D.; CLIA# [id number] Blood 05/01/2025 6:26 AM VOCATIONAL AIDE 05/01/2025 7:58 AM VOCATIONAL AIDE Aliza Roy MD LAB MICROBIOLOGY - GENERA L ORDERABLES Final Result Performing Organization Address [facility] de Phone Number [facility] [place] [address] [facility] * Bartonella antibody panel Blood (05/01/2025 6:26 AM VOCATIONAL AIDE) [facility] B Henselae, IgG <1:128 <1:[address] [facility] B Henselae, IgM <1:20 <1:20 titer [facility] B. Mak, IgG <1:128 <1:128 titer [facility] B. Mak, IgM <1:20 <1:20 titer [facility] Comment: ADDITIONAL INFORMATION This test was developed and its performance characteristics determined by [facility] in a manner consistent with CLIA requirements. This test has not been cleared or approved by the U.S. Food and Drug Administration. Test Performed by: [facility] [place] [address] Superintendent Maintenance: Nola Pritchard Ph.D.; CLIA# [id number] Blood 05/01/2025 6:26 AM VOCATIONAL AIDE 05/01/2025 7:57 AM VOCATIONAL AIDE us Aliza Roy MD LAB MICROBIOLOGY - GENERA L ORDERABLES Final Result Performing Organization Address [facility] Co de Phone Number [facility] [place] [address] [facility] * G6PD qualitative with reflex to quantitative (04/30/2025 8:30 PM VOCATIONAL AIDE) G6PD Normal Normal Comment: Interp data: G6PD activity should be interpreted in the context of a patient's hematocrit. Hematocrit < 20% may lead to a falsely deficient result, while hematocrit > 50% may lead to a falsely normal result. Current interpretive data was last revised on 2019. Blood 04/30/2025 8:30 PM VOCATIONAL AIDE 04/30/2025 11:38 PM VOCATIONAL AIDE us Aliza Roy MD LAB BLOOD ORDERABLES Katie l Result Performing Organization Address City/[facility]/ZIP Co de Phone Number [facility] [place] [address] * eGFR (04/30/2025 8:30 PM VOCATIONAL AIDE) eGFR 88 >=60 mL/min/1. 73 m2 Comment: Interpretive Data [...] interpretive data was last reviewed 2021. Blood 04/30/2025 8:30 PM VOCATIONAL AIDE 04/30/2025 11:47 PM VOCATIONAL AIDE us Aliza Roy MD LAB BLOOD ORDERABLES Katie l Result [facility] [place] [address] * (ABNORMAL) Differential, auto (04/30/2025 8:30 PM VOCATIONAL AIDE) Neutrophil abs 1.38(L) 1.50 - 6.50 K/cumm Imm gran abs 0.22(H) 0.00 - 0.10 K/cumm [facility] Lymphocyte abs 0.36(L) 0.80 - 3.30 K/cumm [facility] Monocyte abs 0.13(L) 0.20 - 0.80 K/cumm [facility] Eosinophil abs 0.10 0.00 - 0.50 K/cumm [facility] Basophil abs 0.03 0.00 - 0.10 K/cumm [facility] Neutrophil pct 62.1 % [facility] Comment: Interpretive Data Percent cell count reference ranges are not reported, since discordance with absolute values may lead to misinterpretation of CBC data. Current Interpretive Data was last revised on 2017. Imm gran pct 9.9 % [facility] Comment: Interpretive Data Percent cell count reference ranges are not reported, since discordance with absolute values may lead to misinterpretation of CBC data. Current Interpretive Data was last revised on 2017. Lymphocyte pct 16.2 % [facility] Comment: Interpretive Data Percent cell count reference ranges are not reported, since discordance with absolute values may lead to misinterpretation of CBC data. Current Interpretive Data was last revised on 2017. Monocyte pct 5.9 % [facility] Comment: Interpretive Data Percent cell count reference ranges are not reported, since discordance with absolute values may lead to misinterpretation of CBC data. Current Interpretive Data was last revised on 2017. Eosinophil pct 4.5 % [facility] Comment: Interpretive Data Percent cell count reference ranges are not reported, since discordance with absolute values may lead to misinterpretation of CBC data. Current Interpretive Data was last revised on 2017. Basophil pct 1.4 % [facility] Comment: Interpretive Data Percent cell count reference ranges are not reported, since discordance with absolute values may lead to misinterpretation of CBC data. Current Interpretive Data was last revised on 2017. Blood 04/30/2025 8:30 PM VOCATIONAL AIDE 04/30/2025 11:38 PM VOCATIONAL AIDE Aliza Roy MD LAB BLOOD ORDERABLES Katie felix Result Performing Organization Address [facility] Co de Phone Number [facility] [place] [address] * (ABNORMAL) CBC with auto differential (04/30/2025 8:30 PM VOCATIONAL AIDE) Pathologist [facility] WBC 2.22(L) 3.80 - 9.90 K/cumm Hgb 8.7(L) 13.0 - 17.5 g/dL [facility] Hct 24.5(L) 38.9 - 50.3 % [facility] Plt 67(L) 150 - 400 K/cumm [facility] MPV 11.4 9.1 - 12.3 fL [facility] RBC 3.06(L) 4.30 - 5.80 M/cumm [facility] MCV 80.1(L) 81.3 - 96.4 fL [facility] MCH 28.4 27.1 - 33.3 pg [facility] MCHC 35.5 32.3 - 35.7 g/dL [facility] RDW CV 14.6 11.1 - 14.9 % [facility] RDW SD 42.9 35.7 - 48.1 fL [facility] NRBC abs 0.38(H) 0.00 - 0.01 K/cumm [facility] Blood 04/30/2025 8:30 PM VOCATIONAL AIDE 04/30/2025 11:38 PM VOCATIONAL AIDE Aliza Roy MD LAB BLOOD ORDERABLES Katie felix Result Performing Organization Address [facility] Co de Phone Number [facility] [place] [address] * (ABNORMAL) Comprehensive metabolic panel (04/30/2025 8:30 PM VOCATIONAL AIDE) [facility] Sodium 130(L) 135 - 145 mmol/L Potassium, pl 4.2 3.3 - 4.9 mmol/L [facility] Comment:Hemolyzed; Potassium value may be falsely elevated by as much as 0.6-1.0 mmol/L. Suggest redraw and reanalysis. Chloride 93(L) 97 - 110 mmol/L [facility] CO2 25 22 - 32 mmol/L [facility] Anion gap 12 2 - 15 mmol/L [facility] BUN 22 6 - 25 mg/dL [facility] Creatinine 1.06 0.80 - 1.30 mg/dL [facility] Glucose 93 70 - 199 mg/dL [facility] Comment: Interpretive Data Fasting glucose >/= 126 [...] classification and Diagnosis of Diabetes Diabetes Care 202; 46: S19-S40. Current interpretive data was last revised 2022. Calcium 8.9 8.5 - 10.3 mg/dL [facility] Bilirubin, total 0.8 0.1 - 1.2 mg/dL [facility] Protein, pl 6.9 6.5 - 8.5 g/dL [facility] Albumin 2.5(L) 3.5 - 5.0 g/dL [facility] Alk phos 849(H) 40 - 130 Units/L [facility] ALT 125(H) 7 - 55 Units/L [facility] AST 845(H) 10 - 50 Units/L [facility] Comment:Hemolyzed; result ma y be falsely elevated Blood 04/30/2025 8:30 PM VOCATIONAL AIDE 04/30/2025 11:47 PM VOCATIONAL AIDE us Aliza Roy MD LAB BLOOD ORDERABLES Katie felix Result [facility] [place] [address] * (ABNORMAL) Immature platelet fraction (04/29/2025 8:47 PM CDT) Pathologist [facility] IPF 13.6(H) 1.6 - 10.1 % Blood 04/29/2025 8:47 PM CDT 04/29/2025 9:40 PM CDT us Aliza Roy MD LAB BLOOD ORDERABLES Katie l Result Performing Organization Address [facility] Co de Phone Number PHIL [facility] [place] [address] * eGFR (04/29/2025 8:47 PM CDT) [facility] eGFR >90 >=60 mL/min/1. 73 m2 Comment: [...] interpretive data was last reviewed 2021. Blood 04/29/2025 8:47 PM CDT 04/29/2025 9:30 PM CDT us Aliza Roy MD LAB BLOOD ORDERABLES Katie l Result [facility] [place] [address] * (ABNORMAL) CBC with auto differential (04/29/2025 8:47 PM CDT) Pathologist [facility] WBC 3.30(L) 3.80 - 9.90 K/cumm Hgb 8.8(L) 13.0 - 17.5 g/dL [facility] Hct 24.5(L) 38.9 - 50.3 % [facility] Plt 42(C) 150 - 400 K/cumm [facility] Comment:Platelet count confi rmed by additional testing. Critical platelet count threshold determined by patient location: Outpatient:<50 K/cumm , Inpatient adults:<20 K/cumm , Inpatient pediatric:<25 K/cumm, BMT service:<10 K/cumm MPV 13.3(H) 9.1 - 12.3 fL [facility] RBC 3.04(L) 4.30 - 5.80 M/cumm [facility] MCV 80.6(L) 81.3 - 96.4 fL [facility] MCH 28.9 27.1 - 33.3 pg [facility] MCHC 35.9(H) 32.3 - 35.7 g/dL [facility] RDW CV 14.4 11.1 - 14.9 % [facility] RDW SD 42.5 35.7 - 48.1 fL [facility] NRBC abs 0.29(H) 0.00 - 0.01 K/cumm [facility] Morphologic Screen Results confirmed by manual morphology review. [facility] Blood 04/29/2025 8:47 PM CDT 04/29/2025 9:39 PM CDT us Aliza Roy MD LAB BLOOD ORDERABLES Katie felix Result [facility] [place] [address] * (ABNORMAL) Manual Differential (04/29/2025 8:47 PM CDT) [facility] Differential Manual Cells Counted 116 [facility] Neutrophil abs 2.76 1.50 - 6.50 K/cumm [facility] Imm gran abs 0.28(H) 0.00 - 0.10 K/cumm [facility] Lymphocyte abs 0.25(L) 0.80 - 3.30 K/cumm [facility] Neutrophil pct 83.7 % [facility] Comment: Interpretive Data Percent cell count reference ranges are not reported, since discordance with absolute values may lead to misinterpretation of CBC data. Current Interpretive Data was last revised on 2017. Lymphocyte pct 6.0 % [facility] Comment: Interpretive Data Percent cell count reference ranges are not reported, since discordance with absolute values may lead to misinterpretation of CBC data. Current Interpretive Data was last revised on 2017. Metamyelocyte pct 5.2(H) 0.0 - 0.0 % [facility] Myelocyte pct 3.4(H) 0.0 - 0.0 % [facility] Variant lymph pct 1.7(H) 0.0 - 0.0 % [facility] Blood 04/29/2025 8:47 PM CDT 04/29/2025 9:40 PM CDT us Aliza Roy MD LAB BLOOD ORDERABLES Katie felix Result [facility] [place] [address] * (ABNORMAL) Comprehensive metabolic panel (04/29/2025 8:47 PM CDT) [facility] Sodium 131(L) 135 - 145 mmol/L Potassium, pl 4.0 3.3 - 4.9 mmol/L [facility] Chloride 97 97 - 110 mmol/L [facility] CO2 25 22 - 32 mmol/L [facility] Anion gap 9 2 - 15 mmol/L [facility] BUN 20 6 - 25 mg/dL [facility] Creatinine 1.00 0.80 - 1.30 mg/dL [facility] Glucose 160 70 - 199 mg/dL [facility] Comment: Interpretive Data Fasting glucose >/= 126 [...] classification and Diagnosis of Diabetes Diabetes Care 202; 46: S19-S40. Current interpretive data was last revised 2022. Calcium 9.3 8.5 - 10.3 mg/dL [facility] Bilirubin, total 1.1 0.1 - 1.2 mg/dL [facility] Protein, pl 6.3(L) 6.5 - 8.5 g/dL [facility] Albumin 2.3(L) 3.5 - 5.0 g/dL [facility] Alk phos 910(H) 40 - 130 Units/L [facility] ALT 79(H) 7 - 55 Units/L [facility] AST 612(H) 10 - 50 Units/L [facility] Blood 04/29/2025 8:47 PM CDT 04/29/2025 9:30 PM CDT us Aliza Roy MD LAB BLOOD ORDERABLES Katie felix Result [facility] [place] [address] * (ABNORMAL) HIV-1 RNA PCR, quantitative Blood (04/29/2025 1:28 PM CDT) [facility] HIV-1 RNA Detected( A) [facility] Comment: The quantifiable range of this assay is 20 copies/mL to 10,000,000 copies/mL (1.30 log copies/mL to 7.00 log copies/mL). Testing was performed by the DAVIN 6800 HIV-1 Test([employer] Testing performed at [facility] Current Interpretive Data was last revised on 2021. HIV-1 RNA, copies/mL >10,000,0 00 copies/mL [facility] HIV-1 RNA, log >7.00 log cps/mL [facility] Blood 04/29/2025 1:28 PM CDT 04/29/2025 1:57 PM CDT us Emily Shaffer MD LAB MICROBIOLOGY - NERAL ORDERABLES Final Result [facility] [place] [address] [facility] * (ABNORMAL) BLOOD MISC TO [place] (04/29/2025 12:56 PM CDT) Test name, chem SIL2R INTERLEUKIN- 2 RECEPTOR ALPHA SOLUBLE [facility] Misc See Footnote(A) [facility] Comment: Test Result Flag Unit RefValue IL-2 receptor alpha soluble, P IL-2 receptor alpha soluble >4000 H pg/mL <=959 ADDITIONAL INFORMATION This test was developed and its performance characteristics determined by [facility] in a manner consistent with CLIA requirements. This test has not been cleared or approved by the U.S. Food and Drug Administration. Test Performed by: [facility] [place] [address] Superintendent Maintenance: Nola Pritchard Ph.D.; CLIA# [id number] Blood 04/29/2025 12:5 6 PM CDT 05/01/2025 4:56 PM VOCATIONAL AIDE us Aliza Roy MD LAB BLOOD ORDERABLES Katie l Result [facility] [place] [address] [facility] * Check Sample (04/29/2025 12:56 PM CDT) ABO Rh O Positive [facility] HCLL OTHER 04/29/2025 12:5 6 PM CDT 04/29/2025 1:08 PM CDT us Funmilayo Sanchez MD LAB BLOOD ORDERABLES Final Result Performing Organization Address [facility] Co de Phone Number [facility] [place] [address] [facility] * Protime-INR (04/29/2025 12:56 PM CDT) Pathologist [facility] PT 12.9 10.2 - 13.5 sec INR 1.14 0.90 - 1.20 [facility] Comment: Interpretive data Oral anticoagulant therapeutic ranges: Venous thromboembolism prophylaxis or treatment: 2.0-3.0 CARDIOLOGY Standard range: 2.0-3.0 High-intensity range: 2.5-3.5 Refer to indication-specific guidelines for appropriate target ranges for prosthetic heart valve replacement. Current interpretive data was last revised on 2019. Blood 04/29/2025 12:5 6 PM CDT 04/29/2025 1:04 PM CDT us Aliza Roy MD LAB BLOOD ORDERABLES Katie l Result Performing Organization Address [facility] Co de Phone Number [facility] [place] [address] * (ABNORMAL) Pneumonia PCR with aerobic culture and Gram stain Sputum (04/29/2025 5:53 AM CDT) Pathologist [facility] Direct Specimen Exam Stain: Abundant squamous epithelial cells seen indicating excessive oropharyngeal contamination. Culture will not be processed further. Please submit another specimen. Smear results called to and read back by: Katie KingRN [phone] on 04/29/2025 09:44:42 by: Andres Loo MLT Direct Specimen Exam Molecular Analysis: Abundant squamous epithelial cells observed on Gram stain. Specimen will not be processed for rapid molecular analysis. [facility] Report Final Report: This is the final report. (.) [facility] Sputum 04/29/2025 5:53 AM CDT 04/29/2025 8:33 AM CDT Narrative [facility] - 04/30/2025 8:11 AM VOCATIONAL AIDE When rapid molecular testing results are reported, testing completed using the [employer] Pneumonia Panel. This molecular assay detects: Acinetobacter calcoaceticus-baumannii complex, Enterobacter cloacae complex, Escherichia coli, Haemophilus influenzae, Enterobacter (Klebsiella) aerogenes, Klebsiella oxytoca, Klebsiella pneumoniae group, Moraxella catarrhalis, Proteus spp., Pseudomonas aeruginosa, Serratia marcescens, Staphylococcus aureus, Streptococcus agalactiae, Streptococcus pneumoniae, and Streptococcus pyogenes. These bacteria are detected and reported semi-quantitatively with bins representing approximately 10^4, 10^5, 10^6, or greater than or equal to 10^7 genomic copies of bacterial nucleic acid per mL (copies/mL) of specimen. These quantities are reported to aid in estimating the relative abundance of organism(s) detected within the specimen and to correlate these results with culture results. For Staphylococcus aureus, mecA/C and MREJ genes are evaluated to predict methicillin resistance or susceptibility. For Gram-negative bacteria, the beta-lactamases CTX-M, IMP, KPC, NDM, VIM and OXA-48-like are evaluated and reported if detected. For Gram-negative organisms, the absence of detection of resistance markers does not exclude resistance. Correlation with final culture results and susceptibility testing is recommended. The [employer] Pneumonia Panel is cleared by the [place] Food and Drug Administration and its performance characteristics have been confirmed by the [facility]. The performance of the FilmArray Pneumonia Panel has not been established for monitoring treatment of infection and bacterial nucleic acids may persist independent of organism viability. Funmilayo Sanchez MD LAB MICROBIOLOGY - GE NERAL ORDERABLES Final Result Performing Organization Address [facility] Co de Phone Number PHIL [facility] [place] [address] * Mycobacterium tuberculosis PCR Sputum (04/29/2025 5:53 AM CDT) Report Final Report: Target not detected Organism TARGET NOT DETECTED [facility] Sputum 04/29/2025 5:53 AM CDT 04/30/2025 9:12 AM VOCATIONAL AIDE Narrative [facility] - 04/30/2025 12:43 PM VOCATIONAL AIDE 1. Nucleic acid amplification for detection of Mycobacterium tuberculosis complex is performed using the [employer] GeneXpert MTB/RIF assay. This assay has been approved by the [place] Food and Drug administration for detection of M. tuberculosis in sputum samples. The performance characteristics of this test have been verified by the [facility] Microbiology laboratory for sputum samples and lower respiratory tract samples. 2. A negative result does not rule out an infection with Mycobacterium tuberculosis complex. 3. During clinical trials, this assay was found to be 99% sensitive for detection of M. tuberculosis in smear positive samples and 76% sensitive for detection of M. tuberculosis in smear negative samples. Sensitivity is enhanced by testing up to three specimens obtained on separate days. 4. This test should not be used to test samples from patients who have received greater than three days of anti-tuberculous therapy. 5. This assay detects Mycobacterium tuberculosis complex, which includes: M. tuberculosis, M. bovis, M. africanum, M. canettii, M. microti, M. caprae, M. pinnipedi, M. mungi, and M. orygis. 6. All samples will be reflexed to culture-based analysis. 7. This assay has not been evaluated for use with samples from pediatric patients. Current interpretive data was last revised on 2013. Emily Shaffer MD LAB MICROBIOLOGY - Schvey NERAL ORDERABLES Final Result Performing Organization Address City/[facility] Co de Phone Number PHIL [facility] [place] [address] * (ABNORMAL) Immature platelet fraction (04/29/2025 4:56 AM CDT) [facility] IPF 18.1(H) 1.6 - 10.1 % Blood 04/29/2025 4:56 AM CDT 04/29/2025 5:34 AM CDT Aliza Roy MD LAB BLOOD ORDERABLES Katie l Result Performing Organization Address City/[facility] Co de Phone Number PHIL [facility] [place] [address] * Coccidioides antibody screen w/reflex Blood (04/29/2025 4:56 AM CDT) [facility] Coccidioides ab screen, ser Negative Negative [facility] Comment: Repeat testing on a new sample in 2-3 weeks if clinically indicated. ADDITIONAL INFORMATION This test has been modified from the pairing machine operator's instructions. Its performance characteristics were determined by [facility] in a manner consistent with CLIA requirements. This test has not been cleared or approved by the U.S. Food and Drug Administration. Test Performed by: [facility] [place] [address] Superintendent Maintenance: Nola Pritchard Ph.D.; CLIA# [id number] Blood 04/29/2025 4:56 AM CDT 04/29/2025 5:30 AM CDT us Funmilayo Sanchez MD LAB MICROBIOLOGY - GE NERAL ORDERABLES Final Result Performing Organization Address [facility] Co de Phone Number [facility] [place], [place] [id number] [facility] * eGFR (04/29/2025 4:56 AM CDT) [facility] eGFR >90 >=60 mL/min/1. 73 m2 Comment: [...] interpretive data was last reviewed 2021. Blood 04/29/2025 4:56 AM CDT 04/29/2025 5:31 AM CDT Funmilayo Sanchez MD LAB BLOOD ORDERABLES Final Result [facility]IL [facility] [place] [address] * Blastomyces antibody, EIA, serum Blood (04/29/2025 4:56 AM CDT) [facility] Blastomyces Antibody Negative Negative [facility] Comment: A single negative result does not exclude the diagnosis of blastomycosis. Repeat testing on a new sample in 7-14 days if clinically indicated. Test Performed by: [facility] - [place] [id number] Superintendent Maintenance: Nola Pritchard Ph.D.; CLIA# [id number] Blood 04/29/2025 4:56 AM CDT 04/29/2025 5:30 AM CDT Funmilayo Sanchez MD LAB MICROBIOLOGY - NERAL ORDERABLES Final Result [facility] [place] [address] [facility] * (ABNORMAL) CBC with auto differential (04/29/2025 4:56 AM CDT) WBC 4.41 3.80 - 9.90 K/cumm Hgb 9.4(L) 13.0 - 17.5 g/dL [facility] Hct 26.0(L) 38.9 - 50.3 % [facility] Plt 32(C) 150 - 400 K/cumm [facility] Comment:Platelet count confi rmed by additional testing. Critical platelet count threshold determined by patient location: Outpatient:<50 K/cumm , Inpatient adults:<20 K/cumm , Inpatient pediatric:<25 K/cumm, BMT service:<10 K/cumm MPV 9.0(L) 9.1 - 12.3 fL [facility] RBC 3.28(L) 4.30 - 5.80 M/cumm [facility] MCV 79.3(L) 81.3 - 96.4 fL [facility] MCH 28.7 27.1 - 33.3 pg [facility] MCHC 36.2(H) 32.3 - 35.7 g/dL [facility] RDW CV 14.4 11.1 - 14.9 % [facility] RDW SD 41.3 35.7 - 48.1 fL [facility] NRBC abs 0.20(H) 0.00 - 0.01 K/cumm [facility] Morphologic Screen Results confirmed by manual morphology review. [facility] Blood 04/29/2025 4:56 AM CDT 04/29/2025 5:30 AM CDT us Aliza Roy MD LAB BLOOD ORDERABLES Katie felix Result [facility] [place] [address] * (ABNORMAL) Manual Differential (04/29/2025 4:56 AM CDT) [facility] Differential Manual Cells Counted 120 [facility] Neutrophil abs 3.78 1.50 - 6.50 K/cumm [facility] Imm gran abs 0.44(H) 0.00 - 0.10 K/cumm [facility] Lymphocyte abs 0.11(L) 0.80 - 3.30 K/cumm [facility] Eosinophil abs 0.07 0.00 - 0.50 K/cumm [facility] Neutrophil pct 85.8 % [facility] Comment: Interpretive Data Percent cell count reference ranges are not reported, since discordance with absolute values may lead to misinterpretation of CBC data. Current Interpretive Data was last revised on 2017. Lymphocyte pct 2.5 % [facility] Comment: Interpretive Data Percent cell count reference ranges are not reported, since discordance with absolute values may lead to misinterpretation of CBC data. Current Interpretive Data was last revised on 2017. Eosinophil pct 1.7 % [facility] Comment: Interpretive Data Percent cell count reference ranges are not reported, since discordance with absolute values may lead to misinterpretation of CBC data. Current Interpretive Data was last revised on 2017. Metamyelocyte pct 6.7(H) 0.0 - 0.0 % [facility] Myelocyte pct 3.3(H) 0.0 - 0.0 % [facility] Blood 04/29/2025 4:56 AM CDT 04/29/2025 5:34 AM CDT us Aliza Roy MD LAB BLOOD ORDERABLES Katie felix Result [facility] [place] [address] * RPR Blood (04/29/2025 4:56 AM CDT) [facility] RPR Nonreactive Nonreactive Blood 04/29/2025 4:56 AM CDT 04/29/2025 5:30 AM CDT us Funmilayo Sanchez MD LAB MICROBIOLOGY - GE NERAL ORDERABLES Final Result Performing Organization Address [facility] [place] [address] * Type and screen (04/29/2025 4:56 AM CDT) Damián, indirect Negative ABO Rh O Positive [facility] Blood 04/29/2025 4:56 AM CDT 04/29/2025 5:29 AM CDT Narrative [facility] - 04/29/2025 6:47 AM CDT Has the patient had Daratumumab or Isatuximab in the past 6 months?->Unknown Aliza Roy MD LAB BLOOD BANK TEST ORDER JAMI Final Result Performing Organization Address [facility] Co de Phone Number [facility] [place] [address] * Magnesium (04/29/2025 4:56 AM CDT) Pathologist [facility] Magnesium 2.0 1.4 - 2.5 mg/dL Blood 04/29/2025 4:56 AM CDT 04/29/2025 5:31 AM CDT Aliza Roy MD LAB BLOOD ORDERABLES Katie l Result Performing Organization Address City/[facility] [place] [address] * (ABNORMAL) Gamma GT (04/29/2025 4:56 AM CDT) GGT 199(H) 10 - 50 Units/L Blood 04/29/2025 4:56 AM CDT 04/29/2025 5:31 AM CDT Aliza Roy MD LAB BLOOD ORDERABLES Katie l Result [facility] [place] [address] * (ABNORMAL) Lipid panel (04/29/2025 4:56 AM CDT) Cholesterol 69 30 - 199 mg/dL Comment: Interpretive Data Ages < or = 19 years Acceptable: <170 mg/dL Borderline high: 170-199 mg/dL High: >or= 200 mg/dL Ages > or = 20 years Desirable: <200 mg/dL Borderline high: 200-239 mg/dL High: >or= 240 mg/dL Literature References: 1. Expert Panel on Integrated Guidelines for Cardiovascular Health and Risk Reduction in Children and Adolescents. Pediatrics 2011;128:S213 2. NCEP Expert Panel. Circulation 2004;110:227 Current Interpretive Data was last revised on 2018. Triglycerides 232(H) <=149 mg/dL [facility] Comment: Interpretive Data Ages < or = 9 years Acceptable: <75 mg/dL Borderline high: 75-99 mg/dL High: >or= 100 mg/dL Ages 10 to 20 years Acceptable: <90 mg/dL Borderline high: 90-129 mg/dL High: >or= 130 mg/dL Ages > or = 20 years Desirable: <150 mg/dL Borderline high: 150-199 mg/dL High: 200-499 mg/dL Very high: >or= 499 mg/dL Literature References: 1. Expert Panel on Integrated Guidelines for Cardiovascular Health and Risk Reduction in Children and Adolescents. Pediatrics 2011;128:S213 2. NCEP Expert Panel. Circulation 2004;110:227 Current Interpretive Data was last revised on 2018. HDL 8(L) >=40 mg/dL [facility] Comment: Interpretive Data Ages < or = 19 years Acceptable: >45 mg/dL Borderline low: 40-45 mg/dL Low: <40 mg/dL Ages > or = 20 years Desirable: >or= 60 mg/dL Low: <40 mg/dL Literature References: 1. Expert Panel on Integrated Guidelines for Cardiovascular Health and Risk Reduction in Children and Adolescents. Pediatrics 2011;128:S213 2. NCEP Expert Panel. Circulation 2004;110:227 Current Interpretive Data was last revised on 2018. LDL, calculated 25 <=129 mg/dL [facility] Comment: Interpretive Data Ages < or = 19 years Acceptable: <110 mg/dL Borderline high: 110-129 mg/dL High: >or= 130 mg/dL Ages > or = 20 years Optimal: <100 mg/dL Near optimal: 100-129 mg/dL Borderline high: 130-159 mg/dL High: >160 mg/dL Calculated using the Sonny LDL-C estimating equation. This equation was implemented on 2024. Prior to this date LDL-C was estimated using the Friedewald equation. Literature References: 1. Expert Panel on Integrated Guidelines for Cardiovascular Health and Risk Reduction in Children and Adolescents. Pediatrics 2011;128:S213 2. NCEP Expert Panel. Circulation 2004;110:227 3. Sonny Galarza et al. MELANIE Cardiol. 2019October 27;5(5):540-548. doi: 10.1001/[email or web address].2020.0013 Current Interpretive Data was last revised on 2024. Non-HDL Cholesterol 61 mg/dL [facility] Comment: Interpretive Data Ages < or = 19 years Acceptable: <120 mg/dL Borderline high: 120-144 mg/dL High: >145 mg/dL Ages > or = 20 years When triglycerides are >200 mg/dL, Non-HDL cholesterol is a secondary target of therapy with treatment goals that are 30 mg/dL greater than the LDL cholesterol target. Literature References: 1. Expert Panel on Integrated Guidelines for Cardiovascular Health and Risk Reduction in Children and Adolescents. Pediatrics 2011;128:S213 2. NCEP Expert Panel. Circulation 2004;110:227 Current Interpretive Data was last revised on 2018. Chol/HDL ratio 9 [facility] Blood 04/29/2025 4:56 AM CDT 04/29/2025 5:31 AM CDT us Funmilayo Sanchez MD LAB BLOOD ORDERABLES Final Result [facility] [place] [address] * (ABNORMAL) Comprehensive metabolic panel (04/29/2025 4:56 AM CDT) Sodium 134(L) 135 - 145 mmol/L Potassium, pl 3.2(L) 3.3 - 4.9 mmol/L [facility] Chloride 95(L) 97 - 110 mmol/L [facility] CO2 28 22 - 32 mmol/L [facility] Anion gap 11 2 - 15 mmol/L [facility] BUN 21 6 - 25 mg/dL [facility] Creatinine 0.87 0.80 - 1.30 mg/dL [facility] Glucose 93 70 - 199 mg/dL [facility] Comment: Interpretive Data Fasting glucose >/= 126 [...] interpretive data was last revised 2022. Calcium 8.7 8.5 - 10.3 mg/dL [facility] Bilirubin, total 1.2 0.1 - 1.2 mg/dL [facility] Protein, pl 6.1(L) 6.5 - 8.5 g/dL [facility] Albumin 2.2(L) 3.5 - 5.0 g/dL [facility] Alk phos 728(H) 40 - 130 Units/L [facility] ALT 73(H) 7 - 55 Units/L [facility] AST 484(H) 10 - 50 Units/L [facility] Blood 04/29/2025 4:56 AM CDT 04/29/2025 5:31 AM CDT us Funmilayo Sanchez MD LAB BLOOD ORDERABLES Final Result [facility] [place] [address] * Histoplasma Antigen Urine (04/28/2025 6:25 PM CDT) Histo/Blasto Ag Value >20.0 ng/mL [facility] Comment: ADDITIONAL INFORMATION This test was developed and its performance characteristics determined by [facility] in a manner consistent with CLIA requirements. This test has not been cleared or approved by the U.S. Food and Drug Administration. Test Performed by: [facility] Laboratories - [facility] [address] [place] [address] Superintendent Maintenance: Nola Pritchard Ph.D.; CLIA# [id number] Histo/Blasto Ag Result Detected Not Detected [facility] ([place]) Comment: Critical result called to and read back by Katie King ([facility]) on 05/05/2025 13:15:34 VOCATIONAL AIDE to Margareth Zamora. Antigen from Histoplasma or Blastomyces (unable to differentiate) detected, above the limit of quantification. Definitive identification requires additional testing, including serology, culture, histopathology and/or molecular methods. Results should be correlated with clinical presentation and exposure history. CRITICAL RESULT Urine 04/28/2025 6:25 PM CDT 04/28/2025 6:34 PM CDT Yulia Salgado MD LAB MICROBIOLOGY - GENERA L ORDERABLES Edited Result - Final [facility] ([place]) 1 [facility] [place] [address] [facility] * (ABNORMAL) Urinalysis reflex to microscopic and culture Urine, bladder (04/28/2025 6:25 PM CDT) Color, ur Yellow Yellow Clarity, ur Clear Clear [facility] ([place]) Specific gravity, ur 1.012 1.003 - 1.030 [facility] ([place]) pH, urine 6.5 [facility] ([place]) Comment: Interpretive Data U rine pH is affected by diet, medications, systemic acid-base disturbances, and renal tubular function. pH may affect urinary stone formation. For example, urine pH below 6.0 may help reduce the tendency for calcium phosphate stones and pH greater than 6.0 may reduce the tendency for uric acid stone formation. Source: [facility] Current Interpretive Data was last revised on 2017 Protein, ur ql 1+(A) Negative [facility] ([place]) Glucose, ur ql Negative Negative [facility] ([place]) Ketones, ur Negative Negative [facility] ([place]) Bilirubin, ur Negative Negative [facility] ([place]) Blood, ur 1+(A) Negative [facility] ([place]) Urobilinogen, ur 2.0(A) <2.0 mg/dL [facility] ([place]) Nitrite, ur Negative Negative [facility] ([place]) Leukocyte esterase, ur Negative Negative [facility] ([place]) UA reflex comment Reflex to microscopic UA will be performed. [facility] ([place]) Urine, bladder 04/28/2025 6: 25 PM CDT 04/28/2025 6:34 PM CDT us Yulia Salgado MD LAB MICROBIOLOGY - GENERA L ORDERABLES Final Result [facility] ([place]) 1 [facility] Department [place] [address] * (ABNORMAL) Urinalysis, microscopic only (04/28/2025 6:25 PM CDT) WBC, ur 0-5 0 - 5 /HPF RBC, ur 0-2 0 - 2 /HPF [facility] ([place]) Mucous, ur Present(A) [facility] ([place]) Hyaline casts, ur 1-5 0 - 10 /LPF [facility] ([place]) Culture Reflex Comment Reflex conditions for urine culture (WBC >10) not met. [facility] ([place]) Urine, bladder 04/28/2025 6: 25 PM CDT 04/28/2025 6:34 PM CDT Yulia Salgado MD LAB URINE ORDERABLES Katie l Result Performing Organization Address City/[facility] Co de Phone Number [facility] ([place]) 1 [facility] [place] [address] * (ABNORMAL) TB test, quantiferon gold (04/28/2025 4:15 PM CDT) [facility] Quantiferon TB Gold Indetermi karis(A) Negative [facility] Comment: Indeterminate due to a low interferon-gamma level in the mitogen (positive control) tube. This may occur due to a low lymphocyte count, reduced lymphocyte activity or inability of the patient's lymphocytes to generate interferon-gamma. The reference range for the 'Mitogen minus Nil Result' is >=0.5 IU/mL. TB-Nil -0.04 IUnits/mL [facility] ([place]) TB2-Nil -0.08 IUnits/mL [facility] ([place]) Mitogen-Nil 0.02 IUnits/mL [facility] ([place]) NIL 2.50 IUnits/mL [facility] ([place]) Comment: Test Performed by: [place] [address] Superintendent Maintenance: Nola Pritchard Ph.D.; CLIA# [id number] Blood 04/28/2025 4:15 PM CDT 04/28/2025 4:20 PM CDT us Osito San DO LAB BLOOD ORDERABLES Katie l Result Performing Organization Address City/[facility]/ZIP Co de Phone Number [facility] ([place]) [address] [place] [address] [facility] * (ABNORMAL) Aspergillus galactomannan antigen Blood (04/28/2025 4:12 PM CDT) [facility] Aspergillus galactomannan Ag >=3.750(A ) <0.5 Index [facility] Comment: A single positive result should be interpreted with caution and correlated with repeat testing on a new serum specimen, clinical findings and radiologic evidence. Serial monitoring of galactomannan levels is recommended for patients at high risk for invasive aspergillosis (e.g., HSCT recipients, patients with hematologic malignancy, etc.), and may be used to screen for the disease and/or monitor disease progression. Elevated galactomannan levels have been reported in cases of other fungal infections, infusion or ingestion of gluconate containing products, and in the presence of certain antibiotics (Note: piperacillin/tazobactam is no longer considered a common cause of cross-reactivity for this assay). Refer to https://www.idsociety.org/Organism/#Fungi for the most recent Practice Guidelines for Diagnosis and Management of Aspergillosis. ADDITIONAL INFORMATION This is a qualitative test and the resulted index value is not indicative of disease severity. Serial testing is recommended for patients at high risk for invasive aspergillosis. This assay was performed using the FDA-cleared [employer]ids-[employer] Plat[employer] Aspergillus Galactomannan EIA. Test Performed by: [place] [address] Superintendent Maintenance: Nola Pritchard Ph.D.; CLIA# [id number] Blood 04/28/2025 4:12 PM CDT 04/28/2025 4:17 PM CDT Yulia Salgado MD LAB MICROBIOLOGY - [facility] L ORDERABLES Final Result [facility] ([place]) 1 [facility] [place] [address] [facility] * (ABNORMAL) Hepatitis C (HCV) RNA PCR, quantitative Blood (04/28/2025 4:12 PM CDT) [facility] HCV RNA result Detected( A) [facility] Comment: The quantifiable range of this assay is 15 IU/mL to 100,000,000 IU/mL (1.18 log IU/mL to 8.00 log IU/mL). Testing was performed by the DAVIN 6800 HCV Test ([employer] Testing performed at [facility] Current Interpretive Data was last revised on 2021 Testing performed by: [facility], [address] [place]., [address] HCV RNA IU/mL 65,900,00 0 IUnits/mL [facility] ([place]) Comment:Testing performed by : [facility], 1 [facility], [address] HCV RNA log IU/mL 7.82 log IUnits/mL [facility] ([place]) Comment:Testing performed by : [facility], [address] [place]., [address] Blood 04/28/2025 4:12 PM CDT 04/28/2025 8:47 PM CDT Corby Mckeon MD LAB MICROBIOLOGY - GENERAL ORDERABLES Final Result [facility] ([place]) 1 [facility] [place] [address] [facility] * (ABNORMAL) BLOOD MISC TO [place] (04/28/2025 3:49 PM CDT) Test name, chem SFUNG (1, 3) Beta-D-Gl ucan (Fungitel l), S [facility] Misc See Comment(A ) [facility] ([place]) Comment: Test Result Flag Unit RefValue (1, 3) Oonb-R-Erxblt (Fungitell), S Fungitell Quantitative Value 333 A pg/mL <60 pg/mL Fungitell Qualitative Result Positive A Negative (1, 3) Kjve-O-Iwpinv detected. A single positive result should be interpreted with caution and correlated alongside consideration of patient risk for invasive fungal disease, results of routine laboratory tests (e.g., bacterial and fungal culture, histopathologic evaluation, etc.) and radiologic findings. Repeat testing on a new sample (collected in 3-4 days) is recommended as serially positive samples are associated with a higher diagnostic odds ratio for invasive fungal infection compared to a single positive result. False positive results may occur in patients who have recently undergone hemodialysis, treatment with certain fractionated blood products (e.g., serum albumin, immunoglobulins), and/or those who have had significant exposure to glucan-containing gauze during surgery. This assay does not detect certain fungi, including Cryptococcus species, which produce very low levels of (1, 3) Yymd-P-Fwnhke (BDG) and the Mucorales (e.g., Lichthemia, Mucor and Rhizopus), which are not known to produce BDG. Additionally, the yeast phase of Blastomyces dermatitidis produces little BDG and may not be detected by this assay. ADDITIONAL INFORMATION This assay was performed using the FDA-cleared Fungitell Assay ([facility], [place], [place], [place]), a kinetic MICA based on modification of the Limulus Amebocyte Lysate pathway. Test Performed by: [place] [address] Superintendent Maintenance: Nola Pritchard Ph.D.; CLIA# [id number] Blood 04/28/2025 3:49 PM CDT 04/28/2025 6:33 PM CDT us Jelly Fernandez PSYCHOLOGY PHYSICIAN LAB BLOOD ORDERABLES Katie felix Result [facility] ([place]) 1 [facility] [place] [address] [facility] * CMV, IgG and IgM antibodies Blood (04/28/2025 11:32 AM CDT) CMV IgG Negative Negative Comment: Interpretive Data Negative - Individuals with negative CMV IgG results are presumed to not have had prior exposure or infection with CMV and are, therefore, considered susceptible to primary infection. Equivocal - Equivocal results may occur during acute infection or may be due to nonspecific binding reactions. Submit an additional sample for testing if clinically indicated. Positive - Indicates presence of detectable CMV IgG antibody. Results indicate past or recent CMV infection. Testing performed by: [facility], [address] [place] [address]., [id number] CMV IgM See Comment Negative [facility] ([place]) Comment: Credited, interfering substance present. Interpretive Data Negative - Negative CMV IgM results suggests that the patient is not experiencing acute or active infection. However, a negative result does not rule-out primary CMV infection. Equivocal - Equivocal results may occur during acute infection or may be due to nonspecific binding reactions. Submit an additional sample for testing if clinically indicated. Positive - Positive CMV IgM results may indicate a recent infection (primary, reactivation, or reinfection). Testing performed by: [facility], [address] [place] [address]., [id number] Blood 04/28/2025 11:3 2 AM CDT 04/28/2025 2:52 PM CDT Jelly Fernandez NP LAB MICROBIOLOGY - GENERA L ORDERABLES Final Result [facility] ([place]) 1 [facility] [place] [address] * (ABNORMAL) Beth-Menchaca virus (EBV) antibody panel Blood (04/28/2025 11:32 AM CDT) EBV nuclear Ab Negative Negative Comment: No detectable IgG antibody to EBV Nuclear Antigen. Testing performed by: [facility], [address] [place] [address]., [id number] EBV VCA IgG Positive(A) Negative [facility] ([place]) Comment: Indicates the presence of antibody; 90% of the adult population will have been infected with EBV sometime in the past. Testing performed by: [facility], [address] [place] [address]., [address] EBV VCA IgM Negative Negative [facility] ([place]) Comment: No detectable IgM antibody to EBV-VCA. A negative result indicates no current infection with EBV. If clinical suspicion of acute EBV infection is present, testing should be repeated after one week. Testing performed by: [facility], [address] [place] [address]., [id number] EBV interp See Comment [facility] ([place]) Comment: Results indicate infection with EBV at some time (EBV VCA IgG positive). However, the time of the infection cannot be predicted (ie, recent or past) since antibodies to EBNA usually develop after primary infection (recent) or, alternatively, approximately 5% to 10% of patients with EBV never develop antibodies to EBNA (past). Testing performed by: [facility], [address] [place]., [address] Blood 04/28/2025 11:3 2 AM CDT 04/28/2025 2:52 PM CDT Jelly Fernandez NP LAB MICROBIOLOGY - GENERA L ORDERABLES Final Result [facility] ([place]) 1 [facility] [place] [address] * (ABNORMAL) Hepatitis panel, acute Blood (04/28/2025 11:32 AM CDT) Hep A IgM Nonreactive Nonreactive Comment: Interpretive Data: If Hep A IgM Ab is reported as Equivocal, a new sample should be drawn in two weeks for testing. Current interpretive data was last revised on 19. Testing performed by: [facility], [address] [place] [address], [place]., [address] Hep B core IgM Nonreactive Nonreactive [facility] ([place]) Comment: Interpretive Data If HepB Core IgM Ab is reported as Equivocal, a new sample should be drawn in two weeks for testing. Current interpretive data was last revised on 19. Testing performed by: [facility], [address] [place] [address], [place]., [address] Hep C Ab Reactive(A) Nonreactive [facility] ([place]) Comment: Interpretive Data Nonreactive: Antibodies to HCV not detected. Does NOT exclude the possibility of recent exposure to HCV. Equivocal: Equivocal for HCV antibodies. Supplemental molecular testing will be automatically performed to determine infection status in accordance with current CDC screening recommendations. Reactive: Positive for HCV antibodies. This may represent current or past HCV infection. Supplemental molecular testing will be automatically performed to determine current infection status in accordance with current CDC screening recommendations. Interpretive data was last revised on 2019. Critical Result Critical Result called to and read back by Belen Jonas, DATE: 2025-04-28 20:59:01 BY: Fawn Cowan Critical result called to and read back by John Yoon ([facility]) on 04/28/2025 21:01:05 CDT to [id number]. comment correction only Testing performed by: [facility], [address] [place] [address]., [id number] HepBsAg Nonreactive Nonreactive MINYAHAIRA [facility] ([place]) Comment:Testing performed by : [facility], [address] [place] [address]., [id number] Blood 04/28/2025 11:3 2 AM CDT 04/28/2025 6:52 PM CDT us Corby Mckeon MD LAB MICROBIOLOGY - GENERAL ORDERABLES Edited Result - Final Performing Organization Address [facility] Co de Phone Number [facility] ([place]) 1 [facility] [place] [address] * (ABNORMAL) Immature platelet fraction (04/28/2025 5:53 AM CDT) IPF 13.7(H) 1.6 - 10.1 % Blood 04/28/2025 5:53 AM CDT 04/28/2025 6:02 AM CDT us Mila Gibson MD LAB BLOOD ORDERABLES Final Resul t Performing Organization Address City/[facility]/ZIP Co de Phone Number [facility] ([place]) 1 [facility] [place] [address] * eGFR (04/28/2025 5:53 AM CDT) Pathologist [facility] eGFR >90 >=60 mL/min/1. 73 m2 Comment: [...] interpretive data was last reviewed 2021. Blood 04/28/2025 5:53 AM CDT 04/28/2025 6:02 AM CDT us Yulia Salgado MD LAB BLOOD ORDERABLES Katie felix Result [facility] ([place]) 1 [facility] [place] [address] * (ABNORMAL) CBC without differential (04/28/2025 5:53 AM CDT) [facility] WBC 5.56 3.80 - 9.90 K/cumm Hgb 9.9(L) 13.0 - 17.5 g/dL [facility] ([place]) Hct 28.2(L) 38.9 - 50.3 % [facility] ([place]) Plt 30(C) 150 - 400 K/cumm [facility] ([place]) Comment:Platelet count confi rmed by additional testing. Critical platelet count threshold determined by patient location: Outpatient:<50 K/cumm , Inpatient adults:<20 K/cumm , Inpatient pediatric:<25 K/cumm, BMT service:<10 K/cumm MPV Not Measured 9.1 - 12.3 fL [facility] RBC 3.47(L) 4.30 - 5.80 M/cumm [facility] ([place]) MCV 81.3 81.3 - 96.4 fL [facility] ([place]) MCH 28.5 27.1 - 33.3 pg [facility] ([place]) MCHC 35.1 32.3 - 35.7 g/dL [facility] ([place]) RDW CV 14.1 11.1 - 14.9 % [facility] ([place]) RDW SD 41.0 35.7 - 48.1 fL [facility] NRBC abs 0.14(H) 0.00 - 0.01 K/cumm [facility] ([place]) Blood 04/28/2025 5:53 AM CDT 04/28/2025 6:02 AM CDT us Mila Gibson MD LAB BLOOD ORDERABLES Final Resul t [facility] ([place]) 1 [facility] [place] [address] * (ABNORMAL) Comprehensive metabolic panel (04/28/2025 5:53 AM CDT) Sodium 133(L) 135 - 145 mmol/L Potassium, pl 3.9 3.3 - 4.9 mmol/L [facility] Chloride 99 97 - 110 mmol/L [facility] ([place]) CO2 26 22 - 32 mmol/L [facility] ([place]) Anion gap 8 2 - 15 mmol/L [facility] ([place] BUN 20 6 - 25 mg/dL [facility] ([place] Creatinine 0.81 0.80 - 1.30 mg/dL [facility] ([place]) Glucose 89 70 - 199 mg/dL [facility] ([place]) [...] classification and Diagnosis of Diabetes Diabetes Care 202; 46: S19-S40. Current interpretive data was last revised 2022. Calcium 8.6 8.5 - 10.3 mg/dL [facility] ([place]) Bilirubin, total 1.0 0.1 - 1.2 mg/dL [facility] ([place]) Protein, pl 5.6(L) 6.5 - 8.5 g/dL [facility] ([place]) Albumin 2.3(L) 3.5 - 5.0 g/dL [facility] ([place]) Alk phos 444(H) 40 - 130 Units/L [facility] ([place]) ALT 70(H) 7 - 55 Units/L [facility] ([place]) AST 404(H) 10 - 50 Units/L [facility] ([place]) Blood 04/28/2025 5:53 AM CDT 04/28/2025 6:02 AM CDT us Yulia Salgado MD LAB BLOOD ORDERABLES Katie l Result [facility] [employer] ([place]) 1 [facility] [place] [address] * (ABNORMAL) Lactate dehydrogenase (LD) (04/28/2025 5:51 AM CDT) Lactate dehydrogenase (LDH) >2,500(H) 100 - 250 Units/L Comment:Hemolysis present. R esults may be affected. Blood 04/28/2025 5:51 AM CDT 04/28/2025 2:31 PM CDT us Jelly Fernandez NP LAB BLOOD ORDERABLES Katie l Result [facility] [employer] ([place]) 1 [facility] [employer] [place] [place] [address] * (ABNORMAL) Sodium level (04/28/2025 12:21 AM CDT) Sodium 128(L) 135 - 145 mmol/L Blood 04/28/2025 12:2 1 AM CDT 04/28/2025 12:42 AM CDT Yulia Salgado MD LAB BLOOD ORDERABLES Katie l Result [facility] ([place]) 1 [facility] [place] [address] * (ABNORMAL) Sodium level (04/27/2025 5:54 PM CDT) Sodium 128(L) 135 - 145 mmol/L Blood 04/27/2025 5:54 PM CDT 04/27/2025 5:57 PM CDT Yulia Salgado MD LAB BLOOD ORDERABLES Katie l Result Performing Organization Address [facility] Co de Phone Number [facility] ([place]) [address] [place] [address] [place] [address] * US RUQ (04/27/2025 11:50 AM CDT) Anatomical Region Laterality Modality Abdomen N/A Ultrasound 04/27/2025 3:11 PM CDT Impressions 04/27/2025 3:11 PM CDT Hepatomegaly Trace ascites Trace right pleural effusion Unremarkable gallbladder Electronically signed by: Eddie Rosado M.D. Narrative 04/27/2025 3:11 PM CDT EXAMINATION: US RUQ HISTORY: elevated liver enzymes. TECHNIQUE: Ultrasound of the right upper quadrant of the abdomen was performed with grayscale and color doppler. COMPARISON: CT dated 04/27/2025 FINDINGS: PANCREAS: Visualized portions of the pancreas are within normal limits. Portions of the pancreatic body and tail are obscured due to bowel gas. LIVER: The liver is enlarged measuring 19.7 cm. The liver appears normal in echotexture and echogenicity. No focal lesion identified. The main portal vein is patent with antegrade flow. GALLBLADDER: The gallbladder appears unremarkable. No cholelithiasis. No gallbladder wall thickening or pericholecystic fluid. No positive sonographic Torres's sign reported. BILIARY: There is no intrahepatic or extrahepatic biliary ductal dilatation. Common bile duct measures 0.3 cm cm in diameter. RIGHT KIDNEY: Normal size. Normal echogenicity. No solid mass or cyst. No hydronephrosis. Measures 11.9 cm in length. OTHER: Trace ascites. Small right pleural effusion Procedure Note Eddie Rosado MD - 04/27/2025 EXAMINATION: US RUQ HISTORY: elevated liver enzymes. TECHNIQUE: Ultrasound of the right upper quadrant of the abdomen was performed with grayscale and color doppler. COMPARISON: CT dated 04/27/2025 FINDINGS: PANCREAS: Visualized portions of the pancreas are within normal limits. Portions of the pancreatic body and tail are obscured due to bowel gas. LIVER: The liver is enlarged measuring 19.7 cm. The liver appears normal in echotexture and echogenicity. No focal lesion identified. The main portal vein is patent with antegrade flow. GALLBLADDER: The gallbladder appears unremarkable. No cholelithiasis. No gallbladder wall thickening or pericholecystic fluid. No positive sonographic Torres's sign reported. BILIARY: There is no intrahepatic or extrahepatic biliary ductal dilatation. Common bile duct measures 0.3 cm cm in diameter. RIGHT KIDNEY: Normal size. Normal echogenicity. No solid mass or cyst. No hydronephrosis. Measures 11.9 cm in length. OTHER: Trace ascites. Small right pleural effusion IMPRESSION: Hepatomegaly Trace ascites Trace right pleural effusion Unremarkable gallbladder Electronically signed by: Eddie Rosado M.D. us Yulia Salgado MD IMG US PROCEDURES Final R esult * CT Chest Abdomen Pelvis WO Contrast (04/27/2025 9:58 AM CDT) Anatomical Region Laterality Modality Body N/A Computed Tomogra phy 04/27/2025 1:12 PM CDT Impressions 04/27/2025 1:12 PM CDT 1. New small bilateral pleural effusions. 2. Nonspecific atypical infectious or inflammatory process with bilateral pulmonary micronodules and curvilinear opacities in the right middle and left upper lobes. Recommend follow-up in 3 months. 3. Unchanged 3 mm and 4 mm solid pulmonary nodules in the right upper and right middle lobes. 4. Small amount of free fluid in the pelvis, abnormal in a male. 5. Splenomegaly. 6. Multiple prominent but nonenlarged left axillary lymph nodes. Electronically signed by: MD Noah Clark 04/27/2025 1:12 PM CDT EXAMINATION: CT CHEST ABDOMEN PELVIS WO CONTRAST ORDERING HEALTHCARE PROVIDER: YULIA SALGADO HISTORY: sepsis TECHNIQUE: CT of the [...] in the right central lung zone. There is unchanged 3 mm nodule in the right upper [...] axillary lymph nodes which appear unchanged. CHEST WALL: No masses. HARDWARE/LINES/TUBES: None. MUSCULOSKELETAL: No suspicious osseous lesions. ABDOMEN/PELVIS LIVER: Unremarkable. No suspicious lesion. GALLBLADDER: Unremarkable. SPLEEN: Enlarged measuring 13.7 cm in craniocaudad dimension. PANCREAS: Unremarkable. No obvious mass or inflammatory change. No duct dilatation. ADRENALS: Normal. KIDNEYS/URINARY TRACT: No stones. No obvious renal lesions. No hydronephrosis or hydroureter. Urinary bladder is unremarkable. GI: No dilated or thick-walled loops of bowel appreciated. No sign of appendicitis. Large amount stool throughout the colon. PERITONEUM/RETROPERITONEUM/LYMPH NODES: There is a small amount of free fluid in the pelvis. No pneumoperitoneum. REPRODUCTIVE: Unremarkable. VASCULATURE: No abdominal aortic aneurysm. MUSCULOSKELETAL: No suspicious osseous lesions. OTHER: No other acute findings. Procedure Note John Costello MD - 04/27/2025 EXAMINATION: CT CHEST ABDOMEN PELVIS WO CONTRAST ORDERING HEALTHCARE PROVIDER: YULIA SALGADO HISTORY: sepsis TECHNIQUE: CT of the [...] in the right central lung zone. There is unchanged 3 mm nodule in the right upper [...] axillary lymph nodes which appear unchanged. CHEST WALL: No masses. HARDWARE/LINES/TUBES: None. MUSCULOSKELETAL: No suspicious osseous lesions. ABDOMEN/PELVIS LIVER: Unremarkable. No suspicious lesion. GALLBLADDER: Unremarkable. SPLEEN: Enlarged measuring 13.7 cm in craniocaudad dimension. PANCREAS: Unremarkable. No obvious mass or inflammatory change. No duct dilatation. ADRENALS: Normal. KIDNEYS/URINARY TRACT: No stones. No obvious renal lesions. No hydronephrosis or hydroureter. Urinary bladder is unremarkable. GI: No dilated or thick-walled loops of bowel appreciated. No sign of appendicitis. Large amount stool throughout the colon. PERITONEUM/RETROPERITONEUM/LYMPH NODES: There is a small amount of free fluid in the pelvis. No pneumoperitoneum. REPRODUCTIVE: Unremarkable. VASCULATURE: No abdominal aortic aneurysm. MUSCULOSKELETAL: No suspicious osseous lesions. OTHER: No other acute findings. IMPRESSION: 1. New small bilateral pleural effusions. 2. Nonspecific atypical infectious or inflammatory process with bilateral pulmonary micronodules and curvilinear opacities in the right middle and left upper lobes. Recommend follow-up in 3 months. 3. Unchanged 3 mm and 4 mm solid pulmonary nodules in the right upper and right middle lobes. 4. Small amount of free fluid in the pelvis, abnormal in a male. 5. Splenomegaly. 6. Multiple prominent but nonenlarged left axillary lymph nodes. Electronically signed by: John Costello MD Yulia Salgado MD IMG CT PROCEDURES Final R esult * Immature platelet fraction (04/27/2025 7:07 AM CDT) [facility] IPF 9.8 1.6 - 10.1 % Blood 04/27/2025 7:07 AM CDT 04/27/2025 7:13 AM CDT Mila Gibson MD LAB BLOOD ORDERABLES Final Resul t [facility] [place]) 1 [facility] [place] [address] * eGFR (04/27/2025 7:07 AM CDT) [facility] eGFR >90 >=60 mL/min/1. 73 m2 Comment: [...] interpretive data was last reviewed 2021. Blood 04/27/2025 7:07 AM CDT 04/27/2025 7:13 AM CDT us Yulia Salgado MD LAB BLOOD ORDERABLES Katie felix Result [facility] ([place]) 1 [facility] [place] [address] * (ABNORMAL) CBC without differential (04/27/2025 7:07 AM CDT) WBC 4.17 3.80 - 9.90 K/cumm Hgb 9.6(L) 13.0 - 17.5 g/dL [facility] ([place]) Hct 27.2(L) 38.9 - 50.3 % [facility] ([place]) Plt 31(C) 150 - 400 K/cumm [facility] ([place]) Comment:Platelet count confi rmed by additional testing. Critical platelet count threshold determined by patient location: Outpatient:<50 K/cumm , Inpatient adults:<20 K/cumm , Inpatient pediatric:<25 K/cumm, BMT service:<10 K/cumm MPV 12.2 9.1 - 12.3 fL [facility] ([place]) RBC 3.36(L) 4.30 - 5.80 M/cumm [facility] ([place]) MCV 81.0(L) 81.3 - 96.4 fL [facility] ([place]) MCH 28.6 27.1 - 33.3 pg [facility] ([place]) MCHC 35.3 32.3 - 35.7 g/dL [facility] ([place]) RDW CV 13.9 11.1 - 14.9 % [facility] ([place]) RDW SD 40.8 35.7 - 48.1 fL [facility] ([place]) NRBC abs 0.10(H) 0.00 - 0.01 K/cumm [facility] ([place]) Morphologic Screen Results confirmed by manual morphology review. [facility] ([place]) Blood 04/27/2025 7:07 AM CDT 04/27/2025 7:13 AM CDT us Mila Gibson MD LAB BLOOD ORDERABLES Final Resul t [facility] ([place]) 1 [facility] [place] [address] * (ABNORMAL) Comprehensive metabolic panel (04/27/2025 7:07 AM CDT) Sodium 128(L) 135 - 145 mmol/L Potassium, pl 4.2 3.3 - 4.9 mmol/L [facility] ([place]) Chloride 95(L) 97 - 110 mmol/L [facility] ([place]) CO2 26 22 - 32 mmol/L [facility] ([place]) Anion gap 7 2 - 15 mmol/L [facility] ([place]) BUN 19 6 - 25 mg/dL [facility] ([place]) Creatinine 0.89 0.80 - 1.30 mg/dL [facility] ([place]) Glucose 90 70 - 199 mg/dL [facility] ([place]) Comment: Interpretive Data Fasting glucose [...] classification and Diagnosis of Diabetes Diabetes Care 202; 46: S19-S40. Current interpretive data was last revised 2022. Calcium 8.4(L) 8.5 - 10.3 mg/dL [facility] ([place]) Bilirubin, total 0.9 0.1 - 1.2 mg/dL [facility] ([place]) Protein, pl 5.5(L) 6.5 - 8.5 g/dL [facility] ([place]) Albumin 2.4(L) 3.5 - 5.0 g/dL [facility] ([place]) Alk phos 397(H) 40 - 130 Units/L [facility] ([place]) ALT 70(H) 7 - 55 Units/L [facility] ([place]) AST 376(H) 10 - 50 Units/L [facility] ([place]) Blood 04/27/2025 7:07 AM CDT 04/27/2025 7:13 AM CDT Yulia Salgado MD LAB BLOOD ORDERABLES Katie l Result [facility] ([place]) 1 [facility] [place] [address] * (ABNORMAL) Pro B-type natriuretic peptide (04/27/2025 7:05 AM CDT) NT-proBNP 1,831(H) <=300 pg/mL Comment: Interpretive Comments: A. Dyspnea in Acute Care Setting All Ages: < 300 pg/ml, acute heart failure unlikely. < 50 yrs: 300 - 450 pg/ml, further investigation warranted. > 450 pg/ml, acute heart failure likely. 50 - 74 yrs: 300 - 900 pg/ml, further investigation warranted. > 900 pg/ml, acute heart failure likely . > or = 75 yrs: 450 - 1800 pg/ml, further investigation warranted. > 1800 pg/ml, acute heart failure likely. B. Non-acute Setting < 75 yrs < 125 pg/ml, rules out heart failure. > or = 125 pg/ml, further investigation warranted. > or = 75 yrs < 450 pg/ml, rules out heart failure. > or = 450 pg/ml, further investigation warranted. - Knowledge of each individual patient's NT-proBNP range may be more useful than using similar cut-points for every patient. Please note that marked elevations in NT-proBNP levels may be observed in state other than Left Ventricular Congestive Failure, including: acute coronary syndromes, right heart strain/failure (including pulmonary embolism and cor pulmonale), critical illness, renal failure, as well as advanced age. - References: 1. Shakeel JL et.al. Eur Heart J. 2006:27:330-337. 2. Rajesh RW, Nova STONER. J. AM Nelson Cardiol: Cardiovasc Imag. 2009;2: 216- 225. Interpretive Data Last Revised Date: 2018. Blood 04/27/2025 7:05 AM CDT 04/27/2025 8:41 AM CDT us Yulia Salgado MD LAB BLOOD ORDERABLES Katie l Result [facility] [place]) 1 [facility] [place] [address] * XR CHEST 1 VIEW PORTABLE (04/26/2025 10:23 AM CDT) Anatomical Region Laterality Modality Body, Chest N/A Computed Radiogr aphy 04/26/2025 11:4 7 AM CDT Addenda Addendum by Elisa Aguirre DO on 04/26/2025 1:55 PM CDT In the findings section, there is a voice recognition error. The correct statement should state: there is no definite evidence of a pneumothorax. Electronically signed by: Elisa Aguirre D.O. Impressions 04/26/2025 11:47 AM CDT 1. Patchy bibasilar airspace opacities, which is concerning for developing airspace disease. Electronically signed by: Elisa Aguirre D.O. Narrative 04/26/2025 11:47 AM CDT STUDY DESCRIPTION: XR CHEST 1 VIEW ORDERING HEALTHCARE PROVIDER: JELLY FERNANDEZ CLINICAL INDICATIONS: persistent fevers, cough. Persistent fevers and cough. COMPARISON: 04/19/2025 TECHNIQUE: Single frontal radiograph of the chest. FINDINGS: The heart size is stable. The pulmonary vasculature and mediastinum are grossly stable. There is definite evidence of a pneumothorax. There are patchy right basilar airspace opacities. There is no definite evidence of a pleural effusion. The osseous structures are acutely grossly stable. Procedure Note Elisa Aguirre, DO - 04/26/2025 STUDY DESCRIPTION: XR CHEST 1 VIEW ORDERING HEALTHCARE PROVIDER: JELLY FERNANDEZ CLINICAL INDICATIONS: persistent fevers, cough. Persistent fevers and cough. COMPARISON: 04/19/2025 TECHNIQUE: Single frontal radiograph of the chest. FINDINGS: The heart size is stable. The pulmonary vasculature and mediastinum are grossly stable. There is definite evidence of a pneumothorax. There are patchy right basilar airspace opacities. There is no definite evidence of a pleural effusion. The osseous structures are acutely grossly stable. IMPRESSION: 1. Patchy bibasilar airspace opacities, which is concerning for developing airspace disease. Electronically signed by: Elisa Aguirre D.O. Jelly Fernandez PSYCHOLOGY PHYSICIAN IMG XR PROCEDURES Edited Result - Final * Immature platelet fraction (04/26/2025 3:50 AM CDT) [facility] IPF 8.1 1.6 - 10.1 % Blood 04/26/2025 3:50 AM CDT 04/26/2025 5:03 AM CDT Mila Gibson MD LAB BLOOD ORDERABLES Final Resul t [facility] ([place]) 1 [facility] [place] [address] * (ABNORMAL) BLOOD MISC TO [place] (04/26/2025 3:50 AM CDT) [facility] Test name, chem TCD4 CD4 T-Cell Count [place] ref Lab Misc See Comment(A ) [facility] ([place]) Comment: Test Result Flag Unit RefValue CD4 T-Cell Count CD45 Total Lymph Count 0.52 L thou/mcL 0.82-2.84 % CD3 (T Cells) 64 % 58-86 CD3 (T Cells) 335 L cells/mcL 550-2202 % CD4 (T Cells) 1 L % 32-64 CD4 (T Cells) 6 L cells/mcL 365-1437 % CD8 (T Cells) 59 H % 13-40 CD8 (T Cells) 310 cells/mcL 145-846 4/8 Ratio 0.0 L >=0.9 ADDITIONAL INFORMATION This test was developed using an analyte specific reagent. Its performance characteristics were determined by [facility] in a manner consistent with CLIA requirements. This test has not been cleared or approved by the U.S. Food and Drug Administration. Test Performed by: [facility] Laboratories - [facility] [address] [place] [address] Superintendent Maintenance: Nola Pritchard Ph.D.; CLIA# [id number] Blood 04/26/2025 3:50 AM CDT 04/26/2025 3:08 PM CDT Jelly Fernandez PSYCHOLOGY PHYSICIAN LAB BLOOD ORDERABLES Katie felix Result [facility] ([place]) 1 [facility] [place] [address] [place] [facility] * eGFR (04/26/2025 3:50 AM CDT) eGFR >90 >=60 mL/min/1. 73 m2 Comment: [...] interpretive data was last reviewed 2021. Blood 04/26/2025 3:50 AM CDT 04/26/2025 3:10 PM CDT us Yulia Salgado MD LAB BLOOD ORDERABLES Katie felix Result [facility] ([place]) 1 [facility] [place] [address] * (ABNORMAL) CBC without differential (04/26/2025 3:50 AM CDT) WBC 5.27 3.80 - 9.90 K/cumm Hgb 9.5(L) 13.0 - 17.5 g/dL [facility] ([place]) Hct 27.3(L) 38.9 - 50.3 % [facility] ([place]) Plt 43(C) 150 - 400 K/cumm [facility] ([place]) Comment:Platelet count confi rmed by additional testing. Critical platelet count threshold determined by patient location: Outpatient:<50 K/cumm , Inpatient adults:<20 K/cumm , Inpatient pediatric:<25 K/cumm, BMT service:<10 K/cumm MPV 10.4 9.1 - 12.3 fL [facility] ([place]) RBC 3.35(L) 4.30 - 5.80 M/cumm [facility] ([place]) MCV 81.5 81.3 - 96.4 fL [facility] ([place]) MCH 28.4 27.1 - 33.3 pg [facility] ([place]) MCHC 34.8 32.3 - 35.7 g/dL [facility] ([place]) RDW CV 13.6 11.1 - 14.9 % [facility] ([place] RDW SD 40.6 35.7 - 48.1 fL [facility] ([place]) NRBC abs 0.04(H) 0.00 - 0.01 K/cumm [facility] ([place]) Blood 04/26/2025 3:50 AM CDT 04/26/2025 5:03 AM CDT us Mila Gibson MD LAB BLOOD ORDERABLES Final Resul t [facility] ([place]) 1 [facility] [place] [address] * (ABNORMAL) Comprehensive metabolic panel (04/26/2025 3:50 AM CDT) Sodium 132(L) 135 - 145 mmol/L Potassium, pl 4.3 3.3 - 4.9 mmol/L [facility] ([place]) Chloride 100 97 - 110 mmol/L [facility] ([place]) CO2 24 22 - 32 mmol/L [facility] ([place]) Anion gap 8 2 - 15 mmol/L [facility] ([place]) BUN 17 6 - 25 mg/dL [facility] ([place]) Creatinine 0.76(L) 0.80 - 1.30 mg/dL [facility] ([place]) Glucose 88 70 - 199 mg/dL [facility] ([place]) Comment: Interpretive Data Fasting glucose [...] interpretive data was last revised 2022. Calcium 8.6 8.5 - 10.3 mg/dL [facility] ([place]) Bilirubin, total 0.5 0.1 - 1.2 mg/dL [facility] ([place]) Protein, pl 5.5(L) 6.5 - 8.5 g/dL [facility] ([place]) Albumin 2.4(L) 3.5 - 5.0 g/dL [facility] ([place]) Alk phos 463(H) 40 - 130 Units/L [facility] ([place]) ALT 66(H) 7 - 55 Units/L [facility] ([place]) AST 288(H) 10 - 50 Units/L [facility] ([place]) Blood 04/26/2025 3:50 AM CDT 04/26/2025 3:10 PM CDT Yulia Salgado MD LAB BLOOD ORDERABLES Katie l Result [facility] ([place]) 1 [facility] [place] [place] [address] * HIT Antibodies with Reflex to Serotonin Release Assay (ERIC) (04/25/2025 4:50 PM CDT) Pathologist [facility] HIT antibodies Negative Negative Comment:Testing performed by : [facility], [address] [facility] [place] [address] HIT Ab FAREED Units 0.75 0.00 - 0.99 units/mL [facility] ([place]) Comment: A positive HIT Ab (heparin PF4 antibody FAREED test) is extremely sensitive for heparin-induced thrombocytopenia (HIT), but not specific, since many patients exposed to heparin have positive antibody tests without developing HIT. Higher HIT Ab FAREED Units are associated with a higher likelihood of a positive serotonin release assay (ERIC) and a clinical course consistent with HIT. The 4T scoring system is a useful tool for pretest probability of HIT (Cuker et al, Blood 2012;120:4160). Both laboratory testing and clinical risk evaluation should be considered in determining an individual patient s risk of HIT. Testing performed by: [facility], [address] [facility] [place] [address] Blood 04/25/2025 4:50 PM CDT 04/25/2025 8:20 PM CDT Miguel Elmore MD LAB BLOOD ORDERABLES Katie l Result Performing Organization Address [facility] Co de Phone Number [facility] ([place]) 1 [facility] [place] [address] * aPTT (04/25/2025 4:50 PM CDT) aPTT 33 26 - 38 sec [facility] ([place]) Comment: Interpretive Data Heparin therapeutic range: 66.0 - 100.0 seconds. Range based on correlation with therapeutic heparin activity range of 0.3 - 0.7 Units/mL. Current interpretive data was last revised on 2023. Blood 04/25/2025 4:50 PM CDT 04/25/2025 4:57 PM CDT Miguel Elmore MD LAB BLOOD ORDERABLES Katie l Result Performing Organization Address [facility] de Phone Number [facility] ([place]) 1 [facility] [place] [address] * Protime-INR (04/25/2025 4:50 PM CDT) PT 12.2 10.2 - 13.5 sec [facility] ([place]) INR 1.08 0.90 - 1.20 [facility] ([place]) Comment: Interpretive data Oral anticoagulant therapeutic ranges: Venous thromboembolism prophylaxis or treatment: 2.0-3.0 CARDIOLOGY Standard range: 2.0-3.0 High-intensity range: 2.5-3.5 Refer to indication-specific guidelines for appropriate target ranges for prosthetic heart valve replacement. Current interpretive data was last revised on 2019. Blood 04/25/2025 4:50 PM CDT 04/25/2025 4:57 PM CDT Miguel Elmore MD LAB BLOOD ORDERABLES Katie l Result Performing Organization Address [facility]/ZIP Co de Phone Number [facility] ([place]) 1 [facility] [place] [address] * Fibrinogen (04/25/2025 4:50 PM CDT) Fibrinogen 182 170 - 400 mg/dL [facility] ([place]) Blood 04/25/2025 4:50 PM CDT 04/25/2025 4:57 PM CDT Miguel Elmore MD LAB BLOOD ORDERABLES Katie elvira Result [facility] ([place]) 1 [facility] [place] [address] * Blood culture Blood (04/25/2025 12:48 PM CDT) Report Final Report: No growth Comment:Testing performed by : [facility], [address] [place]., [address] Blood 04/25/2025 12:4 8 PM CDT 04/25/2025 6:00 PM CDT Narrative PHIL SOSA) - 04/30/2025 7:00 AM VOCATIONAL AIDE From a different site than #1. Collection->Peripheral 1. Blood cultures are incubated for 4 days on a continuously monitored blood culture system. The first report of a negative culture is issued within 24 hours of receipt of the specimen in the laboratory. 2. Positive culture results are reported as soon as they are detected. 3. The most important factor for detection of microbes in the setting of bloodstream infection is the volume of blood submitted for culture. Failure to collect an optimal blood volume can result in false negative blood cultures. 4. For pediatric patients, the recommended blood volume to collect follows a weight based strategy. See the electronic test catalog for collection instructions. 5. For positive blood cultures, a rapid molecular test may be performed for organism identification using the davin ePlex blood culture identification panel for gram positive (BCID-GP) and gram negative (BCID-GN) organisms. This nucleic acid amplification test detects microbial DNA in positive blood culture broth. This assay has been cleared by the [place] Food and Drug Administration and its performance characteristics have been verified by the [facility] Microbiology Laboratory. For questions about this culture, contact the Microbiology Laboratory at [phone]. Interpretive data was last revised on 24. Yulia Salgado MD LAB MICROBIOLOGY - GENERA L ORDERABLES Final Result PHIL SOS[facility]) 1 [facility] [place] [address] * Blood culture Blood (04/25/2025 12:41 PM CDT) Report Final Report: No growth Comment:Testing performed by : [facility], [address] [facility] [place] [address] Blood 04/25/2025 12:4 1 PM CDT 04/25/2025 6:00 PM CDT Narrative PHIL MAYES ([place]) - 04/30/2025 7:00 AM VOCATIONAL AIDE Collection->Peripheral 1. Blood cultures are incubated for 4 days on a continuously monitored blood culture system. The first report of a negative culture is issued within 24 hours of receipt of the specimen in the laboratory. 2. Positive culture results are reported as soon as they are detected. 3. The most important factor for detection of microbes in the setting of bloodstream infection is the volume of blood submitted for culture. Failure to collect an optimal blood volume can result in false negative blood cultures. 4. For pediatric patients, the recommended blood volume to collect follows a weight based strategy. See the electronic test catalog for collection instructions. 5. For positive blood cultures, a rapid molecular test may be performed for organism identification using the davin ePlex blood culture identification panel for gram positive (BCID-GP) and gram negative (BCID-GN) organisms. This nucleic acid amplification test detects microbial DNA in positive blood culture broth. This assay has been cleared by the [place] Food and Drug Administration and its performance characteristics have been verified by the [facility] Microbiology Laboratory. For questions about this culture, contact the Microbiology Laboratory at [phone]. Interpretive data was last revised on 24. us Yulia Salgado MD LAB MICROBIOLOGY - GENERA L ORDERABLES Final Result PHIL MAYES ([place]) 1 [facility] [place] [address] * Immature platelet fraction (04/25/2025 7:43 AM CDT) [facility] IPF 6.9 1.6 - 10.1 % Blood 04/25/2025 7:43 AM CDT 04/25/2025 8:39 AM CDT us Mila Gibson MD LAB BLOOD ORDERABLES Final Resul t Performing Organization Address City/[facility] Co de Phone Number PHIL MAYES ([place]) 1 [facility] [place] [address] * (ABNORMAL) CBC without differential (04/25/2025 7:43 AM CDT) [facility] WBC 5.13 3.80 - 9.90 K/cumm Hgb 10.4(L) 13.0 - 17.5 g/dL [facility] ([place]) Hct 30.0(L) 38.9 - 50.3 % [facility] ([place]) Plt 36(C) 150 - 400 K/cumm [facility] ([place]) Comment:Platelet count confi rmed by additional testing. Critical platelet count threshold determined by patient location: Outpatient:<50 K/cumm , Inpatient adults:<20 K/cumm , Inpatient pediatric:<25 K/cumm, BMT service:<10 K/cumm MPV 12.1 9.1 - 12.3 fL [facility] ([place]) RBC 3.68(L) 4.30 - 5.80 M/cumm [facility] ([place]) MCV 81.5 81.3 - 96.4 fL [facility] ([place]) MCH 28.3 27.1 - 33.3 pg [facility] ([place]) MCHC 34.7 32.3 - 35.7 g/dL [facility] ([place]) RDW CV 13.6 11.1 - 14.9 % [facility] ([place]) RDW SD 40.5 35.7 - 48.1 fL [facility] ([place]) NRBC abs 0.02(H) 0.00 - 0.01 K/cumm [facility] ([place]) Blood 04/25/2025 7:43 AM CDT 04/25/2025 8:39 AM CDT us Mila Gibson MD LAB BLOOD ORDERABLES Final Resul t PHIL MAYES ([place]) [address] [place] [address] [place] [address] * TRANSTHORACIC ECHO (TTE) COMPLETE W DOPPLER/CF WO CONTRAST (04/24/2025 3:51 PM CDT) EF Mod BP 65 % CONS SCIMAGE Anatomical Region Laterality Modality Ultrasound 04/24/2025 3:15 PM CDT Narrative 04/24/2025 4:19 PM CDT [address] [address] Echocardiogram Report Patient Name: CHRISTOPHER ZALDIVAR : 1980 Study Date: 04/24/2025 3:15:23 PM Sex: M Tech: AA Location: [id number] Ref Provider: MILA GIBSON Height(Cm): BSA: Weight(Kg): Quality: Good Order Provider: MILA GIBSON PROCEDURES: Echocardiographic Report: Transthoracic echocardiogram with complete 2D, M-Mode, and color Doppler examination. INDICATIONS: Hypotension. MEASUREMENTS: 2D/MM Value Range Doppler Value Range EF Teich 2D 63.1 % [ 52.0 - 72.0 ] JOSEPH Vmax 3.02 cm2 EF Mod BP 65 % [ 52 - 72 ] AV Mean PG 7 mmHg LVIDd 2D 4.52 cm [ 4.20 - 5.80 ] AV Peak Matthew 1.69 m/s [ 1.00 - 1.70 ] LVIDs 2D 2.98 cm [ 2.50 - 4.00 ] AV VTI 28.53 cm LVPWd 2D 1.06 cm [ 0.60 - 1.00 ] LVOT Diam 2.13 cm IVSd 2D 0.99 cm [ [...] [ 1.00 - 1.20 ] MV Mean PG 3 mmHg MV PHT 40 msec [ 20 - 100 ] MVA 3.40 MV Decel Time 138 msec [ 104 - 258 ] PV Peak Matthew 1.23 m/s [ 0.40 - 0.80 ] NV Peak Matthew 0.97 m/s TR Peak Matthew 1.89 m/s [ 1.00 - 2.80 ] TR Peak PG 14 mmHg RVSP 19.00 mmHg [ 10.00 - 36.00 ] E` 0.10 m/s E/E` 9.97 [ <= 10.00 ] PA Pressure 5.00 mmHg [ 10.00 - 36.00 ] 2D/MM Value Range Doppler Value Range [...] with normal right atrial pressure (<5 mmHg). CONCLUSIONS: Normal left ventricular systolic function with no [...] Delano Torres MD 04/24/2025 4:18:16 PM CDT Procedure Note Delano Torres MD - 04/24/[address] [address] Echocardiogram Report Patient Name: CHRISTOPHER ZALDIVAR : 1980 Study Date: 04/24/2025 3:15:23 PM Sex: M Tech: Location: [place] [address] Ref Provider: MILA GIBSON Height(Cm): BSA: Weight(Kg): Quality: Good Order Provider: MILA GIBSON PROCEDURES: Echocardiographic Report: Transthoracic echocardiogram with complete 2D, M-Mode, and color Dopplerexamination. INDICATIONS: Hypotension. MEASUREMENTS: 2D/MM Value Range Doppler ValueRange EF Teich 2D 63.1 % [ 52.0 - 72.0 ] JOSEPH Vmax 3.02cm2 EF Mod BP 65 % [ 52 - 72 ] AV Mean PG 7 mmHg LVIDd 2D 4.52 cm [ 4.20 - 5.80 ] AV Peak Matthew 1.69 m/s[ 1.00 - 1.70 ] LVIDs 2D 2.98 cm [ 2.50 - 4.00 ] AV VTI 28.53cm LVPWd 2D 1.06 cm [ 0.60 - 1.00 ] LVOT Diam 2.13cm IVSd 2D 0.99 cm [ 0.60 - 1.00 ] LVOT Peak Matthew 1.44 m/s[ 0.70 - 1.10 ] LA Dimension MM 4.06 cm [ 3.00 - 4.00 ] LVOT VTI 23.41cm AoR Diam MM 3.23 cm [ 3.10 - 3.70 ] MV E Peak Matthew 0.96 m/s[ 0.60 - 1.30 ] ACS MM 2.12 cm [ 1.50 - 2.60 ] MV A Peak Matthew 0.64 m/s[ 1.00 - 1.20 ] MV Mean PG 3 mmHg MV PHT 40 msec [ 20 - 100 ] MVA 3.40 MV Decel Time 138 msec [ 104 - 258 ] PV Peak Matthew 1.23 m/s [ 0.40 - 0.80 ] NV Peak Matthew 0.97 m/s TR Peak Matthew 1.89 m/s [ 1.00 - 2.80 ] TR Peak PG 14 mmHg RVSP 19.00 mmHg [ 10.00 - 36.00 ] E` 0.10 m/s E/E` 9.97 [ <= 10.00 ] PA Pressure 5.00 mmHg [ 10.00 - 36.00 ] 2D/MM Value Range Doppler ValueRange - FINDINGS: Atrial Septum: Normal atrial septum. Left Ventricle: Normal left ventricular systolic function with no focal wall motionabnormalities. Normal left ventricular size. Normal left ventricular wall thickness. Normal leftventricular diastolic function. Ejection fraction is measured at 65 %. Left Atrium: There is mild enlargement of left atrium. Right Ventricle: Normal right ventricular size. Normal right ventricular systolicfunction. Right Atrium: The right atrium is normal in size. Aortic Valve: Normal structure of the aortic valve. Mitral Valve: Normal structure of the mitral valve. Pulmonic Valve: Pulmonic valve not well visualized. Tricuspid Valve: Normal structure of the tricuspid valve. Right Ventricular SystolicPressure could not be estimated due to inadequate visualization of TR jet. Pericardium: Normal pericardium with no significant pericardial effusion. Aorta: Normal aortic root. Sinus of Valsalva is normal. Aortic arch is normal.Descending aorta is normal. IVC: Normal size and normal respiratory collapse consistent with normal rightatrial pressure (<5 mmHg). CONCLUSIONS: Normal left ventricular systolic function with no focal wall motionabnormalities. Normal left ventricular size. Normal left ventricular wall thickness. Normal leftventricular diastolic function. Ejection fraction is measured at 65 %. Normal right ventricular size. Normal right ventricular systolicfunction. Normal structure of the mitral valve. Normal structure of the aortic valve. Normal structure of the tricuspid valve. Right Ventricular SystolicPressure could not be estimated due to inadequate visualization of TR jet. Electronically Signed By: Delano Torres MD 04/24/2025 4:18:16 PM CDT Mila Gibson MD CV ECHO PROCEDURES Final Result * (ABNORMAL) Respiratory pathogen panel Nasopharyngeal (04/24/2025 9:55 AM CDT) Pathologist [facility] Influenza A RNA Not Detected Not Detected Comment:Testing performed by : [address] [address] Influenza B RNA Not Detected Not Detected PHIL [facility] ([place]) Comment:Testing performed by : [address] [address] RSV RNA Not Detected Not Detected PHIL MAYES ([place]) Comment:Testing performed by : [address] [address] COVID-19 RNA Not Detected Not Detected PHIL [facility] ([place]) Comment:Testing performed by : [address] [address] Coronavirus 229E RNA Not Detected Not Detected [facility]IL [facility] ([place]) Comment:Testing performed by : [address] [address] Coronavirus HKU1 RNA Not Detected Not Detected [facility] ([place]) Comment:Testing performed by : [facility], [address] [place] [address]., [address] Coronavirus NL63 RNA Not Detected Not Detected [facility] ([place]) Comment:Testing performed by : [facility], [address] [place] [address], [address] Coronavirus OC43 RNA Not Detected Not Detected [facility] ([place]) Comment:Testing performed by : [facility], [address] [place] [address]., [address] Adenovirus DNA Not Detected Not Detected [facility] ([place]) Comment:Testing performed by : [facility], [address] [place] [address], [id number] Metapneumovirus RNA Not Detected Not Detected [facility] ([place]) Comment:Testing performed by : [facility], [address] [place] [address], [address] Rhinovirus/Enterov irus RNA Detected(A) Not Detected [facility] ([place]) Comment:Testing performed by : [facility], [address] [place] [address], [address] Parainfluenza 1 RNA Not Detected Not Detected [facility] ([place]) Comment:Testing performed by : [facility], [address] [place] [address], [address] Parainfluenza 2 RNA Not Detected Not Detected [facility] ([place]) Comment:Testing performed by : [facility], [address] [place] [address], [address] Parainfluenza 3 RNA Not Detected Not Detected [facility] ([place]) Comment:Testing performed by : [facility], [address] [place] [address], [address] Parainfluenza 4 RNA Not Detected Not Detected [facility] ([place]) Comment:Testing performed by : [facility], [address] [place] [address], [address] B. pertussis DNA Not Detected Not Detected [facility] ([place]) Comment:Testing performed by : [facility], [address] [place] [address], [address] B. parapertussis DNA Not Detected Not Detected [facility] ([place]) Comment:Testing performed by : [facility], [address] [place] [address], [address] C. pneumoniae DNA Not Detected Not Detected [facility] ([place]) Comment:Testing performed by : [facility], [address] [place] [address]., [address] M. pneumoniae DNA Not Detected Not Detected PHIL SOS[facility]) Comment: Interpretive Data The Austral 3D FilmArray Respiratory Panel (RP2.1) assay is a multiplexed real-time PCR based nucleic acid test capable of simultaneous qualitative detection and identification of multiple respiratory viral and bacterial nucleic acids, including SARS Coronavirus 2 (the causative agent of COVID-19). The following bacteria, viruses and virus subtypes can be identified using the FilmArray RP2.1 assay: Bordetella pertussis, Bordetella parapertussis, Chlamydia pneumoniae, Mycoplasma pneumoniae, Adenovirus, SARS Coronavirus 2, seasonal coronaviruses (Coronavirus HKU1, Coronavirus NL63, Coronavirus 229E, and Coronavirus OC43), Influenza A, Influenza A subtype H1, Influenza A subtype H3, Influenza A subtype 2009 H1, Influenza B, Metapneumovirus, Parainfluenza 1, Parainfluenza 2, Parainfluenza 3, Parainfluenza 4, RSV, Rhinovirus/Enterovirus. Due to the genetic similarity between human Rhinovirus and Enterovirus, the FilmArray RP2.1 assay cannot reliably differentiate them. Coronavirus OC43 may cross-react with some isolates of Coronavirus HKU1. A dual positive result may be due to cross-reactivity or may indicate a co- infection. The detection and identification of specific viral and bacterial nucleic acids from individuals exhibiting signs and symptoms of a respiratory infection aids in the diagnosis of respiratory infection if used in conjunction with other clinical and epidemiological information. The results of this test should not be used as the sole basis for diagnosis, treatment, or other management decisions. Negative results in the setting of a respiratory illness may be due to infection with pathogens that are not detected by this test. Positive results do not rule out infection/co-infection with other organisms. The agent(s) detected by the FilmArray RP2.1 may not be the definite cause of disease. Additional testing (lab, imaging, etc.) may be necessary when evaluating a patient with possible respiratory tract infection. The FilmArray RP2.1 assay has FDA clearance for testing of PSYCHOLOGY PHYSICIAN swabs. The performance characteristics of this assay have been determined by [facility]. Current interpretive data was last revised on 2021. Testing performed by: [facility], [address] [place] [address]., [id number] Nasopharyngeal 04/24/2025 9: 55 AM CDT 04/24/2025 11:02 AM CDT Narrative PHIL MAYES ([place]) - 04/24/2025 11:56 AM CDT Is the Patient experiencing symptoms consistent with COVID?->No Surveillance testing for transplant patient?->No Jelly Fernandez PSYCHOLOGY PHYSICIAN LAB MICROBIOLOGY - GENERA L ORDERABLES Final Result PHIL [facility] ([place]) [address] [place] [address] Department [place] [address] CH * Clinical pathology report (04/24/2025 8:21 AM CDT) Miscellaneous 04/24/2025 8:2 1 AM CDT 04/24/2025 8:21 AM CDT Narrative 04/24/2025 4:41 PM CDT EPIC results best viewed via link to PDF [facility] Department of Pathology [address] [place] [address] Final Report Note to Patients: This report may contain a detailed description of human tissue sent by a health care provider to the laboratory for pathologic evaluation. The content of this report is essential for diagnosis and may provide important critical findings. This information may be unfamiliar to patients to review without a medical professional present. It is advised that the patient review this report in the presence of a health care provider who can answer questions and explain the details. Patient Name: CHRISTOPHER ZALDIVAR Address: [address] [place] [id number] Gender: M : 1980 (Age: 45) Service: Medical Location: [facility] Hospital #: [id number] Patient Type: [facility] Taken: 04/24/2025 Received: 04/24/2025 Accessioned: 04/24/2025 Physician(s): Mila Gibson MD Specimen(s) Received A: Blood Peripheral Blood Smear ReviewReported:04/24/2025 A peripheral blood smear is reviewed in conjunction with a CBC dated 04/23/25: WBC 3.71, RBC 3.32, Hgb 9.6, HCT 27.9, MCV 84.0, MCHC 34.4, PLT 45, RDW-CV 13.4%. A peripheral blood manual differential on 200 cells shows: neutrophils 80%, lymphocytes 8%, monocytes 5%, metamyelocytes 1%, eosinophils 6%. Red blood cells are decreased in number and normocytic. There is minimal anisopoikilocytosis. Nucleated red blood cells are not present in significant numbers. Platelets are decreased in number with normal size and granularity. White blood cells are decreased in number with a relative eosinophilia. Neutrophils exhibit appropriate nuclear segmentation and granularity. Lymphocytes and monocytes are morphologically unremarkable. While relatively increased in number, eosinophils are morphologically unremarkable. Interpretation: Peripheral blood, manual smear review: - Pancytopenia. - Relative eosinophilia. - See comment. COMMENT: The patient's pancytopenia is confirmed. There are no morphologic findings to strongly support a specific etiology. A relative eosinophilia is also noted. Etiologies behind peripheral eosinophilia are varied. Etiologies include: medication effects, allergic conditions, infection (particularly parasitic), as well as a variety of hematologic and neoplastic disorders. Clinical correlation and follow-up are recommended. If the findings persist upon short interval follow-up, and clinical concern exists, flow cytometric analysis may be beneficial. Giovani Samano MDReport Electronically Reviewed and Signed Out By Giovani Samano MD 04/24/2025 16:40:45 The performance characteristics of some immunohistochemical stains, fluorescence in-situ hybridization tests and immunophenotyping by flow cytometry cited in this report (if any) were determined by the Surgical Pathology Department at [facility] as part of an ongoing microbiology quality control technician program and in compliance with federally mandated regulations drawn from the Clinical Laboratory Improvement Act of 1988 (CLIA '88). Some of these tests rely on the use of analyte specific reagents and are subject to specific labeling requirements by the US Food and Drug Administration. Such diagnostic tests may only be performed in a facility that is certified by the Department of Health and Human Services as a high complexity laboratory under CLIA '88. The FDA has determined that such clearance or approval is not necessary. This test is used for clinical purposes. It should not be regarded as investigational or for research. Nevertheless, federal rules concerning the medical use of analyte specific reagents require that the following disclaimer be attached to the report: This test was developed and its performance characteristics determined by the Surgical Pathology Department [facility]. It has not been cleared or approved by the U. S. Food and Drug Administration. REPORT IMAGES AND SCANNED DOCUMENTS, IF INCLUDED, ONLY VIEWABLE IN PDF VERSION OF REPORTe o us Mila Gibson MD LAB PATHOLOGY ORDERABLES Final R esult * Immature platelet fraction (04/24/2025 4:25 AM CDT) IPF 6.3 1.6 - 10.1 % Blood 04/24/2025 4:25 AM CDT 04/24/2025 4:38 AM CDT us Mila Gibson MD LAB BLOOD ORDERABLES Final Resul t PHIL MAYES ([place]) 1 [facility] Department of Laboratories [place], [place] [id number] * eGFR (04/24/2025 4:25 AM CDT) eGFR >90 >=60 mL/min/1. 73 m2 Comment: [...] interpretive data was last reviewed 2021. Blood 04/24/2025 4:25 AM CDT 04/24/2025 4:38 AM CDT us Neli Salazar MD LAB BLOOD ORDERABLES Fi nal Result PHIL MAYES ([place]) 1 [facility] [place] [place] [address] * (ABNORMAL) Iron profile w/ IBC (04/24/2025 4:25 AM CDT) Pathologist [facility] Iron 46(L) 50 - 150 mcg/dL TIBC 177(L) 250 - 400 mcg/dL [facility] ([place]) Transferrin saturation 26 20 - 50 % [facility] ([place]) Blood 04/24/2025 4:25 AM CDT 04/24/2025 4:38 AM CDT us Mila Gibson MD LAB BLOOD ORDERABLES Final Resul t Performing Organization Address City/[facility] Co de Phone Number PHIL MAYES ([place]) [address] [place] [address] [place] [address] * (ABNORMAL) Reticulocyte Count (04/24/2025 4:25 AM CDT) [facility] Retics, absolute 22 20 - 87 K/cumm Retics 0.7 0.4 - 2.9 % [facility] ([place]) Reticulocyte Hgb 26.0(L) 30.5 - 38.0 pg [facility] ([place]) Blood 04/24/2025 4:25 AM CDT 04/24/2025 4:38 AM CDT us Mila Gibson MD LAB BLOOD ORDERABLES Final Resul t PHIL MAYES ([place]) 1 [facility] [place] [address] * (ABNORMAL) CBC without differential (04/24/2025 4:25 AM CDT) [facility] WBC 3.39(L) 3.80 - 9.90 K/cumm Hgb 8.8(L) 13.0 - 17.5 g/dL [facility] ([place]) Hct 25.3(L) 38.9 - 50.3 % [facility] ([place]) Plt 40(C) 150 - 400 K/cumm [facility] ([place]) Comment:Platelet count confi rmed by additional testing. Critical platelet count threshold determined by patient location: Outpatient:<50 K/cumm , Inpatient adults:<20 K/cumm , Inpatient pediatric:<25 K/cumm, BMT service:<10 K/cumm MPV 11.1 9.1 - 12.3 fL [facility] RBC 3.06(L) 4.30 - 5.80 M/cumm [facility] ([place]) MCV 82.7 81.3 - 96.4 fL [facility] ([place]) MCH 28.8 27.1 - 33.3 pg [facility] ([place]) MCHC 34.8 32.3 - 35.7 g/dL [facility] ([place]) RDW CV 13.4 11.1 - 14.9 % [facility] ([place]) RDW SD 40.6 35.7 - 48.1 fL [facility] ([place]) NRBC abs 0.00 0.00 - 0.01 K/cumm [facility] ([place]) Blood 04/24/2025 4:25 AM CDT 04/24/2025 4:38 AM CDT us Mila Gibson MD LAB BLOOD ORDERABLES Final Resul t [facility] ([place]) 1 [facility] [place] [address] * Vitamin B1 (04/24/2025 4:25 AM CDT) [facility] Thiamine (Vit B1) 113 70 - 180 nmol/L [facility] Comment: ADDITIONAL INFORMATION This test was developed and its performance characteristics determined by [facility] in a manner consistent with CLIA requirements. This test has not been cleared or approved by the U.S. Food and Drug Administration. Test Performed by: [facility] Laboratories - [facility] [address] [place] [address] Superintendent Maintenance: Nola Pritchard Ph.D.; CLIA# [id number] Blood 04/24/2025 4:25 AM CDT 04/24/2025 1:16 PM CDT Mila Gibson MD LAB BLOOD ORDERABLES Final Resul t PHIL MAYES ([place]) [address] [place] [address] [facility] * (ABNORMAL) Ferritin (04/24/2025 4:25 AM CDT) [facility] Ferritin 16,447(H) 30 - 400 ng/mL Blood 04/24/2025 4:25 AM CDT 04/24/2025 4:38 AM CDT Mila Gibson MD LAB BLOOD ORDERABLES Final Resul t Performing Organization Address City/[facility]/ZIP Co de Phone Number [facility] ([place]) 1 [facility] [place] [address] * Vitamin B12 (04/24/2025 4:25 AM CDT) [facility] Vitamin B12 576 230 - 1,250 pg/mL Blood 04/24/2025 4:25 AM CDT 04/24/2025 4:38 AM CDT Mila Gibson MD LAB BLOOD ORDERABLES Final Resul t [facility] ([place]) 1 [facility] [place] [address] * (ABNORMAL) Comprehensive metabolic panel (04/24/2025 4:25 AM CDT) Sodium 134(L) 135 - 145 mmol/L Potassium, pl 4.1 3.3 - 4.9 mmol/L [facility] ([place]) Chloride 102 97 - 110 mmol/L [facility] ([place]) CO2 23 22 - 32 mmol/L [facility] ([place]) Anion gap 9 2 - 15 mmol/L [facility] ([place]) BUN 12 6 - 25 mg/dL [facility] ([place]) Creatinine 0.71(L) 0.80 - 1.30 mg/dL [facility] ([place]) Glucose 131 70 - 199 mg/dL [facility] ([place]) [...] classification and Diagnosis of Diabetes Diabetes Care 202; 46: [id number]. Current interpretive data was last revised 2022. Calcium 8.5 8.5 - 10.3 mg/dL [facility] ([place]) Bilirubin, total 0.4 0.1 - 1.2 mg/dL [facility] ([place]) Protein, pl 5.6(L) 6.5 - 8.5 g/dL [facility] ([place]) Albumin 2.4(L) 3.5 - 5.0 g/dL [facility] ([place]) Alk phos 212(H) 40 - 130 Units/L [facility] ([place]) ALT 49 7 - 55 Units/L [facility] ([place]) AST 149(H) 10 - 50 Units/L [facility] ([place]) Blood 04/24/2025 4:25 AM CDT 04/24/2025 4:38 AM CDT us Neli Salazar MD LAB BLOOD ORDERABLES Fi nal Result [facility] ([place]) [address] [place] [address] * Toxoplasma gondii PCR Blood (04/23/2025 5:43 PM CDT) Pathologist [facility] T. gondii PCR, bld Negative Negative [facility] [place] b Comment: ADDITIONAL INFORMATION This test was developed and its performance characteristics determined by [facility] in a manner consistent with CLIA requirements. This test has not been cleared or approved by the U.S. Food and Drug Administration. Test Performed by: [place] [address] Superintendent Maintenance: Nola Pritchard Ph.D.; CLIA# [id number] Blood 04/23/2025 5:43 PM CDT 04/23/2025 5:48 PM CDT Mila Gibson MD LAB MICROBIOLOGY - GENERAL ORDER JAMI Final Result Performing Organization Address City/[facility]/ZIP Co de Phone Number [facility] ([place]) [address] [place] [address] [facility] * Lactate (04/23/2025 5:43 PM CDT) Pathologist [facility] Lactate 0.7 0.7 - 2.0 mmol/L Blood 04/23/2025 5:43 PM CDT 04/23/2025 5:48 PM CDT Mila Gibson MD LAB BLOOD ORDERABLES Final Resul t [facility] ([place]) [address] [place] [address] * (ABNORMAL) Procalcitonin (04/23/2025 5:43 PM CDT) Pathologist [facility] Procalcitonin 2.93(H) <=0.25 ng/mL Comment:Testing performed by : [facility], [address], [place]., [address] Blood 04/23/2025 5:43 PM CDT 04/24/2025 6:06 PM CDT Mila Gibson MD LAB BLOOD ORDERABLES Final Resul t [facility] ([place]) 1 [facility] [place] [address] * Cryptococcal Antigen, Serum Blood (04/23/2025 5:43 PM CDT) [facility] Cryptococcus ag, Serum Negative Negative Comment: The cryptococcal antigen test was performed using the Singularu CrAg Lateral Flow Assay. This assay is FDA cleared for serum and CSF specimens and for the detection of Cryptococcus neoformans and Cryptococcus gattii. If the result is positive, the specimen will be titered and reported from less than 1:5 to greater than or equal to 1:2560. This assay does not distinguish between C. neoformans and C. gattii. Testing hemolyzed serum samples may lead to false negatives. Current interpretive data last revised 2018. Testing performed by: [facility], [address] [facility] [place] [address] Blood 04/23/2025 5:43 PM CDT 04/24/2025 2:36 AM CDT Mila Gibson MD LAB MICROBIOLOGY - GENERAL ORDER JAMI Final Result [facility] ([place]) 1 [facility] [place] [address] * Strep pneumoniae antibody serotypes (04/23/2025 5:43 PM CDT) [facility] S. pneumo Type 1 (1) 1.2 >=1.0 mcg/mL [facility] S. pneumo Type 2 (2) 1.6 >=1.0 mcg/mL [facility] ([place]) S. pneumo Type 3 (3) 0.8 >=1.0 mcg/mL [facility] ([place]) S. pneumo Type 4 (4) 1.4 >=1.0 mcg/mL [facility] ([place]) S. pneumo Type 5 (5) 1.1 >=1.0 mcg/mL [facility] ([place]) S. pneumo Type 8 (8) 4.5 >=1.0 mcg/mL [facility] ([place]) S. pneumo Type 9N (9) 2.8 >=1.0 mcg/mL [facility] ([place]) S. pneumo Type 12F (12) 2.4 >=1.0 mcg/mL [facility] ([place]) S. pneumo Type 14 (14) 3.1 >=1.0 mcg/mL [facility] ([place]) S. pneumo Type 17F (17) 3.7 >=1.0 mcg/mL [facility] ([place]) S. pneumo Type 19F (19) 9.6 >=1.0 mcg/mL [facility] ([place]) S. pneumo Type 20 (20) 10.2 >=1.0 mcg/mL [facility] ([place]) S. pneumo Type 22F (22) 6.0 >=1.0 mcg/mL [facility] ([place]) S. pneumo Type 23F (23) 3.3 >=1.0 mcg/mL [facility] ([place]) S. pneumo Type 6B (26) 0.4 >=1.0 mcg/mL [facility] ([place]) S. pneumo Type 10A (34) 5.1 >=1.0 mcg/mL [facility] ([place]) S. pneumo Type 11A (43) 1.1 >=1.0 mcg/mL [facility] ([place]) S. pneumo Type 7F (51) 2.9 >=1.0 mcg/mL [facility] ([place]) S. pneumo Type 15B (54) 6.3 >=1.0 mcg/mL [facility] ([place]) S. pneumo Type 18C (56) 0.9 >=1.0 mcg/mL [facility] ([place]) S. pneumo Type 19A (57) 5.5 >=1.0 mcg/mL [facility] ([place]) S. pneumo Type 9V (68) 1.3 >=1.0 mcg/mL [facility] ([place]) S. pneumo Type 33F (70) 11.8 >=1.0 mcg/mL [facility] ([place]) Pneum Ab 23 interp See Comment [facility] ([place]) Comment: Evaluation of the immune response following pneumococcal vaccination can be assessed by measuring serotype-specific Streptococcus pneumonia IgG antibodies. Either of the following conditions is consistent with a normal response to Streptococcus pneumonia vaccination: 1. When comparing pre and post-vaccination samples, antibody concentrations increased by at least 2-fold for either >50% of serotypes in children <6 years of age or >70% of serotypes for individuals >6 years of age. 2. In either a pre- or post-vaccination sample, antibody concentrations >=1.0 mcg/mL for either >50% of serotypes for children <6 years of age or >70% of serotypes for individuals >6 years of age. Results >=1.0 mcg/mL or those showing a >=2-fold change are consistent with an immune response, but are not necessarily sufficient to provide protection against infection. ADDITIONAL INFORMATION This test was developed and its performance characteristics determined by [facility] in a manner consistent with CLIA requirements. This test has not been cleared or approved by the U.S. Food and Drug Administration. Test Performed by: [facility] - [address] [address] Superintendent Maintenance: Nola Pritchard Ph.D.; CLIA# [id number] Blood 04/23/2025 5:43 PM CDT 04/23/2025 5:48 PM CDT us Mila Gibson MD LAB BLOOD ORDERABLES Final Resul t [facility] ([place]) 1 [facility] Department [place] [address] [facility] * (ABNORMAL) Erythrocyte sedimentation rate (04/23/2025 5:43 PM CDT) Erythrocyte sedimentation rate 38(H) 1 - 15 mm/hr Blood 04/23/2025 5:43 PM CDT 04/23/2025 5:48 PM CDT us Mila Gibson MD LAB BLOOD ORDERABLES Final Resul t [facility] ([place]) 1 [facility] [place] [address] * (ABNORMAL) CRP (acute phase) (04/23/2025 5:43 PM CDT) Pathologist [facility] CRP 74.1(H) <=10.0 mg/L Blood 04/23/2025 5:43 PM CDT 04/23/2025 5:48 PM CDT Mila Gibson MD LAB BLOOD ORDERABLES Final Resul t [facility] ([place]) 1 [facility] [place] [address] * Creatine kinase (CK), total (04/23/2025 5:43 PM CDT) CK 137 40 - 300 Units/L Blood 04/23/2025 5:43 PM CDT 04/23/2025 5:48 PM CDT us Mila Gibson MD LAB BLOOD ORDERABLES Final Resul t [facility] ([place]) 1 [facility] [place] [address] * Blood culture Blood (04/23/2025 4:09 PM CDT) Report Final Report: No growth Comment:Testing performed by : [facility], [address] [facility] [place] [address] Blood 04/23/2025 4:09 PM CDT 04/23/2025 6:39 PM CDT Narrative [facility] ([place]) - 04/28/2025 7:00 AM CDT From a different site than #1. Collection->Peripheral 1. Blood cultures are incubated for 4 days on a continuously monitored blood culture system. The first report of a negative culture is issued within 24 hours of receipt of the specimen in the laboratory. 2. Positive culture results are reported as soon as they are detected. 3. The most important factor for detection of microbes in the setting of bloodstream infection is the volume of blood submitted for culture. Failure to collect an optimal blood volume can result in false negative blood cultures. 4. For pediatric patients, the recommended blood volume to collect follows a weight based strategy. See the electronic test catalog for collection instructions. 5. For positive blood cultures, a rapid molecular test may be performed for organism identification using the davin ePlex blood culture identification panel for gram positive (BCID-GP) and gram negative (BCID-GN) organisms. This nucleic acid amplification test detects microbial DNA in positive blood culture broth. This assay has been cleared by the [place] Food and Drug Administration and its performance characteristics have been verified by the [facility] Microbiology Laboratory. For questions about this culture, contact the Microbiology Laboratory at [phone]. Interpretive data was last revised on 24. Mila Gibson MD LAB MICROBIOLOGY - GENERAL ORDER JAMI Final Result [facility] ([place]) 1 [facility] [place] [address] * Aerobic culture and gram stain Sputum Sputum (04/23/2025 4:03 PM CDT) Direct Specimen Exam Stain: Abundant squamous epithelial cells seen indicating excessive oropharyngeal contamination. Culture will not be processed further. Please submit another specimen. * * * * * * * * * * * * * * * * * * * * Smear results called to and read back by: Addie Diaz MT, on 04/23/2025 19:42:48 by: Hudson Kaur MT Comment:Testing performed by : [facility], [address] [place]., [address] Report Final Report: This is the final report. [facility]) Comment:Testing performed by : [facility], [address] [place]., [address] Sputum (Sputum) 04/23/2025 4 :03 PM CDT 04/23/2025 6:45 PM CDT Narrative [facility] ([place]) - 04/24/2025 7:56 AM CDT Testing performed by [facility]biology [facility] ([phone]) Specimens submitted from normally sterile body sites will have all bacterial morphotypes identified. Specimens that contain grossly mixed stella and/or are from body sites that are not normally sterile will be examined for Staphylococcus aureus, Pseudomonas aeruginosa, beta-hemolytic strep, vancomycin-resistant Enterococcus and fungus. If any of these are isolated, the organism will be reported. Current interpretive data was last revised on 2016. Mila Gibson MD LAB MICROBIOLOGY - GENERAL ORDER JAMI Final Result [facility]) 1 [facility] [place] [address] * Blood culture Blood (04/23/2025 4:02 PM CDT) Report Final Report: No growth Comment:Testing performed by : [facility], [address] [place]., [address] Blood 04/23/2025 4:02 PM CDT 04/23/2025 6:39 PM CDT Narrative [facility] ([place]) - 04/28/2025 7:00 AM CDT Collection->Peripheral 1. Blood cultures are incubated for 4 days on a continuously monitored blood culture system. The first report of a negative culture is issued within 24 hours of receipt of the specimen in the laboratory. 2. Positive culture results are reported as soon as they are detected. 3. The most important factor for detection of microbes in the setting of bloodstream infection is the volume of blood submitted for culture. Failure to collect an optimal blood volume can result in false negative blood cultures. 4. For pediatric patients, the recommended blood volume to collect follows a weight based strategy. See the electronic test catalog for collection instructions. 5. For positive blood cultures, a rapid molecular test may be performed for organism identification using the davin ePlex blood culture identification panel for gram positive (BCID-GP) and gram negative (BCID-GN) organisms. This nucleic acid amplification test detects microbial DNA in positive blood culture broth. This assay has been cleared by the [place] Food and Drug Administration and its performance characteristics have been verified by the [facility]biology Laboratory. For questions about this culture, contact the Microbiology Laboratory at [phone]. Interpretive data was last revised on 24. us Mila Gibson MD LAB MICROBIOLOGY - GENERAL ORDER JAMI Final Result [facility] ([place]) 1 [facility] [place] [address] * Immature platelet fraction (04/23/2025 9:00 AM CDT) Pathologist [facility] IPF 7.2 1.6 - 10.1 % Blood 04/23/2025 9:00 AM CDT 04/23/2025 9:03 AM CDT Neli Salazar MD LAB BLOOD ORDERABLES Fi nal Result [facility] ([place]) 1 [facility] [place] [address] * eGFR (04/23/2025 9:00 AM CDT) Pathologist [facility] eGFR >90 >=60 mL/min/1. 73 m2 Comment: [...] interpretive data was last reviewed 2021. Blood 04/23/2025 9:00 AM CDT 04/23/2025 9:03 AM CDT us Neli Salazar MD LAB BLOOD ORDERABLES Fi nal Result [facility] ([place]) 1 [facility] [place] [address] * (ABNORMAL) CBC with auto differential (04/23/2025 9:00 AM CDT) WBC 3.91 3.80 - 9.90 K/cumm Hgb 9.5(L) 13.0 - 17.5 g/dL [facility] ([place]) Hct 27.2(L) 38.9 - 50.3 % [facility] ([place]) Plt 46(C) 150 - 400 K/cumm [facility] ([place]) Comment:Platelet count confi rmed by additional testing. Critical platelet count threshold determined by patient location: Outpatient:<50 K/cumm , Inpatient adults:<20 K/cumm , Inpatient pediatric:<25 K/cumm, BMT service:<10 K/cumm MPV 11.8 9.1 - 12.3 fL [facility] ([place]) RBC 3.25(L) 4.30 - 5.80 M/cumm [facility] ([place]) MCV 83.7 81.3 - 96.4 fL [facility] ([place]) MCH 29.2 27.1 - 33.3 pg [facility] ([place]) MCHC 34.9 32.3 - 35.7 g/dL [facility] RDW CV 13.4 11.1 - 14.9 % [facility] ([place]) RDW SD 41.4 35.7 - 48.1 fL [facility] ([place]) NRBC abs 0.00 0.00 - 0.01 K/cumm [facility] ([place]) Blood 04/23/2025 9:00 AM CDT 04/23/2025 9:03 AM CDT us Neli Salazar MD LAB BLOOD ORDERABLES Fi nal Result [facility] ([place]) 1 [facility] [place] [address] * (ABNORMAL) Manual Differential (04/23/2025 9:00 AM CDT) Differential Manual Cells Counted 100 [facility] ([place] Neutrophil abs 3.21 1.50 - 6.50 K/cumm [facility] Imm gran abs 0.04 0.00 - 0.10 K/cumm [facility] Lymphocyte abs 0.43(L) 0.80 - 3.30 K/cumm [facility] Eosinophil abs 0.23 0.00 - 0.50 K/cumm [facility] Neutrophil pct 75.0 % [facility] ([place]) Comment: Interpretive Data Percent cell count reference ranges are not reported, since discordance with absolute values may lead to misinterpretation of CBC data. Current Interpretive Data was last revised on 2017. Lymphocyte pct 11.0 % [facility] ([place]) Comment: Interpretive Data Percent cell count reference ranges are not reported, since discordance with absolute values may lead to misinterpretation of CBC data. Current Interpretive Data was last revised on 2017. Eosinophil pct 6.0 % [facility] ([place]) Comment: Interpretive Data Percent cell count reference ranges are not reported, since discordance with absolute values may lead to misinterpretation of CBC data. Current Interpretive Data was last revised on 2017. Band Neutrophil pct 7.0(H) 0.0 - 5.0 % [facility] ([place]) Metamyelocyte pct 1.0(H) 0.0 - 0.0 % [facility] ([place]) RBC morphology Present(A) [facility] ([place]) Elliptocytes 3-7/HPF(A) [facility] ([place]) Teardrop cells 3-7/HPF(A) [facility] ([place]) Platelet estimate Decreased( A) [facility] ([place]) Blood 04/23/2025 9:00 AM CDT 04/23/2025 9:03 AM CDT us Neli Salazar MD LAB BLOOD ORDERABLES nal Result [facility] ([place]) 1 [facility] [place] [address] * (ABNORMAL) Comprehensive metabolic panel (04/23/2025 9:00 AM CDT) Sodium 135 135 - 145 mmol/L Potassium, pl 4.0 3.3 - 4.9 mmol/L [facility] ([place]) Chloride 102 97 - 110 mmol/L [facility] ([place]) CO2 26 22 - 32 mmol/L [facility] ([place]) Anion gap 7 2 - 15 mmol/L [facility] ([place]) BUN 14 6 - 25 mg/dL [facility] ([place]) Creatinine 0.64(L) 0.80 - 1.30 mg/dL [facility] ([place]) Glucose 114 70 - 199 mg/dL [facility] ([place]) [...] interpretive data was last revised 2022. Calcium 9.0 8.5 - 10.3 mg/dL [facility] ([place]) Bilirubin, total 0.4 0.1 - 1.2 mg/dL [facility] ([place]) Protein, pl 6.4(L) 6.5 - 8.5 g/dL [facility] ([place]) Albumin 2.9(L) 3.5 - 5.0 g/dL [facility] ([place]) Alk phos 106 40 - 130 Units/L [facility] ([place]) ALT 53 7 - 55 Units/L [facility] ([place]) AST 127(H) 10 - 50 Units/L [facility] ([place]) Blood 04/23/2025 9:00 AM CDT 04/23/2025 9:03 AM CDT us Neli Salazar MD LAB BLOOD ORDERABLES Fi nal Result Performing Organization Address City/[facility]/ZIP Co de Phone Number [facility] ([place]) 1 [facility] [place] [address] * Slide review - pathologist (04/23/2025 8:58 AM CDT) Slide review by Giovani Samano MD Comment: Interpretive Data See Clinical Pathology Report under Media section in EPIC. Current Interpretive Data was last revised on 2018. Blood 04/23/2025 8:58 AM CDT 04/23/2025 11:29 AM CDT us Mila Gibson MD LAB BLOOD ORDERABLES Final Resul t [facility] ([place]) 1 [facility] [place] [address] * eGFR (04/22/2025 8:47 AM CDT) eGFR >90 >=60 mL/min/1. 73 m2 Comment: [...] of Race in Diagnosing Kidney Disease, JASN 202). The CKD-EPI equation should not be used for patients with unstable renal function and has not been validated in children and those over 70. Current interpretive data was last reviewed 2021. Blood 04/22/2025 8:47 AM CDT 04/22/2025 9:13 AM CDT us Neli Salazar MD LAB BLOOD ORDERABLES Fi nal Result [facility] ([place]) 1 [facility] [place] [address] * (ABNORMAL) Differential, auto (04/22/2025 8:47 AM CDT) Neutrophil abs 2.38 1.50 - 6.50 K/cumm Imm gran abs 0.04 0.00 - 0.10 K/cumm [facility] ([place]) Lymphocyte abs 0.29(L) 0.80 - 3.30 K/cumm [facility] ([place]) Monocyte abs 0.16(L) 0.20 - 0.80 K/cumm [facility] ([place]) Eosinophil abs 0.28 0.00 - 0.50 K/cumm [facility] ([place]) Basophil abs 0.02 0.00 - 0.10 K/cumm [facility] ([place]) Neutrophil pct 75.2 % [facility] ([place]) Comment: Interpretive Data Percent cell count reference ranges are not reported, since discordance with absolute values may lead to misinterpretation of CBC data. Current Interpretive Data was last revised on 2017. Imm gran pct 1.3 % [facility] ([place]) Comment: Interpretive Data Percent cell count reference ranges are not reported, since discordance with absolute values may lead to misinterpretation of CBC data. Current Interpretive Data was last revised on 2017. Lymphocyte pct 9.1 % [facility] ([place]) Comment: Interpretive Data Percent cell count reference ranges are not reported, since discordance with absolute values may lead to misinterpretation of CBC data. Current Interpretive Data was last revised on 2017. Monocyte pct 5.0 % [facility] ([place]) Comment: Interpretive Data Percent cell count reference ranges are not reported, since discordance with absolute values may lead to misinterpretation of CBC data. Current Interpretive Data was last revised on 2017. Eosinophil pct 8.8 % [facility] ([place]) Comment: Interpretive Data Percent cell count reference ranges are not reported, since discordance with absolute values may lead to misinterpretation of CBC data. Current Interpretive Data was last revised on 2017. Basophil pct 0.6 % [facility] ([place]) Comment: Interpretive Data Percent cell count reference ranges are not reported, since discordance with absolute values may lead to misinterpretation of CBC data. Current Interpretive Data was last revised on 2017. Blood 04/22/2025 8:47 AM CDT 04/22/2025 9:13 AM CDT us Neli Salazar MD LAB BLOOD ORDERABLES Fi nal Result [facility] ([place]) 1 [facility] [place] [address] * (ABNORMAL) CBC with auto differential (04/22/2025 8:47 AM CDT) WBC 3.17(L) 3.80 - 9.90 K/cumm Hgb 9.5(L) 13.0 - 17.5 g/dL [facility] ([place]) Hct 27.8(L) 38.9 - 50.3 % [facility] ([place]) Plt 70(L) 150 - 400 K/cumm [facility] ([place]) MPV 11.2 9.1 - 12.3 fL [facility] ([place]) RBC 3.30(L) 4.30 - 5.80 M/cumm [facility] ([place]) MCV 84.2 81.3 - 96.4 fL [facility] ([place]) MCH 28.8 27.1 - 33.3 pg [facility] ([place]) MCHC 34.2 32.3 - 35.7 g/dL [facility] ([place]) RDW CV 13.3 11.1 - 14.9 % [facility] ([place]) RDW SD 41.1 35.7 - 48.1 fL [facility] ([place]) NRBC abs 0.00 0.00 - 0.01 K/cumm [facility] ([place] Blood 04/22/2025 8:47 AM CDT 04/22/2025 9:13 AM CDT us Neli Salazar MD LAB BLOOD ORDERABLES Fi nal Result [facility] ([place]) 1 [facility] [place] [address] * TSH (04/22/2025 8:47 AM CDT) Thyroid Stimulating Hormone 2.90 0.30 - 4.20 mcIUnit/mL Blood 04/22/2025 8:47 AM CDT 04/22/2025 9:13 AM CDT us Ousmane White MD LAB BLOOD ORDERABLES Fin al Result [facility] ([place]) 1 [facility] [employer] [place] [address] * (ABNORMAL) Cortisol (04/22/2025 8:47 AM CDT) Cortisol 22.1(H) 4.8 - 19.5 mcg/dl Comment: Interpretive Data Normal Range: 4.8 - 19.5 mcg/dL; Evening: Half of morning value. This analyte undergoes marked diurnal variation. Ranges indicated apply to morning specimens. Current interpretive data was last revised 2018. Testing performed by: [facility], [id number] [place] [address], [place]., [address] Blood 04/22/2025 8:47 AM CDT 04/22/2025 11:11 AM CDT us Ousmane White MD LAB BLOOD ORDERABLES Fin al Result [facility] ([place]) 1 [facility] [place] [address] * (ABNORMAL) Comprehensive metabolic panel (04/22/2025 8:47 AM CDT) Sodium 133(L) 135 - 145 mmol/L Potassium, pl 4.6 3.3 - 4.9 mmol/L [facility] ([place]) Chloride 101 97 - 110 mmol/L [facility] ([place]) CO2 25 22 - 32 mmol/L [facility] ([place]) Anion gap 7 2 - 15 mmol/L [facility] ([place]) BUN 12 6 - 25 mg/dL [facility] ([place]) Creatinine 0.67(L) 0.80 - 1.30 mg/dL [facility] ([place]) Glucose 164 70 - 199 mg/dL [facility] ([place]) [...] interpretive data was last revised 2022. Calcium 8.5 8.5 - 10.3 mg/dL [facility] ([place]) Bilirubin, total 0.3 0.1 - 1.2 mg/dL [facility] ([place]) Protein, pl 6.2(L) 6.5 - 8.5 g/dL [facility] ([place]) Albumin 2.9(L) 3.5 - 5.0 g/dL [facility] ([place]) Alk phos 93 40 - 130 Units/L [facility] ([place]) ALT 51 7 - 55 Units/L [facility] ([place]) AST 109(H) 10 - 50 Units/L [facility] ([place]) Blood 04/22/2025 8:47 AM CDT 04/22/2025 9:13 AM CDT us Neli Salazar MD LAB BLOOD ORDERABLES Fi nal Result [facility] ([place]) 1 [facility] [place] [address] * eGFR (04/21/2025 7:43 AM CDT) eGFR >90 >=60 mL/min/1. 73 m2 Comment: [...] interpretive data was last reviewed 2021. Blood 04/21/2025 7:43 AM CDT 04/21/2025 8:21 AM CDT us Neli Salazar MD LAB BLOOD ORDERABLES Fi nal Result [facility] ([place]) 1 [facility] [place] [address] * (ABNORMAL) Differential, auto (04/21/2025 7:43 AM CDT) Neutrophil abs 1.63 1.50 - 6.50 K/cumm Imm gran abs 0.01 0.00 - 0.10 K/cumm [facility] ([place]) Lymphocyte abs 0.33(L) 0.80 - 3.30 K/cumm [facility] ([place]) Monocyte abs 0.18(L) 0.20 - 0.80 K/cumm [facility] ([place]) Eosinophil abs 0.20 0.00 - 0.50 K/cumm [facility] ([place]) Basophil abs 0.02 0.00 - 0.10 K/cumm [facility] ([place]) Neutrophil pct 68.9 % [facility] ([place]) Comment: Interpretive Data Percent cell count reference ranges are not reported, since discordance with absolute values may lead to misinterpretation of CBC data. Current Interpretive Data was last revised on 2017. Imm gran pct 0.4 % [facility] ([place]) Comment: Interpretive Data Percent cell count reference ranges are not reported, since discordance with absolute values may lead to misinterpretation of CBC data. Current Interpretive Data was last revised on 2017. Lymphocyte pct 13.9 % [facility] ([place]) Comment: Interpretive Data Percent cell count reference ranges are not reported, since discordance with absolute values may lead to misinterpretation of CBC data. Current Interpretive Data was last revised on 2017. Monocyte pct 7.6 % [facility] ([place]) Comment: Interpretive Data Percent cell count reference ranges are not reported, since discordance with absolute values may lead to misinterpretation of CBC data. Current Interpretive Data was last revised on 2017. Eosinophil pct 8.4 % [facility] ([place]) Comment: Interpretive Data Percent cell count reference ranges are not reported, since discordance with absolute values may lead to misinterpretation of CBC data. Current Interpretive Data was last revised on 2017. Basophil pct 0.8 % [facility] ([place]) Comment: Interpretive Data Percent cell count reference ranges are not reported, since discordance with absolute values may lead to misinterpretation of CBC data. Current Interpretive Data was last revised on 2017. Blood 04/21/2025 7:43 AM CDT 04/21/2025 8:21 AM CDT Neli Salazar MD LAB BLOOD ORDERABLES Fi nal Result Performing Organization Address City/State/[facility] Co de Phone Number [facility] ([place]) 1 [facility] [place] [address] * (ABNORMAL) CBC with auto differential (04/21/2025 7:43 AM CDT) WBC 2.37(L) 3.80 - 9.90 K/cumm Hgb 9.3(L) 13.0 - 17.5 g/dL [facility] ([place]) Hct 26.9(L) 38.9 - 50.3 % [facility] ([place]) Plt 94(L) 150 - 400 K/cumm [facility] ([place]) MPV 10.6 9.1 - 12.3 fL [facility] ([place]) RBC 3.23(L) 4.30 - 5.80 M/cumm [facility] ([place]) MCV 83.3 81.3 - 96.4 fL [facility] ([place]) MCH 28.8 27.1 - 33.3 pg [facility] ([place]) MCHC 34.6 32.3 - 35.7 g/dL [facility] ([place]) RDW CV 12.9 11.1 - 14.9 % [facility] ([place]) RDW SD 39.8 35.7 - 48.1 fL [facility] ([place]) NRBC abs 0.00 0.00 - 0.01 K/cumm [facility] ([place]) Blood 04/21/2025 7:43 AM CDT 04/21/2025 8:21 AM CDT Neli Salazar MD LAB BLOOD ORDERABLES Fi nal Result [facility] ([place]) 1 [facility] [place] [address] * (ABNORMAL) Comprehensive metabolic panel (04/21/2025 7:43 AM CDT) Sodium 129(L) 135 - 145 mmol/L Potassium, pl 4.4 3.3 - 4.9 mmol/L [facility] ([place]) Chloride 98 97 - 110 mmol/L [facility] ([place]) CO2 22 22 - 32 mmol/L [facility] ([place]) Anion gap 9 2 - 15 mmol/L [facility] ([place]) BUN 14 6 - 25 mg/dL [facility] ([place]) Creatinine 0.77(L) 0.80 - 1.30 mg/dL [facility] ([place]) Glucose 111 70 - 199 mg/dL [facility] ([place]) [...] interpretive data was last revised 2022. Calcium 8.2(L) 8.5 - 10.3 mg/dL [facility] ([place]) Bilirubin, total 0.4 0.1 - 1.2 mg/dL [facility] ([place]) Protein, pl 6.4(L) 6.5 - 8.5 g/dL [facility] ([place]) Albumin 2.9(L) 3.5 - 5.0 g/dL [facility] ([place]) Alk phos 87 40 - 130 Units/L [facility] ([place]) ALT 51 7 - 55 Units/L [facility] ([place]) AST 100(H) 10 - 50 Units/L [facility] ([place]) Blood 04/21/2025 7:43 AM CDT 04/21/2025 8:21 AM CDT us Neli Salazar MD LAB BLOOD ORDERABLES Fi nal Result [facility] ([place]) 1 [facility] [place] [address] * (ABNORMAL) Pro B-type natriuretic peptide (04/21/2025 7:40 AM CDT) NT-proBNP 497(H) <=300 pg/mL Comment: Interpretive Comments: A. Dyspnea in Acute Care Setting All Ages: < 300 pg/ml, acute heart failure unlikely. < 50 yrs: 300 - 450 pg/ml, further investigation warranted. > 450 pg/ml, acute heart failure likely. 50 - 74 yrs: 300 - 900 pg/ml, further investigation warranted. > 900 pg/ml, acute heart failure likely . > or = 75 yrs: 450 - 1800 pg/ml, further investigation warranted. > 1800 pg/ml, acute heart failure likely. B. Non-acute Setting < 75 yrs < 125 pg/ml, rules out heart failure. > or = 125 pg/ml, further investigation warranted. > or = 75 yrs < 450 pg/ml, rules out heart failure. > or = 450 pg/ml, further investigation warranted. - Knowledge of each individual patient's NT-proBNP range may be more useful than using similar cut-points for every patient. Please note that marked elevations in NT-proBNP levels may be observed in state other than Left Ventricular Congestive Failure, including: acute coronary syndromes, right heart strain/failure (including pulmonary embolism and cor pulmonale), critical illness, renal failure, as well as advanced age. - References: 1. Shakeel CHACON et.al. Eur Heart J. 2006:27:330-337. 2. Rajesh RW, Nova AM. J. AM Nelson Cardiol: Cardiovasc Imag. 2009;2: 216- 225. Interpretive Data Last Revised Date: 2018. Blood 04/21/2025 7:40 AM CDT 04/21/2025 10:16 AM CDT us Mila Gibson MD LAB BLOOD ORDERABLES Final Resul t [facility] ([place]) 1 [facility] [place] [address] * Sepsis Lactate w/ Reflex (04/20/2025 11:46 PM CDT) [facility] Sepsis Lactate 1.1 0.7 - 2.0 mmol/L Blood 04/20/2025 11:4 6 PM CDT 04/20/2025 11:57 PM CDT us Neli Salazar MD LAB BLOOD ORDERABLES Fi nal Result [facility] ([place]) 1 [facility] [place] [address] * (ABNORMAL) Differential, auto (04/20/2025 11:46 PM CDT) [facility] Neutrophil abs 2.18 1.50 - 6.50 K/cumm Imm gran abs 0.02 0.00 - 0.10 K/cumm [facility] ([place]) Lymphocyte abs 0.27(L) 0.80 - 3.30 K/cumm [facility] ([place]) Monocyte abs 0.14(L) 0.20 - 0.80 K/cumm [facility] ([place]) Eosinophil abs 0.15 0.00 - 0.50 K/cumm [facility] ([place]) Basophil abs 0.03 0.00 - 0.10 K/cumm [facility] ([place]) Neutrophil pct 78.1 % [facility] ([place]) Comment: Interpretive Data Percent cell count reference ranges are not reported, since discordance with absolute values may lead to misinterpretation of CBC data. Current Interpretive Data was last revised on 2017. Imm gran pct 0.7 % [facility] ([place]) Comment: Interpretive Data Percent cell count reference ranges are not reported, since discordance with absolute values may lead to misinterpretation of CBC data. Current Interpretive Data was last revised on 2017. Lymphocyte pct 9.7 % [facility] ([place]) Comment: Interpretive Data Percent cell count reference ranges are not reported, since discordance with absolute values may lead to misinterpretation of CBC data. Current Interpretive Data was last revised on 2017. Monocyte pct 5.0 % [facility] ([place]) Comment: Interpretive Data Percent cell count reference ranges are not reported, since discordance with absolute values may lead to misinterpretation of CBC data. Current Interpretive Data was last revised on 2017. Eosinophil pct 5.4 % [facility] ([place]) Comment: Interpretive Data Percent cell count reference ranges are not reported, since discordance with absolute values may lead to misinterpretation of CBC data. Current Interpretive Data was last revised on 2017. Basophil pct 1.1 % [facility] ([place]) Comment: Interpretive Data Percent cell count reference ranges are not reported, since discordance with absolute values may lead to misinterpretation of CBC data. Current Interpretive Data was last revised on 2017. Blood 04/20/2025 11:4 6 PM CDT 04/20/2025 11:58 PM CDT us Neli Salazar MD LAB BLOOD ORDERABLES Fi nal Result [facility] ([place]) 1 [facility] [place] [address] * (ABNORMAL) CBC with auto differential (04/20/2025 11:46 PM CDT) WBC 2.79(L) 3.80 - 9.90 K/cumm Hgb 9.5(L) 13.0 - 17.5 g/dL [facility] ([place]) Hct 27.7(L) 38.9 - 50.3 % [facility] ([place]) Plt 107(L) 150 - 400 K/cumm [facility] ([place]) MPV 10.3 9.1 - 12.3 fL [facility] ([place]) RBC 3.25(L) 4.30 - 5.80 M/cumm [facility] ([place]) MCV 85.2 81.3 - 96.4 fL [facility] ([place]) MCH 29.2 27.1 - 33.3 pg [facility] ([place]) MCHC 34.3 32.3 - 35.7 g/dL [facility] ([place]) RDW CV 13.0 11.1 - 14.9 % [facility] ([place]) RDW SD 40.1 35.7 - 48.1 fL [facility] ([place]) NRBC abs 0.00 0.00 - 0.01 K/cumm [facility] ([place]) Blood 04/20/2025 11:4 6 PM CDT 04/20/2025 11:58 PM CDT Neli Salazar MD LAB BLOOD ORDERABLES Fi nal Result [facility]) 1 [facility] [place] [address] * eGFR (04/20/2025 11:04 PM CDT) eGFR >90 >=60 mL/min/1. 73 m2 Comment: [...] of Race in Diagnosing Kidney Disease, JASN 202). The CKD-EPI equation should not be used for patients with unstable renal function and has not been validated in children and those over 70. Current interpretive data was last reviewed 2021. Blood 04/20/2025 11:0 4 PM CDT 04/20/2025 11:07 PM CDT us Damion Combs NP LAB BLOOD ORDERABLES Final Result Performing Organization Address City/[facility]/ZIP Co de Phone Number [facility] ([place]) 1 [facility] [place] [address] * Blood gas, venous (04/20/2025 11:04 PM CDT) pH, Venous 7.35 7.32 - 7.43 PCO2, Venous 46 40 - 50 mmHg [facility] ([place]) PO2, Venous 40 mmHg [facility] ([place]) HCO3 Venous, Calculated 25 20 - 30 mmol/L [facility] ([place]) BE, venous 0 mmol/L [facility] ([place]) Comment: Interpretive Data No Reference Range Established Current Interpretive Data was last revised on 2017. Blood 04/20/2025 11:0 4 PM CDT 04/20/2025 11:07 PM CDT Neli Salazar MD LAB BLOOD ORDERABLES Fi nal Result Performing Organization Address City/[facility]/ZIP Co de Phone Number [facility] ([place]) 1 [facility] [place] [address] * (ABNORMAL) Comprehensive metabolic panel (04/20/2025 11:04 PM CDT) Sodium 125(L) 135 - 145 mmol/L Potassium, pl 4.1 3.3 - 4.9 mmol/L [facility] ([place]) Chloride 94(L) 97 - 110 mmol/L [facility] ([place]) CO2 24 22 - 32 mmol/L [facility] ([place]) Anion gap 7 2 - 15 mmol/L [facility] ([place]) BUN 16 6 - 25 mg/dL [facility] ([place]) Creatinine 0.89 0.80 - 1.30 mg/dL [facility] ([place]) Glucose 126 70 - 199 mg/dL [facility] ([place]) [...] interpretive data was last revised 2022. Calcium 8.2(L) 8.5 - 10.3 mg/dL [facility] ([place]) Bilirubin, total 0.4 0.1 - 1.2 mg/dL [facility] ([place]) Protein, pl 6.4(L) 6.5 - 8.5 g/dL [facility] ([place]) Albumin 3.1(L) 3.5 - 5.0 g/dL [facility] ([place]) Alk phos 86 40 - 130 Units/L [facility] ([place]) ALT 53 7 - 55 Units/L [facility] ([place]) AST 100(H) 10 - 50 Units/L [facility] ([place]) Blood 04/20/2025 11:0 4 PM CDT 04/20/2025 11:07 PM CDT us Damion Combs NP LAB BLOOD ORDERABLES Final Result [facility] ([place]) 1 [facility] [place] [address] * CT Chest PE (CTA) W Contrast (04/20/2025 10:43 AM CDT) Anatomical Region Laterality Modality Body N/A Computed Tomogra phy 04/20/2025 11:4 4 AM CDT Impressions 04/20/2025 11:44 AM CDT Negative for pulmonary embolism. No acute aorta mildly. Subtle patchy densities may indicate early infiltrates bilaterally as above. Please correlate clinically. Consider follow-up until clear. Right middle lobe 2.4 cm nodule. Consider Aslhi guidelines for follow-up provided below as reference. Recent guidelines by the Fleischner Society (Radiology 725577,2017) divides patient into low vs. high risk (for example, patients who smoke are considered high risk) and provides followup recommendations as follows: SOLITARY PULMONARY NODULE: Patients considered LOW RISK for lung cancer and a nodule less than 6 mm in diameter require no follow-up. In patients at a HIGHER RISK optional follow-up is in 1 year. MULTIPLE PULMONARY NODULES: Patients considered LOW RISK for lung cancer and multiple nodules less than 6 mm in diameter require no follow-up. In patients at a HIGHER RISK optional follow-up is in 1 year. Note: These recommendations do not apply to lung cancer screening, patients with immunosuppression, or patients with known primary cancer. http://pubs.rsna.org/doi/pdf/10.1148/radiol.0213879914 Electronically signed by: Miguel Camargo M.D. Narrative 04/20/2025 11:44 AM CDT EXAMINATION: CT CHEST PE (CTA) W CONTRAST ORDERING HEALTHCARE PROVIDER: MILA GIBSON HISTORY: Pulmonary embolism (PE) suspected, low to intermediate prob, positive D-dimer. COMPARISON: 04/24/2024 CT, 04/19/2025 chest radiograph TECHNIQUE: CT chest by PE protocol with intravenous contrast administration. 3-D maximum intensity projection images reviewed. Automated exposure control was used as a dose optimization technique for this examination. CONTRAST TYPE/DOSE: 75 mL Optiray 350 intravenous FINDINGS: VASCULATURE: There is no pulmonary embolism. The thoracic aorta is normal in caliber without evidence of dissection. HEART: Heart size is enlarged. Minimal pericardial effusion. MEDIASTINUM/CLEOPATRA: Soft tissue thickening subcarinal region and hilar regions likely postinflammatory. Similar slightly increased from previous. LUNGS/PLEURA: Central airways are patent. Peripheral airways demonstrate mild bronchial wall thickening that may indicate subtle inflammatory changes. Left lower lobe atelectasis with effusion and lingular atelectasis or infiltrate have resolved. Right middle lobe demonstrates a 0.4 cm noncalcified nodule image 61 series 5 not well visualized on the prior exam. Right middle lobe also demonstrates curvilinear density along the anterior pleural surface extending along the hemidiaphragm which is not significantly developing atelectasis or subtle early infiltrate. Left liver lobe demonstrates curvilinear primarily interstitial but somewhat confluent opacity image 37 may indicate peripheral mucous plugging with postobstructive atelectasis or subtle pneumonitis. No pleural effusion. No pneumothorax. AXILLA: Symmetric nonenlarged lymph nodes similar to previous. CHEST WALL: No masses. HARDWARE/LINES/TUBES: None. UPPER ABDOMEN: Grossly normal appearance. MUSCULOSKELETAL: No acute findings. OTHER: No other acute findings. Procedure Note Miguel Camargo MD - 04/20/2025 EXAMINATION: CT CHEST PE (CTA) W CONTRAST ORDERING HEALTHCARE PROVIDER: MILA GIBSON HISTORY: Pulmonary embolism (PE) suspected, low to intermediate prob, positive D-dimer. COMPARISON: 04/24/2024 CT, 04/19/2025 chest radiograph TECHNIQUE: CT chest by PE protocol with intravenous contrast administration. 3-D maximum intensity projection images reviewed. Automated exposure control was used as a dose optimization technique for this examination. CONTRAST TYPE/DOSE: 75 mL Optiray 350 intravenous FINDINGS: VASCULATURE: There is no pulmonary embolism. The thoracic aorta is normal in caliber without evidence of dissection. HEART: Heart size is enlarged. Minimal pericardial effusion. MEDIASTINUM/CLEOPATRA: Soft tissue thickening subcarinal region and hilar regions likely postinflammatory. Similar slightly increased from previous. LUNGS/PLEURA: Central airways are patent. Peripheral airways demonstrate mild bronchial wall thickening that may indicate subtle inflammatory changes. Left lower lobe atelectasis with effusion and lingular atelectasis or infiltrate have resolved. Right middle lobe demonstrates a 0.4 cm noncalcified nodule image 61 series 5 not well visualized on the prior exam. Right middle lobe also demonstrates curvilinear density along the anterior pleural surface extending along the hemidiaphragm which is not significantly developing atelectasis or subtle early infiltrate. Left liver lobe demonstrates curvilinear primarily interstitial but somewhat confluent opacity image 37 may indicate peripheral mucous plugging with postobstructive atelectasis or subtle pneumonitis. No pleural effusion. No pneumothorax. AXILLA: Symmetric nonenlarged lymph nodes similar to previous. CHEST WALL: No masses. HARDWARE/LINES/TUBES: None. UPPER ABDOMEN: Grossly normal appearance. MUSCULOSKELETAL: No acute findings. OTHER: No other acute findings. IMPRESSION: Negative for pulmonary embolism. No acute aorta mildly. Subtle patchy densities may indicate early infiltrates bilaterally as above. Please correlate clinically. Consider follow-up until clear. Right middle lobe 2.4 cm nodule. Consider Ashli guidelines for follow-up provided below as reference. Recent guidelines by the Fleischner Society (Radiology 931178,2017) divides patient into low vs. high risk (for example, patients who smoke are considered high risk) and provides followup recommendations as follows: SOLITARY PULMONARY NODULE: Patients considered LOW RISK for lung cancer and a nodule less than 6 mm in diameter require no follow-up. In patients at a HIGHER RISK optional follow-up is in 1 year. MULTIPLE PULMONARY NODULES: Patients considered LOW RISK for lung cancer and multiple nodules less than 6 mm in diameter require no follow-up. In patients at a HIGHER RISK optional follow-up is in 1 year. Note: These recommendations do not apply to lung cancer screening, patients with immunosuppression, or patients with known primary cancer. http://pubs.rsna.org/doi/pdf/10.1148/radiol.7877159112 Electronically signed by: Miguel Camargo M.D. us Mila Gibson MD IMG CT PROCEDURES Final Result * Troponin T high-sensitivity 6-hour (04/20/2025 3:48 AM CDT) Trop T hs 7 <=22 ng/L Comment: Interpretive Data For further hscTnT resources including the diagnostic algorithm and an aid in interpretation, copy and paste this link: https://nrl.testcatalog.org/show/hsTrop Current Interpretive Data last revised 2020. Trop T hs delta -2 ng/L [facility] ([place]) Trop T hs interp Insignificant [facility] ([place]) Blood 04/20/2025 3:48 AM CDT 04/20/2025 4:33 AM CDT us Belen PLASENCIA LAB BLOOD ORDERABLES Final Resu lt [facility] ([place]) 1 [facility] [place] [address] * eGFR (04/20/2025 3:48 AM CDT) eGFR >90 >=60 mL/min/1. 73 m2 Comment: [...] interpretive data was last reviewed 2021. Blood 04/20/2025 3:48 AM CDT 04/20/2025 4:33 AM CDT us Neli Salazar MD LAB BLOOD ORDERABLES Fi nal Result [facility] ([place]) 1 [facility] [place] [address] * (ABNORMAL) Differential, auto (04/20/2025 3:48 AM CDT) Neutrophil abs 1.73 1.50 - 6.50 K/cumm Imm gran abs 0.02 0.00 - 0.10 K/cumm [facility] ([place]) Lymphocyte abs 0.39(L) 0.80 - 3.30 K/cumm [facility] ([place]) Monocyte abs 0.17(L) 0.20 - 0.80 K/cumm [facility] ([place]) Eosinophil abs 0.11 0.00 - 0.50 K/cumm [facility] ([place]) Basophil abs 0.02 0.00 - 0.10 K/cumm [facility] ([place]) Neutrophil pct 70.9 % [facility] ([place]) Comment: Interpretive Data Percent cell count reference ranges are not reported, since discordance with absolute values may lead to misinterpretation of CBC data. Current Interpretive Data was last revised on 2017. Imm gran pct 0.8 % [facility] ([place]) Comment: Interpretive Data Percent cell count reference ranges are not reported, since discordance with absolute values may lead to misinterpretation of CBC data. Current Interpretive Data was last revised on 2017. Lymphocyte pct 16.0 % [facility] ([place]) Comment: Interpretive Data Percent cell count reference ranges are not reported, since discordance with absolute values may lead to misinterpretation of CBC data. Current Interpretive Data was last revised on 2017. Monocyte pct 7.0 % [facility] ([place]) Comment: Interpretive Data Percent cell count reference ranges are not reported, since discordance with absolute values may lead to misinterpretation of CBC data. Current Interpretive Data was last revised on 2017. Eosinophil pct 4.5 % [facility] ([place]) Comment: Interpretive Data Percent cell count reference ranges are not reported, since discordance with absolute values may lead to misinterpretation of CBC data. Current Interpretive Data was last revised on 2017. Basophil pct 0.8 % [facility] ([place]) Comment: Interpretive Data Percent cell count reference ranges are not reported, since discordance with absolute values may lead to misinterpretation of CBC data. Current Interpretive Data was last revised on 2017. Blood 04/20/2025 3:48 AM CDT 04/20/2025 4:33 AM CDT us Neli Salazar MD LAB BLOOD ORDERABLES Fi nal Result [facility] ([place]) 1 [facility] [place] [address] * (ABNORMAL) CBC with auto differential (04/20/2025 3:48 AM CDT) WBC 2.44(L) 3.80 - 9.90 K/cumm Hgb 9.5(L) 13.0 - 17.5 g/dL [facility] ([place]) Hct 27.0(L) 38.9 - 50.3 % [facility] ([place]) Plt 145(L) 150 - 400 K/cumm [facility] ([place]) MPV 10.2 9.1 - 12.3 fL [facility] ([place]) RBC 3.26(L) 4.30 - 5.80 M/cumm [facility] ([place]) MCV 82.8 81.3 - 96.4 fL [facility] ([place]) MCH 29.1 27.1 - 33.3 pg [facility]) MCHC 35.2 32.3 - 35.7 g/dL [facility] ([place]) RDW CV 12.8 11.1 - 14.9 % [facility] ([place]) RDW SD 38.8 35.7 - 48.1 fL [facility] ([place]) NRBC abs 0.00 0.00 - 0.01 K/cumm [facility] ([place]) Blood 04/20/2025 3:48 AM CDT 04/20/2025 4:33 AM CDT Neli Salazar MD LAB BLOOD ORDERABLES nal Result [facility] ([place]) 1 [facility] [place] [address] * Hepatitis B surface antibody (immune status) Blood (04/20/2025 3:48 AM CDT) HBsAb (immune status) Nonreactive Comment: Interpretive Data Nonreactive: This result is consistent with a lack of immunity to Hepatitis B Virus when used in the setting of routine screening. Equivocal: The immune status of the individual should be further assessed, if appropriate, after consideration of clinical status, risk factors, and additional diagnostic information. Reactive: This result is consistent with immunity to Hepatitis B Virus when used in the setting of routine screening. Current interpretive data was last revised on 19. Testing performed by: [facility], [address] [place] [address], [place]., [address] Blood 04/20/2025 3:48 AM CDT 04/20/2025 11:25 AM CDT us Neli Salazar MD LAB MICROBIOLOGY - GENE RAL ORDERABLES Final Result [facility] ([place]) 1 [facility] [place] [address] * Magnesium (04/20/2025 3:48 AM CDT) Pathologist [facility] Magnesium 1.8 1.4 - 2.5 mg/dL Blood 04/20/2025 3:48 AM CDT 04/20/2025 4:33 AM CDT us Neli Salazar MD LAB BLOOD ORDERABLES Fi nal Result Performing Organization Address City/[facility]/ZIP Co de Phone Number [facility] ([place]) 1 [facility] [place] [address] * (ABNORMAL) Comprehensive metabolic panel (04/20/2025 3:48 AM CDT) Sodium 127(L) 135 - 145 mmol/L Potassium, pl 3.5 3.3 - 4.9 mmol/L [facility] ([place]) Chloride 95(L) 97 - 110 mmol/L [facility] ([place]) CO2 23 22 - 32 mmol/L [facility] ([place]) Anion gap 9 2 - 15 mmol/L [facility] BUN 17 6 - 25 mg/dL [facility] Creatinine 0.79(L) 0.80 - 1.30 mg/dL [facility] ([place]) Glucose 134 70 - 199 mg/dL [facility] ([place]) Comment: Interpretive Data Fasting glucose [...] interpretive data was last revised 2022. Calcium 7.9(L) 8.5 - 10.3 mg/dL [facility] ([place]) Bilirubin, total 0.5 0.1 - 1.2 mg/dL [facility] ([place]) Protein, pl 6.2(L) 6.5 - 8.5 g/dL [facility] ([place]) Albumin 3.0(L) 3.5 - 5.0 g/dL [facility] ([place]) Alk phos 75 40 - 130 Units/L [facility] ([place]) ALT 46 7 - 55 Units/L [facility] ([place]) AST 89(H) 10 - 50 Units/L [facility] ([place]) Blood 04/20/2025 3:48 AM CDT 04/20/2025 4:33 AM CDT us Neli Salazar MD LAB BLOOD ORDERABLES Fi nal Result [facility] ([place]) 1 [facility] [place] [address] * Blood culture Blood (04/19/2025 11:24 PM CDT) Report Final Report: No growth Comment:Testing performed by : [facility], [address] [facility] [place] [address] Blood 04/19/2025 11:2 4 PM CDT 04/20/2025 2:08 AM CDT Narrative [facility] ([place]) - 04/24/2025 7:00 AM CDT From a different site than #1. Collection->Peripheral 1. Blood cultures are incubated for 4 days on a continuously monitored blood culture system. The first report of a negative culture is issued within 24 hours of receipt of the specimen in the laboratory. 2. Positive culture results are reported as soon as they are detected. 3. The most important factor for detection of microbes in the setting of bloodstream infection is the volume of blood submitted for culture. Failure to collect an optimal blood volume can result in false negative blood cultures. 4. For pediatric patients, the recommended blood volume to collect follows a weight based strategy. See the electronic test catalog for collection instructions. 5. For positive blood cultures, a rapid molecular test may be performed for organism identification using the davin ePlex blood culture identification panel for gram positive (BCID-GP) and gram negative (BCID-GN) organisms. This nucleic acid amplification test detects microbial DNA in positive blood culture broth. This assay has been cleared by the [place] Food and Drug Administration and its performance characteristics have been verified by the [facility] Microbiology Laboratory. For questions about this culture, contact the Microbiology Laboratory at [phone]. Interpretive data was last revised on 24. Neli Salazar MD LAB MICROBIOLOGY - GENE RAL ORDERABLES Final Result Performing Organization Address City/[facility]/ZIP Co de Phone Number PHIL MAYES ([place]) 1 [facility] [address] [place], [place] [id number] * Troponin T high-sensitivity 2-hour (04/19/2025 11:22 PM CDT) Trop T hs 8 <=22 ng/L Comment: Interpretive Data For further hscTnT resources including the diagnostic algorithm and an aid in interpretation, copy and paste this link: https://nrl.testcatalog.org/show/hsTrop Current Interpretive Data last revised 2020. Trop T hs delta -1 ng/L [facility] ([place]) Trop T hs interp Insignificant [facility] ([place]) Blood 04/19/2025 11:2 2 PM CDT 04/19/2025 11:57 PM CDT us Belen PLASENCIA LAB BLOOD ORDERABLES Final Resu lt PHIL MAYES ([place]) 1 [facility] [address] [place], [place] [id number] * Blood culture Blood (04/19/2025 11:22 PM CDT) Report Final Report: No growth Comment:Testing performed by : [facility], [address] [facility] [place] [address] Blood 04/19/2025 11:2 2 PM CDT 04/20/2025 2:08 AM CDT Narrative PHIL MAYES ([place]) - 04/24/2025 7:00 AM CDT Collection->Peripheral 1. Blood cultures are incubated for 4 days on a continuously monitored blood culture system. The first report of a negative culture is issued within 24 hours of receipt of the specimen in the laboratory. 2. Positive culture results are reported as soon as they are detected. 3. The most important factor for detection of microbes in the setting of bloodstream infection is the volume of blood submitted for culture. Failure to collect an optimal blood volume can result in false negative blood cultures. 4. For pediatric patients, the recommended blood volume to collect follows a weight based strategy. See the electronic test catalog for collection instructions. 5. For positive blood cultures, a rapid molecular test may be performed for organism identification using the davin ePlex blood culture identification panel for gram positive (BCID-GP) and gram negative (BCID-GN) organisms. This nucleic acid amplification test detects microbial DNA in positive blood culture broth. This assay has been cleared by the [place] Food and Drug Administration and its performance characteristics have been verified by the [facility] Microbiology Laboratory. For questions about this culture, contact the Microbiology Laboratory at [phone]. Interpretive data was last revised on 24. us Neli Salazar MD LAB MICROBIOLOGY - [facility] ORDERABLES Final Result PHIL MAYES ([place]) 1 [facility] [place] [address] * XR Chest 1 View (04/19/2025 10:00 PM CDT) Anatomical Region Laterality Modality Body, Chest N/A Computed Radiogr aphy 04/19/2025 10:0 3 PM CDT Impressions 04/19/2025 10:03 PM CDT No acute abnormality identified. Electronically signed by: Chetan Wang M.D. Narrative 04/19/2025 10:03 PM CDT EXAMINATION: 1 view chest radiograph Lungs clear. Heart size is normal. Osseous structures unremarkable. Procedure Note Chetan Wang MD - 04/19/2025 EXAMINATION: 1 view chest radiograph Lungs clear. Heart size is normal. Osseous structures unremarkable. IMPRESSION: No acute abnormality identified. Electronically signed by: Chetan Wang M.D. Neli Salazar MD IMG XR PROCEDURES Final Result * Troponin T high-sensitivity series (baseline, 2hr, 4hr, 6hr) (04/19/2025 9:38 PM CDT) Pathologist [facility] Trop T hs 9 <=22 ng/L Comment: Interpretive Data For further hscTnT resources including the diagnostic algorithm and an aid in interpretation, copy and paste this link: https://nrl.testcatalog.org/show/hsTrop Current Interpretive Data last revised 2020. Blood 04/19/2025 9:38 PM CDT 04/19/2025 9:43 PM CDT us Belen PLASENCIA LAB BLOOD ORDERABLES Final Resu lt PHIL MAYES ([place]) [address] [place] [address] [place] [address] * Sepsis Lactate w/ Reflex (04/19/2025 9:38 PM CDT) [facility] Sepsis Lactate 0.7 0.7 - 2.0 mmol/L Blood 04/19/2025 9:38 PM CDT 04/19/2025 9:43 PM CDT us Neli Salazar MD LAB BLOOD ORDERABLES Fi nal Result PHIL MAYES ([place]) 1 [facility] [employer] [place] [place] [address] * D-dimer, quantitative (04/19/2025 9:38 PM CDT) [facility] D-Dimer [id number] <=499 ng/mL FEU [facility] ([place]) Comment: Interpretive data FDA approved the D-dimer, in conjunction with a low or moderate pretest probability score, to exclude venous thromboembolic events (VTE) (PE and DVT) in outpatients when the D-dimer result is < 500 ng/ml FEU. Evidence supports using an age-adjusted D-dimer cut-off for outpatients older than 50 (age x 10) to improve specificity without sacrificing sensitivity. Example: age 68, VTE cut-off 680 ng/ml FEU. References; Schouten HT et al. Brit Med J. 2013;346:f2492. Thomas et al. Annals Int Med. 2015;163:701-11. Current interpretive data was last revised on 2019. Blood 04/19/2025 9:38 PM CDT 04/19/2025 9:43 PM CDT Ekosiel Salazar MD LAB BLOOD ORDERABLES Fi nal Result Performing Organization Address [facility] Co de Phone Number MINYAHAIRA GERBER ([place]) 1 [facility] [place] [address] * ECG 12 lead (04/19/2025 9:33 PM CDT) 04/19/2025 9:33 PM CDT Narrative [facility] - 04/20/2025 10:51 AM CDT Vent Rate: 92 bpm RR Interval: 646 msec NV Interval: 160 msec QRS Duration: 95 msec QT Interval: 323 msec QTC Interval: 373 msec P-R-T [place]: 76 - -18 - 63 degrees IMPRESSION: SINUS RHYTHM POSSIBLE LEFT ATRIAL ENLARGEMENT [-0.1mV P-WAVE IN V1/V2] INCOMPLETE RIGHT BUNDLE BRANCH BLOCK [90+ ms QRS DURATION, TERMINAL R IN V1/V2, 40+ ms S IN I/aVL/V4/V5/V6] No change compared to prior EKG Electronically Signed By: Delano Torres MD Neli Salazar MD ECG ORDERABLES Final R esult Performing Organization Address [facility]/ZIP Co de Phone Number [facility] * (ABNORMAL) Urinalysis reflex to microscopic and culture Urine (04/19/2025 9:00 PM CDT) Color, ur Yellow Yellow Clarity, ur Clear Clear [facility] ([place]) Specific gravity, ur 1.031(H) 1.003 - 1.030 [facility] ([place]) pH, urine 6.0 [facility] ([place]) Comment: Interpretive Data U rine pH is affected by diet, medications, systemic acid-base disturbances, and renal tubular function. pH may affect urinary stone formation. For example, urine pH below 6.0 may help reduce the tendency for calcium phosphate stones and pH greater than 6.0 may reduce the tendency for uric acid stone formation. Source: [facility] [employer] Current Interpretive Data was last revised on 2017 Protein, ur ql 1+(A) Negative [facility] ([place]) Glucose, ur ql Negative Negative [facility] ([place]) Ketones, ur Negative Negative [facility] ([place]) Bilirubin, ur Negative Negative [facility] ([place]) Blood, ur Negative Negative [facility] ([place]) Urobilinogen, ur 2.0(A) <2.0 mg/dL [facility] ([place]) Nitrite, ur Negative Negative [facility] ([place]) Leukocyte esterase, ur Negative Negative [facility] ([place]) UA reflex comment Reflex to microscopic UA will be performed. [facility] ([place]) Urine 04/19/2025 9:00 PM CDT 04/19/2025 9:03 PM CDT us Belen PLASENCIA LAB MICROBIOLOGY - GENERAL TY RASMAY Final Result PHIL [facility] ([place]) 1 [facility] Department of Laboratories [place], [place] [id number] * (ABNORMAL) Drugs of Abuse Screen, Urine without Confirmation (04/19/2025 9:00 PM CDT) Amphetamine, ur Screen Positive, presumptive (A) CutOff 500ng/mL Comment: Interpretive Data - Amphetamines: [...] Data was last reviewed 2023. Benzodiazepines, ur Screen Positive, presumptive (A) CutOff 100ng/mL [facility] ([place]) Comment: Interpretive [...] Data was last reviewed 2023. Fentanyl, Ur Screen Positive, presumptive (A) CutOff 5 ng/mL [facility] ([place]) Comment: [...] 2023. Opiates, ur Not Detected CutOff 300ng/mL PHIL MAYES ([place]) Comment: Interpretive Data - Opiates: Samples containing greater than 300 ng/mL morphine or other cross-reacting compounds are reported as positive. False positive and false negative results are possible. Confirmatory testing required for definitive results. Current Interpretive Data was last reviewed 2023. Oxycodone, ur NOT DETECTED CutOff 100ng/mL PHIL MAYES ([place]) Comment: Interpretive Data - Oxycodone: Samples containing greater than 100 ng/mL oxycodone or other cross-reacting compounds are reported as positive. False positive and false negative results are possible. Confirmatory testing required for definitive results. Current Interpretive Data was last reviewed 2023. Phencyclidine, ur Not Detected CutOff 25 ng/mL PHIL MAYES ([place]) Comment: Interpretive Data - Phencyclidine: Samples containing greater than 25 ng/mL phencyclidine or other cross-reacting compounds are reported as positive. False positive and false negative results are possible. Confirmatory testing required for definitive results. Current Interpretive Data was last reviewed 2023. Urine Creatinine 190 mg/dL MIN MAYES ([place]) Comment: Interpretive Data Urine Creatinine: < 10 mg/dL is extremely dilute = or > 10 but < 20 mg/dL is dilute = or > 20 mg/dL is normal Current Interpretive Data was last revised on 2017. Urine 04/19/2025 9:00 PM CDT 04/19/2025 9:03 PM CDT Narrative PHIL MAYES ([place]) - 04/19/2025 9:22 PM CDT Drug of Abuse screening is performed by immunoassay for medical purposes only. This is not to be used for Pain Management purposes. us Belen PLASENCIA LAB URINE ORDERABLES Final Resu lt PHIL MAYES ([place]) 1 [facility] [place] [address] * (ABNORMAL) Urinalysis, microscopic only (04/19/2025 9:00 PM CDT) WBC, ur 0-5 0 - 5 /HPF RBC, ur 0-2 0 - 2 /HPF MINYAHAIRA [facility] ([place]) Mucous, ur Present(A) PHIL A ([place]) Culture Reflex Comment Reflex conditions for urine culture (WBC >10) not met. [facility] ([place]) Urine 04/19/2025 9:00 PM CDT 04/19/2025 9:03 PM CDT us Belen PLASENCIA LAB URINE ORDERABLES Final Resu lt PHIL [facility] ([place]) 1 [facility] [place] [address] * Sodium, urine, random (04/19/2025 8:14 PM CDT) Sodium, ur 71 mmol/L Comment: Interpretive Data No reference range established. Current interpretive data was last revised 2018. Urine 04/19/2025 8:14 PM CDT 04/20/2025 10:23 AM CDT Narrative [facility] ([place]) - 04/20/2025 10:33 AM CDT No normal range Neli Salazar MD LAB URINE ORDERABLES Fi nal Result PHIL [facility] ([place]) 1 [facility] [place] [address] * Osmolality, urine (04/19/2025 8:14 PM CDT) Osmo, ur 953 mOsm/kg Comment:Testing performed by : [facility], 1 [facility], [place]., [address] Urine 04/19/2025 8:14 PM CDT 04/20/2025 2:39 PM CDT us Neli Salazar MD LAB URINE ORDERABLES Fi nal Result Performing Organization Address City/[facility]/ZIP Co de Phone Number PHIL MAYES ([place]) 1 [facility] [place] [address] * eGFR (04/19/2025 8:13 PM CDT) eGFR >90 >=60 mL/min/1. 73 m2 Comment: [...] interpretive data was last reviewed 2021. Blood 04/19/2025 8:13 PM CDT 04/19/2025 8:19 PM CDT us Beeln PLASENCIA LAB BLOOD ORDERABLES Final Resu lt PHIL MAYES ([place]) 1 [facility] [place] [address] * (ABNORMAL) Differential, auto (04/19/2025 8:13 PM CDT) Neutrophil abs 2.20 1.50 - 6.50 K/cumm Imm gran abs 0.01 0.00 - 0.10 K/cumm PHIL GERBER ([place]) Lymphocyte abs 0.52(L) 0.80 - 3.30 K/cumm [facility] ([place]) Monocyte abs 0.26 0.20 - 0.80 K/cumm [facility] ([place]) Eosinophil abs 0.19 0.00 - 0.50 K/cumm [facility] ([place]) Basophil abs 0.01 0.00 - 0.10 K/cumm [facility] ([place]) Neutrophil pct 68.9 % [facility] ([place]) Comment: Interpretive Data Percent cell count reference ranges are not reported, since discordance with absolute values may lead to misinterpretation of CBC data. Current Interpretive Data was last revised on 2017. Imm gran pct 0.3 % [facility] ([place]) Comment: Interpretive Data Percent cell count reference ranges are not reported, since discordance with absolute values may lead to misinterpretation of CBC data. Current Interpretive Data was last revised on 2017. Lymphocyte pct 16.3 % [facility] ([place]) Comment: Interpretive Data Percent cell count reference ranges are not reported, since discordance with absolute values may lead to misinterpretation of CBC data. Current Interpretive Data was last revised on 2017. Monocyte pct 8.2 % [facility] ([place]) Comment: Interpretive Data Percent cell count reference ranges are not reported, since discordance with absolute values may lead to misinterpretation of CBC data. Current Interpretive Data was last revised on 2017. Eosinophil pct 6.0 % [facility] ([place]) Comment: Interpretive Data Percent cell count reference ranges are not reported, since discordance with absolute values may lead to misinterpretation of CBC data. Current Interpretive Data was last revised on 2017. Basophil pct 0.3 % [facility] ([place]) Comment: Interpretive Data Percent cell count reference ranges are not reported, since discordance with absolute values may lead to misinterpretation of CBC data. Current Interpretive Data was last revised on 2017. Blood 04/19/2025 8:13 PM CDT 04/19/2025 8:19 PM CDT us Belen PLASENCIA LAB BLOOD ORDERABLES Final Resu lt PHIL MAYES ([place]) 1 [facility] [place] [address] * (ABNORMAL) CBC with auto differential (04/19/2025 8:13 PM CDT) WBC 3.19(L) 3.80 - 9.90 K/cumm Hgb 10.8(L) 13.0 - 17.5 g/dL [facility] ([place]) Hct 31.0(L) 38.9 - 50.3 % [facility] ([place]) Plt 160 150 - 400 K/cumm [facility] ([place]) MPV 9.7 9.1 - 12.3 fL [facility] ([place]) RBC 3.69(L) 4.30 - 5.80 M/cumm [facility] ([place]) MCV 84.0 81.3 - 96.4 fL [facility] ([place]) MCH 29.3 27.1 - 33.3 pg [facility] ([place]) MCHC 34.8 32.3 - 35.7 g/dL [facility] ([place]) RDW CV 12.8 11.1 - 14.9 % [facility] ([place]) RDW SD 39.1 35.7 - 48.1 fL [facility] ([place]) NRBC abs 0.00 0.00 - 0.01 K/cumm [facility] ([place]) Blood 04/19/2025 8:13 PM CDT 04/19/2025 8:19 PM CDT us Belen PLASENCIA LAB BLOOD ORDERABLES Final Resu lt PHIL MAYES ([place]) 1 [facility] [place] [address] * Ethanol (04/19/2025 8:13 PM CDT) Pathologist [facility] Ethanol <10 <=10 mg/dL Comment: Interpretive Data Legal limit of intoxication > or = 80 mg/dL Levels > or = 400 mg/dL are potentially TOXIC. Current interpretive data was last revised on 2018. Blood 04/19/2025 8:13 PM CDT 04/19/2025 8:19 PM CDT us Belen PLASENCIA LAB BLOOD ORDERABLES Final Resu lt [facility] ([place]) 1 [facility] [place] [address] * (ABNORMAL) Comprehensive metabolic panel (04/19/2025 8:13 PM CDT) Sodium 131(L) 135 - 145 mmol/L Potassium, pl 3.9 3.3 - 4.9 mmol/L [facility] ([place]) Chloride 96(L) 97 - 110 mmol/L [facility] ([place]) CO2 26 22 - 32 mmol/L [facility] ([place]) Anion gap 9 2 - 15 mmol/L [facility] ([place]) BUN 18 6 - 25 mg/dL [facility] ([place]) Creatinine 0.81 0.80 - 1.30 mg/dL [facility] ([place]) Glucose 106 70 - 199 mg/dL [facility] ([place]) [...] classification and Diagnosis of Diabetes Diabetes Care 202; 46: S19-S40. Current interpretive data was last revised 2022. Calcium 8.4(L) 8.5 - 10.3 mg/dL [facility] ([place]) Bilirubin, total 0.6 0.1 - 1.2 mg/dL [facility] ([place]) Protein, pl 7.3 6.5 - 8.5 g/dL [facility] ([place]) Albumin 3.5 3.5 - 5.0 g/dL [facility] ([place]) Alk phos 86 40 - 130 Units/L [facility] ([place]) ALT 50 7 - 55 Units/L [facility] ([place]) AST 94(H) 10 - 50 Units/L [facility] ([place]) Blood 04/19/2025 8:13 PM CDT 04/19/2025 8:19 PM CDT us Belen PLASENCIA LAB BLOOD ORDERABLES Final Resu lt PHIL MAYES ([place]) 1 [facility] [employer] [place] [address] * eGFR (04/09/2025 4:46 AM CDT) eGFR >90 >=60 mL/min/1. 73 m2 Comment: [...] interpretive data was last reviewed 2021. Blood 04/09/2025 4:46 AM CDT 04/09/2025 5:05 AM CDT us Gray Lamar MD LAB BLOOD ORDERABLES Final Result PHIL MAYES ([place]) 1 [facility] [place] [place] [address] * (ABNORMAL) Differential, auto (04/09/2025 4:46 AM CDT) Neutrophil abs 1.67 1.50 - 6.50 K/cumm Imm gran abs 0.15(H) 0.00 - 0.10 K/cumm [facility] ([place]) Lymphocyte abs 0.62(L) 0.80 - 3.30 K/cumm [facility] ([place]) Monocyte abs 0.43 0.20 - 0.80 K/cumm [facility] ([place]) Eosinophil abs 0.58(H) 0.00 - 0.50 K/cumm [facility] ([place]) Basophil abs 0.02 0.00 - 0.10 K/cumm [facility] ([place]) Neutrophil pct 48.1 % [facility] ([place]) Comment: Interpretive Data Percent cell count reference ranges are not reported, since discordance with absolute values may lead to misinterpretation of CBC data. Current Interpretive Data was last revised on 2017. Imm gran pct 4.3 % [facility] ([place]) Comment: Interpretive Data Percent cell count reference ranges are not reported, since discordance with absolute values may lead to misinterpretation of CBC data. Current Interpretive Data was last revised on 2017. Lymphocyte pct 17.9 % [facility] ([place]) Comment: Interpretive Data Percent cell count reference ranges are not reported, since discordance with absolute values may lead to misinterpretation of CBC data. Current Interpretive Data was last revised on 2017. Monocyte pct 12.4 % [facility] ([place]) Comment: Interpretive Data Percent cell count reference ranges are not reported, since discordance with absolute values may lead to misinterpretation of CBC data. Current Interpretive Data was last revised on 2017. Eosinophil pct 16.7 % [facility] ([place]) Comment: Interpretive Data Percent cell count reference ranges are not reported, since discordance with absolute values may lead to misinterpretation of CBC data. Current Interpretive Data was last revised on 2017. Basophil pct 0.6 % [facility] ([place]) Comment: Interpretive Data Percent cell count reference ranges are not reported, since discordance with absolute values may lead to misinterpretation of CBC data. Current Interpretive Data was last revised on 2017. Blood 04/09/2025 4:46 AM CDT 04/09/2025 5:05 AM CDT Gray Lamar MD LAB BLOOD ORDERABLES Final Result [facility] ([place]) 1 [facility] [place] [address] * (ABNORMAL) CBC with auto differential (04/09/2025 4:46 AM CDT) Pathologist [facility] WBC 3.47(L) 3.80 - 9.90 K/cumm Hgb 10.9(L) 13.0 - 17.5 g/dL [facility] ([place]) Hct 31.8(L) 38.9 - 50.3 % [facility] ([place]) Plt 225 150 - 400 K/cumm [facility] ([place]) MPV 9.4 9.1 - 12.3 fL [facility] ([place]) RBC 3.71(L) 4.30 - 5.80 M/cumm [facility] ([place]) MCV 85.7 81.3 - 96.4 fL [facility] ([place]) MCH 29.4 27.1 - 33.3 pg [facility] ([place]) MCHC 34.3 32.3 - 35.7 g/dL [facility] ([place]) RDW CV 13.2 11.1 - 14.9 % [facility] ([place]) RDW SD 41.3 35.7 - 48.1 fL [facility] ([place]) NRBC abs 0.00 0.00 - 0.01 K/cumm [facility] ([place]) Blood 04/09/2025 4:46 AM CDT 04/09/2025 5:05 AM CDT Gray Lamar MD LAB BLOOD ORDERABLES Final Result [facility] ([place]) 1 [facility] [place] [address] * (ABNORMAL) Basic metabolic panel (04/09/2025 4:46 AM CDT) Sodium 137 135 - 145 mmol/L Potassium, pl 4.0 3.3 - 4.9 mmol/L [facility] ([place]) Chloride 102 97 - 110 mmol/L [facility] ([place]) CO2 26 22 - 32 mmol/L [facility] ([place]) Anion gap 9 2 - 15 mmol/L [facility] ([place] BUN 15 6 - 25 mg/dL [facility] ([place]) Creatinine 0.77(L) 0.80 - 1.30 mg/dL [facility] ([place]) Glucose 121 70 - 199 mg/dL [facility] ([place]) Comment: Interpretive Data Fasting glucose [...] interpretive data was last revised 2022. Calcium 9.3 8.5 - 10.3 mg/dL [facility] ([place]) Blood 04/09/2025 4:46 AM CDT 04/09/2025 5:05 AM CDT Gray Lamar MD LAB BLOOD ORDERABLES Final Result [facility] ([place]) 1 [facility] [place] [address] * eGFR (04/08/2025 8:15 AM CDT) Pathologist [facility] eGFR >90 >=60 mL/min/1. 73 m2 Comment: [...] interpretive data was last reviewed 2021. Blood 04/08/2025 8:15 AM CDT 04/08/2025 8:59 AM CDT us Gray Lamar MD LAB BLOOD ORDERABLES Final Result PHIL [facility] ([place]) [address] [place] [address] Department [place] [address] * (ABNORMAL) Differential, auto (04/08/2025 8:15 AM CDT) Neutrophil abs 1.24(L) 1.50 - 6.50 K/cumm Imm gran abs 0.11(H) 0.00 - 0.10 K/cumm [facility] ([place]) Lymphocyte abs 0.26(L) 0.80 - 3.30 K/cumm [facility] ([place]) Monocyte abs 0.30 0.20 - 0.80 K/cumm [facility] ([place]) Eosinophil abs 0.33 0.00 - 0.50 K/cumm [facility] ([place]) Basophil abs 0.03 0.00 - 0.10 K/cumm [facility] ([place]) Neutrophil pct 54.7 % [facility] ([place]) Comment: Interpretive Data Percent cell count reference ranges are not reported, since discordance with absolute values may lead to misinterpretation of CBC data. Current Interpretive Data was last revised on 2017. Imm gran pct 4.8 % [facility] ([place]) Comment: Interpretive Data Percent cell count reference ranges are not reported, since discordance with absolute values may lead to misinterpretation of CBC data. Current Interpretive Data was last revised on 2017. Lymphocyte pct 11.5 % [facility] ([place]) Comment: Interpretive Data Percent cell count reference ranges are not reported, since discordance with absolute values may lead to misinterpretation of CBC data. Current Interpretive Data was last revised on 2017. Monocyte pct 13.2 % [facility] ([place]) Comment: Interpretive Data Percent cell count reference ranges are not reported, since discordance with absolute values may lead to misinterpretation of CBC data. Current Interpretive Data was last revised on 2017. Eosinophil pct 14.5 % [facility] ([place]) Comment: Interpretive [...] Data was last revised on 2017. Blood 04/08/2025 8:15 AM CDT 04/08/2025 9:00 AM CDT us Gray Lamar MD LAB BLOOD ORDERABLES Final Result PHIL MAYES ([place]) 1 [facility] [place] [address] * (ABNORMAL) CBC with auto differential (04/08/2025 8:15 AM CDT) WBC 2.27(L) 3.80 - 9.90 K/cumm Hgb 10.9(L) 13.0 - 17.5 g/dL [facility] ([place]) Hct 32.4(L) 38.9 - 50.3 % [facility] ([place]) Plt 234 150 - 400 K/cumm [facility] ([place]) MPV 9.4 9.1 - 12.3 fL [facility] ([place]) RBC 3.78(L) 4.30 - 5.80 M/cumm [facility] ([place]) MCV 85.7 81.3 - 96.4 fL [facility] ([place]) MCH 28.8 27.1 - 33.3 pg [facility] ([place]) MCHC 33.6 32.3 - 35.7 g/dL [facility] ([place]) RDW CV 13.2 11.1 - 14.9 % [facility] ([place]) RDW SD 41.4 35.7 - 48.1 fL [facility] ([place]) NRBC abs 0.00 0.00 - 0.01 K/cumm [facility] ([place]) Blood 04/08/2025 8:15 AM CDT 04/08/2025 9:00 AM CDT us Gray Lamar MD LAB BLOOD ORDERABLES Final Result [facility] ([place]) 1 [facility] [place] [address] * (ABNORMAL) Basic metabolic panel (04/08/2025 8:15 AM CDT) Sodium 140 135 - 145 mmol/L Potassium, pl 4.1 3.3 - 4.9 mmol/L [facility] ([place]) Chloride 105 97 - 110 mmol/L [facility] ([place]) CO2 26 22 - 32 mmol/L [facility] ([place]) Anion gap 9 2 - 15 mmol/L [facility] ([place]) BUN 11 6 - 25 mg/dL [facility] ([place]) Creatinine 0.65(L) 0.80 - 1.30 mg/dL [facility] ([place]) Glucose 95 70 - 199 mg/dL [facility] ([place]) Comment: Interpretive Data Fasting glucose [...] interpretive data was last revised 2022. Calcium 9.4 8.5 - 10.3 mg/dL [facility] ([place]) Blood 04/08/2025 8:15 AM CDT 04/08/2025 8:59 AM CDT Gray Lamar MD LAB BLOOD ORDERABLES Final Result [facility] ([place]) 1 [facility] [place] [address] * Pneumonia PCR Sputum (04/07/2025 1:16 PM CDT) C. pneumoniae DNA Not Detected Not Detected Comment:Testing performed by : [facility], [address] [place] [address]., [id number] Legionella pneumophila DNA Not Detected Not Detected [facility] ([place]) Comment:Testing performed by : [facility], [address] [place]., [address] M. pneumoniae DNA Not Detected Not Detected [facility] ([place]) Comment:Testing performed by : [facility], [address] [place]., [address] Adenovirus DNA Not Detected Not Detected [facility] ([place]) Comment:Testing performed by : [facility], [address] [place]., [address] Coronavirus (229E, OC43, HKU1, NL63) RNA Not Detected Not Detected [facility] ([place]) Comment:Testing performed by : [facility], [address] [place]., [address] Metapneumovirus RNA Not Detected Not Detected [facility] ([place]) Comment:Testing performed by : [facility], [address] [place]., [address] Rhinovirus/Enterov irus RNA Not Detected Not Detected [facility] ([place]) Comment:Testing performed by : [facility], [address] [place]., [address] Influenza A RNA Not Detected Not Detected [facility] ([place]) Comment:Testing performed by : [facility], [address] [place]., [address] Influenza B RNA Not Detected Not Detected [facility] ([place]) Comment:Testing performed by : [facility], [address] [place]., [address] Parainfluenza virus (1-4) RNA Not Detected Not Detected [facility] ([place]) Comment:Testing performed by : [facility], 1 [facility], [address] RSV RNA Not Detected Not Detected [facility] ([place]) Comment:Testing performed by : [facility], [address] [place] [address], [address] Sputum 04/07/2025 1:16 PM CDT 04/07/2025 4:42 PM CDT Narrative [facility] ([place]) - 04/07/2025 6:05 PM CDT The BioFire Pneumonia Panel is a multiplexed nucleic acid test capable of simultaneous detection and identification of multiple respiratory viruses and bacteria. This panel detects Adenovirus, coronaviruses (Coronavirus HKU1, Coronavirus NL63, Coronavirus 229E, and Coronavirus OC43), Influenza A, Influenza B, Human metapneumovirus, Parainfluenza (1-4), RSV, Rhinovirus/Enterovirus, Chlamydia pneumoniae, Mycoplasma pneumoniae, and Legionella pneumophila. Additional aerobic bacterial targets are reported with the accompanying culture results with the same accession number. Rhinovirus and Enterovirus are genetically similar and cannot be reliably differentiated with this method. Negative adenovirus results should be confirmed by an alternative methodology (i.e. standalone PCR) if the suspicion for adenovirus infection is high. The results of this test must be considered in the clinical context of the patient and should not be used as the sole basis for diagnosis, treatment, or other management decisions. Negative results in the setting of a respiratory illness may be due to infection with pathogens that are not detected by this test. Positive results do not rule out infection/co-infection with other organisms. The BioFire Pneumonia Panel is FDA cleared for lower respiratory tract specimens. The performance characteristics of this assay have been determined by [facility]. Current interpretive data was last revised on 2024. Jelly Fernandez PSYCHOLOGY PHYSICIAN LAB MICROBIOLOGY - GENERA L ORDERABLES Final Result [facility] ([place]) 1 [facility] [place] [address] * (ABNORMAL) Pneumonia PCR with aerobic culture and Gram stain Sputum (04/07/2025 1:16 PM CDT) Direct Specimen Exam Molecular Analysis: 10^6 copies/mL Streptococcus pneumoniae 10^5 copies/mL Staphylococcus aureus Methicillin resistant Staphylococcus aureus (MRSA) detected by molecular analysis. 10^4 copies/mL Pseudomonas aeruginosa 10^4 copies/mL Streptococcus agalactiae (Group B Streptococci) Correlation of molecular analysis with final culture results is recommended. Comment:Testing performed by : [facility], [address] [place] [address], [place]., [address] Direct Specimen Exam Stain: Few polymorphonuclear leukocytes seen. Few squamous epithelial cells seen. Moderate mixed bacterial stella seen on Gram stain. [facility] ([place]) Comment:Testing performed by : [facility], [address] [place] [address], [place]., [address] Report Final Report: Moderate Yeast two colony types Faby pneumonia is very rare and requires a histopathological diagnosis. The recovery of these organisms in routine culture, in most cases, only represents overgrowth of the organism secondary to antimicrobial therapy. Please contact the microbiology laboratory at [phone] if identification or susceptibility testing is clinically indicated. Plus growth of clinically insignificant bacterial stella. (.) [facility] ([place]) Comment:Testing performed by : [facility], [address] [facility] [place]., [address] Organism PLUS GROWTH OF CLINICALLY INSIGNIFICANT STELLA. [facility] ([place]) Organism YEAST [facility] ([place]) Sputum 04/07/2025 1:16 PM CDT 04/07/2025 4:14 PM CDT Narrative [facility] ([place]) - 04/09/2025 3:14 PM CDT When rapid molecular testing results are reported, testing completed using the [employer] FilmArray Pneumonia Panel. This molecular assay detects: Acinetobacter calcoaceticus-baumannii complex, Enterobacter cloacae complex, Escherichia coli, Haemophilus influenzae, Enterobacter (Klebsiella) aerogenes, Klebsiella oxytoca, Klebsiella pneumoniae group, Moraxella catarrhalis, Proteus spp., Pseudomonas aeruginosa, Serratia marcescens, Staphylococcus aureus, Streptococcus agalactiae, Streptococcus pneumoniae, and Streptococcus pyogenes. These bacteria are detected and reported semi-quantitatively with bins representing approximately 10^4, 10^5, 10^6, or greater than or equal to 10^7 genomic copies of bacterial nucleic acid per mL (copies/mL) of specimen. These quantities are reported to aid in estimating the relative abundance of organism(s) detected within the specimen and to correlate these results with culture results. For Staphylococcus aureus, mecA/C and MREJ genes are evaluated to predict methicillin resistance or susceptibility. For Gram-negative bacteria, the beta-lactamases CTX-M, IMP, KPC, NDM, VIM and OXA-48-like are evaluated and reported if detected. For Gram-negative organisms, the absence of detection of resistance markers does not exclude resistance. Correlation with final culture results and susceptibility testing is recommended. The FilmArray Pneumonia Panel is cleared by the [place] Food and Drug Administration and its performance characteristics have been confirmed by the [facility]. The performance of the FilmArray Pneumonia Panel has not been established for monitoring treatment of infection and bacterial nucleic acids may persist independent of organism viability. Jelly Fernandez NP LAB MICROBIOLOGY - GENERA L ORDERABLES Final Result [facility] ([place]) 1 [facility] [place] [address] * Mycology (fungal) culture Sputum Sputum (04/07/2025 1:16 PM CDT) Report Amended Report - Complete: No growth of Cryptococcus or Mold Comment:Testing performed by : [facility], [address] [facility] [place] [address] Sputum (Sputum) 04/07/2025 1 :16 PM CDT 04/07/2025 4:14 PM CDT Narrative [facility] ([place]) - 05/05/2025 8:08 AM VOCATIONAL AIDE Testing performed by [facility] Microbiology Laboratory ([phone]). Jelly Fernandez NP LAB MICROBIOLOGY - GENERA L ORDERABLES Edited Result - Final [facility] ([place]) 1 [facility] [place] [address] * Magnesium (04/07/2025 12:05 PM CDT) Magnesium 1.8 1.4 - 2.5 mg/dL [facility] ([place]) Blood 04/07/2025 12:0 5 PM CDT 04/07/2025 12:34 PM CDT Gray Lamar MD LAB BLOOD ORDERABLES Final Result [facility] ([place]) 1 [facility] [place] [address] * eGFR (04/07/2025 4:22 AM CDT) eGFR >90 >=60 mL/min/1. 73 m2 Comment: [...] Inclusion of Race in Diagnosing Kidney Disease, SEGUN 2020). The CKD-EPI equation should not be used for patients with unstable renal function and has not been validated in children and those over 70. Current interpretive data was last reviewed 2021. Blood 04/07/2025 4:22 AM CDT 04/07/2025 4:52 AM CDT Gray Lamar MD LAB BLOOD ORDERABLES Final Result [facility] ([place]) 1 [facility] [place] [address] * (ABNORMAL) Differential, auto (04/07/2025 4:22 AM CDT) Neutrophil abs 2.06 1.50 - 6.50 K/cumm Imm gran abs 0.02 0.00 - 0.10 K/cumm [facility] ([place]) Lymphocyte abs 0.38(L) 0.80 - 3.30 K/cumm [facility] ([place]) Monocyte abs 0.27 0.20 - 0.80 K/cumm [facility] ([place]) Eosinophil abs 0.44 0.00 - 0.50 K/cumm [facility] ([place]) Basophil abs 0.00 0.00 - 0.10 K/cumm [facility] ([place]) Neutrophil pct 65.0 % [facility] ([place]) Comment: Interpretive Data Percent cell count reference ranges are not reported, since discordance with absolute values may lead to misinterpretation of CBC data. Current Interpretive Data was last revised on 2017. Imm gran pct 0.6 % [facility] ([place]) Comment: Interpretive Data Percent cell count reference ranges are not reported, since discordance with absolute values may lead to misinterpretation of CBC data. Current Interpretive Data was last revised on 2017. Lymphocyte pct 12.0 % [facility] ([place]) Comment: Interpretive Data Percent cell count reference ranges are not reported, since discordance with absolute values may lead to misinterpretation of CBC data. Current Interpretive Data was last revised on 2017. Monocyte pct 8.5 % [facility] ([place]) Comment: Interpretive Data Percent cell count reference ranges are not reported, since discordance with absolute values may lead to misinterpretation of CBC data. Current Interpretive Data was last revised on 2017. Eosinophil pct 13.9 % [facility] ([place]) Comment: Interpretive Data Percent cell count reference ranges are not reported, since discordance with absolute values may lead to misinterpretation of CBC data. Current Interpretive Data was last revised on 2017. Basophil pct 0.0 % [facility] ([place]) Comment: Interpretive Data Percent cell count reference ranges are not reported, since discordance with absolute values may lead to misinterpretation of CBC data. Current Interpretive Data was last revised on 2017. Blood 04/07/2025 4:22 AM CDT 04/07/2025 4:52 AM CDT us Gray Lamar MD LAB BLOOD ORDERABLES Final Result [facility] ([place]) 1 [facility] [place] [address] * (ABNORMAL) CBC with auto differential (04/07/2025 4:22 AM CDT) WBC 3.17(L) 3.80 - 9.90 K/cumm Hgb 9.2(L) 13.0 - 17.5 g/dL [facility] ([place]) Hct 26.9(L) 38.9 - 50.3 % [facility] ([place]) Plt 163 150 - 400 K/cumm [facility] ([place]) MPV 9.7 9.1 - 12.3 fL [facility] ([place]) RBC 3.09(L) 4.30 - 5.80 M/cumm [facility] ([place]) MCV 87.1 81.3 - 96.4 fL [facility] ([place]) MCH 29.8 27.1 - 33.3 pg [facility] ([place]) MCHC 34.2 32.3 - 35.7 g/dL [facility] ([place]) RDW CV 13.5 11.1 - 14.9 % [facility] ([place]) RDW SD 43.1 35.7 - 48.1 fL [facility] ([place]) NRBC abs 0.00 0.00 - 0.01 K/cumm [facility] ([place]) Blood 04/07/2025 4:22 AM CDT 04/07/2025 4:52 AM CDT Gray Lamar MD LAB BLOOD ORDERABLES Final Result [facility] ([place]) 1 [facility] [place] [address] * (ABNORMAL) Basic metabolic panel (04/07/2025 4:22 AM CDT) Sodium 137 135 - 145 mmol/L [facility] ([place]) Potassium, pl 3.5 3.3 - 4.9 mmol/L [facility] ([place]) Chloride 104 97 - 110 mmol/L [facility] ([place]) CO2 25 22 - 32 mmol/L [facility] ([place]) Anion gap 8 2 - 15 mmol/L [facility] ([place]) BUN 9 6 - 25 mg/dL [facility] ([place]) Creatinine 0.72(L) 0.80 - 1.30 mg/dL [facility] ([place]) Glucose 127 70 - 199 mg/dL [facility] ([place] Comment: Interpretive Data Fasting glucose [...] interpretive data was last revised 2022. Calcium 8.4(L) 8.5 - 10.3 mg/dL [facility] ([place] Blood 04/07/2025 4:22 AM CDT 04/07/2025 4:52 AM CDT us Gray Lamar MD LAB BLOOD ORDERABLES Final Result [facility] ([place]) 1 [facility] [place] [address] * eGFR (04/06/2025 5:20 AM CDT) eGFR >90 >=60 mL/min/1. 73 m2 Comment: [...] interpretive data was last reviewed 2021. Blood 04/06/2025 5:20 AM CDT 04/06/2025 5:43 AM CDT us Neli Salazar MD LAB BLOOD ORDERABLES Fi nal Result [facility] ([place]) 1 [facility] [place] [address] * (ABNORMAL) Differential, auto (04/06/2025 5:20 AM CDT) Neutrophil abs 4.35 1.50 - 6.50 K/cumm Imm gran abs 0.03 0.00 - 0.10 K/cumm [facility] ([place]) Lymphocyte abs 0.60(L) 0.80 - 3.30 K/cumm [facility] ([place]) Monocyte abs 0.28 0.20 - 0.80 K/cumm [facility] ([place]) Eosinophil abs 0.62(H) 0.00 - 0.50 K/cumm [facility] ([place]) Basophil abs 0.02 0.00 - 0.10 K/cumm [facility] ([place]) Neutrophil pct 73.8 % [facility] ([place]) Comment: Interpretive Data Percent cell count reference ranges are not reported, since discordance with absolute values may lead to misinterpretation of CBC data. Current Interpretive Data was last revised on 2017. Imm gran pct 0.5 % [facility] ([place]) Comment: Interpretive Data Percent cell count reference ranges are not reported, since discordance with absolute values may lead to misinterpretation of CBC data. Current Interpretive Data was last revised on 2017. Lymphocyte pct 10.2 % [facility] ([place] Comment: Interpretive Data Percent cell count reference ranges are not reported, since discordance with absolute values may lead to misinterpretation of CBC data. Current Interpretive Data was last revised on 2017. Monocyte pct 4.7 % [facility] ([place]) Comment: Interpretive Data Percent cell count reference ranges are not reported, since discordance with absolute values may lead to misinterpretation of CBC data. Current Interpretive Data was last revised on 2017. Eosinophil pct 10.5 % [facility] ([place] Comment: Interpretive Data Percent cell count reference ranges are not reported, since discordance with absolute values may lead to misinterpretation of CBC data. Current Interpretive Data was last revised on 2017. Basophil pct 0.3 % [facility] ([place]) Comment: Interpretive Data Percent cell count reference ranges are not reported, since discordance with absolute values may lead to misinterpretation of CBC data. Current Interpretive Data was last revised on 2017. Blood 04/06/2025 5:20 AM CDT 04/06/2025 5:43 AM CDT us Neli Salazar MD LAB BLOOD ORDERABLES Fi nal Result [facility] ([place]) 1 [facility] [place] [address] * (ABNORMAL) CBC with auto differential (04/06/2025 5:20 AM CDT) WBC 5.90 3.80 - 9.90 K/cumm Hgb 9.6(L) 13.0 - 17.5 g/dL [facility] ([place]) Hct 28.4(L) 38.9 - 50.3 % [facility] ([place]) Plt 177 150 - 400 K/cumm [facility] ([place]) MPV 9.7 9.1 - 12.3 fL [facility] ([place]) RBC 3.29(L) 4.30 - 5.80 M/cumm [facility] ([place]) MCV 86.3 81.3 - 96.4 fL [facility] ([place]) MCH 29.2 27.1 - 33.3 pg [facility] ([place]) MCHC 33.8 32.3 - 35.7 g/dL [facility] ([place]) RDW CV 13.5 11.1 - 14.9 % [facility] ([place]) RDW SD 42.5 35.7 - 48.1 fL [facility] ([place]) NRBC abs 0.00 0.00 - 0.01 K/cumm [facility] ([place]) Blood 04/06/2025 5:20 AM CDT 04/06/2025 5:43 AM CDT us Neli Salazar MD LAB BLOOD ORDERABLES Fi nal Result [facility] ([place]) 1 [facility] [place] [address] * (ABNORMAL) Comprehensive metabolic panel (04/06/2025 5:20 AM CDT) Sodium 135 135 - 145 mmol/L [facility] ([place]) Potassium, pl 3.8 3.3 - 4.9 mmol/L [facility] ([place]) Chloride 103 97 - 110 mmol/L [facility] ([place]) CO2 27 22 - 32 mmol/L [facility] ([place]) Anion gap 5 2 - 15 mmol/L [facility] ([place]) BUN 13 6 - 25 mg/dL [facility] ([place]) Creatinine 0.70(L) 0.80 - 1.30 mg/dL [facility] ([place]) Glucose 96 70 - 199 mg/dL [facility] ([place] [...] interpretive data was last revised 2022. Calcium 8.1(L) 8.5 - 10.3 mg/dL [facility] ([place]) Bilirubin, total 0.4 0.1 - 1.2 mg/dL [facility] ([place]) Protein, pl 6.5 6.5 - 8.5 g/dL [facility] ([place]) Albumin 3.1(L) 3.5 - 5.0 g/dL [facility] ([place]) Alk phos 83 40 - 130 Units/L [facility] ([place]) ALT 68(H) 7 - 55 Units/L [facility] ([place]) AST 95(H) 10 - 50 Units/L [facility] ([place]) Blood 04/06/2025 5:20 AM CDT 04/06/2025 5:43 AM CDT us Neli Salazar MD LAB BLOOD ORDERABLES Fi nal Result [facility] ([place]) 1 [facility] [place] [address] * (ABNORMAL) MRSA Only (Staphylococcus aureus) PCR Nasal (04/05/2025 9:50 PM CDT) PCR Scrn, Methicillin resistant Staphylococcus aureus (MRSA) Detected( A) Not Detected Comment: Interpretive Data Testing performed using Nucleic Acid Amplification with the [employer] Xpert MRSA NxG Assay. This assay detects target DNA from mecA, mecC and the SCCmec insertion site of Staphylococcus aureus using Real-Time PCR and has been cleared by the FDA. Performance characteristics have been verified by the [facility]. Current Interpretive Data was last revised on 2022 Nasal 04/05/2025 9:50 PM CDT 04/05/2025 9:54 PM CDT us Chintan Guadarrama MD LAB MICROBIOLOGY - GENERAL TY RAMSAY Final Result [facility] ([place]) 1 [facility] [place] [address] * (ABNORMAL) BLOOD MISC TO [place] (04/05/2025 5:00 PM CDT) Test name, chem SFUNG (1, 3) Beta-D-Gl ucan (Fungitel l), S [place] ref Lab Misc See Comment(A ) [facility] ([place]) Comment: Test Result Flag Unit RefValue (1, 3) Aszz-I-Nbhnop (Fungitell), S Fungitell Quantitative Value >500 A pg/mL <60 pg/mL Fungitell Qualitative Result Positive A Negative (1, 3) Qapn-Q-Zuunob detected. A single positive result should be interpreted with caution and correlated alongside consideration of patient risk for invasive fungal disease, results of routine laboratory tests (e.g., bacterial and fungal culture, histopathologic evaluation, etc.) and radiologic findings. Repeat testing on a new sample (collected in 3-4 days) is recommended as serially positive samples are associated with a higher diagnostic odds ratio for invasive fungal infection compared to a single positive result. False positive results may occur in patients who have recently undergone hemodialysis, treatment with certain fractionated blood products (e.g., serum albumin, immunoglobulins), and/or those who have had significant exposure to glucan-containing gauze during surgery. This assay does not detect certain fungi, including Cryptococcus species, which produce very low levels of (1, 3) Ljrm-T-Dmrjkt (BDG) and the Mucorales (e.g., Lichthemia, Mucor and Rhizopus), which are not known to produce BDG. Additionally, the yeast phase of Blastomyces dermatitidis produces little BDG and may not be detected by this assay. ADDITIONAL INFORMATION This assay was performed using the FDA-cleared Fungitell Assay ([facility], [place], [place], [place]), a kinetic MICA based on modification of the Limulus Amebocyte Lysate pathway. Test Performed by: [place] [address] Superintendent Maintenance: Nola Pritchard Ph.D.; CLIA# [id number] Blood 04/05/2025 5:00 PM CDT 04/05/2025 5:18 PM CDT [facility]her[facility]) - 04/08/2025 12:03 AM CDT Spin and DON'T OPEN TUBE! Serum us Rui Upton MD LAB BLOOD ORDERABLES Final Result [facility] ([place]) 1 [facility] [place] [address] [place] [facility] * (ABNORMAL) Lactate dehydrogenase (LD) (04/05/2025 5:00 PM CDT) Lactate dehydrogenase (LDH) 263(H) 100 - 250 Units/L [facility] ([place]) Blood 04/05/2025 5:00 PM CDT 04/05/2025 5:18 PM CDT us Rui Upton MD LAB BLOOD ORDERABLES Final Result [facility] ([place]) 1 [facility] [place] [address] * (ABNORMAL) Sepsis Lactate w/ Reflex (04/05/2025 2:18 AM CDT) Pathologist [facility] Sepsis Lactate 2.1(H) 0.7 - 2.0 mmol/L Blood 04/05/2025 2:18 AM CDT 04/05/2025 2:26 AM CDT us Damion Combs NP LAB BLOOD ORDERABLES Final Result Performing Organization Address City/[facility]/ZIP Co de Phone Number [facility] ([place]) 1 [facility] [place] [address] * (ABNORMAL) Differential, auto (04/05/2025 2:18 AM CDT) Pathologist [facility] Neutrophil abs 7.67(H) 1.50 - 6.50 K/cumm Imm gran abs 0.04 0.00 - 0.10 K/cumm [facility] ([place]) Lymphocyte abs 0.69(L) 0.80 - 3.30 K/cumm [facility] ([place]) Monocyte abs 0.58 0.20 - 0.80 K/cumm [facility] ([place]) Eosinophil abs 0.12 0.00 - 0.50 K/cumm [facility] ([place]) Basophil abs 0.01 0.00 - 0.10 K/cumm [facility] ([place]) Neutrophil pct 84.2 % [facility] ([place]) Comment: Interpretive Data Percent cell count reference ranges are not reported, since discordance with absolute values may lead to misinterpretation of CBC data. Current Interpretive Data was last revised on 2017. Imm gran pct 0.4 % [facility] ([place]) Comment: Interpretive Data Percent cell count reference ranges are not reported, since discordance with absolute values may lead to misinterpretation of CBC data. Current Interpretive Data was last revised on 2017. Lymphocyte pct 7.6 % [facility] ([place]) Comment: Interpretive Data Percent cell count reference ranges are not reported, since discordance with absolute values may lead to misinterpretation of CBC data. Current Interpretive Data was last revised on 2017. Monocyte pct 6.4 % [facility] ([place]) Comment: Interpretive Data Percent cell count reference ranges are not reported, since discordance with absolute values may lead to misinterpretation of CBC data. Current Interpretive Data was last revised on 2017. Eosinophil pct 1.3 % [facility] ([place]) Comment: Interpretive Data Percent cell count reference ranges are not reported, since discordance with absolute values may lead to misinterpretation of CBC data. Current Interpretive Data was last revised on 2017. Basophil pct 0.1 % [facility] ([place]) Comment: Interpretive Data Percent cell count reference ranges are not reported, since discordance with absolute values may lead to misinterpretation of CBC data. Current Interpretive Data was last revised on 2017. Blood 04/05/2025 2:18 AM CDT 04/05/2025 2:29 AM CDT us Neli Salazar MD LAB BLOOD ORDERABLES [facility] Result [facility] ([place]) 1 [facility] Department of Laboratories [place], [place] [id number] * (ABNORMAL) CBC with auto differential (04/05/2025 2:18 AM CDT) WBC 9.11 3.80 - 9.90 K/cumm Hgb 10.6(L) 13.0 - 17.5 g/dL [facility] ([place]) Hct 32.6(L) 38.9 - 50.3 % [facility] ([place]) Plt 188 150 - 400 K/cumm [facility] ([place]) MPV 9.6 9.1 - 12.3 fL [facility] ([place]) RBC 3.61(L) 4.30 - 5.80 M/cumm [facility] ([place]) MCV 90.3 81.3 - 96.4 fL [facility] ([place]) MCH 29.4 27.1 - 33.3 pg [facility] ([place]) MCHC 32.5 32.3 - 35.7 g/dL [facility] ([place]) RDW CV 13.7 11.1 - 14.9 % [facility] ([place]) RDW SD 44.8 35.7 - 48.1 fL [facility] ([place]) NRBC abs 0.00 0.00 - 0.01 K/cumm [facility] ([place]) Blood 04/05/2025 2:18 AM CDT 04/05/2025 2:29 AM CDT us Neli Salazar MD LAB BLOOD ORDERABLES Fi nal Result Performing Organization Address [facility] Co de Phone Number [facility] ([place]) 1 [facility] [place] [address] * (ABNORMAL) Blood gas, venous (04/05/2025 2:18 AM CDT) pH, Venous 7.32 7.32 - 7.43 PCO2, Venous 51(H) 40 - 50 mmHg [facility] ([place] PO2, Venous 38 mmHg [facility] ([place]) Comment: Interpretive Data No reference range established. Current interpretive data was last revised 2017. HCO3 Venous, Calculated 25 20 - 30 mmol/L [facility] ([place]) BE, venous -1 mmol/L [facility] ([place]) Comment: Interpretive Data No Reference Range Established Current Interpretive Data was last revised on 2017. Blood 04/05/2025 2:18 AM CDT 04/05/2025 2:26 AM CDT us Chintan Guadarrama MD LAB BLOOD ORDERABLES Final Resu lt Performing Organization Address [facility] Co de Phone Number [facility] ([place]) 1 [facility] [place] [address] * Creatine kinase (CK), total (04/05/2025 2:18 AM CDT) CK 298 40 - 300 Units/L [facility] ([place]) Blood 04/05/2025 2:18 AM CDT 04/05/2025 2:26 AM CDT us Chintan Guadarrama MD LAB BLOOD ORDERABLES Final Resu lt [facility] ([place]) 1 [facility] [place] [address] * (ABNORMAL) Benzodiazepine Confirmation by MS (04/05/2025 12:17 AM CDT) Alprazolam, ur Does Not Confirm CutOff 20 ng/ml Comment:Testing performed by : [facility], [address] [place] [address]., [id number] Clonazepam, ur Does Not Confirm CutOff 20 ng/ml [facility] ([place]) Comment:Testing performed by : [facility], [address] [place] [address]., [address] Flunitrazepam, ur Does Not Confirm CutOff 20 ng/ml [facility] ([place]) Comment:Testing performed by : [facility], [address] [place]., [address] Lorazepam, ur Does Not Confirm CutOff 20 ng/ml [facility] ([place]) Comment:Testing performed by : [facility], [address] [place]., [address] Midazolam, ur Does Not Confirm CutOff 100 ng/mL [facility] ([place]) Comment:Testing performed by : [facility], [address] [place] [address]., [address] Nordiazepam, ur Does Not Confirm CutOff 20 ng/ml [facility] ([place]) Comment:Testing performed by : [facility], [address] [place]., [address] Oxazepam, ur Confirmed Positive(A) CutOff 20 ng/ml [facility] ([place]) Comment:Testing performed by : [facility], [address] [place]., [address] Temazepam, ur Does Not Confirm CutOff 20 ng/ml [facility] ([place]) Comment: Interpretive Data This test is performed by liquid chromatography tandem mass spectrometry and detects both free and conjugated drug metabolites. Questions concerning interpretation should be directed to the laboratory. The results of this test are intended for clinical use. This test was developed and its performance characteristics determined by [facility]. It has not been cleared or approved by the U.S. Food and Drug Administration. Testing performed by: [facility], [address] [place]., [address] Urine 04/05/2025 12:1 7 AM CDT 04/05/2025 10:20 AM CDT Gray Lamar MD LAB URINE ORDERABLES Final Result [facility] ([place]) 1 [facility] [place] [address] * (ABNORMAL) Fentanyl Confirmation, Urine (04/05/2025 12:17 AM CDT) Fentanyl Conf, Ur Confirmed Positive(A) Cutoff 0.3ng/mL Comment:Testing performed by : [facility], [address] [place]., [address] Acetylfentanyl Conf, Ur Does Not Confirm Cutoff 1 ng/mL [facility] ([place]) Comment:Testing performed by : [facility], [address] [place]., [address] Acrylfentanyl Conf, Ur Does Not Confirm Cutoff 1 ng/mL [facility] ([place]) Comment:Testing performed by : [facility], [address] [place]., [address] Furanylfentanyl Conf, Ur Does Not Confirm Cutoff 1 ng/mL [facility] ([place]) Comment:Testing performed by : [facility], [address] [place] [address] Fentanyl Metabolite (Norfentanyl) Conf, Ur Does Not Confirm CutOff 5 ng/mL [facility] ([place]) Comment:Testing performed by : [facility], [address] [place]., [address] Xylazine MS Does Not Confirm Cutoff 1 ng/mL [facility] ([place]) Comment: Interpretive Data This test detects the presence or absence of drug compounds using LC Tandem mass spectrometry and is not intended to assess compliance with prescribed medications. While this test is highly specific, false positive and false negative results may occur in very rare circumstances. Contact the laboratory for consultation, if needed. Performance characteristics were determined by the [facility] in a manner consistent with CLIA requirement and has not been cleared or approved by the U.S. Food and Drug Administration. Current interpretive data was last revised 2020. Testing performed by: [facility], [address] [place]., [address] Urine 04/05/2025 12:1 7 AM CDT 04/05/2025 10:20 AM CDT Gray Lamar MD LAB URINE ORDERABLES Final Result [facility] ([place]) 1 [facility] [place] [address] * (ABNORMAL) Drugs of Abuse Screen, Urine with Reflex Confirmation (04/05/2025 12:17 AM CDT) Amphetamine, ur Screen Positive, presumptive (A) CutOff 500ng/mL [facility] ([place]) Comment: Interpretive Data - Amphetamines: Samples containing [...] Data was last reviewed 2023. Benzodiazepines, ur Screen Positive, presumptive (A) CutOff 100ng/mL [facility] ([place]) Comment: Interpretive [...] Data was last reviewed 2023. Fentanyl, Ur Screen Positive, presumptive (A) CutOff 5 ng/mL [facility] ([place]) Comment: [...] ur NOT DETECTED CutOff 100ng/mL [facility] ([place]) Comment: Interpretive Data - Oxycodone: Samples containing greater than 100 ng/mL oxycodone or other cross-reacting compounds are reported as positive. False positive and false negative results are possible. Confirmatory testing required for definitive results. Current Interpretive Data was last reviewed 2023. Phencyclidine, ur Not Detected CutOff 25 ng/mL [facility] ([place]) Comment: Interpretive Data - Phencyclidine: Samples containing greater than 25 ng/mL phencyclidine or other cross-reacting compounds are reported as positive. False positive and false negative results are possible. Confirmatory testing required for definitive results. Current Interpretive Data was last reviewed 2023. Urine Creatinine 150 mg/dL [facility] ([place]) Comment: Interpretive Data Urine Creatinine: < 10 mg/dL is extremely dilute = or > 10 but < 20 mg/dL is dilute = or > 20 mg/dL is normal Current Interpretive Data was last revised on 2017. Urine 04/05/2025 12:1 7 AM CDT 04/05/2025 12:25 AM CDT Narrative [facility] ([place]) - 04/05/2025 1:16 AM CDT Drug Screening is performed by immunoassay for medical purposes. If positive, confirmation testing will be performed for amphetamines, benzodiazepines, cocaine, fentanyl, methadone, opiates, oxycodone, and phencyclidine. Gray Lamar MD LAB URINE ORDERABLES Final Result PHIL [facility]) 1 [facility] [place] [address] * URINE MISC TO [place] (04/05/2025 12:17 AM CDT) Pathologist [facility] Test name, chem [id number] Xylazine,ur ine [place] ref Lab Misc See Comment [facility] ([place]) Comment: Test Result Flag Unit RefValue Xylazine, urine See Comment REVISED RESULTS Analysis and Comments Result Units Reporting Notes Limit 4815U Xylazine, Urine Analysis by High Performance Liquid Chromatography/ Tandem Mass Spectrometry (LC-MS/MS) Xylazine None Detected ng/mL 5.0 Synonym(s): Rompun A veterinary sedative, analgesic, and anesthetic for large animals (e.g., cattle) and adulterant in illicit drugs This test was developed and its performance characteristics determined by [employer]. It has not been cleared or approved by the US Food and Drug Administration. PREVIOUSLY REPORTED Testing is complete. Final report has been sent to the referring laboratory. Note: There may be a delay of up to 2 hours before report is available to view. (Reported 04/13/2025 13:25) Test Performed by: [employer] [facility] [employer] [address] [place] [id number] Urine 04/05/2025 12:1 7 AM CDT 04/05/2025 8:44 AM CDT Gray Lamar MD LAB URINE ORDERABLES Edited Result - Final [facility] ([place]) 1 [facility] [place] [address] [facility] * (ABNORMAL) Urinalysis reflex to microscopic and culture Urine (04/05/2025 12:17 AM CDT) Color, ur Yellow Yellow Clarity, ur Clear Clear [facility] ([place]) Specific gravity, ur 1.028 1.003 - 1.030 [facility] ([place]) pH, urine 5.5 [facility] ([place]) Comment: Interpretive Data U rine pH is affected by diet, medications, systemic acid-base disturbances, and renal tubular function. pH may affect urinary stone formation. For example, urine pH below 6.0 may help reduce the tendency for calcium phosphate stones and pH greater than 6.0 may reduce the tendency for uric acid stone formation. Source: [facility] Current Interpretive Data was last revised on 2017 Protein, ur ql 1+(A) Negative [facility] ([place]) Glucose, ur [...] [facility] ([place]) UA reflex comment Reflex to microscopic UA will be performed. [facility] ([place]) Urine 04/05/2025 12:1 7 AM CDT 04/05/2025 12:25 AM CDT Damion Combs NP LAB MICROBIOLOGY - G ENERAL ORDERABLES Final Result [facility] ([place]) 1 [facility] [place] [address] * Strep pneumoniae antigen, urine Urine (04/05/2025 12:17 AM CDT) S. pneumoniae Ag Negative Negative Comment: Interpretive Data A positive result is indicative of pneumococcal pneumonia in patients with severe CAP. Cross-reactivity with closely related Streptococcus bacteria may occur. A negative result suggests no current or recent pneumococcal infection but cannot rule out infection with S. pneumoniae. The results of this testing should be used in conjunction with clinical findings and other diagnostic testing, including microbiologic culture. Current Interpretive Data was last revised on 2022 Testing performed by: [facility], [address] [place] [address], [place]., [address] Urine 04/05/2025 12:1 7 AM CDT 04/05/2025 9:30 AM CDT us Chintan Guadarrama MD LAB MICROBIOLOGY - GENERAL TY [place]AN[place] Final Result [facility] ([place]) 1 [facility] [place] [address] * (ABNORMAL) Amphetamine Confirmation, Urine (04/05/2025 12:17 AM CDT) Amphetamine Conf, Ur Confirmed Positive(A) CutOff 150ng/mL Comment:Testing performed by : [facility], [address] [place] [address] Methamphetamine Conf, Ur Confirmed Positive(A) CutOff 150ng/mL [facility] ([place]) Comment:Testing performed by : [facility], [address] [place] [address]., [address] MDA Conf, Ur Does Not Confirm CutOff 150ng/mL [facility] ([place]) Comment:Testing performed by : [facility], [address] [place]., [address] MDMA Conf, Ur Does Not Confirm CutOff 50 ng/mL [facility] ([place]) Comment:Testing performed by : [facility], [address] [place]., [address] MDEA Conf, Ur Does Not Confirm CutOff 150ng/mL [facility] ([place]) Comment:Testing performed by : [facility], [address] [place]., [address] MBDB Conf, Ur Does Not Confirm CutOff 150ng/mL [facility] ([place]) Comment: Interpretive Data This test detects the presence or absence of drug compounds using LC Tandem mass spectrometry. While this test is highly specific, false positive and false negative results may occur in very rare circumstances. Contact the laboratory for consultation, if needed. Performance characteristics were determined by the [facility] in a manner consistent with CLIA requirement and has not been cleared or approved by the U.S. Food and Drug Administration. Current interpretive data was last revised on 2020. Testing performed by: [facility], [address] [place] [address], [address] Urine 04/05/2025 12:1 7 AM CDT 04/05/2025 10:20 AM CDT us Gray Lamar MD LAB URINE ORDERABLES Final Result Performing Organization Address City/[facility]/ZIP Co de Phone Number [facility] ([place]) [address] [place] [address] [place] [address] * Legionella antigen Urine (04/05/2025 12:17 AM CDT) Legionella Ag Negative Negative Comment: Interpretive Data This test detects only Legionella pneumophila serogroup 1 antigen. Current interpretive data was last revised on 2019. Testing performed by: [facility], [address] [place] [address], [address] Urine 04/05/2025 12:1 7 AM CDT 04/05/2025 9:30 AM CDT us Chintan Guadarrama MD LAB MICROBIOLOGY - GENERAL ORDMacy RAMSAY Final Result Performing Organization Address [facility] Co de Phone Number [facility] ([place]) 1 [facility] [place] [address] * (ABNORMAL) Urinalysis, microscopic only (04/05/2025 12:17 AM CDT) WBC, ur 0-5 0 - 5 /HPF RBC, ur 0-2 0 - 2 /HPF [facility] ([place]) Epithelial cells, squamous, ur 1-5 0 - 5 /HPF [facility] ([place]) Mucous, ur Present(A) PHIL Jaquez ([place]) Culture Reflex Comment Reflex conditions for urine culture (WBC >10) not met. [facility] ([place]) Urine 04/05/2025 12:1 7 AM CDT 04/05/2025 12:25 AM CDT Angelalana Amber Combs PSYCHOLOGY PHYSICIAN LAB URINE ORDERABLES Final Result [facility] ([place]) 1 [facility] [place] [address] * (ABNORMAL) Sepsis Lactate w/ Reflex (04/05/2025 12:12 AM CDT) Sepsis Lactate 2.3(H) 0.7 - 2.0 mmol/L Blood 04/05/2025 12:1 2 AM CDT 04/05/2025 12:20 AM CDT Damion Combs PSYCHOLOGY PHYSICIAN LAB BLOOD ORDERABLES Final Result Performing Organization Address City/[facility] Co de Phone Number [facility] ([place]) 1 [facility] [place] [address] * eGFR (04/05/2025 12:12 AM CDT) eGFR 88 >=60 mL/min/1. 73 m2 Comment: Interpretive Data [...] of Race in Diagnosing Kidney Disease, JASN 202). The CKD-EPI equation should not be used for patients with unstable renal function and has not been validated in children and those over 70. Current interpretive data was last reviewed 2021. Blood 04/05/2025 12:1 2 AM CDT 04/05/2025 12:28 AM CDT us Neli Salazar MD LAB BLOOD ORDERABLES Fi nal Result [facility] ([place]) 1 [facility] [place] [address] * (ABNORMAL) Procalcitonin (04/05/2025 12:12 AM CDT) Procalcitonin 2.08(H) <=0.25 ng/mL Comment:Testing performed by : [facility], [facility], [place]., [address] Blood 04/05/2025 12:1 2 AM CDT 04/05/2025 5:58 PM CDT us Chintan Guadarrama MD LAB BLOOD ORDERABLES Final Resu lt Performing Organization Address City/[facility]/ZIP Co de Phone Number [facility] ([place]) 1 [facility] [place] [address] * (ABNORMAL) Comprehensive metabolic panel (04/05/2025 12:12 AM CDT) Sodium 133(L) 135 - 145 mmol/L [facility] ([place]) Potassium, pl 4.5 3.3 - 4.9 mmol/L [facility] ([place] Chloride 101 97 - 110 mmol/L [facility] ([place] CO2 23 22 - 32 mmol/L [facility] ([place]) Anion gap 9 2 - 15 mmol/L [facility] ([place] BUN 21 6 - 25 mg/dL [facility] ([place]) Creatinine 1.06 0.80 - 1.30 mg/dL [facility] ([place]) Glucose 109 70 - 199 mg/dL [facility] ([place]) Comment: Interpretive Data Fasting glucose [...] interpretive data was last revised 2022. Calcium 7.1(L) 8.5 - 10.3 mg/dL [facility] ([place]) Bilirubin, total 0.6 0.1 - 1.2 mg/dL [facility] ([place]) Protein, pl 5.8(L) 6.5 - 8.5 g/dL [facility] ([place]) Albumin 2.9(L) 3.5 - 5.0 g/dL [facility] ([place]) Alk phos 90 40 - 130 Units/L [facility] ([place]) ALT 88(H) 7 - 55 Units/L [facility] ([place]) AST 140(H) 10 - 50 Units/L [facility] ([place]) Blood 04/05/2025 12:1 2 AM CDT 04/05/2025 12:28 AM CDT us Neli Salazar MD LAB BLOOD ORDERABLES Fi nal Result [facility] ([place]) 1 [facility] [place] [address] * aPTT (04/04/2025 9:55 PM CDT) aPTT 29 26 - 38 sec [facility] ([place]) Comment: Interpretive Data Heparin therapeutic range: 66.0 - 100.0 seconds. Range based on correlation with therapeutic heparin activity range of 0.3 - 0.7 Units/mL. Current interpretive data was last revised on 2023. Blood 04/04/2025 9:55 PM CDT 04/04/2025 10:20 PM CDT us Gray Lamar MD LAB BLOOD ORDERABLES Final Result [facility] ([place]) 1 [facility] [place] [address] * Protime-INR (04/04/2025 9:55 PM CDT) [facility] PT 12.5 10.2 - 13.5 sec [facility] ([place]) INR 1.11 0.90 - 1.20 [facility] ([place]) Comment: Interpretive data Oral anticoagulant therapeutic ranges: Venous thromboembolism prophylaxis or treatment: 2.0-3.0 CARDIOLOGY Standard range: 2.0-3.0 High-intensity range: 2.5-3.5 Refer to indication-specific guidelines for appropriate target ranges for prosthetic heart valve replacement. Current interpretive data was last revised on 2019. Blood 04/04/2025 9:55 PM CDT 04/04/2025 10:20 PM CDT us Gray Lamar MD LAB BLOOD ORDERABLES Final Result Performing Organization Address City/[facility]/ZIP Co de Phone Number [facility] ([place]) 1 [facility] [place] [address] * (ABNORMAL) Sepsis Lactate w/ Reflex (04/04/2025 8:48 PM CDT) [facility] Sepsis Lactate 3.1(H) 0.7 - 2.0 mmol/L Blood 04/04/2025 8:48 PM CDT 04/04/2025 8:57 PM CDT us Damion Combs NP LAB BLOOD ORDERABLES Final Result [facility] ([place]) 1 [facility] [place] [address] * eGFR (04/04/2025 8:48 PM CDT) [facility] eGFR 86 >=60 mL/min/1. 73 m2 Comment: Interpretive Data [...] interpretive data was last reviewed 2021. Blood 04/04/2025 8:48 PM CDT 04/04/2025 11:08 PM CDT us Damion Combs PSYCHOLOGY PHYSICIAN LAB BLOOD ORDERABLES Final Result [facility] ([place]) [address] [place] [address] Department [place] [address] * (ABNORMAL) Differential, auto (04/04/2025 8:48 PM CDT) Neutrophil abs 5.89 1.50 - 6.50 K/cumm Imm gran abs 0.03 0.00 - 0.10 K/cumm [facility] ([place]) Lymphocyte abs 0.76(L) 0.80 - 3.30 K/cumm [facility] ([place]) Monocyte abs 0.47 0.20 - 0.80 K/cumm [facility] ([place]) Eosinophil abs 0.35 0.00 - 0.50 K/cumm [facility] ([place]) Basophil abs 0.03 0.00 - 0.10 K/cumm [facility] ([place]) Neutrophil pct 78.3 % [facility] ([place]) Comment: Interpretive Data Percent cell count reference ranges are not reported, since discordance with absolute values may lead to misinterpretation of CBC data. Current Interpretive Data was last revised on 2017. Imm gran pct 0.4 % [facility] ([place]) Comment: Interpretive Data Percent cell count reference ranges are not reported, since discordance with absolute values may lead to misinterpretation of CBC data. Current Interpretive Data was last revised on 2017. Lymphocyte pct 10.1 % [facility] ([place]) Comment: Interpretive Data Percent cell count reference ranges are not reported, since discordance with absolute values may lead to misinterpretation of CBC data. Current Interpretive Data was last revised on 2017. Monocyte pct 6.2 % [facility] ([place]) Comment: Interpretive Data Percent cell count reference ranges are not reported, since discordance with absolute values may lead to misinterpretation of CBC data. Current Interpretive Data was last revised on 2017. Eosinophil pct 4.6 % [facility] ([place]) Comment: Interpretive Data Percent cell count reference ranges are not reported, since discordance with absolute values may lead to misinterpretation of CBC data. Current Interpretive Data was last revised on 2017. Basophil pct 0.4 % [facility] ([place]) Comment: Interpretive Data Percent cell count reference ranges are not reported, since discordance with absolute values may lead to misinterpretation of CBC data. Current Interpretive Data was last revised on 2017. Blood 04/04/2025 8:48 PM CDT 04/04/2025 8:57 PM CDT us Damion Combs NP LAB BLOOD ORDERABLES Final Result [facility] ([place]) 1 [facility] [place] [address] * (ABNORMAL) CBC with auto differential (04/04/2025 8:48 PM CDT) WBC 7.53 3.80 - 9.90 K/cumm Hgb 12.2(L) 13.0 - 17.5 g/dL [facility] ([place]) Hct 37.1(L) 38.9 - 50.3 % [facility] ([place]) Plt 208 150 - 400 K/cumm [facility] ([place]) MPV 9.8 9.1 - 12.3 fL [facility] ([place]) RBC 4.13(L) 4.30 - 5.80 M/cumm [facility] ([place]) MCV 89.8 81.3 - 96.4 fL [facility] ([place]) MCH 29.5 27.1 - 33.3 pg [facility] ([place]) MCHC 32.9 32.3 - 35.7 g/dL [facility] ([place]) RDW CV 13.6 11.1 - 14.9 % [facility] ([place]) RDW SD 45.1 35.7 - 48.1 fL [facility] ([place]) NRBC abs 0.00 0.00 - 0.01 K/cumm [facility] ([place]) Blood 04/04/2025 8:48 PM CDT 04/04/2025 8:57 PM CDT Damion Combs PSYCHOLOGY PHYSICIAN LAB BLOOD ORDERABLES Final Result [facility] ([place]) 1 [facility] [place] [address] * Blood culture Blood (04/04/2025 8:48 PM CDT) Report Final Report: No growth Comment:Testing performed by : [facility], [address] [facility] [place] [address] Blood 04/04/2025 8:48 PM CDT 04/05/2025 12:57 AM CDT Narrative [facility] ([place]) - 04/09/2025 7:00 AM CDT From a different site than #1. Collection->Peripheral 1. Blood cultures are incubated for 4 days on a continuously monitored blood culture system. The first report of a negative culture is issued within 24 hours of receipt of the specimen in the laboratory. 2. Positive culture results are reported as soon as they are detected. 3. The most important factor for detection of microbes in the setting of bloodstream infection is the volume of blood submitted for culture. Failure to collect an optimal blood volume can result in false negative blood cultures. 4. For pediatric patients, the recommended blood volume to collect follows a weight based strategy. See the electronic test catalog for collection instructions. 5. For positive blood cultures, a rapid molecular test may be performed for organism identification using the davin ePlex blood culture identification panel for gram positive (BCID-GP) and gram negative (BCID-GN) organisms. This nucleic acid amplification test detects microbial DNA in positive blood culture broth. This assay has been cleared by the [place] Food and Drug Administration and its performance characteristics have been verified by the [facility] Microbiology Laboratory. For questions about this culture, contact the Microbiology Laboratory at [phone]. Interpretive data was last revised on 24. Damion Combs NP LAB MICROBIOLOGY - G ENERAL ORDERABLES Final Result PHIL MAYES ([place]) 1 [facility] [place] [address] * Blood culture Blood (04/04/2025 8:48 PM CDT) Report Final Report: No growth Comment:Testing performed by : [facility], [address] [facility] [place] [address] Blood 04/04/2025 8:48 PM CDT 04/05/2025 12:57 AM CDT Narrative PHIL MAYES ([place]) - 04/09/2025 7:00 AM CDT Collection->Peripheral 1. Blood cultures are incubated for 4 days on a continuously monitored blood culture system. The first report of a negative culture is issued within 24 hours of receipt of the specimen in the laboratory. 2. Positive culture results are reported as soon as they are detected. 3. The most important factor for detection of microbes in the setting of bloodstream infection is the volume of blood submitted for culture. Failure to collect an optimal blood volume can result in false negative blood cultures. 4. For pediatric patients, the recommended blood volume to collect follows a weight based strategy. See the electronic test catalog for collection instructions. 5. For positive blood cultures, a rapid molecular test may be performed for organism identification using the davin ePlex blood culture identification panel for gram positive (BCID-GP) and gram negative (BCID-GN) organisms. This nucleic acid amplification test detects microbial DNA in positive blood culture broth. This assay has been cleared by the [place] Food and Drug Administration and its performance characteristics have been verified by the [facility] Microbiology Laboratory. For questions about this culture, contact the Microbiology Laboratory at [phone]. Interpretive data was last revised on 24. Damion Combs NP LAB MICROBIOLOGY - G ENERAL ORDERABLES Final Result [facility] ([place]) 1 [facility] [place] [address] * (ABNORMAL) CBC without differential (04/04/2025 8:48 PM CDT) WBC 7.53 3.80 - 9.90 K/cumm Hgb 12.2(L) 13.0 - 17.5 g/dL [facility] ([place]) Hct 37.1(L) 38.9 - 50.3 % [facility] ([place]) Plt 208 150 - 400 K/cumm [facility] ([place]) MPV 9.8 9.1 - 12.3 fL [facility] ([place]) RBC 4.13(L) 4.30 - 5.80 M/cumm [facility] ([place]) MCV 89.8 81.3 - 96.4 fL [facility] ([place]) MCH 29.5 27.1 - 33.3 pg [facility] ([place]) MCHC 32.9 32.3 - 35.7 g/dL [facility] ([place]) RDW CV 13.6 11.1 - 14.9 % [facility] ([place]) RDW SD 45.1 35.7 - 48.1 fL [facility] ([place]) NRBC abs 0.00 0.00 - 0.01 K/cumm [facility] Blood 04/04/2025 8:48 PM CDT 04/04/2025 8:57 PM CDT Damion Combs NP LAB BLOOD ORDERABLES Final Result [facility] ([place]) 1 [facility] [place] [address] * (ABNORMAL) Comprehensive metabolic panel (04/04/2025 8:48 PM CDT) Sodium 133(L) 135 - 145 mmol/L [facility] ([place]) Potassium, pl 4.5 3.3 - 4.9 mmol/L [facility] ([place]) Chloride 94(L) 97 - 110 mmol/L [facility] ([place]) CO2 24 22 - 32 mmol/L [facility] ([place]) Anion gap 15 2 - 15 mmol/L [facility] ([place]) BUN 22 6 - 25 mg/dL [facility] ([place]) Creatinine 1.08 0.80 - 1.30 mg/dL [facility] ([place]) Glucose 121 70 - 199 mg/dL [facility] ([place]) [...] interpretive data was last revised 2022. Calcium 8.5 8.5 - 10.3 mg/dL [facility] ([place]) Bilirubin, total 0.7 0.1 - 1.2 mg/dL [facility] ([place]) Protein, pl 7.6 6.5 - 8.5 g/dL [facility] ([place]) Albumin 3.7 3.5 - 5.0 g/dL [facility] ([place]) Alk phos 116 40 - 130 Units/L [facility] ([place]) ALT 124(H) 7 - 55 Units/L [facility] ([place]) AST 184(H) 10 - 50 Units/L [facility] ([place]) Blood 04/04/2025 8:48 PM CDT 04/04/2025 11:08 PM CDT Damion Combs PSYCHOLOGY PHYSICIAN LAB BLOOD ORDERABLES Final Result [facility]IL [facility] ([place]) 1 [facility] [place] [address] * (ABNORMAL) BLOOD MISC TO [place] (04/04/2025 8:47 PM CDT) Test name, chem TCD4 CD4 T-Cell Count [facility] Comment:Collection date/time has been modified to: 20:47:00. Previous collection date/time: 08:41:00. Misc See Comment(A ) [facility] ([place]) Comment: Test Result Flag Unit RefValue CD4 T-Cell Count CD45 Total Lymph Count 0.52 L thou/mcL 0.82-2.84 % CD3 (T Cells) 65 % 58-86 CD3 (T Cells) 340 L cells/mcL 550-2202 % CD4 (T Cells) 1 L % 32-64 CD4 (T Cells) 4 L cells/mcL 365-1437 % CD8 (T Cells) 59 H % 13-40 CD8 (T Cells) 306 cells/mcL 145-846 4/8 Ratio 0.0 L >=0.9 ADDITIONAL INFORMATION This test was developed using an analyte specific reagent. Its performance characteristics were determined by [facility] in a manner consistent with CLIA requirements. This test has not been cleared or approved by the U.S. Food and Drug Administration. Test Performed by: [facility] Laboratories - [facility] [address] [place] [address] Superintendent Maintenance: Nola Pritchard Ph.D.; CLIA# [id number] Blood 04/04/2025 8:47 PM CDT 04/05/2025 8:41 AM CDT us Gray Lamar MD LAB BLOOD ORDERABLES Final Result [facility] [place] 1 [facility] [place] [address] [facility] * XR Chest 1 View (04/04/2025 8:36 PM CDT) Anatomical Region Laterality Modality Body, Chest N/A Computed Radiogr aphy 04/04/2025 8:41 PM CDT Narrative 04/04/2025 8:42 PM CDT EXAM DESCRIPTION: XR CHEST 1 VIEW REASON FOR STUDY: Fever. HIV Fever today. Hx of HIV, drug abuse TECHNIQUE: Frontal radiographic view(s) of the chest. COMPARISON: Chest radiograph dated 05/09/2024. FINDINGS: LUNGS: Mild patchy left lower lobe retrocardiac airspace opacities. No large pleural effusion. No pneumothorax. HEART/MEDIASTINUM: Stable cardiomegaly. Mediastinal and hilar contours appear normal. LINES/TUBES: None. BONES: No acute osseous abnormality. IMPRESSION: Left lower lobe airspace opacities concerning for left lower lobe pneumonia in the appropriate clinical setting. Recommend clinical correlation and follow-up imaging to document resolution. THIS IS AN ELECTRONICALLY VERIFIED FINAL REPORT 04/04/2025 8:42 PM - Electronically signed by Ganesh Devine M.D. MF: GAVI Report ID: [id number] Reading Location: [id number] Procedure Note Ganesh Devine, DO - 04/04/2025 EXAM DESCRIPTION: XR CHEST 1 VIEW REASON FOR STUDY: Fever. HIV Fever today. Hx of HIV, drug abuse TECHNIQUE: Frontal radiographic view(s) of the chest. COMPARISON: Chest radiograph dated 05/09/2024. FINDINGS: LUNGS: Mild patchy left lower lobe retrocardiac airspace opacities. [place]ge pleural effusion. No pneumothorax. HEART/MEDIASTINUM: Stable cardiomegaly. Mediastinal and hilar contours appear normal. LINES/TUBES: None. BONES: No acute osseous abnormality. IMPRESSION: Left lower lobe airspace opacities concerning for left lower lobepneumonia in the appropriate clinical setting. Recommend clinical correlation and follow-up imaging to document resolution. THIS IS AN ELECTRONICALLY VERIFIED FINAL REPORT 04/04/2025 8:42 PM - Electronically signed by Ganesh Devine M.D. MF: GAVI Report ID: [id number] Reading Location: [place] [address] us Angelalana Clark Combs PSYCHOLOGY PHYSICIAN IMG XR PROCEDURES Fi nal Result * US RUQ (04/04/2025 8:54 AM CDT) Anatomical Region Laterality Modality Abdomen N/A Ultrasound 04/04/2025 9:26 AM CDT Narrative 04/04/2025 9:27 AM CDT EXAM DESCRIPTION: US RUQ REASON FOR STUDY: abnormal LFTs TECHNIQUE: Ultrasound of the right upper quadrant of the abdomen was performed with grayscale and color doppler. COMPARISON: 04/25/2024 FINDINGS: PANCREAS: Visualized portions of the pancreas are within normal limits. Portions of the pancreatic body and tail are obscured due to bowel gas. LIVER: The liver appears normal in echotexture and echogenicity. No focal lesion identified. The main portal vein is patent with antegrade flow. GALLBLADDER: The gallbladder appears unremarkable. No cholelithiasis. No gallbladder wall thickening or pericholecystic fluid. No positive sonographic Lengby sign reported. BILIARY: There is no intrahepatic or extrahepatic biliary ductal dilatation. Common bile duct measures 0.45 cm in diameter. RIGHT KIDNEY: Normal size. Normal echogenicity. No solid mass or cyst. No hydronephrosis. Measures 11.1 cm in length. OTHER: No other significant findings. IMPRESSION: No acute abnormality. THIS IS AN ELECTRONICALLY VERIFIED FINAL REPORT 04/04/2025 9:27 AM - Electronically signed by Miguel Camargo M.D. RB: SUZY Report ID: [id number] Reading Location: [id number] Procedure Note Miguel Camargo MD - 04/04/2025 EXAM DESCRIPTION: US RUQ REASON FOR STUDY: abnormal LFTs TECHNIQUE: Ultrasound of the right upper quadrant of the abdomen wasperformed with grayscale and color doppler. COMPARISON: 04/25/2024 FINDINGS: PANCREAS: Visualized portions of the pancreas are within normal limits. Portions of the pancreatic body and tail are obscured due to bowel gas. LIVER: The liver appears normal in echotexture and echogenicity. Nofocal lesion identified. The main portal vein is patent with antegrade flow. GALLBLADDER: The gallbladder appears unremarkable. No cholelithiasis.No gallbladder wall thickening or pericholecystic fluid. No positivesonographic Lengby sign reported. BILIARY: There is no intrahepatic or extrahepatic biliary ductaldilatation. Common bile duct measures 0.45 cm in diameter. RIGHT KIDNEY: Normal size. Normal echogenicity. No solid mass or cyst.No hydronephrosis. Measures 11.1 cm in length. OTHER: No other significant findings. IMPRESSION: No acute abnormality. THIS IS AN ELECTRONICALLY VERIFIED FINAL REPORT 04/04/2025 9:27 AM - Electronically signed by Miguel Camargo M.D. RB: SUZY Report ID: [id number] Reading Location: [place] [address] us Ekanga Herbert Salazar MD [facility] US PROCEDURES Final Result * eGFR (04/04/2025 7:41 AM CDT) eGFR >90 >=60 mL/min/1. 73 m2 Comment: [...] interpretive data was last reviewed 2021. Blood 04/04/2025 7:41 AM CDT 04/04/2025 8:21 AM CDT us Neli Salazar MD LAB BLOOD ORDERABLES [facility] Result [facility] ([place]) 1 [facility] [place] [address] * (ABNORMAL) Differential, auto (04/04/2025 7:41 AM CDT) Neutrophil abs 5.00 1.50 - 6.50 K/cumm Imm gran abs 0.05 0.00 - 0.10 K/cumm [facility] ([place]) Lymphocyte abs 0.68(L) 0.80 - 3.30 K/cumm [facility] ([place]) Monocyte abs 0.74 0.20 - 0.80 K/cumm [facility] ([place]) Eosinophil abs 0.37 0.00 - 0.50 K/cumm [facility] ([place]) Basophil abs 0.04 0.00 - 0.10 K/cumm [facility] ([place]) Neutrophil pct 72.6 % [facility] ([place]) Comment: Interpretive Data Percent cell count reference ranges are not reported, since discordance with absolute values may lead to misinterpretation of CBC data. Current Interpretive Data was last revised on 2017. Imm gran pct 0.7 % [facility] ([place]) Comment: Interpretive Data Percent cell count reference ranges are not reported, since discordance with absolute values may lead to misinterpretation of CBC data. Current Interpretive Data was last revised on 2017. Lymphocyte pct 9.9 % [facility] ([place]) Comment: Interpretive Data Percent cell count reference ranges are not reported, since discordance with absolute values may lead to misinterpretation of CBC data. Current Interpretive Data was last revised on 2017. Monocyte pct 10.8 % [facility] ([place]) Comment: Interpretive Data Percent cell count reference ranges are not reported, since discordance with absolute values may lead to misinterpretation of CBC data. Current Interpretive Data was last revised on 2017. Eosinophil pct 5.4 % [facility] ([place]) Comment: Interpretive Data Percent cell count reference ranges are not reported, since discordance with absolute values may lead to misinterpretation of CBC data. Current Interpretive Data was last revised on 2017. Basophil pct 0.6 % [facility] ([place]) Comment: Interpretive Data Percent cell count reference ranges are not reported, since discordance with absolute values may lead to misinterpretation of CBC data. Current Interpretive Data was last revised on 2017. Blood 04/04/2025 7:41 AM CDT 04/04/2025 8:21 AM CDT us Neli Salazar MD LAB BLOOD ORDERABLES Fi nal Result [facility] ([place]) 1 [facility] [place] [address] * (ABNORMAL) CBC with auto differential (04/04/2025 7:41 AM CDT) WBC 6.88 3.80 - 9.90 K/cumm Hgb 12.4(L) 13.0 - 17.5 g/dL [facility] ([place]) Hct 37.0(L) 38.9 - 50.3 % [facility] ([place]) Plt 220 150 - 400 K/cumm [facility] ([place]) MPV 10.0 9.1 - 12.3 fL [facility] ([place]) RBC 4.22(L) 4.30 - 5.80 M/cumm [facility] ([place]) MCV 87.7 81.3 - 96.4 fL [facility] ([place]) MCH 29.4 27.1 - 33.3 pg [facility] ([place]) MCHC 33.5 32.3 - 35.7 g/dL [facility] ([place]) RDW CV 13.6 11.1 - 14.9 % [facility] ([place]) RDW SD 43.5 35.7 - 48.1 fL [facility] ([place]) NRBC abs 0.00 0.00 - 0.01 K/cumm [facility] ([place]) Blood 04/04/2025 7:41 AM CDT 04/04/2025 8:21 AM CDT us Neli Salazar MD LAB BLOOD ORDERABLES nal Result [facility] ([place]) 1 [facility] [place] [address] * (ABNORMAL) Comprehensive metabolic panel (04/04/2025 7:41 AM CDT) Sodium 133(L) 135 - 145 mmol/L [facility] ([place]) Potassium, pl 4.5 3.3 - 4.9 mmol/L [facility] ([place]) Chloride 99 97 - 110 mmol/L [facility] ([place]) CO2 23 22 - 32 mmol/L [facility] Anion gap 11 2 - 15 mmol/L [facility] ([place]) BUN 24 6 - 25 mg/dL [facility] ([place]) Creatinine 0.94 0.80 - 1.30 mg/dL [facility] ([place]) Glucose 86 70 - 199 mg/dL [facility] ([place]) Comment: Interpretive Data Fasting glucose >/= [...] interpretive data was last revised 2022. Calcium 8.6 8.5 - 10.3 mg/dL [facility] ([place]) Bilirubin, total 0.5 0.1 - 1.2 mg/dL [facility] ([place]) Protein, pl 7.2 6.5 - 8.5 g/dL [facility] ([place]) Albumin 3.5 3.5 - 5.0 g/dL [facility] ([place]) Alk phos 103 40 - 130 Units/L [facility] ([place]) ALT 117(H) 7 - 55 Units/L [facility] ([place]) AST 162(H) 10 - 50 Units/L [facility] ([place]) Blood 04/04/2025 7:41 AM CDT 04/04/2025 8:21 AM CDT us Neli Salazar MD LAB BLOOD ORDERABLES Fi nal Result [facility]IL [facility] ([place]) 1 [facility] [place] [address] * CT Head WO Contrast (04/03/2025 4:59 PM CDT) Anatomical Region Laterality Modality Head and Neck N/A Computed Tomogra phy 04/03/2025 8:38 PM CDT Narrative 04/03/2025 8:55 PM CDT EXAM DESCRIPTION: CT HEAD WO CONTRAST REASON FOR STUDY: Somnolence Pt is having increased lethargy today. TECHNIQUE: Axial images acquired through the brain without intravenous contrast. Images stored on PACS. Automated exposure control was used as a dose optimization technique for this examination. COMPARISON: Head CT dated 04/24/2024. FINDINGS: BRAIN: No hemorrhage, edema or mass effect. No recent infarct. Normal white matter. EXTRA-AXIAL SPACES: No fluid collections. No masses. CALVARIUM: No fracture. SINUSES/MASTOIDS: No fluid or mucosal thickening. ORBITS: No significant abnormality. OTHER: No other significant abnormality. IMPRESSION: No acute intracranial findings. THIS IS AN ELECTRONICALLY VERIFIED FINAL REPORT 04/03/2025 8:55 PM - Electronically signed by Ganesh Devine M.D. MF: GAVI Report ID: [id number] Reading Location: [id number] Procedure Note Ganesh Devine, DO - 04/03/2025 EXAM DESCRIPTION: CT HEAD WO CONTRAST REASON FOR STUDY: Somnolence Pt is having increased lethargy today. TECHNIQUE: Axial images acquired through the brain without intravenous contrast. Images stored on PACS. Automated exposure control was used asa dose optimization technique for this examination. COMPARISON: Head CT dated 04/24/2024. FINDINGS: BRAIN: No hemorrhage, edema or mass effect. No recent infarct. Normal white matter. EXTRA-AXIAL SPACES: No fluid collections. No masses. CALVARIUM: No fracture. SINUSES/MASTOIDS: No fluid or mucosal thickening. ORBITS: No significant abnormality. OTHER: No other significant abnormality. IMPRESSION: No acute intracranial findings. THIS IS AN ELECTRONICALLY VERIFIED FINAL REPORT 04/03/2025 8:55 PM - Electronically signed by Ganesh Devine M.D. MF: GAVI Report ID: [id number] Reading Location: [id number] Yulia Salgado MD [facility] CT PROCEDURES Final R esult * (ABNORMAL) Hepatitis C (HCV) RNA PCR, quantitative Blood (04/03/2025 8:38 AM CDT) [facility] HCV RNA result Detected( A) [facility] Comment: The quantifiable range of this assay is 15 IU/mL to 100,000,000 IU/mL (1.18 log IU/mL to 8.00 log IU/mL). Testing was performed by the DAVIN 6800 HCV Test ([employer] Testing performed at [facility] Current Interpretive Data was last revised on 2021 Testing performed by: [facility], [address] [place] [address] HCV RNA IU/mL 2,400,000 IUnits/mL [facility] Comment:Testing performed by : [facility], [address] [place]., [address] HCV RNA log IU/mL 6.38 log IUnits/mL [facility]IL [facility] ([place]) Comment:Testing performed by : [facility], [address] [place]., [address] Blood 04/03/2025 8:38 AM CDT 04/03/2025 1:15 PM CDT us Yulia Salgado MD LAB MICROBIOLOGY - GENERA L ORDERABLES Final Result PHIL MA[facility] ([place]) 1 [facility] [place] [address] [facility] * eGFR (04/03/2025 6:29 AM CDT) eGFR >90 >=60 mL/min/1. 73 m2 Comment: [...] interpretive data was last reviewed 2021. Blood 04/03/2025 6:29 AM CDT 04/03/2025 6:33 AM CDT us Neli Salazar MD LAB BLOOD ORDERABLES Fi nal Result PHIL [facility] ([place]) 1 [facility] [place] [address] * (ABNORMAL) Differential, auto (04/03/2025 6:29 AM CDT) Neutrophil abs 2.42 1.50 - 6.50 K/cumm Imm gran abs 0.01 0.00 - 0.10 K/cumm [facility] ([place]) Lymphocyte abs 0.55(L) 0.80 - 3.30 K/cumm [facility] ([place]) Monocyte abs 0.44 0.20 - 0.80 K/cumm [facility] ([place]) Eosinophil abs 0.72(H) 0.00 - 0.50 K/cumm [facility] ([place]) Basophil abs 0.03 0.00 - 0.10 K/cumm [facility] ([place]) Neutrophil pct 58.0 % [facility] ([place]) Comment: Interpretive Data Percent cell count reference ranges are not reported, since discordance with absolute values may lead to misinterpretation of CBC data. Current Interpretive Data was last revised on 2017. Imm gran pct 0.2 % [facility] ([place]) Comment: Interpretive Data Percent cell count reference ranges are not reported, since discordance with absolute values may lead to misinterpretation of CBC data. Current Interpretive Data was last revised on 2017. Lymphocyte pct 13.2 % [facility] ([place]) Comment: Interpretive Data Percent cell count reference ranges are not reported, since discordance with absolute values may lead to misinterpretation of CBC data. Current Interpretive Data was last revised on 2017. Monocyte pct 10.6 % [facility] ([place]) Comment: Interpretive Data Percent cell count reference ranges are not reported, since discordance with absolute values may lead to misinterpretation of CBC data. Current Interpretive Data was last revised on 2017. Eosinophil pct 17.3 % [facility] ([place]) Comment: Interpretive Data Percent cell count reference ranges are not reported, since discordance with absolute values may lead to misinterpretation of CBC data. Current Interpretive Data was last revised on 2017. Basophil pct 0.7 % [facility] ([place]) Comment: Interpretive Data Percent cell count reference ranges are not reported, since discordance with absolute values may lead to misinterpretation of CBC data. Current Interpretive Data was last revised on 2017. Blood 04/03/2025 6:29 AM CDT 04/03/2025 6:33 AM CDT us Neli Salazar MD LAB BLOOD ORDERABLES Fi nal Result [facility] ([place]) 1 [facility] [place] [address] * (ABNORMAL) CBC with auto differential (04/03/2025 6:29 AM CDT) WBC 4.17 3.80 - 9.90 K/cumm Hgb 12.5(L) 13.0 - 17.5 g/dL [facility] ([place]) Hct 36.4(L) 38.9 - 50.3 % [facility] ([place]) Plt 228 150 - 400 K/cumm [facility] ([place]) MPV 9.2 9.1 - 12.3 fL [facility] ([place]) RBC 4.24(L) 4.30 - 5.80 M/cumm [facility] ([place]) MCV 85.8 81.3 - 96.4 fL [facility] ([place]) MCH 29.5 27.1 - 33.3 pg [facility] ([place]) MCHC 34.3 32.3 - 35.7 g/dL [facility] ([place]) RDW CV 13.5 11.1 - 14.9 % [facility] ([place]) RDW SD 41.7 35.7 - 48.1 fL [facility] ([place]) NRBC abs 0.00 0.00 - 0.01 K/cumm [facility] ([place]) Blood 04/03/2025 6:29 AM CDT 04/03/2025 6:33 AM CDT us Neli Salazar MD LAB BLOOD ORDERABLES [facility] Result [facility] ([place]) 1 [facility] [place] [address] * (ABNORMAL) Comprehensive metabolic panel (04/03/2025 6:29 AM CDT) Sodium 134(L) 135 - 145 mmol/L [facility] ([place]) Potassium, pl 3.9 3.3 - 4.9 mmol/L [facility] ([place]) Chloride 101 97 - 110 mmol/L [facility] ([place]) CO2 23 22 - 32 mmol/L [facility] ([place]) Anion gap 10 2 - 15 mmol/L [facility] ([place]) BUN 15 6 - 25 mg/dL [facility] ([place]) Creatinine 0.72(L) 0.80 - 1.30 mg/dL [facility] ([place]) Glucose 115 70 - 199 mg/dL [facility] ([place]) [...] interpretive data was last revised 2022. Calcium 9.5 8.5 - 10.3 mg/dL [facility] ([place]) Bilirubin, total 0.4 0.1 - 1.2 mg/dL [facility] ([place]) Protein, pl 7.3 6.5 - 8.5 g/dL [facility] ([place]) Albumin 3.5 3.5 - 5.0 g/dL [facility] ([place]) Alk phos 103 40 - 130 Units/L [facility] ([place]) ALT 115(H) 7 - 55 Units/L [facility] ([place]) AST 141(H) 10 - 50 Units/L [facility] ([place]) Blood 04/03/2025 6:29 AM CDT 04/03/2025 6:33 AM CDT Neli Salazar MD LAB BLOOD ORDERABLES Fi nal Result Performing Organization Address City/[facility] Co de Phone Number [facility] ([place]) 1 [facility] [place] [address] * (ABNORMAL) Reflex Hepatitis C RNA, Quantitative (04/02/2025 4:40 AM CDT) [facility] HCV RNA result Detected( A) [facility] Comment: The quantifiable range of this assay is 15 IU/mL to 100,000,000 IU/mL (1.18 log IU/mL to 8.00 log IU/mL). Testing was performed by the DAVIN 6800 HCV Test ([employer] Testing performed at [facility] Current Interpretive Data was last revised on 2021 Testing performed by: [facility], [address] [place] [address]., [id number] HCV RNA IU/mL 1,340,000 IUnits/mL PHIL MAYES ([place]) Comment:Testing performed by : [facility], [address] [place]., [address] HCV RNA log IU/mL 6.13 log IUnits/mL PHIL MAYES ([place]) Comment:Testing performed by : [facility], [address] [place] [address]., [id number] Blood 04/02/2025 4:40 AM CDT 04/03/2025 10:11 AM CDT Neli Salazar MD LAB BLOOD ORDERABLES Fi nal Result PHIL MAYES ([place]) 1 [facility] [place] [address] [facility] * eGFR (04/02/2025 4:40 AM CDT) [facility] eGFR >90 >=60 mL/min/1. 73 m2 Comment: [...] interpretive data was last reviewed 2021. Blood 04/02/2025 4:40 AM CDT 04/02/2025 5:17 AM CDT us Neli Salazar MD LAB BLOOD ORDERABLES nal Result [facility] ([place]) 1 [facility] [place] [address] * (ABNORMAL) Differential, auto (04/02/2025 4:40 AM CDT) Neutrophil abs 1.67 1.50 - 6.50 K/cumm Imm gran abs 0.01 0.00 - 0.10 K/cumm [facility] ([place]) Lymphocyte abs 0.57(L) 0.80 - 3.30 K/cumm [facility] ([place]) Monocyte abs 0.44 0.20 - 0.80 K/cumm [facility] ([place]) Eosinophil abs 0.63(H) 0.00 - 0.50 K/cumm [facility] ([place]) Basophil abs 0.02 0.00 - 0.10 K/cumm [facility] ([place]) Neutrophil pct 49.9 % [facility] ([place]) Comment: Interpretive Data Percent cell count reference ranges are not reported, since discordance with absolute values may lead to misinterpretation of CBC data. Current Interpretive Data was last revised on 2017. Imm gran pct 0.3 % [facility] ([place]) Comment: Interpretive Data Percent cell count reference ranges are not reported, since discordance with absolute values may lead to misinterpretation of CBC data. Current Interpretive Data was last revised on 2017. Lymphocyte pct 17.1 % [facility] ([place]) Comment: Interpretive Data Percent cell count reference ranges are not reported, since discordance with absolute values may lead to misinterpretation of CBC data. Current Interpretive Data was last revised on 2017. Monocyte pct 13.2 % PHIL MAYES ([place]) Comment: Interpretive Data Percent cell count reference ranges are not reported, since discordance with absolute values may lead to misinterpretation of CBC data. Current Interpretive Data was last revised on 2017. Eosinophil pct 18.9 % [facility] ([place]) Comment: Interpretive Data Percent cell count reference ranges are not reported, since discordance with absolute values may lead to misinterpretation of CBC data. Current Interpretive Data was last revised on 2017. Basophil pct 0.6 % PHIL MAYES ([place]) Comment: Interpretive Data Percent cell count reference ranges are not reported, since discordance with absolute values may lead to misinterpretation of CBC data. Current Interpretive Data was last revised on 2017. Blood 04/02/2025 4:40 AM CDT 04/02/2025 5:17 AM CDT us Neli Salazar MD LAB BLOOD ORDERABLES Fi nal Result PHIL MAYES ([place]) 1 [facility] Department of Laboratories [place], [place] [id number] * (ABNORMAL) CBC with auto differential (04/02/2025 4:40 AM CDT) WBC 3.34(L) 3.80 - 9.90 K/cumm Hgb 11.5(L) 13.0 - 17.5 g/dL PHIL MAYES ([place]) Hct 34.2(L) 38.9 - 50.3 % [facility] ([place]) Plt 218 150 - 400 K/cumm [facility] ([place]) MPV 9.4 9.1 - 12.3 fL [facility] ([place]) RBC 3.92(L) 4.30 - 5.80 M/cumm [facility] ([place]) MCV 87.2 81.3 - 96.4 fL [facility] ([place]) MCH 29.3 27.1 - 33.3 pg [facility] ([place]) MCHC 33.6 32.3 - 35.7 g/dL [facility] ([place]) RDW CV 13.5 11.1 - 14.9 % [facility] ([place]) RDW SD 42.7 35.7 - 48.1 fL [facility] ([place]) NRBC abs 0.00 0.00 - 0.01 K/cumm [facility] ([place]) Blood 04/02/2025 4:40 AM CDT 04/02/2025 5:17 AM CDT us Neli Salazar MD LAB BLOOD ORDERABLES Fi nal Result PHIL MAYES ([place]) 1 [facility] [place] [address] * (ABNORMAL) Hepatitis panel, acute Blood (04/02/2025 4:40 AM CDT) Hep A IgM Nonreactive Nonreactive Comment: Interpretive Data: If Hep A IgM Ab is reported as Equivocal, a new sample should be drawn in two weeks for testing. Current interpretive data was last revised on 19. Testing performed by: [facility], [address] [place] [address], [place]., [address] Hep B core IgM Nonreactive Nonreactive C SHERRELL MAYES ([place]) Comment: Interpretive Data If HepB Core IgM Ab is reported as Equivocal, a new sample should be drawn in two weeks for testing. Current interpretive data was last revised on 19. Testing performed by: [facility], [address] [place] [address], [place]., [address] Hep C Ab Reactive(A) Nonreactive PHIL MAYES ([place]) Comment: Critical Result Critical Result called to and read back by Sameer Rahman, DATE: 2025-04-02 12:28:26 BY: Pat Dominguez Critical result called to and read back by William Mckeon ([facility]) on 04/02/2025 12:35:17 CDT to Sameer Rahman. Interpretive Data Nonreactive: Antibodies to HCV not detected. Does NOT exclude the possibility of recent exposure to HCV. Equivocal: Equivocal for HCV antibodies. Supplemental molecular testing will be automatically performed to determine infection status in accordance with current CDC screening recommendations. Reactive: Positive for HCV antibodies. This may represent current or past HCV infection. Supplemental molecular testing will be automatically performed to determine current infection status in accordance with current CDC screening recommendations. Interpretive data was last revised on 2019. Testing performed by: [facility], [address] [place] [address]., [id number] HepBsAg Nonreactive Nonreactive PHIL MAYES ([place]) Comment:Testing performed by : [facility], [address] [place] [address]., [id number] Blood 04/02/2025 4:40 AM CDT 04/02/2025 11:00 AM CDT Neli Salazar MD LAB MICROBIOLOGY - GENE RAL ORDERABLES Edited Result - Final Performing Organization Address City/[facility]/ZIP Co de Phone Number PHIL GERBER ([place]) 1 [facility] [place] [address] * Magnesium (04/02/2025 4:40 AM CDT) Magnesium 1.9 1.4 - 2.5 mg/dL PHIL MAYES ([place]) Blood 04/02/2025 4:40 AM CDT 04/02/2025 5:17 AM CDT Neli Salazar MD LAB BLOOD ORDERABLES Fi nal Result MINYAHAIRA GERBER ([place]) 1 [facility] [place] [address] * (ABNORMAL) Comprehensive metabolic panel (04/02/2025 4:40 AM CDT) Sodium 139 135 - 145 mmol/L [facility] ([place]) Potassium, pl 3.7 3.3 - 4.9 mmol/L [facility] ([place]) Chloride 105 97 - 110 mmol/L [facility] ([place]) CO2 23 22 - 32 mmol/L [facility] ([place]) Anion gap 11 2 - 15 mmol/L [facility] ([place]) BUN 15 6 - 25 mg/dL [facility] ([place]) Creatinine 0.79(L) 0.80 - 1.30 mg/dL [facility] ([place]) Glucose 125 70 - 199 mg/dL [facility] ([place]) [...] 10.3 mg/dL [facility] ([place]) Bilirubin, total 0.3 0.1 - 1.2 mg/dL [facility] ([place]) Protein, pl 6.8 6.5 - 8.5 g/dL [facility] ([place]) Albumin 3.4(L) 3.5 - 5.0 g/dL [facility] ([place]) Alk phos 96 40 - 130 Units/L [facility] ([place]) ALT 115(H) 7 - 55 Units/L [facility] ([place]) AST 170(H) 10 - 50 Units/L [facility] ([place]) Blood 04/02/2025 4:40 AM CDT 04/02/2025 5:17 AM CDT Neli Salazar MD LAB BLOOD ORDERABLES Fi nal Result Performing Organization Address City/[facility]/ZIP Co de Phone Number PHIL MAYES ([place]) 1 [facility] [place] [address] * eGFR (04/01/2025 8:52 AM CDT) eGFR >90 >=60 mL/min/1. 73 m2 Comment: [...] interpretive data was last reviewed 2021. Blood 04/01/2025 8:52 AM CDT 04/01/2025 8:57 AM CDT us Emily Mccall MD LAB BLOOD ORDERABLES Final Re sult Performing Organization Address City/[facility]/ZIP Co de Phone Number PHIL MAYES ([place]) 1 [facility] [place] [address] * (ABNORMAL) Drugs of Abuse Screen, Urine without Confirmation (04/01/2025 8:52 AM CDT) Pathologist [facility] Amphetamine, ur Screen Positive, presumptive (A) CutOff 500ng/mL PHIL MAYES ([place]) Comment: Interpretive Data - Amphetamines: Samples containing [...] Data was last reviewed 2023. Fentanyl, Ur Screen Positive, presumptive (A) CutOff 5 ng/mL [facility] ([place]) Comment: [...] 2023. Opiates, ur Not Detected CutOff 300ng/mL PHIL MAYES ([place]) Comment: Interpretive Data - Opiates: Samples containing greater than 300 ng/mL morphine or other cross-reacting compounds are reported as positive. False positive and false negative results are possible. Confirmatory testing required for definitive results. Current Interpretive Data was last reviewed 2023. Oxycodone, ur NOT DETECTED CutOff 100ng/mL PHIL MAYES ([place]) Comment: Interpretive Data - Oxycodone: Samples containing greater than 100 ng/mL oxycodone or other cross-reacting compounds are reported as positive. False positive and false negative results are possible. Confirmatory testing required for definitive results. Current Interpretive Data was last reviewed 2023. Phencyclidine, ur Not Detected CutOff 25 ng/mL PHIL MAYES ([place]) Comment: Interpretive Data - Phencyclidine: Samples containing greater than 25 ng/mL phencyclidine or other cross-reacting compounds are reported as positive. False positive and false negative results are possible. Confirmatory testing required for definitive results. Current Interpretive Data was last reviewed 2023. Urine Creatinine 75 mg/dL MIN MAYES ([place]) Comment: Interpretive Data Urine Creatinine: < 10 mg/dL is extremely dilute = or > 10 but < 20 mg/dL is dilute = or > 20 mg/dL is normal Current Interpretive Data was last revised on 2017. Urine 04/01/2025 8:52 AM CDT 04/01/2025 8:58 AM CDT Narrative PHIL MAYES ([place]) - 04/01/2025 9:25 AM CDT Drug of Abuse screening is performed by immunoassay for medical purposes only. This is not to be used for Pain Management purposes. us Emily Mccall MD LAB URINE ORDERABLES Final Re sult PHIL MAYES ([place]) 1 [facility] [place] [address] * (ABNORMAL) CBC without differential (04/01/2025 8:52 AM CDT) WBC 3.48(L) 3.80 - 9.90 K/cumm Hgb 11.3(L) 13.0 - 17.5 g/dL [facility] ([place]) Hct 33.0(L) 38.9 - 50.3 % [facility] ([place]) Plt 225 150 - 400 K/cumm [facility] ([place]) MPV 9.1 9.1 - 12.3 fL [facility] ([place]) RBC 3.80(L) 4.30 - 5.80 M/cumm [facility] ([place]) MCV 86.8 81.3 - 96.4 fL [facility] ([place]) MCH 29.7 27.1 - 33.3 pg [facility] ([place]) MCHC 34.2 32.3 - 35.7 g/dL [facility] ([place]) RDW CV 13.5 11.1 - 14.9 % [facility] ([place]) RDW SD 43.0 35.7 - 48.1 fL [facility] NRBC abs 0.00 0.00 - 0.01 K/cumm [facility] Blood 04/01/2025 8:52 AM CDT 04/01/2025 8:57 AM CDT us Emily Mccall MD LAB BLOOD ORDERABLES Final Re sult [facility] ([place]) 1 [facility] [place] [address] * (ABNORMAL) Comprehensive metabolic panel (04/01/2025 8:52 AM CDT) Pathologist [facility] Sodium 138 135 - 145 mmol/L [facility] ([place] Potassium, pl 4.4 3.3 - 4.9 mmol/L [facility] ([place]) Chloride 103 97 - 110 mmol/L [facility] ([place]) CO2 27 22 - 32 mmol/L [facility]) Anion gap 8 2 - 15 mmol/L [facility] BUN 11 6 - 25 mg/dL [facility] Creatinine 0.83 0.80 - 1.30 mg/dL [facility] ([place]) Glucose 98 70 - 199 mg/dL [facility] ([place]) [...] 1.2 mg/dL [facility] ([place]) Protein, pl 7.4 6.5 - 8.5 g/dL [facility] ([place]) Albumin 3.7 3.5 - 5.0 g/dL [facility] ([place]) Alk phos 102 40 - 130 Units/L [facility] ([place]) ALT 113(H) 7 - 55 Units/L [facility] ([place]) AST 181(H) 10 - 50 Units/L [facility] ([place]) Comment:Hemolysis present. R esults may be affected. Blood 04/01/2025 8:52 AM CDT 04/01/2025 8:57 AM CDT Emily Mccall MD LAB BLOOD ORDERABLES Final Re sult [facility] ([place]) 1 [facility] Department of Laboratories [place], [place] [id number] * (ABNORMAL) Fentanyl Confirmation, Urine (03/31/2025 9:06 PM CDT) Fentanyl Conf, Ur Confirmed Positive(A) Cutoff 0.3ng/mL Comment:Testing performed by : [facility], 1 [facility], [place]., [address] Acetylfentanyl Conf, Ur Does Not Confirm Cutoff 1 ng/mL [facility] ([place]) Comment:Testing performed by : [facility], [address] [place]., [address] Acrylfentanyl Conf, Ur Does Not Confirm Cutoff 1 ng/mL [facility] ([place]) Comment:Testing performed by : [facility], [address] [place]., [address] Furanylfentanyl Conf, Ur Does Not Confirm Cutoff 1 ng/mL [facility] ([place]) Comment:Testing performed by : [facility], [address] [place]., [address] Fentanyl Metabolite (Norfentanyl) Conf, Ur Confirmed Positive(A) CutOff 5 ng/mL [facility] ([place]) Comment:Testing performed by : [facility], [address] [place]., [address] Xylazine MS Confirmed Positive(A) Cutoff 1 ng/mL [facility] ([place]) Comment: Interpretive Data This test detects the presence or absence of drug compounds using LC Tandem mass spectrometry and is not intended to assess compliance with prescribed medications. While this test is highly specific, false positive and false negative results may occur in very rare circumstances. Contact the laboratory for consultation, if needed. Performance characteristics were determined by the [facility] in a manner consistent with CLIA requirement and has not been cleared or approved by the U.S. Food and Drug Administration. Current interpretive data was last revised 2020. Testing performed by: [facility], [address] [place]., [address] Urine 03/31/2025 9:06 PM CDT 04/01/2025 12:02 PM CDT us Gianna PLASENCIA LAB URINE ORDERABLES Final Resu lt MINYAHAIRA MAYES ([place]) 1 [facility] [place] [place] [address] * (ABNORMAL) Drugs of Abuse Screen, Urine with Reflex Confirmation (03/31/2025 9:06 PM CDT) [facility] Amphetamine, ur Screen Positive, presumptive (A) CutOff 500ng/mL [facility] ([place]) Comment: Interpretive Data - Amphetamines: Samples containing [...] Data was last reviewed 2023. Fentanyl, Ur Screen Positive, presumptive (A) CutOff 5 ng/mL [facility] ([place]) Comment: Interpretive Data - Fentanyl: Samples containing greater than 5 ng/mL norfentanyl, fentanyl, or other cross-reacting fentanyl compounds are reported as positive. False positive and false negative results are possible. Confirmatory testing required for definitive results. Current Interpretive Data was last reviewed 2023. Methadone, ur Not Detected CutOff 300ng/mL PHIL MAYES ([place]) Comment: Interpretive Data - Methadone: Samples containing greater than 300 ng/mL d,l-methadone or other cross-reacting compounds are reported as positive. False positive and false negative results are possible. Confirmatory testing required for definitive results. Current Interpretive Data was last reviewed 2023. Opiates, ur Not Detected CutOff 300ng/mL PHIL MAYES ([place]) Comment: Interpretive Data - Opiates: Samples containing greater than 300 ng/mL morphine or other cross-reacting compounds are reported as positive. False positive and false negative results are possible. Confirmatory testing required for definitive results. Current Interpretive Data was last reviewed 2023. Oxycodone, ur NOT DETECTED CutOff 100ng/mL PHIL MAYES ([place]) Comment: Interpretive Data - Oxycodone: Samples containing greater than 100 ng/mL oxycodone or other cross-reacting compounds are reported as positive. False positive and false negative results are possible. Confirmatory testing required for definitive results. Current Interpretive Data was last reviewed 2023. Phencyclidine, ur Not Detected CutOff 25 ng/mL PHIL MAYES ([place]) Comment: Interpretive Data - Phencyclidine: Samples containing greater than 25 ng/mL phencyclidine or other cross-reacting compounds are reported as positive. False positive and false negative results are possible. Confirmatory testing required for definitive results. Current Interpretive Data was last reviewed 2023. Urine Creatinine 121 mg/dL MIN MAYES ([place]) Comment: Interpretive Data Urine Creatinine: < 10 mg/dL is extremely dilute = or > 10 but < 20 mg/dL is dilute = or > 20 mg/dL is normal Current Interpretive Data was last revised on 2017. Urine 03/31/2025 9:06 PM CDT 03/31/2025 9:10 PM CDT Narrative PHIL MAYES ([place]) - 03/31/2025 9:53 PM CDT Drug Screening is performed by immunoassay for medical purposes. If positive, confirmation testing will be performed for amphetamines, benzodiazepines, cocaine, fentanyl, methadone, opiates, oxycodone, and phencyclidine. Gianna PLASENCIA LAB URINE ORDERABLES Final Resu lt [facility] ([place]) [address] [place] [address] [place] [address] * (ABNORMAL) Amphetamine Confirmation, Urine (03/31/2025 9:06 PM CDT) Amphetamine Conf, Ur Confirmed Positive(A) CutOff 150ng/mL Comment:Testing performed by : [facility], [address] [place] [address], [id number] Methamphetamine Conf, Ur Confirmed Positive(A) CutOff 150ng/mL [facility] ([place]) Comment:Testing performed by : [facility], [address] [place] [address], [id number] MDA Conf, Ur Does Not Confirm CutOff 150ng/mL [facility] ([place]) Comment:Testing performed by : [facility], [address] [place] [address], [id number] MDMA Conf, Ur Does Not Confirm CutOff 50 ng/mL [facility] ([place]) Comment:Testing performed by : [facility], [address] [place] [address]., [id number] MDEA Conf, Ur Does Not Confirm CutOff 150ng/mL [facility] ([place]) Comment:Testing performed by : [facility], [address] [place] [address], [id number] MBDB Conf, Ur Does Not Confirm CutOff 150ng/mL [facility] ([place]) Comment: Interpretive Data This test detects the presence or absence of drug compounds using LC Tandem mass spectrometry. While this test is highly specific, false positive and false negative results may occur in very rare circumstances. Contact the laboratory for consultation, if needed. Performance characteristics were determined by the [facility] in a manner consistent with CLIA requirement and has not been cleared or approved by the U.S. Food and Drug Administration. Current interpretive data was last revised on 2020. Testing performed by: [facility], [address] [place]., [address] Urine 03/31/2025 9:06 PM CDT 04/01/2025 12:02 PM CDT us Gianna PLASENCIA LAB URINE ORDERABLES Final Resu lt [facility] ([place]) 1 [facility] [place] [address] from Last 3 Months Insurance IDND IDPA Advance Directives For more information, please contact: [phone] * Full Code (Latest Code Status on File) Date Activated Date Inactivated Comments 04/29/2025 1:07 AM 05/16/2025 1:28 PM * Full Code Date Activated Date Inactivated Comments 04/19/2025 10:39 PM 04/29/2025 12:26 AM * Full Code Date Activated Date Inactivated Comments 04/01/2025 10:41 AM 04/09/2025 11:08 PM * Full Code Date Activated Date Inactivated Comments 04/24/2024 8:10 PM 05/09/2024 11:00 PM Care Teams Picture Enlarger Relationship Specialty Start Date End Date No, Physician PCP - General 01/24/17 Miscellaneous, Not In File 05/09/24
--- OUTSIDE RECORDS SUMMARY | 2025-05-25 11:59 | XMS_ITS | Encounter Summary ---
Author Organization [facility] Healthcare Address [address] [place] [address] Care Team Providers Care Web Production Artist Name Role Phone No, Physician Primary Care Provider [phone] Miscellaneous, Not In File Unavailable Unava ilable Encounter Details Date Type Department Care Team (Late st Contact Info) Description 05/23/2025 Documentation [facility] Warm Hand Off Program [address] [place], [place] [phone] Evangelina Booker Social History Tobacco Use Types [...] declined 04/25/2024 How often do you attend judaism or mormon serv ices? Patient declined 04/25/2024 Do you belong to any clubs o r organizations such as judaism groups, unions, fraternal or athletic groups, or [...] any time in the past 12 [facility], were you homeless or living in a [...] often do you attend chur ch or mormon services? Never 05/01/2025 Do you belong to any clubs o r organizations such as judaism groups, unions, fraternal or athletic groups, or [...] health care facility (including now)? Yes 05/01/2025 [facility] Utilities Answer Date Recorded In the past 12 months has th e electric, gas, oil, or water Image Searcher threatened to shut off services in your home? No 05/01/2025 Personal Safety Answer Date Recorded Have you ever been in or are you currently in a harmful physical or emotional relationship or is someone making you feel afraid or unsafe? Denies 05/23/2025 Sex and Gender Information Value Date Recorded Sex Assigned at Not on file Legal Sex Male 3:03 AM DRIVER'S EDUCATION INSTRUCTOR Gender Identity Not on file Sexual Orientation Not on file documented as of this encounter Functional Status * Question Answer Date of Assessment Author MAP (mmHg) 79 05/23/2025 10:15 PM DRIVER'S EDUCATION INSTRUCTOR Monse Perez RN * Question Answer Date of Assessment Author Is the patient being treated today because it is known or suspected that they prepared, started, or tried to end their life? No 05/23/2025 5:44 PM DRIVER'S EDUCATION INSTRUCTOR Heydi Hernández , HOANG * Question Answer Date of Assessment Author 1. In the past month, have y ou wished you were or that you could go to sleep and not wake up? No 05/23/2025 5:44 PM Heydi Cam , RN 2. In the past month, have y ou actually had any thoughts of killing yourself? No 05/23/2025 5:44 PM Heydi Cam , HOANG 6. Have you ever done anythi ng, started to do anything, or prepared to do anything to end your life? No 05/23/2025 5:44 PM Heydi Cam RN * Suicide Risk Level Answer Date of Assessment Author No risk level 05/23/2025 5:44 PM DRIVER'S EDUCATION INSTRUCTOR Gisele Hernández RN * Fall Risk Assessment Tool - MEDFRAT Question Answer Date of Assessment Author Prior Fall Event (Autopopulated from EMR) None found 05/23/2025 5:48 PM DRIVER'S EDUCATION INSTRUCTOR Pippa Hernández RN History of falling in last 3 months, including since admission 0 05/23/2025 5:48 PM DRIVER'S EDUCATION INSTRUCTOR Heydi Hernández RN Confusion or disorientation 0 05/23/2025 5: 48 PM DRIVER'S EDUCATION INSTRUCTOR Heydi Hernández RN Intoxicated or sedated 0 05/23/2025 5:48 PM DRIVER'S EDUCATION INSTRUCTOR Heydi Hernández RN Impaired gait 0 05/23/2025 5:48 PM DRIVER'S EDUCATION INSTRUCTOR Heydi Rivers RN Mobility assist device used 0 05/23/2025 5: 48 PM Heydi Cam RN Altered elimination 0 05/23/2025 5:48 PM CS T Heydi Hernández RN Fall risk score: (1-2 low risk), (3-4 moderate risk), (5 or more high risk) 0 05/23/2025 5:48 PM DRIVER'S EDUCATION INSTRUCTOR Heydi Hernández RN documented as of this encounter Mental Status * Question Answer Entry Date Author Neuro (WDL) WDL 05/23/2025 6:39 PM DRIVER'S EDUCATION INSTRUCTOR Yuridia Plaza RN documented in this encounter Progress Notes * Evangelina Booker - 05/23/2025 11:59 PM CST 1613 - Rec'd call from Pt's community peer worker through [facility] (Gemma), who was on a 3-way call w/Pt who was still admitted to [facility]. Per Gemma & Pt, [facility] staff are concerned that Pt has been vomiting and unable to participate in groups. Spoke to [facility] staff who statethat they will need to send Pt to [facility] ED for medical clearance prior to accepting him back. Implored [facility] staff to transfer Pt to [facility] or [facility], as he receives all of his care through [facility]. Informed [facility] staff member that Pt has established infectious disease providers through [facility] if he requires admission, it would be most beneficial for him to be at [facility]. Informed [facility] staff that [facility] is not familiar w/Pt and does not offer significant specialty care for infectious disease, do not see a large aggregate of patients w/HIV. [facility] staff report that they are unable to transport Pt to [facility] or [facility]. Pt's community peer stated that she is not authorized to transport patients and there are no other available [facility] peers that are able to provide transportation. Per [facility] staff, Pt will be considered a discharge if transferred to [facility] or [facility] and will need to go through the entire [facility] admission process prior to be accepting back. I requested [facility] call 911 for an EMS transfer with specific patient choice location of transfer to [facility] or [facility]. 1644 - Informed [facility] ED staff that Pt may be brought by ambulance from [facility] for medical clearance. 2007 - Spoke to ED community midwifeclerk [place] who reports that Pt had arrived by ambulance and labs have beendrawn - Liu is provider. 2035 - Spoke to Liu, informed him of need of medical clearance prior to transfer back to [facility]. Requested COVID, FluA, FluB, RSV swab for rule out, requested CBC & CMP to rule out any electrolyte abnormalities, etc. 2232 - Spoke to Liu a subsequent time who states all swabs are negative and all labs are baselinefor Pt, none concerning for any acute medical reason for admission, would like to discharge back tofacility. Pt had one episode of emesis and stated it may be r/t constipation. Magnesium citrate ordered. Informed Liu and Charles that [facility] would not be able to accept Pt back at such a late hour, butI would be in by 729 tomorrow to retreive Pt to initiate admission back to [facility]. Requested that Pt remain boarding in ED until my arrival in am. Liu agreeable, Charles & nursing staff aware. Willfollow up w/Pt and [facility] in am. ER'S EDUCATION INSTRUCTOR documented in this encounter Plan of Treatment Not on file documented as of this encounter Visit Diagnoses Not on filedocumented in this encounter Additional Health Concerns Infection Onset Date Last Indicated Resolved Time COVID: Suspected 05/23/2025 05/23/2025 05/23/2025 10:24 PM DRIVER'S EDUCATION INSTRUCTOR documented as of this encounter Care Teams Web Production Artist Relationship Specialty Start Date End Date No, Physician PCP - General 01/24/17 Miscellaneous, Not In File 05/09/24 documented as of this encounter
[2025-05-25] MEDS: METOCLOPRAMIDE HCL INJ 10 MG/2 ML VIAL IM (12:26)
--- NOTE | 2025-05-25 13:07 | ED_ITS ---
HPI - Nausea/Vomiting/Diarrhea General Chief complaint: Nausea/Vomiting/Diarrhea Stated complaint: Severe constipation-N/V Time Seen by Provider: 05/25/25 12:07 History of Present Illness HPI Narrative: Patient with h/o narcotic use disorder last been in rehab, trialed course of Suboxone now completely off everything for the past 3 days, presents here with vague nausea and constipation. Seen at outside hospital yesterday for the same and given script for MiraLax and magnesium citrate, however unable to tolerate the magnesium citrate. Related Data Allergies Allergy/AdvReac Type Severity Reaction Status Date / Time No Known Allergies Allergy Verified 05/25/25 11:55 Review of Systems Review of Systems: All systems reviewed & are unremarkable except as noted in HPI and below Exam Narrative: EXAMINATION OF ORGAN SYSTEMS/BODY AREAS: Constitutional: Vital signs per nursing GENERAL:[No acute distress, non-toxic appearing.] HEAD: Normal with no signs of head trauma. EYES: EOMI, conjunctiva normal ENT: Hearing grossly intact LUNGS: Nonlabored breathing. HEART: [Regular rate and rhythm] ABD: [Soft], [nontender to palpation] EXT: Normal range of motion SKIN: [No rashes or lesions.] NEURO: [Alert and oriented x 3. No gross focal sensory or strength deficits.] PSYCH: Normal affect Course Vital Signs Vital signs: Vital Signs Temperature 97.4 F L 05/25/25 11:58 Pulse Rate 80 05/25/25 11:58 Respiratory Rate 18 05/25/25 11:58 Blood Pressure 118/79 05/25/25 11:58 Pulse Oximetry 100 05/25/25 11:58 Oxygen Delivery Room Air 05/25/25 11:58 Temperature 97.4 F L 05/25/25 11:58 Pulse Rate 80 05/25/25 11:58 Respiratory Rate 18 05/25/25 11:58 Blood Pressure 118/79 05/25/25 11:58 Pulse Oximetry 100 05/25/25 11:58 Oxygen Delivery Room Air 05/25/25 11:58 MDM - Nausea/Vomiting/Diarrhea MDM Narrative Medical decision making narrative: Patient with h/o narcotic use disorder last been in rehab, trialed course of Suboxone now completely off everything for the past 3 days, presents here with vague nausea and constipation. Seen at outside hospital yesterday for the same and given script for MiraLax and magnesium citrate, however unable to tolerate the magnesium citrate. I was able to review his chart from the outside hospital visit yesterday, including his negative/normal CT abdomen/pelvis, and labs. He has been off narcotics for days at this time, abdomen soft nontender, and symptoms are not new or changed from yesterday so I do not feel repeat workup is necessary. He could not tolerate the magnesium citrate but was fine with the MiraLax so I will give him an extra dose of the MiraLax to twice a and change the Zofran to Reglan to provide nausea control without increasing constipation. Return precautions provided. Patient agreeable to plan and comfortable with outpatient management Discharge Plan Discharge Clinical Impression: Constipation Patient Disposition: Home Condition: Stable Instructions: Constipation (ED) Additional Instructions: Please follow up with your doctor; you can always return for any further issues. You can try the medications as prescribed, make sure to drink plenty of water. Patient Language: Scottish Prescriptions: New polyethylene glycol 3350 [Miralax] 17 gram/dose powder 17 g PO BID PRN (Reason: constipation) Qty: 238 0RF metoclopramide HCl [Reglan] 10 mg tablet 10 mg PO Q6H PRN (Reason: nausea and vomiting) Qty: 20 0RF No Action azithromycin 500 mg tablet 1,000 mg PO ONCE 1 Days Qty: 2 0RF Rx Instructions: treatment for gonorrhea/chlamydia metronidazole 500 mg tablet 2,000 mg PO ONCE Qty: 4 0RF Rx Instructions: No alcohol for 3 days. Treatment for trich Follow-up/Referrals: Jonnie Graham MD [Physician, Family Practice] - 2 Days UNKNOWN,DOCTOR [Primary Care Provider]
== END 2025-05-25 12:55 | disposition home or self-care (01) ==
PROVIDERS: Emergency Provider Emergency Medicine
DX: K59.00 Constipation, unspecified (principal)
CPT/HCPCS: 96372; 99283; J2765